=== PATIENT | male | born 1960 | race Two or more races ===

== ENCOUNTER 2019-10-24 19:25 | Inpatient (IN) | payer OTHER ==
[2019-10-24] MEDS ORDERED: SODIUM CHLORIDE 0.9% 1,000 ML IV STA ×2 (19:51)
[2019-10-24] MEDS ORDERED: PANTOPRAZOLE 40 MG/10 ML VIAL IVP STA (19:51)
--- NOTE | 2019-10-24 20:07 | ED ---
General Adult HPI - General Source: patient, RN notes reviewed, old records reviewed Mode of arrival: ambulatory Limitations: no limitations <Gale Wilder - Last Filed: 10/24/19 22:48> <Ronen Chan - Last Filed: 11/08/19 07:27> - General Chief complaint: Recheck/Abnormal Lab/Rx Stated complaint: liver issues Time Seen by Provider: 10/24/19 19:35 - History of Present Illness Initial comments: Patient's a 59-year-old male who presents emergency department today for evaluation for jaundice. Patient has been a daily drinker and states that he drinks approximately 10 mixed drinks daily for the past 2 years. Patient reports he quit drinking one week ago. He denies any abdominal pain at this time. He reports that he's noticed progressive jaundice and yellowing of his skin for the past few weeks. His encouraged him come to the emergency department today. (Gale Wilder) - Related Data Allergies Allergy/AdvReac Type Severity Reaction Status Date / Time No Known Allergies Allergy Verified 10/24/19 23:04 Review of Systems ROS Other: All systems not noted in ROS Statement are negative. <TinaGale - Last Filed: 10/24/19 22:48> ROS Other: All systems not noted in ROS Statement are negative. <Ronen Chan - Last Filed: 11/08/19 07:27> ROS Statement: Those systems with pertinent positive or pertinent negative responses have been documented in the HPI. Past Medical History Past Medical History: No Reported History History of Any Multi-Drug Resistant Organisms: None Reported Past Surgical History: No Surgical Hx Reported Past Psychological History: No Psychological Hx Reported Smoking Status: Never smoker Past Alcohol Use History: Abuse, Daily Past Drug Use History: None Reported <TinaGale - Last Filed: 10/24/19 22:48> General Exam Limitations: no limitations General appearance: alert, in no apparent distress, other Head exam: Present: atraumatic, normocephalic, normal inspection Eye exam: Present: normal appearance, PERRL, EOMI, scleral icterus. Absent: conjunctival injection, periorbital swelling ENT exam: Present: normal exam, mucous membranes moist Neck exam: Present: normal inspection. Absent: tenderness, meningismus, lymphadenopathy Respiratory exam: Present: normal lung sounds bilaterally. Absent: respiratory distress, wheezes, rales, rhonchi, stridor Cardiovascular Exam: Present: regular rate, normal rhythm, normal heart sounds. Absent: systolic murmur, diastolic murmur, rubs, gallop, clicks GI/Abdominal exam: Present: soft, normal bowel sounds. Absent: distended, tenderness, guarding, rebound, rigid Extremities exam: Present: normal inspection, full ROM, normal capillary refill. Absent: tenderness, pedal edema, joint swelling, calf tenderness Back exam: Present: normal inspection Neurological exam: Present: alert, oriented X3, CN II-XII intact Psychiatric exam: Present: normal affect, normal mood Skin exam: Present: warm, dry, intact, normal color. Absent: rash <Gale Wilder - Last Filed: 10/24/19 22:48> - General Exam Comments Initial Comments: 59-year-old male. Alert and oriented. Clearly jaundice. (Gale Wilder) Course Vital Signs 10/24/19 10/24/19 10/24/19 19:28 20:10 22:20 Temperature 99 F Pulse Rate 90 87 85 Respiratory 18 18 16 Rate Blood Pressure 151/73 151/73 146/85 O2 Sat by Pulse 100 100 98 Oximetry 10/25/19 05:00 Temperature 99.2 F Pulse Rate 80 Respiratory 18 Rate Blood Pressure 139/68 O2 Sat by Pulse 99 Oximetry Medical Decision Making - Lab Data Result diagrams: 10/24/19 20:12 10/24/19 20:12 - Radiology Data Radiology results: report reviewed <Gale Wilder - Last Filed: 10/24/19 22:48> - Lab Data Result diagrams: 10/27/19 10:54 10/29/19 07:15 <Ronen Chan - Last Filed: 11/08/19 07:27> - Medical Decision Making 59-year-old male presents emergency department today for worsening jaundice. History of heavy alcohol abuse 10 drinks a day. He stopped drinking this past week. Patient is clinically jaundiced. Elevated bilirubin of 21. Patient does have a low potassium of 3.0. Was given oral supplementation. Patient was started on IV banana bag as well. Discussed the case with Dr. Chan and will be admitted with GI consult. (Gale Wilder) I saw this patient in conjunction with the physician assistant manager trainee. I performed independent history and physical exam. Agree with case management. (Ronen Chan) - Lab Data Lab Results 10/24/19 10/24/19 10/24/19 Range/Units 20:12 20:12 20:12 WBC 12.0 H (3.8-10.6) k/uL RBC 3.16 L (4.30-5.90) m/uL Hgb 11.7 L (13.0-17.5) gm/dL Hct 34.8 L (39.0-53.0) % MCV 109.9 H (80.0-100.0) fL MCH 36.8 H (25.0-35.0) pg MCHC 33.5 (31.0-37.0) g/dL RDW 14.9 (11.5-15.5) % Plt Count 334 (150-450) k/uL Neutrophils % 78 % Lymphocytes % 11 % Monocytes % 6 % Eosinophils % 3 % Basophils % 1 % Neutrophils # 9.3 H (1.3-7.7) k/uL Lymphocytes # 1.3 (1.0-4.8) k/uL Monocytes # 0.7 (0-1.0) k/uL Eosinophils # 0.4 (0-0.7) k/uL Basophils # 0.1 (0-0.2) k/uL Manual Slide Review Performed Poikilocytosis (manual Present Macrocytosis Marked A PT 17.0 H (9.0-12.0) sec INR 1.7 H (<1.2) APTT 27.1 (22.0-30.0) sec Sodium 129 L (137-145) mmol/L Potassium 3.0 L (3.5-5.1) mmol/L Chloride 95 L (98-107) mmol/L Carbon Dioxide 21 L (22-30) mmol/L Anion Gap 13 mmol/L BUN 18 (9-20) mg/dL Creatinine 0.93 (0.66-1.25) mg/dL Est GFR (CKD-EPI)AfAm >90 (>60 ml/min/1.73 sqM) Est GFR (CKD-EPI)NonAf 89 (>60 ml/min/1.73 sqM) Glucose 118 H (74-99) mg/dL Calcium 8.1 L (8.4-10.2) mg/dL Total Bilirubin 21.1 H* (0.2-1.3) mg/dL AST 218 H (17-59) U/L ALT 65 H (4-49) U/L Alkaline Phosphatase 315 H (38-126) U/L Total Protein 8.3 H (6.3-8.2) g/dL Albumin 3.1 L (3.5-5.0) g/dL Amylase 61 (30-110) U/L Lipase 341 H (23-300) U/L Urine Color Urine Appearance (Clear) Urine pH (5.0-8.0) Ur Specific [place] (1.001-1.035) Urine Protein (Negative) Urine Glucose (UA) (Negative) Urine Ketones (Negative) Urine Blood (Negative) Urine Nitrite (Negative) Urine Bilirubin (Negative) Urine Urobilinogen (<2.0) mg/dL Ur Leukocyte Esterase (Negative) Urine RBC (0-5) /hpf Urine WBC (0-5) /hpf Ur Squamous Epith Cells (0-4) /hpf Amorphous Sediment (None) /hpf Urine Bacteria (None) /hpf Hyaline Casts (0-2) /lpf Granular Casts (0) /lpf Urine Mucus (None) /hpf Serum Alcohol <10 mg/dL Hepatitis A IgM Ab (Non-Reactive) Hep Bs Antigen (Non-Reactive) Hep B Core IgM Ab (Non-Reactive) Hep C IgG Ab (Non-Reactive) 10/24/19 10/24/19 Range/Units 20:12 21:45 WBC (3.8-10.6) k/uL RBC (4.30-5.90) m/uL Hgb (13.0-17.5) gm/dL Hct (39.0-53.0) % MCV (80.0-100.0) fL MCH (25.0-35.0) pg MCHC (31.0-37.0) g/dL RDW (11.5-15.5) % Plt Count (150-450) k/uL Neutrophils % % Lymphocytes % % Monocytes % % Eosinophils % % Basophils % % Neutrophils # (1.3-7.7) k/uL Lymphocytes # (1.0-4.8) k/uL Monocytes # (0-1.0) k/uL Eosinophils # (0-0.7) k/uL Basophils # (0-0.2) k/uL Manual Slide Review Poikilocytosis (manual Macrocytosis PT (9.0-12.0) sec INR (<1.2) APTT (22.0-30.0) sec Sodium (137-145) mmol/L Potassium (3.5-5.1) mmol/L Chloride (98-107) mmol/L Carbon Dioxide (22-30) mmol/L Anion Gap mmol/L BUN (9-20) mg/dL Creatinine (0.66-1.25) mg/dL Est GFR (CKD-EPI)AfAm (>60 ml/min/1.73 sqM) Est GFR (CKD-EPI)NonAf (>60 ml/min/1.73 sqM) Glucose (74-99) mg/dL Calcium (8.4-10.2) mg/dL Total Bilirubin (0.2-1.3) mg/dL AST (17-59) U/L ALT (4-49) U/L Alkaline Phosphatase (38-126) U/L Total Protein (6.3-8.2) g/dL Albumin (3.5-5.0) g/dL Amylase (30-110) U/L Lipase (23-300) U/L Urine Color Dark Brown Urine Appearance Cloudy (Clear) Urine pH 6.0 (5.0-8.0) Ur Specific [place] 1.017 (1.001-1.035) Urine Protein Trace H (Negative) Urine Glucose (UA) Negative (Negative) Urine Ketones Negative (Negative) Urine Blood Negative (Negative) Urine Nitrite Negative (Negative) Urine Bilirubin 4+ H (Negative) Urine Urobilinogen 4.0 (<2.0) mg/dL Ur Leukocyte Esterase Trace H (Negative) Urine RBC <1 (0-5) /hpf Urine WBC 2 (0-5) /hpf Ur Squamous Epith Cells <1 (0-4) /hpf Amorphous Sediment Rare H (None) /hpf Urine Bacteria Occasional H (None) /hpf Hyaline Casts 8 H (0-2) /lpf Granular Casts 4 (0) /lpf Urine Mucus Few H (None) /hpf Serum Alcohol mg/dL Hepatitis A IgM Ab Non-Reactive (Non-Reactive) Hep Bs Antigen Non-Reactive (Non-Reactive) Hep B Core IgM Ab Non-Reactive (Non-Reactive) Hep C IgG Ab Non-Reactive (Non-Reactive) 10/24/19 22:48 EKG performed at 2017 shows normal sinus rhythm anterior septal infarct age undetermined. Prolonged QT. Ventricular rate of 86 bpm. [place] interval is 186 ms. QRS duration is 84 ms. QT QTc is 424/507 ms. (Gale Wilder) - Radiology Data Nose suspicious acute infiltrate. Overall nonspecific but favor nonobstructive bowel gas pattern. Ultrasound shows cirrhosis with small amount of perihepatic ascites. (Gale Wilder) Disposition Is patient prescribed a controlled substance at d/c from ED?: No Time of Disposition: 22:52 <Gale Wilder - Last Filed: 10/24/19 22:48> <Ronen Chan - Last Filed: 11/08/19 07:27> Clinical Impression: Jaundice, ETOH abuse Disposition: ADMITTED IP TO THIS HOSP Condition: Stable
[2019-10-24 20:50] LABS: Basophils # (A) 0.1 k/uL (0-0.2); Basophils % (A) 1 %; Eosinophils # (A) 0.4 k/uL (0-0.7); Eosinophils % (A) 3 %; HCT 34.8 % (39.0-53.0); HGB 11.7 gm/dL (13.0-17.5); Lymphocytes # (A) 1.3 k/uL (1.0-4.8); Lymphocytes % (A) 11 %; MCH 36.8 pg (25.0-35.0); MCHC 33.5 g/dL (31.0-37.0); MCV 109.9 fL (80.0-100.0); Macrocytosis Marked; Mean Platelet Volume 8.3; Monocytes # (A) 0.7 k/uL (0-1.0); Monocytes % (A) 6 %; Neutrophils # (A) 9.3 k/uL (1.3-7.7); Neutrophils % (A) 78 %; Platelet Count 334 k/uL (150-450); RBC 3.16 m/uL (4.30-5.90); RDW 14.9 % (11.5-15.5)
--- NOTE | 2019-10-24 20:53 | XR ---
EXAMINATION TYPE: XR chest 2V DATE OF EXAM: 10/24/2019 COMPARISON: NONE HISTORY: Cough and jaundice. TECHNIQUE: Frontal and lateral views of the chest are obtained. FINDINGS: There is suspected some chronic reticulonodular changes bilaterally without concerning foc al air space opacity, pleural effusion, or pneumothorax seen. Somewhat low lung volumes are present. The cardiac silhouette size is within normal limits. The osseous structures are intact. IMPRESSION: No suspicious acute infiltrate.
--- NOTE | 2019-10-24 20:54 | XR ---
EXAMINATION TYPE: XR KUB DATE OF EXAM: 10/24/2019 8:26 PM CLINICAL HISTORY: History of alcoholism with jaundice and pain. TECHNIQUE: Two Upright KUB images of the abdomen are obtained. COMPARISON: None. FINDINGS: Scattered gas is seen in non-distended stomach and visualized small bowel loops. Some pauci ty of small bowel gas noted. Gas and fecal material is seen in non-distended colon. Right-sided pelvi c phleboliths. No pneumoperitoneum. Visualized osseous structures are intact. IMPRESSION: Overall nonspecific but favored nonobstructive bowel gas pattern.
[2019-10-24 20:57] LABS: ALT 65 U/L (4-49); AST 218 U/L (17-59); African American GFR (CKD) >90 (>60 ml/min/1.73 sqM); Albumin 3.1 g/dL (3.5-5.0); Alcohol <10 mg/dL; Alkaline Phosphatase 315 U/L (38-126); Amylase 61 U/L (30-110); Anion Gap 13 mmol/L; Blood Urea Nitrogen 18 mg/dL (9-20); Calcium 8.1 mg/dL (8.4-10.2); Carbon Dioxide 21 mmol/L (22-30); Chloride 95 mmol/L (98-107); Glucose 118 mg/dL (74-99); Non-African American GFR(CKD) 89 (>60 ml/min/1.73 sqM); Sodium 129 mmol/L (137-145); Total Protein 8.3 g/dL (6.3-8.2)
[2019-10-24 21:01] LABS: INR 1.7 (<1.2); Partial Thromboplastin Time 27.1 sec (22.0-30.0)
[2019-10-24 21:15] LABS: Total Bilirubin 21.1 mg/dL (0.2-1.3)
[2019-10-24 21:25] LABS: Poikilocytosis (M) Present
--- NOTE | 2019-10-24 21:37 | US ---
EXAMINATION TYPE: US gallbladder DATE OF EXAM: 10/24/2019 COMPARISON: NONE CLINICAL HISTORY: cough, jaundice. Cough, Jaundice. EXAM MEASUREMENTS: Liver Length: 20.6 cm Gallbladder Wall: 0.41 cm CBD: Not visualized Right Kidney: 12.0 x 4.8 x 4.9 cm Pancreas: Limited. Liver: Appears enlarged. Appears coarse/heterogeneous and has an increased echogenicity. Gallbladder: Appears partially contracted. There appears to be echogenic material within the gallbla dder measurin.1 x 0.8 x 0.5 cm. Wall appears thickened. Evidence for sonographic Perea's sign: No Right Kidney: Measures upper limits of normal. Visualized pancreas is heterogeneous, significant portions not well seen on images saved secondary to patient's body habitus. Visualized liver is heterogeneously hyperechoic with lobulated peripheral ma rgin and adjacent ascites. Finding presumed product of underlying cirrhosis. No intrahepatic ductal d ilatation. Evaluation for focal masses suboptimal due to the heterogeneity. Gallbladder contracted wi thout shadowing mobile gallstones. Mild abnormal gallbladder wall thickening likely product of underl gorge liver disease. Limited images right kidney show no gross hydronephrosis. IMPRESSION: Cirrhosis with small amount of perihepatic ascites.
[2019-10-24 22:23] LABS: Amorphous Sediment,Urine Rare /hpf; Appearance,Urine Cloudy (Clear); Bacteria,Urine Occasional /hpf; Bilirubin,Urine 4+ (Negative); Blood,Urine Negative (Negative); Color,Urine Dark Brown; Glucose,Urine (UA) Negative (Negative); Granular Casts,Urine 4 /lpf (0); Hyaline Casts,Urine 8 /lpf (0-2); Ketones,Urine Negative (Negative); Leukocyte Esterase,Urine Trace (Negative); Mucus,Urine Few /hpf; Nitrite,Urine Negative (Negative); Protein,Urine Trace (Negative); RBC,Urine <1 /hpf (0-5); Specific Gravity,Urine 1.017 (1.001-1.035); Squamous Epithelial Cell,Urine <1 /hpf (0-4); WBC,Urine 2 /hpf (0-5)
[2019-10-24] MEDS: 0.9% NACL WITH KCL 20 MEQ/L 1,000 ML with MVI, ADULT NO.4 WITH VIT K 10 ML, THIAMINE 10... IV SCH ×4 (22:30)
[2019-10-24] MEDS ORDERED: POTASSIUM CHLORIDE ER 20 MEQ TAB.ER PO STA (22:40)
[2019-10-24] MEDS ORDERED: NALOXONE 0.4 MG/ML 1 ML VIAL IV PRN (22:52)
[2019-10-24] MEDS ORDERED: IBUPROFEN 400 MG TAB PO PRN (22:52)
[2019-10-24] MEDS ORDERED: KETOROLAC 30 MG/ML 1 ML VIAL IVP PRN (22:52)
[2019-10-24] MEDS ORDERED: MORPHINE SULFATE 4 MG/ML SYRINGE IV PRN (22:52)
[2019-10-24] MEDS: SODIUM CHLORIDE 0.9% 1,000 ML IV SCH (23:16)
[2019-10-25] MEDS ORDERED: PANTOPRAZOLE 40 MG/10 ML VIAL IV SCH (09:00)
[2019-10-25] MEDS: SODIUM CHLORIDE 0.9% 1,000 ML IV SCH ×2 (09:50→22:03)
[2019-10-25] MEDS: LACTULOSE 20 GM/30 ML CUP PO SCH ×3 (10:41→22:12)
--- NOTE | 2019-10-25 13:09 | P.HPIM ---
History of Present Illness This is a pleasant 59 years old male with no significant past medical history. Presents because of jaundice for 2 weeks, however patient denies abdominal pain or nausea vomiting or change in bowel habits. No fever. Patient is drinking alcohol about 10 drinks per day millivolts, patient claims that last drink was about one week ago, he denies smoking or illicit drugs Vitals stable, WBC 12 K, hemoglobin 11.7, platelets 334, INR 1.7, sodium 129, creatinine 0.9. Bilirubin is 21, AST 218, ALT 65. Lipase mildly elevated at 341. UA is suspicious of infection, alcohol level less than 10.. EKG showed normal sinus rhythm at [address]-T changes, chest x-ray: No acute processes per radiologist. Gallbladder ultrasound: Cirrhosis with minimal perihepatic ascites and emergency room patient was started on normal saline at 100 mL per hour, lactulose 30 g 3 times a day, tramadol and ibuprofen and Protonix. GI team was consulted from emergency room Review of Systems CONSTITUTIONAL: No fever, no malaise, no fatigue. HEENT: No recent visual problems or hearing problems. Denied any sore throat. CARDIOVASCULAR: No orthopnea, PND, no palpitations, no syncope. PULMONARY: No shortness of breath, no cough, no hemoptysis. GASTROINTESTINAL: No diarrhea, no nausea, no vomiting, no abdominal pain. Normoactive bowel sounds. NEUROLOGICAL: No headaches, no weakness, no numbness. HEMATOLOGICAL: Denies any bleeding or petechiae. GENITOURINARY: Denies any burning micturition, frequency, or urgency. MUSCULOSKELETAL/RHEUMATOLOGICAL: Denies any joint pain, swelling, or any muscle pain. ENDOCRINE: Denies any polyuria or polydipsia. Past Medical History Past Medical History: No Reported History History of Any Multi-Drug Resistant Organisms: None Reported Past Surgical History: No Surgical Hx Reported Additional Past Anesthesia/Blood Transfusion Reaction / Comment(s): no previous Past Psychological History: No Psychological Hx Reported Smoking Status: Never smoker Past Alcohol Use History: Abuse, Daily Additional Past Alcohol Use History / Comment(s): patients last drink was a week ago. vodka 10 drinks a day Past Drug Use History: None Reported - Past Family History Mother Family Medical History: No Reported History Father Family Medical History: No Reported History Medications and Allergies Home Medications Medication Instructions Recorded Confirmed Type No Known Home Medications 10/24/19 10/24/19 History Allergies Allergy/AdvReac Type Severity Reaction Status Date / Time No Known Allergies Allergy Verified 10/24/19 23:04 Physical Exam Vitals: Vital Signs Temp Pulse Pulse Resp BP BP Pulse Ox 10/25/19 07:38 97.5 F L 78 18 124/67 100 10/25/19 05:00 99.2 F 80 18 139/68 99 10/24/19 22:20 85 16 146/85 98 10/24/19 20:10 87 18 151/73 100 10/24/19 19:28 99 F 90 18 151/73 100 Intake and Output 10/24/19 10/25/19 10/25/19 22:59 06:59 14:59 Other: Weight 90.718 kg 90.718 kg GENERAL: The patient is alert and oriented x3, not in any acute distress. Well developed, well nourished. HEENT: Pupils are round and equally reacting to light. EOMI. No scleral icterus. No conjunctival pallor. Normocephalic, atraumatic. No pharyngeal erythema. No thyromegaly. CARDIOVASCULAR: S1 and S2 present. No murmurs, rubs, or gallops. PULMONARY: Chest is clear to auscultation, no wheezing or crackles. ABDOMEN: Soft, nontender, nondistended, normoactive bowel sounds. No palpable organomegaly. MUSCULOSKELETAL: No joint swelling or deformity. EXTREMITIES: No cyanosis, clubbing, or pedal edema. NEUROLOGICAL: Gross neurological examination did not reveal any focal deficits. SKIN: No rashes. No petechiae Results CBC & Chem 7: 10/24/19 20:12 10/24/19 20:12 Labs: Abnormal Lab Results - Last 24 Hours (Table) 10/24/19 10/24/19 10/24/19 Range/Units 20:12 20:12 20:12 WBC 12.0 H (3.8-10.6) k/uL RBC 3.16 L (4.30-5.90) m/uL Hgb 11.7 L (13.0-17.5) gm/dL Hct 34.8 L (39.0-53.0) % MCV 109.9 H (80.0-100.0) fL MCH 36.8 H (25.0-35.0) pg Neutrophils # 9.3 H (1.3-7.7) k/uL Macrocytosis Marked A PT 17.0 H (9.0-12.0) sec INR 1.7 H (<1.2) Sodium 129 L (137-145) mmol/L Potassium 3.0 L (3.5-5.1) mmol/L Chloride 95 L (98-107) mmol/L Carbon Dioxide 21 L (22-30) mmol/L Glucose 118 H (74-99) mg/dL Calcium 8.1 L (8.4-10.2) mg/dL Total Bilirubin 21.1 H* (0.2-1.3) mg/dL AST 218 H (17-59) U/L ALT 65 H (4-49) U/L Alkaline Phosphatase 315 H (38-126) U/L Ammonia (<30) umol/L Total Protein 8.3 H (6.3-8.2) g/dL Albumin 3.1 L (3.5-5.0) g/dL Lipase 341 H (23-300) U/L Urine Protein (Negative) Urine Bilirubin (Negative) Ur Leukocyte Esterase (Negative) Amorphous Sediment (None) /hpf Urine Bacteria (None) /hpf Hyaline Casts (0-2) /lpf Urine Mucus (None) /hpf 10/24/19 10/25/19 Range/Units 21:45 09:01 WBC (3.8-10.6) k/uL RBC (4.30-5.90) m/uL Hgb (13.0-17.5) gm/dL Hct (39.0-53.0) % MCV (80.0-100.0) fL MCH (25.0-35.0) pg Neutrophils # (1.3-7.7) k/uL Macrocytosis PT (9.0-12.0) sec INR (<1.2) Sodium (137-145) mmol/L Potassium (3.5-5.1) mmol/L Chloride (98-107) mmol/L Carbon Dioxide (22-30) mmol/L Glucose (74-99) mg/dL Calcium (8.4-10.2) mg/dL Total Bilirubin (0.2-1.3) mg/dL AST (17-59) U/L ALT (4-49) U/L Alkaline Phosphatase (38-126) U/L Ammonia 85 H (<30) umol/L Total Protein (6.3-8.2) g/dL Albumin (3.5-5.0) g/dL Lipase (23-300) U/L Urine Protein Trace H (Negative) Urine Bilirubin 4+ H (Negative) Ur Leukocyte Esterase Trace H (Negative) Amorphous Sediment Rare H (None) /hpf Urine Bacteria Occasional H (None) /hpf Hyaline Casts 8 H (0-2) /lpf Urine Mucus Few H (None) /hpf Thrombosis Risk Factor Assmnt - Choose All That Apply Any of the Below Risk Factors Present?: No Other Risk Factors: Yes Each Risk Factor Represents 2 Points: Age 61-74 years Other congenital or acquired thrombophilia - If yes, enter type in comment: No Thrombosis Risk Factor Assessment Total Risk Factor Score: 2 Thrombosis Risk Factor Assessment Level: Low Risk Assessment and Plan Assessment: Significantly elevated bilirubin with jaundice Alcohol abuse Leukocytosis, mild. Mostly reactive to light Mild tricuspid he with INR 1.7, mostly related to his liver disease. Elevated ammonia level of 85 Plan: This is a pleasant 59 years old male who presents with significant jaundice, alcohol abuse. Continue with IV fluid with gentle hydration, follow-up recommendation by wardrobe specialist continue with CIWA protocol and thiamine ( patient is on banana bag ) Labs and medication were reviewed.. Continue same treatment. Continue with symptomatic treatment. Resume home medication. Monitor lytes and vitals. DVT and GI prophylaxis. Further recommendations of the clinical course of the patient DVT prophylaxis: Subcutaneous heparin GI Prophylaxis: Pepcid PT/OT: Pending Prognosis is guarded
[2019-10-25] MEDS: 0.9% NACL WITH KCL 20 MEQ/L 1,000 ML with MVI, ADULT NO.4 WITH VIT K 10 ML, THIAMINE 10... IV SCH ×4 (15:54)
[2019-10-25 16:32] LABS: Alpha Fetoprotein, Tumor Mkr 2.8 ng/mL (0.0-7.9)
[2019-10-25 18:23] LABS: Ferritin 1286.6 ng/mL (22.0-322.0)
[2019-10-25 18:24] LABS: % Iron Saturation 51.95 (15.00-50.00)
[2019-10-25 18:34] LABS: Hepatitis A Antibody IgM Non-Reactive (Non-Reactive); Hepatitis B Core IgM Non-Reactive (Non-Reactive); Hepatitis B Surface Antigen Non-Reactive (Non-Reactive); Hepatitis C IgG Antibody Non-Reactive (Non-Reactive)
[2019-10-25] MEDS ORDERED: FAMOTIDINE 20 MG/2 ML VIAL IV SCH (21:00)
[2019-10-25] MEDS ORDERED: Magnesium Replacement Protocol 1 EACH MISC MISCELLANE PRN (21:58)
[2019-10-25] MEDS ORDERED: Potassium Replacement Protocol 1 EACH MISC MISCELLANE PRN (21:58)
[2019-10-25] MEDS: FAMOTIDINE 20 MG TAB PO SCH (22:08)
[2019-10-25] MEDS: HEPARIN SODIUM,PORCINE 5,000 UNIT/ML 1 ML VIAL SQ SCH (22:09)
--- NOTE | 2019-10-25 23:58 | CONS ---
CONSULTATION DATE OF SERVICE: 10/25/2019 REQUESTING PHYSICIAN: Dr. Razo REASON FOR CONSULTATION: Elevated LFTs and jaundice. HISTORY OF PRESENT ILLNESS: The patient is a 59-year-old pleasant male with heavy alcohol abuse, admitted to the hospital because of jaundice for the last 2 weeks duration. He denies any abdominal pain. Reports no nausea, vomiting. Reports no significant change in bowel habits. He apparently drinks heavy. He has been drinking heavily and drinks about 10 drinks a day for the last 30 years. He quit drinking about a week ago and came in the emergency room, was noted to have a bilirubin of 21 with AST of 218 and ALT of 65. The patient is somewhat lethargic at the present time. His is at the bedside who provided most of the history. The patient denies any history of chronic liver disease in the past. PAST MEDICAL HISTORY: Past medical history is significant for heavy alcohol abuse. MEDICATIONS: At home none. ALLERGIES: No known drug allergies. SOCIAL HISTORY: Heavy alcohol use as mentioned above. No smoking. FAMILY HISTORY: Unremarkable. REVIEW OF SYSTEMS: Cardiopulmonary no chest pain, shortness of breath. Genitourinary: No dysuria or hematuria. MUSCULOSKELETAL unremarkable. SKIN unremarkable. ENDOCRINE unremarkable. PSYCHIATRIC unremarkable. NEUROLOGY unremarkable. ENT/vision unremarkable. CONSTITUTIONAL: No recent weight loss. No fever, chills or night sweats. PHYSICAL EXAMINATION: Blood pressure 130/66, pulse rate 75, temperature 97.3. HEENT examination unremarkable. Conjunctivae pink. Sclerae deeply icteric. Oral cavity no lesions. NECK: No JVD or lymph node enlargement. CHEST: Clear to auscultation. HEART: Regular rate and rhythm. ABDOMEN: Soft, slightly distended, but there was no organomegaly. No free fluid noted. EXTREMITIES: No pedal edema. SKIN no rashes. NEUROLOGIC: Alert and oriented x3. No focal deficits. LABS: WBC 12, hemoglobin 11.7, platelets normal, MCV 109. INR is 1.7, T-bilirubin is 21, AST 218, ALT 65, alkaline phosphatase 318. Ammonia level is 85. AFP is 2.8. Serum alcohol less than 10. IMPRESSION: 1. This is a patient with heavy alcohol abuse, admitted to the hospital with painless jaundice for the last 2 weeks duration and liver enzymes consistent which showed elevated AST more than ALT and bilirubin up to 21, all consistent with acute alcoholic hepatitis/chronic liver disease superimposed on liver cirrhosis. 2. Coagulopathy secondary to underlying liver disease. 3. Hyponatremia. 4. Microcytic anemia. RECOMMENDATIONS: 1. Ultrasound results showed cirrhosis and a small amount of ascites and contracted gallbladder. 2. I had a discussion with the patient as well as his who is at the bedside regarding acute alcoholic hepatitis natural progression and about the guarded prognosis. 3. Abstinence from alcohol. 4. Obtain hepatitis viral serologies for A, B and C. 5. Start him on lactulose for hepatic encephalopathy. 6. Repeat labs in the morning and we will follow with you closely. Thank you for this consultation. MMODL / IJN: [id number] /
[2019-10-26] MEDS: LACTULOSE 20 GM/30 ML CUP PO SCH ×4 (08:19→22:21)
[2019-10-26] MEDS: HEPARIN SODIUM,PORCINE 5,000 UNIT/ML 1 ML VIAL SQ SCH ×2 (08:19→22:23)
[2019-10-26] MEDS: FAMOTIDINE 20 MG TAB PO SCH ×2 (08:19→22:23)
[2019-10-26 10:00] LABS: Basophils # (A) 0.1 k/uL (0-0.2); Basophils % (A) 1 %; Eosinophils # (A) 0.3 k/uL (0-0.7); Eosinophils % (A) 3 %; HCT 36.7 % (39.0-53.0); Lymphocytes # (A) 1.4 k/uL (1.0-4.8); Lymphocytes % (A) 14 %; MCH 37.1 pg (25.0-35.0); MCHC 32.7 g/dL (31.0-37.0); MCV 113.5 fL (80.0-100.0); Macrocytosis Marked; Mean Platelet Volume 8.4; Monocytes # (A) 0.5 k/uL (0-1.0); Monocytes % (A) 4 %; Neutrophils # (A) 7.8 k/uL (1.3-7.7); Neutrophils % (A) 76 %; Platelet Count 344 k/uL (150-450); RBC 3.23 m/uL (4.30-5.90); RDW 14.8 % (11.5-15.5); WBC 10.3 k/uL (3.8-10.6)
--- NOTE | 2019-10-26 10:07 | P.PN ---
Subjective This is a pleasant 59 years old male with no significant past medical history. Presents because of jaundice for 2 weeks, however patient denies abdominal pain or nausea vomiting or change in bowel habits. No fever. Patient is drinking alcohol about 10 drinks per day millivolts, patient claims that last drink was about one week ago, he denies smoking or illicit drugs Vitals stable, WBC 12 K, hemoglobin 11.7, platelets 334, INR 1.7, sodium 129, creatinine 0.9. Bilirubin is 21, AST 218, ALT 65. Lipase mildly elevated at 341. UA is suspicious of infection, alcohol level less than 10.. EKG showed normal sinus rhythm at [address]-T changes, chest x-ray: No acute processes per radiologist. Gallbladder ultrasound: Cirrhosis with minimal perihepatic ascites and emergency room patient was started on normal saline at 100 mL per hour, lactulose 30 g 3 times a day, tramadol and ibuprofen and Protonix. GI team was consulted from emergency room 10/26/2019 Patient is awake and alert, no dyspnea or chest pain, no abdominal pain, no vomiting, tolerating that well, no dysuria, no issues with his bowel as per patient. No dizziness or weakness. No blurred vision or other complaint. Patient is afebrile and vitals are stable. No signs of alcohol withdrawal Labs from today are still pending GI team been consulted and workup has been requested including serology test, please see orders So far patient has negative hepatitis panel, alpha-fetoprotein within reference range Review of systems CONSTITUTIONAL: No fever, no malaise, no fatigue. HEENT: No recent visual problems or hearing problems. Denied any sore throat. CARDIOVASCULAR: No orthopnea, PND, no palpitations, no syncope. PULMONARY: No shortness of breath, no cough, no hemoptysis. GASTROINTESTINAL: No diarrhea, no nausea, no vomiting, no abdominal pain. Normoactive bowel sounds. NEUROLOGICAL: No headaches, no weakness, no numbness. HEMATOLOGICAL: Denies any bleeding or petechiae. GENITOURINARY: Denies any burning micturition, frequency, or urgency. MUSCULOSKELETAL/RHEUMATOLOGICAL: Denies any joint pain, swelling, or any muscle pain. ENDOCRINE: Denies any polyuria or polydipsia. Active Medications Generic Name Dose Route Start Last Admin Trade Name Freq PRN Reason Stop Dose Admin Famotidine 20 mg 10/25/19 21:00 10/26/19 08:19 Pepcid PO 20 mg Q12HR [place] Administration Heparin Sodium (Porcine) 5,000 unit 10/25/19 21:00 10/26/19 08:19 Heparin SQ 5,000 unit Q12HR [place] Administration Sodium Chloride 1,000 mls @ 50 mls/hr 10/24/19 23:00 10/25/19 22:03 Saline 0.9% IV 50 mls/hr .Q20H [place] Administration Ibuprofen 400 mg 10/24/19 22:52 Motrin PO Q6HR PRN Mild Pain or Fever > 100.5 Ketorolac Tromethamine 30 mg 10/24/19 22:52 Toradol IVP 10/29/19 22:53 Q6HR PRN Moderate Pain Lactulose 30 gm 10/25/19 09:45 10/26/19 08:21 Cephulac PO 20 gm TID [place] Administration Miscellaneous Information 1 each 10/25/19 21:58 Potassium Per Protocol MISCELLANE DAILY PRN Per Protocol Protocol Miscellaneous Information 1 each 10/25/19 21:58 Magnesium Per Protocol MISCELLANE DAILY PRN Per Protocol Protocol Morphine Sulfate 4 mg 10/24/19 22:52 Morphine Sulfate (Inj) IV Q4HR PRN Severe Pain Naloxone HCl 0.2 mg 10/24/19 22:52 Narcan IV Q2M PRN Opioid Reversal Objective - Vital Signs Vital signs: Vital Signs Temp 97.8 F 10/26/19 05:00 Pulse 79 10/26/19 05:00 Resp 18 10/26/19 08:00 BP 143/73 10/26/19 05:00 Pulse Ox 100 10/26/19 05:00 Intake & Output 10/25/19 10/26/19 10/26/19 18:59 06:59 18:59 Intake Total 500 850 Balance 500 850 Intake: Intake, IV Titration 500 Amount Sodium Chloride 0.9% 1, 500 000 ml @ 50 mls/hr IV . Q20H [place] Rx#:[id number] Oral 850 Other: Voiding Method Toilet # Voids 1 2 # Bowel Movements 0 - Exam GENERAL: The patient is alert and oriented x3, not in any acute distress. Well developed, well nourished. HEENT: Pupils are round and equally reacting to light. EOMI. No scleral icterus. No conjunctival pallor. Normocephalic, atraumatic. No pharyngeal erythema. No thyromegaly. CARDIOVASCULAR: S1 and S2 present. No murmurs, rubs, or gallops. PULMONARY: Chest is clear to auscultation, no wheezing or crackles. ABDOMEN: Soft, nontender, nondistended, normoactive bowel sounds. No palpable organomegaly. MUSCULOSKELETAL: No joint swelling or deformity. EXTREMITIES: No cyanosis, clubbing, or pedal edema. NEUROLOGICAL: Gross neurological examination did not reveal any focal deficits. SKIN: No rashes. No petechiae - Labs CBC & Chem 7: 10/24/19 20:12 10/24/19 20:12 Labs: Abnormal Lab Results - Last 24 Hours (Table) 10/25/19 Range/Units 09:01 TIBC 154 L (228-460) ug/dL % Saturation 51.95 H (15.00-50.00) Ferritin 1286.6 H (22.0-322.0) ng/mL Assessment and Plan Assessment: Significantly elevated bilirubin with jaundice Alcohol abuse Leukocytosis, mild. Mostly reactive Mild coagulopathy with INR 1.7, mostly related to his liver disease. Elevated ammonia level of 85 Plan: This is a pleasant 59 years old male who presents with significant jaundice, alcohol abuse. Continue with IV fluid with gentle hydration, follow-up recommendation by lab director continue with CIWA protocol and thiamine ( patient is on banana bag ) Labs and medication were reviewed.. Continue same treatment. Continue with symptomatic treatment. Resume home medication. Monitor lytes and vitals. DVT and GI prophylaxis. Further recommendations of the clinical course of the patient DVT prophylaxis: Subcutaneous heparin GI Prophylaxis: Pepcid PT/OT: Pending Prognosis is guarded
[2019-10-26 10:52] LABS: ALT 62 U/L (4-49); AST 240 U/L (17-59); African American GFR (CKD) >90 (>60 ml/min/1.73 sqM); Albumin 2.9 g/dL (3.5-5.0); Alkaline Phosphatase 305 U/L (38-126); Anion Gap 13 mmol/L; Blood Urea Nitrogen 14 mg/dL (9-20); Calcium 8.2 mg/dL (8.4-10.2); Carbon Dioxide 18 mmol/L (22-30); Chloride 105 mmol/L (98-107); Glucose 149 mg/dL (74-99); Magnesium 2.1 mg/dL (1.6-2.3); Non-African American GFR(CKD) >90 (>60 ml/min/1.73 sqM); Sodium 136 mmol/L (137-145); Total Protein 7.8 g/dL (6.3-8.2)
[2019-10-26 11:10] LABS: Total Bilirubin 20.4 mg/dL (0.2-1.3)
[2019-10-26] MEDS ORDERED: Potassium Replacement Protocol 1 EACH MISC MISCELLANE PRN (11:57)
[2019-10-26 12:11] LABS: Ceruloplasmin 20.8 mg/dL (20.0-60.0)
[2019-10-26] MEDS: POTASSIUM CHLORIDE ER 20 MEQ TAB.ER PO SCH ×3 (12:14→22:23)
[2019-10-26 12:15] LABS: Target Cells Present
[2019-10-26 12:50] LABS: Liver/Kidney Microsome Antibod 1.1 UNITS (<=20)
[2019-10-26] MEDS: FUROSEMIDE 20 MG TAB PO SCH (16:29)
[2019-10-26] MEDS: SODIUM CHLORIDE 0.9% 1,000 ML IV SCH (16:30)
--- NOTE | 2019-10-26 22:06 | PN ---
PROGRESS NOTE DATE OF SERVICE: 10/26/2019 The patient is a 59-year-old pleasant white male admitted to the hospital with acute alcoholic hepatitis/alcoholic cirrhosis of the liver. He was also noted to have mild hepatic encephalopathy, was started on lactulose yesterday and is feeling much better today. He is much more alert and oriented today. He denies any symptoms. PHYSICAL EXAMINATION: Appears comfortable, no apparent distress. Vital signs stable. Blood pressure is 158/77, pulse rate 92, temperature 97.7. HEENT: Examination unremarkable, conjunctivae are pink, sclerae icteric. Oral cavity no lesions. NECK: No JVD or lymph node enlargement. CHEST: Clear to auscultation. HEART: Regular rate and rhythm. ABDOMEN is slightly distended, but was nontender. EXTREMITIES: No pedal edema. Skin no rashes. NEUROLOGICAL: Alert and oriented x3. No focal deficits. LABS: WBC 10.3, hemoglobin 12, platelets normal, MCV 113, T-bilirubin is down to 20.4, AST 240, ALT 62, alkaline phosphatase 208. Ammonia level improved 246. Hepatitis serologies for A, B and C are negative. IMPRESSION: 1. Alcoholic hepatitis with alcoholic cirrhosis of the liver. 2. Decompensated liver disease. 3. Coagulopathy secondary to advanced liver disease. 4. Mild ascites. 5. Hepatic encephalopathy, improving. 6. History of heavy alcohol abuse which he quit drinking a month ago. RECOMMENDATIONS: 1. Continue with current medications. 2. Abstinence from alcohol. 3. Repeat labs in the morning. 4. Advance diet as tolerated. 5. We will follow with you closely. Thank you for this consultation. MMODL / IJN: [id number] /
[2019-10-27] MEDS: POTASSIUM CHLORIDE ER 20 MEQ TAB.ER PO SCH ×2 (08:37→21:02)
[2019-10-27] MEDS: HEPARIN SODIUM,PORCINE 5,000 UNIT/ML 1 ML VIAL SQ SCH (08:37)
[2019-10-27] MEDS: LACTULOSE 20 GM/30 ML CUP PO SCH ×3 (08:37→21:02)
[2019-10-27] MEDS: FUROSEMIDE 20 MG TAB PO SCH ×2 (08:37→15:27)
[2019-10-27] MEDS: FAMOTIDINE 20 MG TAB PO SCH ×2 (08:37→21:02)
[2019-10-27 11:11] LABS: Basophils # (A) 0.1 k/uL (0-0.2); Basophils % (A) 1 %; Eosinophils # (A) 0.3 k/uL (0-0.7); Eosinophils % (A) 3 %; HCT 36.6 % (39.0-53.0); HGB 11.9 gm/dL (13.0-17.5); Lymphocytes # (A) 1.4 k/uL (1.0-4.8); Lymphocytes % (A) 12 %; MCH 36.9 pg (25.0-35.0); MCHC 32.6 g/dL (31.0-37.0); MCV 113.3 fL (80.0-100.0); Macrocytosis Marked; Mean Platelet Volume 8.3; Monocytes # (A) 0.5 k/uL (0-1.0); Monocytes % (A) 4 %; Neutrophils # (A) 8.8 k/uL (1.3-7.7); Neutrophils % (A) 77 %; Platelet Count 382 k/uL (150-450); RBC 3.23 m/uL (4.30-5.90); RDW 14.6 % (11.5-15.5); WBC 11.3 k/uL (3.8-10.6)
[2019-10-27 11:25] LABS: INR 1.6 (<1.2); Prothrombin Time 16.1 sec (9.0-12.0)
[2019-10-27 11:43] LABS: ALT 68 U/L (4-49); AST 263 U/L (17-59); African American GFR (CKD) >90 (>60 ml/min/1.73 sqM); Albumin 2.9 g/dL (3.5-5.0); Alkaline Phosphatase 279 U/L (38-126); Anion Gap 13 mmol/L; Blood Urea Nitrogen 15 mg/dL (9-20); Calcium 8.3 mg/dL (8.4-10.2); Carbon Dioxide 18 mmol/L (22-30); Chloride 105 mmol/L (98-107); Glucose 137 mg/dL (74-99); Non-African American GFR(CKD) >90 (>60 ml/min/1.73 sqM); Potassium 3.1 mmol/L (3.5-5.1); Sodium 136 mmol/L (137-145); Total Protein 8.1 g/dL (6.3-8.2)
[2019-10-27 11:50] LABS: Poikilocytosis (M) Present; Rouleaux Present; Target Cells Present; Toxic Granulation Present
[2019-10-27 11:57] LABS: Total Bilirubin 21.5 mg/dL (0.2-1.3)
[2019-10-27] MEDS: SODIUM CHLORIDE 0.9% 1,000 ML IV SCH (13:50)
--- NOTE | 2019-10-27 17:21 | P.PN ---
Subjective 59 years old male with no significant past medical history. Presents because of jaundice for 2 weeks, however patient denies abdominal pain or nausea vomiting or change in bowel habits. No fever. Patient is drinking alcohol about 10 drinks per day millivolts, patient claims that last drink was about one week ago, he denies smoking or illicit drugs Vitals stable, WBC 12 K, hemoglobin 11.7, platelets 334, INR 1.7, sodium 129, creatinine 0.9. Bilirubin is 21, AST 218, ALT 65. Lipase mildly elevated at 341. UA is suspicious of infection, alcohol level less than 10.. EKG showed normal sinus rhythm at [address]-T changes, chest x-ray: No acute processes per radiologist. Gallbladder ultrasound: Cirrhosis with minimal perihepatic ascites and emergency room patient was started on normal saline at 100 mL per hour, lactulose 30 g 3 times a day, tramadol and ibuprofen and Protonix. GI team was consulted from emergency room 10/26/2019 Patient is awake and alert, no dyspnea or chest pain, no abdominal pain, no vomiting, tolerating that well, no dysuria, no issues with his bowel as per patient. No dizziness or weakness. No blurred vision or other complaint. Patient is afebrile and vitals are stable. No signs of alcohol withdrawal Labs from today are still pending GI team been consulted and workup has been requested including serology test, please see orders So far patient has negative hepatitis panel, alpha-fetoprotein within reference range 10/27/2019 Patient does have cirrhosis does have significant ascites clinically IV fluids will be discussed and patient will be switched IV Lasix as well as all Aldactone repeat ammonia level along with basic metabolic profile tomorrow patient has obstructive jaundice secondary to cirrhosis as well as a acute alcoholic hepatitis patient last drink was more than a week ago. Constitutional: Denied any fatigue denied any fever. Cardio vascular: denied any chest pain, palpitations Gastrointestinal denied any nausea vomiting Pulmonary: Denied any shortness of breath cough Neurologic denied any new focal deficits All inpatient medications were reviewed and appropriate changes in these medications as dictated in the interval history and assessment and plan. Objective - Vital Signs Vital signs: Vital Signs Temp 98.6 F 10/27/19 14:42 Pulse 83 10/27/19 14:42 Resp 17 10/27/19 15:21 BP 161/78 10/27/19 14:42 Pulse Ox 100 10/27/19 14:42 Intake & Output 10/26/19 10/27/19 10/27/19 18:59 06:59 18:59 Intake Total 540 540 Balance 540 540 Intake: Oral 540 540 Other: Voiding Method Toilet Toilet Toilet # Voids 1 3 # Bowel Movements 2 2 - Exam PHYSICAL EXAMINATION: GENERAL: The patient is alert and oriented x3, not in any acute distress. Well developed, well nourished. Patient has jaundice diffuse HEENT: Pupils are round and equally reacting to light. EOMI. does have significant scleral icterus. No conjunctival pallor. Normocephalic, atraumatic. No pharyngeal erythema. No thyromegaly. CARDIOVASCULAR: S1 and S2 present. No murmurs, rubs, or gallops. PULMONARY: Chest is clear to auscultation, no wheezing or crackles. ABDOMEN: Distended with fluid, clinically appears to have significant ascites and possible splenomegaly normoactive bowel sounds. No palpable organomegaly. MUSCULOSKELETAL: No joint swelling or deformity. EXTREMITIES: No cyanosis, clubbing, mild bilateral pedal edema NEUROLOGICAL: Gross neurological examination did not reveal any focal deficits. SKIN: No rashes. - Labs CBC & Chem 7: 10/27/19 10:54 10/27/19 10:54 Labs: Abnormal Lab Results - Last 24 Hours (Table) 10/27/19 10/27/19 10/27/19 Range/Units 10:54 10:54 10:54 WBC 11.3 H (3.8-10.6) k/uL RBC 3.23 L (4.30-5.90) m/uL Hgb 11.9 L (13.0-17.5) gm/dL Hct 36.6 L (39.0-53.0) % MCV 113.3 H (80.0-100.0) fL MCH 36.9 H (25.0-35.0) pg Neutrophils # 8.8 H (1.3-7.7) k/uL Macrocytosis Marked A PT 16.1 H (9.0-12.0) sec INR 1.6 H (<1.2) Sodium 136 L (137-145) mmol/L Potassium 3.1 L (3.5-5.1) mmol/L Carbon Dioxide 18 L (22-30) mmol/L Glucose 137 H (74-99) mg/dL Calcium 8.3 L (8.4-10.2) mg/dL Total Bilirubin 21.5 H* (0.2-1.3) mg/dL AST 263 H (17-59) U/L ALT 68 H (4-49) U/L Alkaline Phosphatase 279 H (38-126) U/L Albumin 2.9 L (3.5-5.0) g/dL Assessment and Plan Plan: -Hepatic encephalopathy improving at this time continue with the lactulose -Alcoholic cirrhosis with acute alcoholic hepatitis competent bilirubin remains the same patient does have significant obstructive jaundice. Patient will be started on IV Lasix along with Aldactone IV fluids will be discontinued -Hypervolemic hyponatremia, continue with IV Lasix IV fluids will be di scontinued -Coagulopathy secondary to liver disease -All call abuse history: Counseling was provided -GI prophylaxis. We'll continue with Pepcid patient will not require any DVT prophylaxis as patient's INR is 1.6
[2019-10-27] MEDS: SPIRONOLACTONE 25 MG TAB PO SCH (17:44)
[2019-10-27] MEDS: FUROSEMIDE 10 MG/ML 2 ML VIAL IV SCH (21:02)
--- NOTE | 2019-10-28 00:02 | PN ---
PROGRESS NOTE DATE OF SERVICE: 10/27/2019 Patient is a 59-year-old male admitted to hospital with acute alcoholic hepatitis superimposed on alcohol cirrhosis of the liver and hepatic encephalopathy. He is gradually improving. He denies any symptoms today. He reports no abdominal pain. No nausea, vomiting. He is more awake and alert on lactulose. The ammonia has improved. Quit drinking about 2 weeks ago. PHYSICAL EXAMINATION: Appears comfortable in no apparent distress. Vital signs stable. Blood pressure is 161/78, pulse rate is 83, temperature 98.6. HEENT: Conjunctivae pink. Sclerae deeply icteric. Oral cavity no lesions. NECK: No JVD or lymph node enlargement. CHEST: Clear to auscultation. ABDOMEN: Soft, slightly distended. Bowel sounds are positive. No organomegaly. EXTREMITIES: No pedal edema. SKIN no rashes. NEUROLOGIC: Alert and oriented times three. No focal deficits. LABS: WBC 11.3, hemoglobin 11.9, platelets normal. Bilirubin is 21.6, AST 263, ALT 68, alk phos 273. Hepatitis serology for A, B and C negative. Alpha-fetoprotein is 2.8. IMPRESSION: 1. Acute alcoholic hepatitis superimposed on alcoholic cirrhosis of the liver with decompensated liver disease. 2. Hepatic encephalopathy, improved. 3. Heavy alcohol abuse, quit drinking a week ago. 4. Coagulopathy secondary to advanced liver disease. RECOMMENDATIONS: 1. Continue with symptomatic and supportive care. 2. Continue lactulose. 3. Monitor labs on a p.r.n. basis. 4. Abstinence from alcohol. 5. We will follow the patient closely with you. MMODL / IJN: [id number] /
[2019-10-28] MEDS: FAMOTIDINE 20 MG TAB PO SCH ×2 (09:42→22:37)
[2019-10-28] MEDS: POTASSIUM CHLORIDE ER 20 MEQ TAB.ER PO SCH ×2 (09:42→22:37)
[2019-10-28] MEDS: SPIRONOLACTONE 25 MG TAB PO SCH (09:42)
[2019-10-28] MEDS: SODIUM CHLORIDE 0.9% 1,000 ML IV SCH (09:42)
[2019-10-28] MEDS: LACTULOSE 20 GM/30 ML CUP PO SCH ×3 (09:42→22:38)
[2019-10-28] MEDS: FUROSEMIDE 10 MG/ML 2 ML VIAL IV SCH ×2 (09:42→22:37)
[2019-10-28 10:50] LABS: ALT 66 U/L (4-49); AST 244 U/L (17-59); African American GFR (CKD) >90 (>60 ml/min/1.73 sqM); Albumin 2.5 g/dL (3.5-5.0); Alkaline Phosphatase 241 U/L (38-126); Anion Gap 11 mmol/L; Blood Urea Nitrogen 14 mg/dL (9-20); Calcium 8.2 mg/dL (8.4-10.2); Carbon Dioxide 17 mmol/L (22-30); Chloride 107 mmol/L (98-107); Glucose 103 mg/dL (74-99); Non-African American GFR(CKD) >90 (>60 ml/min/1.73 sqM); Potassium 3.1 mmol/L (3.5-5.1); Sodium 135 mmol/L (137-145); Total Protein 7.2 g/dL (6.3-8.2)
[2019-10-28 10:58] LABS: Total Bilirubin 19.1 mg/dL (0.2-1.3)
--- NOTE | 2019-10-28 11:45 | US ---
EXAMINATION TYPE: US abdomen limited DATE OF EXAM: 10/28/2019 COMPARISON: US 10/24/19 CLINICAL HISTORY: evaulate for ascites for paracentesis. TECHNIQUE/FINDINGS: Targeted ultrasound was performed for evaluation of ascites only. Grayscale imagi ng was performed of the abdomen. Moderate amount of ascites seen. Largest pocket RUQ IMPRESSION: Moderate amount of abdominal ascites seen at the largest pocket in the right upper quadra nt.
--- NOTE | 2019-10-28 14:11 | US ---
Ultrasound-guided paracentesis. DATE OF EXAM: 10/28/2019 CLINICAL HISTORY: Ascites The procedure was discussed with the patient. The risks, complications, benefits, and alternatives we re discussed and any questions were answered. Informed consent was obtained. The patient was placed s upine on the ultrasound table and prepped and draped in the usual sterile fashion. All elements of maximal barrier technique were utilized. Under ultrasound guidance, access into the right lower quadrant was obtained, via the paracentesis catheter system and direct ultrasound guidanc e. Approximately 3.4 liters of straw-colored fluid was removed. Sample sent to pathology for analysis. T he patient was stable throughout the procedure and remained stable upon discharge from Department of Radiology. IMPRESSION: Successful paracentesis under ultrasound guidance.
--- NOTE | 2019-10-28 16:07 | P.PN ---
Subjective Progress Note Date: 10/28/19 Principal diagnosis: 59 years old male with no significant past medical history. Presents because of jaundice for 2 weeks, however patient denies abdominal pain or nausea vomiting or change in bowel habits. No fever. Patient is drinking alcohol about 10 drinks per day millivolts, patient claims that last drink was about one week ago, he denies smoking or illicit drugs Vitals stable, WBC 12 K, hemoglobin 11.7, platelets 334, INR 1.7, sodium 129, creatinine 0.9. Bilirubin is 21, AST 218, ALT 65. Lipase mildly elevated at 341. UA is suspicious of infection, alcohol level less than 10.. EKG showed normal sinus rhythm at [address]-T changes, chest x-ray: No acute processes per radiologist. Gallbladder ultrasound: Cirrhosis with minimal perihepatic ascites and emergency room patient was started on normal saline at 100 mL per hour, lactulose 30 g 3 times a day, tramadol and ibuprofen and Protonix. GI team was consulted from emergency room 10/26/2019 Patient is awake and alert, no dyspnea or chest pain, no abdominal pain, no vomiting, tolerating that well, no dysuria, no issues with his bowel as per patient. No dizziness or weakness. No blurred vision or other complaint. Patient is afebrile and vitals are stable. No signs of alcohol withdrawal Labs from today are still pending GI team been consulted and workup has been requested including serology test, please see orders So far patient has negative hepatitis panel, alpha-fetoprotein within reference range 10/27/2019 Patient does have cirrhosis does have significant ascites clinically IV fluids will be discussed and patient will be switched IV Lasix as well as all Aldactone repeat ammonia level along with basic metabolic profile tomorrow patient has obstructive jaundice secondary to cirrhosis as well as a acute alcoholic hepatitis patient last drink was more than a week ago. Constitutional: Denied any fatigue denied any fever. Cardio vascular: denied any chest pain, palpitations Gastrointestinal denied any nausea vomiting Pulmonary: Denied any shortness of breath cough Neurologic denied any new focal deficits 10/28/2019 Patient underwent abdominal ultrasound and awaiting paracentesis. Patient underwent paracentesis with removal of approximately 3.4 L of fluid removed. GI is following. Bilirubin remains elevated although is slightly improved at 19.1 today. Ammonia has increased and is 73 today. Potassium continues to be low today at 3.1 and will be replaced. Will repeat a.m. labs. Objective - Vital Signs Vital signs: Vital Signs Temp 98.6 F 10/28/19 15:13 Pulse 87 10/28/19 15:13 Resp 16 10/28/19 15:13 BP 150/73 10/28/19 15:13 Pulse Ox 100 10/28/19 15:13 Intake & Output 10/27/19 10/28/19 10/28/19 18:59 06:59 18:59 Intake Total 1080 300 Balance 1080 300 Intake: Oral 1080 300 Other: Voiding Method Toilet Toilet # Voids 2 1 2 # Bowel Movements 2 - Exam GENERAL: The patient is alert and oriented x3, not in any acute distress. Well developed, well nourished. Patient has jaundice diffuse HEENT: Pupils are round and equally reacting to light. EOMI. does have significant scleral icterus. No conjunctival pallor. Normocephalic, atraumatic. No pharyngeal erythema. No thyromegaly. CARDIOVASCULAR: S1 and S2 present. No murmurs, rubs, or gallops. PULMONARY: Chest is clear to auscultation, no wheezing or crackles. ABDOMEN: Distended with fluid, clinically appears to have significant ascites and possible splenomegaly normoactive bowel sounds. No palpable organomegaly. MUSCULOSKELETAL: No joint swelling or deformity. EXTREMITIES: No cyanosis, clubbing, mild bilateral pedal edema NEUROLOGICAL: Gross neurological examination did not reveal any focal deficits. SKIN: No rashes. - Labs CBC & Chem 7: 10/27/19 10:54 10/28/19 10:09 Labs: Abnormal Lab Results - Last 24 Hours (Table) 10/28/19 10/28/19 Range/Units 10:09 10:09 Sodium 135 L (137-145) mmol/L Potassium 3.1 L (3.5-5.1) mmol/L Carbon Dioxide 17 L (22-30) mmol/L Glucose 103 H (74-99) mg/dL Calcium 8.2 L (8.4-10.2) mg/dL Total Bilirubin 19.1 H* (0.2-1.3) mg/dL AST 244 H (17-59) U/L ALT 66 H (4-49) U/L Alkaline Phosphatase 241 H (38-126) U/L Ammonia 73 H (<30) umol/L Albumin 2.5 L (3.5-5.0) g/dL Assessment and Plan Assessment: -Hepatic encephalopathy improving at this time continue with the lactulose -Alcoholic cirrhosis with acute alcoholic hepatitis competent bilirubin remains the same patient does have significant obstructive jaundice. Patient will be started on IV Lasix along with Aldactone. Patient underwent paracentesis today with approximately 3.4 L removed -Hypervolemic hyponatremia, continue with IV Lasix -Coagulopathy secondary to liver disease -Alcohol abuse history: Counseling was provided -GI prophylaxis. We'll continue with Pepcid patient will not require any DVT prophylaxis as patient's INR is 1.6
--- NOTE | 2019-10-28 16:26 | P.DS ---
Providers Date of admission: 10/24/19 23:09 Expected date of discharge: 10/28/19 Attending physician: Kanika Razo Consults: 10/24/19 22:52 Consult Physician Stat Consulting Provider: Tammi Dasilva Consult Reason/Comments: jaundice, etoh abuse Do you want consulting provider notified?: Yes Primary care physician: Stated None Hospital Course: Final diagnosis -Hepatic encephalopathy -Alcoholic cirrhosis with acute alcoholic hepatitis -Status post paracentesis with 3.4 L removed -Hypervolemic hyponatremia -Coagulopathy secondary to liver disease -Alcohol abuse history: Counseling was provided -GI prophylaxis. Discharge disposition Patient is being discharged in a stable condition with guarded prognosis to home and will follow-up with primary care provider upon discharge as well as GI Dr. Dasilva in the outpatient setting. Patient will continue with Lasix and Aldactone. Total time taken is 35 minutes. History of present illness 59 years old male with no significant past medical history. Presents because of jaundice for 2 weeks, however patient denies abdominal pain or nausea vomiting or change in bowel habits. No fever. Patient is drinking alcohol about 10 drinks per day millivolts, patient claims that last drink was about one week ago, he denies smoking or illicit drugs Vitals stable, WBC 12 K, hemoglobin 11.7, platelets 334, INR 1.7, sodium 129, creatinine 0.9. Bilirubin is 21, AST 218, ALT 65. Lipase mildly elevated at 341. UA is suspicious of infection, alcohol level less than 10.. EKG showed normal sinus rhythm at [address]-T changes, chest x-ray: No acute processes per radiologist. Gallbladder ultrasound: Cirrhosis with minimal perihepatic ascites and emergency room patient was started on normal saline at 100 mL per hour, lactulose 30 g 3 times a day, tramadol and ibuprofen and Protonix. GI team was consulted from emergency room 10/28/2019 Patient underwent abdominal ultrasound and awaiting paracentesis. Patient underwent paracentesis with removal of approximately 3.4 L of fluid removed. GI is following. Bilirubin remains elevated although is slightly improved at 19.1 today. Ammonia has increased and is 73 today. Potassium continues to be low today at 3.1 and will be replaced. Patient will be following up with GI in the outpatient setting in 1-2 weeks. Patient will continue on Lasix as well as Ald actone and lactulose. Prescriptions have been sent to the pharmacy. Patient is to refrain from any alcohol intake and discussed this with the patient at length. On exam vital signs are stable. Temp is 98.6F, pulse is 87, respirations are 16, blood pressure is 150/73, oxygen saturation is 100% on room air. Cardio S1, S2 are present. Respiratory system shows diminished breath sounds with no w heezing or rhonchi noted. Abdomen mildly distended status post paracentesis but soft and nontender. Nervous system shows no focal deficits. Please refer to medication reconciliation sheet for a list of medications. Patient Condition at Discharge: Stable Plan - Discharge Summary Discharge Rx Participant: No New Discharge Prescriptions: New Spironolactone [Aldactone] 50 mg PO DAILY 30 Days #30 tab Lactulose [Cephulac] 30 gm PO TID #240 ml Potassium Chloride ER [K-Dur 20] 20 meq PO BID 30 Days #60 tab.er.prt Furosemide [Lasix] 40 mg PO BID 30 Days #60 tablet Discharge Medication List Furosemide [Lasix] 40 mg PO BID 30 Days #60 tablet 10/28/19 [Rx] Lactulose [Cephulac] 30 gm PO TID #240 ml 10/28/19 [Rx] Potassium Chloride ER [K-Dur 20] 20 meq PO BID 30 Days #60 tab.er.prt 10/28/19 [Rx] Spironolactone [Aldactone] 50 mg PO DAILY 30 Days #30 tab 10/28/19 [Rx] Follow up Appointment(s)/Referral(s): Tammi Dasilva MD [STAFF PHYSICIAN] - 2 Weeks None,Stated [Primary Care Provider] - 1-2 days Activity/Diet/Wound Care/Special Instructions: Activity Limited until follow-up Follow-up with primary care provider upon discharge Follow-up with GI in 1-2 weeks Continue current diet Discharge Disposition: HOME SELF-CARE
[2019-10-28 17:54] LABS: Appearance,BF Clear; Color,BF Yellow; Nucleated Cells, Body Fluid 50 /uL; RBC, Body Fluid 20 /uL
--- NOTE | 2019-10-28 18:45 | PN ---
PROGRESS NOTE DATE OF DICTATION: 10/28/2019 Patient is a 59-year-old white male with a history of acute alcoholic hepatitis superimposed on alcoholic cirrhosis of the liver, admitted to the hospital with jaundice of 2 weeks' duration. He underwent large-volume paracentesis today; 3 liters of fluid was removed. He denies any complaints. Overall he is feeling better. No abdominal pain, no nausea or vomiting. PHYSICAL EXAMINATION: VITAL SIGNS: Blood pressure is 150/73, pulse rate 87, temperature 98.6. HEENT: Examination unremarkable. Conjunctivae pink. Sclerae anicteric. Oral cavity no lesions. NECK: No JVD or lymph node enlargement. CHEST: Clear to auscultation. HEART: Regular rate and rhythm. ABDOMEN: Soft. Bowel sounds are positive. No organomegaly. EXTREMITIES: No pedal edema. SKIN: No rashes. NEUROLOGIC: He is alert and oriented times three. No focal deficits. LABS: Labs from today show T-bilirubin is 19.1, AST 244, ALT 66, alkaline phosphatase 241. Albumin 2.5. BUN 14, creatinine 0.71. INR is 1.6. WBC 11.3, hemoglobin 11.9, platelets normal. IMPRESSION: 1. Acute alcoholic hepatitis superimposed on alcoholic cirrhosis of the liver, gradually improving. 2. Mild coagulopathy secondary to advanced liver disease. 3. Ascites, status post large-volume paracentesis; 3 liters of fluid was removed today. RECOMMENDATIONS: 1. Continue with Lasix 40 mg daily and aldactone 50 mg daily. 2. Low-salt diet. 3. He can be discharged home with close outpatient followup to monitor his LFTs closely. 4. The family was advised to bring the patient back to the hospital if he has any significant change in his mental status or overall condition. Thank you for this consultation. MMODL / IJN: [id number] /
[2019-10-28 20:07] LABS: Mononuclear WBC,Body Fluid 91 %; Polynuclear WBC,Body Fluid 9 %
[2019-10-28 20:41] LABS: Albumin, Fluid Source Peritoneal Fluid; Glucose, BF Source Peritoneal Fluid; Glucose, Body Fluid 148 mg/dL; LDH, Body Fluid Source Peritoneal Fluid; Total Protein, Body Fluid 731 mg/dL
[2019-10-29 05:32] VITALS: BP 143/72; PULSE 79; RESP 18; TEMP 98
[2019-10-29 07:44] LABS: ALT 65 U/L (4-49); AST 244 U/L (17-59); African American GFR (CKD) >90 (>60 ml/min/1.73 sqM); Albumin 2.4 g/dL (3.5-5.0); Alkaline Phosphatase 234 U/L (38-126); Anion Gap 8 mmol/L; Blood Urea Nitrogen 14 mg/dL (9-20); Calcium 8.1 mg/dL (8.4-10.2); Carbon Dioxide 18 mmol/L (22-30); Chloride 108 mmol/L (98-107); Glucose 99 mg/dL (74-99); Non-African American GFR(CKD) >90 (>60 ml/min/1.73 sqM); Potassium 3.6 mmol/L (3.5-5.1); Sodium 134 mmol/L (137-145); Total Protein 6.9 g/dL (6.3-8.2)
[2019-10-29 07:52] LABS: Total Bilirubin 18.3 mg/dL (0.2-1.3)
[2019-10-29] MEDS: LACTULOSE 20 GM/30 ML CUP PO SCH (08:39)
[2019-10-29] MEDS: SPIRONOLACTONE 25 MG TAB PO SCH (08:39)
[2019-10-29] MEDS: SODIUM CHLORIDE 0.9% 1,000 ML IV SCH (08:39)
[2019-10-29] MEDS: FUROSEMIDE 10 MG/ML 2 ML VIAL IV SCH (08:39)
[2019-10-29] MEDS: FAMOTIDINE 20 MG TAB PO SCH (08:39)
[2019-10-29] MEDS: POTASSIUM CHLORIDE ER 20 MEQ TAB.ER PO SCH (08:39)
--- NOTE | 2019-10-29 11:15 | PN ---
PROGRESS NOTE DATE OF DICTATION: 10/29/2019 Patient is a 59-year-old white male with history of alcoholic hepatitis superimposed on alcoholic cirrhosis of the liver with gradual decompensation and ascites, admitted to the hospital with jaundice. He is getting better. He had large-volume paracentesis done 2 days ago; 3.1 L of fluid was removed. He is presently on Aldactone 50 mg daily and Lasix 20 mg daily, doing better. No new complaints. PHYSICAL EXAMINATION: Blood pressure is 143/72, pulse rate 79, temperature 98. HEENT examination unremarkable. Conjunctivae pink. Sclerae deeply icteric. Oral cavity no lesions. NECK: No JVD or lymph node enlargement. CHEST: Clear to auscultation. HEART: Regular rate and rhythm. ABDOMEN: Soft. Bowel sounds are positive. EXTREMITIES: No pedal edema. SKIN: No rashes. NEUROLOGIC: Alert and oriented x3. No focal deficits. LABS: Labs from today show bilirubin is down to 18.3, AST and ALT are 244 and 65, respectively, alkaline phosphatase 234. Sodium, potassium, chloride and CO2 are normal. Peritoneal fluid analysis showed an albumin less than 1, protein 731 mg/dL, and WBCs 9. IMPRESSION: 1. Alcoholic cirrhosis with acute alcoholic hepatitis, gradually improving. 2. Heavy alcohol abuse; quit 2 weeks ago. 3. Ascites, status post large-volume paracentesis, and fluid analysis consistent with portal hypertension. 4. Macrocytic anemia. RECOMMENDATIONS: The patient can be discharged home today. He was encouraged to continue with a balanced diet and remain abstinent from alcohol. He was advised to follow up in the office in a week to follow the labs. He will remain on lactulose to titrate to have 3- 4 soft bowel movements daily. Continue on Lasix and Aldactone at 20 mg and 25 mg, respectively. Thank you for this consultation. MMODL / IJN: [id number] /
--- NOTE | 2019-10-29 16:12 | P.DS ---
Providers Date of admission: 10/24/19 23:09 Attending physician: Kanika Razo Consults: 10/24/19 22:52 Consult Physician Stat Consulting Provider: Tammi Dasilva Consult Reason/Comments: jaundice, etoh abuse Do you want consulting provider notified?: Yes Primary care physician: Stated None Hospital Course: patient did stay in the hospital because of which is signed examined the patient. PHYSICAL EXAMINATION: GENERAL: The patient is alert and oriented x3, not in any acute distress. Well developed, well nourished. Patient has jaundice diffuse HEENT: Pupils are round and equally reacting to light. EOMI. does have significant scleral icterus. No conjunctival pallor. Normocephalic, atraumatic. No pharyngeal erythema. No thyromegaly. CARDIOVASCULAR: S1 and S2 present. No murmurs, rubs, or gallops. PULMONARY: Chest is clear to auscultation, no wheezing or crackles. ABDOMEN: Distended with fluid, clinically appears to have significant ascites and possible splenomegaly normoactive bowel sounds. No palpable organomegaly. MUSCULOSKELETAL: No joint swelling or deformity. EXTREMITIES: No cyanosis, clubbing, mild bilateral pedal edema NEUROLOGICAL: Gross neurological examination did not reveal any focal deficits. SKIN: No rashes please refer to the dictation of discharge summary from yesterday for further details Patient Condition at Discharge: Stable Plan - Discharge Summary Discharge Rx Participant: No New Discharge Prescriptions: New Spironolactone [Aldactone] 50 mg PO DAILY 30 Days #30 tab Lactulose [Cephulac] 30 gm PO TID #240 ml Potassium Chloride ER [K-Dur 20] 20 meq PO BID 30 Days #60 tab.er.prt Furosemide [Lasix] 40 mg PO BID 30 Days #60 tablet Discharge Medication List Furosemide [Lasix] 40 mg PO BID 30 Days #60 tablet 10/28/19 [Rx] Lactulose [Cephulac] 30 gm PO TID #240 ml 10/28/19 [Rx] Potassium Chloride ER [K-Dur 20] 20 meq PO BID 30 Days #60 tab.er.prt 10/28/19 [Rx] Spironolactone [Aldactone] 50 mg PO DAILY 30 Days #30 tab 10/28/19 [Rx] Follow up Appointment(s)/Referral(s): Johan Cavanaugh MD [REFERRING] - 1 Week Tammi Dasilva MD [STAFF PHYSICIAN] - 2 Weeks Ambulatory/Diagnostic Orders: Comprehensive Metabolic Panel [LAB.AMB] Time Frame: 3 Days, Location: None Selected Activity/Diet/Wound Care/Special Instructions: Activity Limited until follow-up Follow-up with primary care provider upon discharge Follow-up with GI in 1-2 weeks Continue current diet Discharge Disposition: HOME SELF-CARE
--- NOTE | 2019-11-03 08:37 | CDI ---
Documentation Clarification Form Date: 11/03/2019 08:23:18 AM From: Kim Whiting Phone: If you have a question about this query, please contact Heidi Slater Boiler Fitter at [phone] between 8am and 5pm. Admit Date: 10/24/2019 11:09:00 PM Patient Name: Paige Frank Visit Number: [id number] Discharge Date: 10/29/2019 02:52:00 PM ATTENTION: The Clinical Documentation Specialists (CDI) and [facility] Coding Staff appreciate your assistance in clarifying documentation. Please respond to the clarification below the line at the bottom and electronically sign. The CDI & [facility] Coding staff will review the response and follow-up if needed. Please note: Queries are made part of the Legal Health Record. If you have any questions, please contact the author of this message via ITS. Dr. Kanika Razo Obstructive Jaundice is documented in 10/26 PN and Assessment. Obstructive jaundice codes to Bile duct obstruction. Please clarify if patient had a bile duct obstruction. History/Risk Factors: alcohol hepatitis, hepatic encephalopathy, cirrhosis of liver with ascites Clinical Indicators: Bilirubin 21.1 Radiology findings: ascites gallbladder echogenic material within gallbladder, mobile gallstones, thickened gallbladder wall. Vital Signs: 99F, 90 bpm, 18, 151/73, 100% RA Treatment: Paracentesis, fluids, lactulose, tramadol, ibruprofen, Protinix Consults: In your professional opinion, can you please clarify if patient had bile duct obstruction (obstructive jaundice)? bile duct obstruction Other, please specify Unable to determine bile duct obstruction MTDD
== END 2019-10-29 14:52 | disposition home or self-care (01) | DRG 432 ==
LOC: EC 19:25 → 6NMEDSUR 23:09
PROVIDERS: ADMIT Hospitalist; ATTEND Hospitalist
PROC: 0W9G3ZZ Drainage of Peritoneal Cavity, Percutaneous Approach (ICD-10-PCS; principal; 2019-10-28)
DX: K70.11 Alcoholic hepatitis with ascites (principal); K83.1 Obstruction of bile duct; E87.1 Hypo-osmolality and hyponatremia; K76.6 Portal hypertension; D68.4 Acquired coagulation factor deficiency; K70.31 Alcoholic cirrhosis of liver with ascites; K72.90 Hepatic failure, unspecified without coma; D50.9 Iron deficiency anemia, unspecified; D53.9 Nutritional anemia, unspecified; D72.829 Elevated white blood cell count, unspecified; Z79.899 Other long term (current) drug therapy; F10.10 Alcohol abuse, uncomplicated; I07.1 Rheumatic tricuspid insufficiency; Z71.41 Alcohol abuse counseling and surveillance of alcoholic
CPT/HCPCS: 36415; 49083; 71046; 74018; 76705; 80053; 80074; 80320; 81001; 82042; 82103; 82105; 82140; 82150; 82390; 82728; 82945; 83516; 83540; 83550; 83615; 83690; 83735; 84145; 84157; 85025; 85610; 85730; 86038; 86376; 87070; 87205; 88108; 88305; 89050; 93005; 96361; 96365; 96366; 96375; 99285

== ENCOUNTER 2019-11-11 02:44 | Inpatient (IN) | payer OTHER ==
[2019-11-11] MEDS ORDERED: PANTOPRAZOLE 40 MG/10 ML VIAL IVP STA (02:54)
[2019-11-11 03:31] LABS: MCH 37.4 pg (25.0-35.0); MCHC 33.6 g/dL (31.0-37.0); MCV 111.4 fL (80.0-100.0); Macrocytosis Marked; Mean Platelet Volume 9.7; Platelet Count 297 k/uL (150-450); RBC 1.71 m/uL (4.30-5.90); RDW 15.1 % (11.5-15.5); WBC 24.8 k/uL (3.8-10.6)
[2019-11-11 03:35] LABS: INR 1.7 (<1.2); Partial Thromboplastin Time 25.6 sec (22.0-30.0); Prothrombin Time 16.5 sec (9.0-12.0)
[2019-11-11 03:36] LABS: Albumin 2.2 g/dL (3.5-5.0); Calcium 7.8 mg/dL (8.4-10.2); Potassium 5.3 mmol/L (3.5-5.1); Total Bilirubin 10.4 mg/dL (0.2-1.3); Total Protein 6.1 g/dL (6.3-8.2)
--- NOTE | 2019-11-11 03:42 | XR ---
EXAMINATION TYPE: XR chest 1V portable DATE OF EXAM: 11/11/2019 COMPARISON: 10/24/2019 HISTORY: Chest pain TECHNIQUE: FINDINGS: Heart and mediastinum are normal. Lungs are clear. Diaphragm is normal. Bony thorax is inta ct. IMPRESSION: Normal chest. No change
[2019-11-11 04:15] LABS: Band Neutrophils % 2 %; Monocytes # (M) 1.24 k/uL (0-1.0); Neutrophils % (M) 91 %; Nucleated Red Blood Cells 0 /100 WBC (0-0); Polychromasia Present; Total Cells Counted 100
[2019-11-11] MEDS ORDERED: LORazepam 2 MG/ML INJ IV STA (06:24)
[2019-11-11] MEDS ORDERED: NALOXONE 0.4 MG/ML 1 ML VIAL IV PRN (06:31)
[2019-11-11] MEDS ORDERED: ACETAMINOPHEN TAB 325 MG TAB PO PRN (06:31)
[2019-11-11] MEDS ORDERED: MORPHINE SULFATE 2 MG/ML SYRINGE IV PRN (06:31)
--- NOTE | 2019-11-11 06:42 | ED ---
GI Bleed HPI - General Chief complaint: GI Bleed Stated complaint: SOB/Rectal Bleed Time Seen by Provider: 11/11/19 02:47 Source: patient, EMS Mode of arrival: EMS Limitations: no limitations - History of Present Illness Initial comments: This patient is a 59-year-old man with recent diagnosis of alcoholic hepatitis, cirrhosis, who presents with complaint that he has been passing dark blood per rectum. This is been going on he states intermittently up to a couple of weeks but became constant over the course of last evening. The patient then phoned EMS because he was feeling short of breath. The patient has not had any hematemesis, nausea or vomiting. Denying abdominal pain. MD complaint: melena -: days(s) Quality: painless Consistency: constant Improves with: none Worsens with: none Context: liver disease Associated Symptoms: shortness of breath Treatments Prior to Arrival: none - Related Data Previous Rx's Medication Instructions Recorded Furosemide [Lasix] 40 mg PO BID 30 Days #60 tablet 10/28/19 Potassium Chloride ER [K-Dur 20] 20 meq PO BID 30 Days #60 10/28/19 tab.er.prt Spironolactone [Aldactone] 50 mg PO DAILY 30 Days #30 tab 10/28/19 Allergies Allergy/AdvReac Type Severity Reaction Status Date / Time No Known Allergies Allergy Verified 11/11/19 08:49 Review of Systems ROS Statement: Those systems with pertinent positive or pertinent negative responses have been documented in the HPI. ROS Other: All systems not noted in ROS Statement are negative. Constitutional: Reports: weakness. Denies: fever, chills ENT: Denies: throat pain Respiratory: Reports: cough, dyspnea. Denies: wheezes, hemoptysis Cardiovascular: Reports: edema. Denies: chest pain, palpitations, orthopnea, syncope Gastrointestinal: Reports: diarrhea, melena. Denies: abdominal pain, nausea, vomiting, hematemesis, hematochezia Genitourinary: Denies: dysuria, hematuria Musculoskeletal: Denies: back pain Skin: Denies: rash Neurological: Denies: headache, weakness, numbness Past Medical History Past Medical History: No Reported History, Liver Disease Additional Past Medical History / Comment(s): Cirrhosis History of Any Multi-Drug Resistant Organisms: None Reported Past Surgical History: No Surgical Hx Reported Additional Past Anesthesia/Blood Transfusion Reaction / Comment(s): no previous Past Psychological History: No Psychological Hx Reported Smoking Status: Never smoker Past Alcohol Use History: Abuse, Daily Past Drug Use History: None Reported - Past Family History Mother Family Medical History: No Reported History Father Family Medical History: No Reported History General Exam Limitations: no limitations General appearance: alert Head exam: Present: atraumatic, normocephalic Eye exam: Present: normal appearance. Absent: scleral icterus, conjunctival injection ENT exam: Present: normal oropharynx Neck exam: Present: normal inspection, full ROM Respiratory exam: Present: normal lung sounds bilaterally. Absent: respiratory distress, wheezes, rales, rhonchi, stridor Cardiovascular Exam: Present: regular rate, normal rhythm, normal heart sounds. Absent: systolic murmur, diastolic murmur, rubs, gallop GI/Abdominal exam: Present: soft. Absent: distended, tenderness, guarding, rebound, rigid, mass, pulsatile mass Extremities exam: Present: normal inspection, normal capillary refill, pedal edema. Absent: calf tenderness Back exam: Present: normal inspection. Absent: CVA tenderness (R), CVA tenderness (L) Neurological exam: Present: alert Skin exam: Present: warm, dry, intact, other (Jaundice). Absent: rash Course Vital Signs 11/11/19 11/11/19 11/11/19 02:45 02:48 03:00 Temperature 97.7 F Pulse Rate 96 96 Respiratory 20 20 Rate Blood Pressure 139/66 139/66 O2 Sat by Pulse 100 100 100 Oximetry 11/11/19 11/11/19 11/11/19 03:30 04:00 04:30 Temperature Pulse Rate 97 Respiratory 21 Rate Blood Pressure 148/73 148/73 104/64 O2 Sat by Pulse 100 Oximetry 11/11/19 11/11/19 11/11/19 04:36 05:00 05:30 Temperature 97.5 F L Pulse Rate 96 95 97 Respiratory 20 19 18 Rate Blood Pressure 120/48 120/48 105/79 O2 Sat by Pulse 100 100 100 Oximetry 11/11/19 11/11/19 11/11/19 06:00 06:30 07:00 Temperature Pulse Rate 100 99 93 Respiratory 13 19 39 H Rate Blood Pressure 113/49 122/65 116/49 O2 Sat by Pulse 100 100 Oximetry Medical Decision Making - Medical Decision Making Patient is 59-year-old man with alcoholic cirrhosis who presents with dyspnea following a night of passing dark bloody stools. The patient is found to be anemic with hemoglobin of 6.4 and transfusion is ordered. The patient does have antibodies and therefore there'll be some delay in starting transfusion. Case is discussed with Dr. Cardoza and his treatment recommendations are incorporated and patient will go to ICU pending the transfusion. Case also discussed with Dr. Dasilva and her treatment recommendations are incorporated. - Lab Data Result diagrams: 11/16/19 03:29 11/16/19 03:29 Lab Results 11/11/19 11/11/19 11/11/19 Range/Units 03:10 03:13 03:13 WBC 24.8 H (3.8-10.6) k/uL RBC 1.71 L (4.30-5.90) m/uL Hgb 6.4 L* D (13.0-17.5) gm/dL Hct 19.1 L* (39.0-53.0) % MCV 111.4 H (80.0-100.0) fL MCH 37.4 H (25.0-35.0) pg MCHC 33.6 (31.0-37.0) g/dL RDW 15.1 (11.5-15.5) % Plt Count 297 (150-450) k/uL Neutrophils % Not Reportable Neutrophils % (Manual) 91 % Band Neutrophils % 2 % Lymphocytes % Not Reportable Lymphocytes % (Manual) 2 % Monocytes % Not Reportable Monocytes % (Manual) 5 % Eosinophils % Not Reportable Basophils % Not Reportable Neutrophils # Not Reportable Neutrophils # (Manual) 23.00 H (1.3-7.7) k/uL Lymphocytes # Not Reportable Lymphocytes # (Manual) 0.50 L (1.0-4.8) k/uL Monocytes # Not Reportable Monocytes # (Manual) 1.24 H (0-1.0) k/uL Eosinophils # Not Reportable Basophils # Not Reportable Nucleated RBCs 0 (0-0) /100 WBC Manual Slide Review Performed Polychromasia Present Macrocytosis Marked A PT 16.5 H (9.0-12.0) sec INR 1.7 H (<1.2) APTT 25.6 (22.0-30.0) sec Sodium (137-145) mmol/L Potassium (3.5-5.1) mmol/L Chloride (98-107) mmol/L Carbon Dioxide (22-30) mmol/L Anion Gap mmol/L BUN (9-20) mg/dL Creatinine (0.66-1.25) mg/dL Est GFR (CKD-EPI)AfAm (>60 ml/min/1.73 sqM) Est GFR (CKD-EPI)NonAf (>60 ml/min/1.73 sqM) Glucose (74-99) mg/dL Lactic Ac Sepsis Rflx Plasma Lactic Acid Cristian (0.7-2.0) mmol/L Calcium (8.4-10.2) mg/dL Total Bilirubin (0.2-1.3) mg/dL AST (17-59) U/L ALT (4-49) U/L Alkaline Phosphatase (38-126) U/L Ammonia (<30) umol/L Troponin I (0.000-0.034) ng/mL Total Protein (6.3-8.2) g/dL Albumin (3.5-5.0) g/dL Stool Occult Blood (Negative) Serum Alcohol mg/dL Blood Type Blood Type Confirm B Positive Blood Type Recheck Bld Type Recheck Status Antibody Screen Antibody Identification Direct Antiglob Test Crossmatch Blood Bank Comment Reference Lab Result Spec Expiration Date 11/11/19 11/11/19 11/11/19 Range/Units 03:13 03:13 03:13 WBC (3.8-10.6) k/uL RBC (4.30-5.90) m/uL Hgb (13.0-17.5) gm/dL Hct (39.0-53.0) % MCV (80.0-100.0) fL MCH (25.0-35.0) pg MCHC (31.0-37.0) g/dL RDW (11.5-15.5) % Plt Count (150-450) k/uL Neutrophils % Neutrophils % (Manual) % Band Neutrophils % % Lymphocytes % Lymphocytes % (Manual) % Monocytes % Monocytes % (Manual) % Eosinophils % Basophils % Neutrophils # Neutrophils # (Manual) (1.3-7.7) k/uL Lymphocytes # Lymphocytes # (Manual) (1.0-4.8) k/uL Monocytes # Monocytes # (Manual) (0-1.0) k/uL Eosinophils # Basophils # Nucleated RBCs (0-0) /100 WBC Manual Slide Review Polychromasia Macrocytosis PT (9.0-12.0) sec INR (<1.2) APTT (22.0-30.0) sec Sodium 129 L (137-145) mmol/L Potassium 5.3 H (3.5-5.1) mmol/L Chloride 103 (98-107) mmol/L Carbon Dioxide 13 L (22-30) mmol/L Anion Gap 13 mmol/L BUN 50 H (9-20) mg/dL Creatinine 1.74 H (0.66-1.25) mg/dL Est GFR (CKD-EPI)AfAm 48 (>60 ml/min/1.73 sqM) Est GFR (CKD-EPI)NonAf 41 (>60 ml/min/1.73 sqM) Glucose 147 H (74-99) mg/dL Lactic Ac Sepsis Rflx Plasma Lactic Acid Cristian 6.0 H* (0.7-2.0) mmol/L Calcium 7.8 L (8.4-10.2) mg/dL Total Bilirubin 10.4 H (0.2-1.3) mg/dL AST 174 H (17-59) U/L ALT 85 H (4-49) U/L Alkaline Phosphatase 218 H (38-126) U/L Ammonia 51 H (<30) umol/L Troponin I 0.020 (0.000-0.034) ng/mL Total Protein 6.1 L (6.3-8.2) g/dL Albumin 2.2 L (3.5-5.0) g/dL Stool Occult Blood (Negative) Serum Alcohol mg/dL Blood Type Blood Type Confirm Blood Type Recheck Bld Type Recheck Status Antibody Screen Antibody Identification Direct Antiglob Test Crossmatch Blood Bank Comment Reference Lab Result Spec Expiration Date 11/11/19 11/11/19 11/11/19 Range/Units 03:13 03:45 03:46 WBC (3.8-10.6) k/uL RBC (4.30-5.90) m/uL Hgb (13.0-17.5) gm/dL Hct (39.0-53.0) % MCV (80.0-100.0) fL MCH (25.0-35.0) pg MCHC (31.0-37.0) g/dL RDW (11.5-15.5) % Plt Count (150-450) k/uL Neutrophils % Neutrophils % (Manual) % Band Neutrophils % % Lymphocytes % Lymphocytes % (Manual) % Monocytes % Monocytes % (Manual) % Eosinophils % Basophils % Neutrophils # Neutrophils # (Manual) (1.3-7.7) k/uL Lymphocytes # Lymphocytes # (Manual) (1.0-4.8) k/uL Monocytes # Monocytes # (Manual) (0-1.0) k/uL Eosinophils # Basophils # Nucleated RBCs (0-0) /100 WBC Manual Slide Review Polychromasia Macrocytosis PT (9.0-12.0) sec INR (<1.2) APTT (22.0-30.0) sec Sodium (137-145) mmol/L Potassium (3.5-5.1) mmol/L Chloride (98-107) mmol/L Carbon Dioxide (22-30) mmol/L Anion Gap mmol/L BUN (9-20) mg/dL Creatinine (0.66-1.25) mg/dL Est GFR (CKD-EPI)AfAm (>60 ml/min/1.73 sqM) Est GFR (CKD-EPI)NonAf (>60 ml/min/1.73 sqM) Glucose (74-99) mg/dL Lactic Ac Sepsis Rflx Y Plasma Lactic Acid Cristian (0.7-2.0) mmol/L Calcium (8.4-10.2) mg/dL Total Bilirubin (0.2-1.3) mg/dL AST (17-59) U/L ALT (4-49) U/L Alkaline Phosphatase (38-126) U/L Ammonia (<30) umol/L Troponin I (0.000-0.034) ng/mL Total Protein (6.3-8.2) g/dL Albumin (3.5-5.0) g/dL Stool Occult Blood Positive (Negative) Serum Alcohol mg/dL Blood Type B Positive Blood Type Confirm Blood Type Recheck No Previous Record Bld Type Recheck Status CABO Indicated Antibody Screen POSITIVE Antibody Identification Not Reportable Direct Antiglob Test Not Reportable Crossmatch See Detail Blood Bank Comment Reference Lab Result Spec Expiration Date 11/11/19 11/11/19 11/11/19 Range/Units 04:58 06:10 WBC (3.8-10.6) k/uL RBC (4.30-5.90) m/uL Hgb (13.0-17.5) gm/dL Hct (39.0-53.0) % MCV (80.0-100.0) fL MCH (25.0-35.0) pg MCHC (31.0-37.0) g/dL RDW (11.5-15.5) % Plt Count (150-450) k/uL Neutrophils % Neutrophils % (Manual) % Band Neutrophils % % Lymphocytes % Lymphocytes % (Manual) % Monocytes % Monocytes % (Manual) % Eosinophils % Basophils % Neutrophils # Neutrophils # (Manual) (1.3-7.7) k/uL Lymphocytes # Lymphocytes # (Manual) (1.0-4.8) k/uL Monocytes # Monocytes # (Manual) (0-1.0) k/uL Eosinophils # Basophils # Nucleated RBCs (0-0) /100 WBC Manual Slide Review Polychromasia Macrocytosis PT (9.0-12.0) sec INR (<1.2) APTT (22.0-30.0) sec Sodium (137-145) mmol/L Potassium (3.5-5.1) mmol/L Chloride (98-107) mmol/L Carbon Dioxide (22-30) mmol/L Anion Gap mmol/L BUN (9-20) mg/dL Creatinine (0.66-1.25) mg/dL Est GFR (CKD-EPI)AfAm (>60 ml/min/1.73 sqM) Est GFR (CKD-EPI)NonAf (>60 ml/min/1.73 sqM) Glucose (74-99) mg/dL Lactic Ac Sepsis Rflx Plasma Lactic Acid Cristian (0.7-2.0) mmol/L Calcium (8.4-10.2) mg/dL Total Bilirubin (0.2-1.3) mg/dL AST (17-59) U/L ALT (4-49) U/L Alkaline Phosphatase (38-126) U/L Ammonia (<30) umol/L Troponin I (0.000-0.034) ng/mL Total Protein (6.3-8.2) g/dL Albumin (3.5-5.0) g/dL Stool Occult Blood (Negative) Serum Alcohol <10 mg/dL Blood Type B Positive Blood Type Confirm Blood Type Recheck B Pos Bld Type Recheck Status No Antibody Screen POSITIVE Antibody Identification Clin Significant ABs Ruled Out Direct Antiglob Test Positive Crossmatch See Detail Blood Bank Comment Not Reportable Reference Lab Result Not Reportable Spec Expiration Date 11/14/20192309 - EKG Data -: EKG Interpreted by Me EKG shows normal: sinus rhythm, axis (Normal), intervals (Normal), QRS complexes (Possible old septal infarct), ST-T waves (Normal) Rate: normal (Rate 96 bpm) Critical Care Time Critical Care Time: Yes (30 minutes) Disposition Clinical Impression: Jaundice, Melena, Anemia, Lactic acidosis Disposition: ADMITTED IP TO THIS [facility] Condition: Serious Is patient prescribed a controlled substance at d/c from ED?: No
[2019-11-11] MEDS ORDERED: SODIUM CHLORIDE 0.9% 1,000 ML IV SCH (06:45)
[2019-11-11] MEDS: OCTREOTIDE 500 MCG in SODIUM CHLORIDE 0.9% 250 ML IV SCH (07:01)
[2019-11-11 07:20] LABS: Glucose,Whole Blood 156 mg/dL (75-99)
[2019-11-11 07:20] LABS: HCT 19.1 % (39.0-53.0); HGB 6.4 gm/dL (13.0-17.5)
[2019-11-11] MEDS: LACTULOSE 20 GM/30 ML CUP PO SCH ×3 (08:27→22:23)
[2019-11-11] MEDS: PANTOPRAZOLE 40 MG/10 ML VIAL IV SCH ×2 (08:27→22:23)
[2019-11-11] MEDS ORDERED: POTASSIUM CHLORIDE ER 20 MEQ TAB.ER PO SCH (09:00)
[2019-11-11] MEDS ORDERED: PANTOPRAZOLE 40 MG/10 ML VIAL IV SCH (09:00)
[2019-11-11] MEDS ORDERED: PHYTONADIONE ORAL 5 MG/5 ML ORAL.SYRG PO STA (10:06)
[2019-11-11] MEDS ORDERED: PHYTONADIONE 10 MG in SODIUM CHLORIDE 0.9% 50 ML IVPB STA (10:38)
--- NOTE | 2019-11-11 10:48 | P.HPIM ---
History of Present Illness This is a pleasant 59-year-old male with known history of a colic hepatitis cirrhosis was recently discharged from the hospital came back again with the bright red blood per rectum patient's abdomen is found to be 6.4 patient was hav ing these bleeding for last 4 days unsure how many episodes patient is unable to provide any history to me as patient is severely insula patent because of hyperammonemia and hepatic encephalopathy. Patient was apparently feeling short of breath. Patient is receiving IV fluids at this time Lasix is on have a cold patient has minimal ascites at this time patient denied any abdominal pain. There is no evidence of upper GI bleed ovale cerebral bleed patient probably will not require IV antibiotics patient was started onto tried. Patient's INR is 1.7 because of cirrhosis. Patient does have lactic acidosis is mostly because of hepatic dysfunction. Patient will be continued on IV fluids and 100 mL per hour need to monitor for worsening ascites and fluid overload. Yesterday reveal a valid the patient and patient will be given IV vitamin K. Patient will be can you done rifaximin and lactulose for hepatic encephalopathy Review of Systems Patient can barely provide any history to me because of encephalopathy Past Medical History Past Medical History: Liver Disease Additional Past Medical History / Comment(s): Cirrhosis History of Any Multi-Drug Resistant Organisms: None Reported Past Surgical History: No Surgical Hx Reported Additional Past Anesthesia/Blood Transfusion Reaction / Comment(s): no previous Past Psychological History: No Psychological Hx Reported Smoking Status: Never smoker Past Alcohol Use History: Abuse, Daily Additional Past Alcohol Use History / Comment(s): patients last drink was a week ago. vodka 10 drinks a day Past Drug Use History: None Reported - Past Family History Mother Family Medical History: No Reported History Father Family Medical History: No Reported History Medications and Allergies Home Medications Medication Instructions Recorded Confirmed Type Furosemide [Lasix] 40 mg PO BID 30 Days #60 tablet 10/28/19 11/11/19 Rx Potassium Chloride ER [K-Dur 20] 20 meq PO BID 30 Days #60 10/28/19 11/11/19 Rx tab.er.prt Spironolactone [Aldactone] 50 mg PO DAILY 30 Days #30 tab 10/28/19 11/11/19 Rx Allergies Allergy/AdvReac Type Severity Reaction Status Date / Time No Known Allergies Allergy Verified 11/11/19 08:49 Physical Exam Vitals: Vital Signs Temp Pulse Resp BP Pulse Ox 11/11/19 07:00 93 39 H 116/49 100 11/11/19 06:30 99 19 122/65 100 11/11/19 06:00 100 13 113/49 11/11/19 05:30 97 18 105/79 100 11/11/19 05:00 95 19 120/48 100 11/11/19 04:36 97.5 F L 96 20 120/48 100 11/11/19 04:30 104/64 11/11/19 04:00 97 21 148/73 100 11/11/19 03:30 148/73 11/11/19 03:00 96 20 139/66 100 11/11/19 02:48 100 11/11/19 02:45 97.7 F 96 20 139/66 100 Intake and Output 11/10/19 11/11/19 11/11/19 22:59 06:59 14:59 Other: Weight 86.183 kg PHYSICAL EXAMINATION: GENERAL: The patient is alert and able to assess orientation patient appears like able to understand but doesn't answer any questions, not in any acute distress. Well developed, well nourished. HEENT: Pupils are round and equally reacting to light. EOMI. does have scleral icterus and conjunctival pallor. Normocephalic, atraumatic. No pharyngeal erythema. No thyromegaly. CARDIOVASCULAR: S1 and S2 present. No murmurs, rubs, or gallops. PULMONARY: Chest is clear to auscultation, no wheezing or crackles. ABDOMEN: Mildly distended with mild shifting dullness normoactive bowel sounds. No palpable organomegaly. Patient does have tremor and asterixis MUSCULOSKELETAL: No joint swelling or deformity. EXTREMITIES: No cyanosis, clubbing, or pedal edema. NEUROLOGICAL: Gross neurological examination did not reveal any focal deficits. SKIN: No rashes. Results CBC & Chem 7: 11/11/19 03:13 11/11/19 03:13 Labs: Abnormal Lab Results - Last 24 Hours (Table) 11/11/19 11/11/19 11/11/19 Range/Units 03:13 03:13 03:13 WBC 24.8 H (3.8-10.6) k/uL RBC 1.71 L (4.30-5.90) m/uL Hgb 6.4 L* D (13.0-17.5) gm/dL Hct 19.1 L* (39.0-53.0) % MCV 111.4 H (80.0-100.0) fL MCH 37.4 H (25.0-35.0) pg Neutrophils # (Manual) 23.00 H (1.3-7.7) k/uL Lymphocytes # (Manual) 0.50 L (1.0-4.8) k/uL Monocytes # (Manual) 1.24 H (0-1.0) k/uL Macrocytosis Marked A PT 16.5 H (9.0-12.0) sec INR 1.7 H (<1.2) Sodium 129 L (137-145) mmol/L Potassium 5.3 H (3.5-5.1) mmol/L Carbon Dioxide 13 L (22-30) mmol/L BUN 50 H (9-20) mg/dL Creatinine 1.74 H (0.66-1.25) mg/dL Glucose 147 H (74-99) mg/dL POC Glucose (mg/dL) (75-99) mg/dL Plasma Lactic Acid Cristian (0.7-2.0) mmol/L Calcium 7.8 L (8.4-10.2) mg/dL Total Bilirubin 10.4 H (0.2-1.3) mg/dL AST 174 H (17-59) U/L ALT 85 H (4-49) U/L Alkaline Phosphatase 218 H (38-126) U/L Ammonia (<30) umol/L Total Protein 6.1 L (6.3-8.2) g/dL Albumin 2.2 L (3.5-5.0) g/dL Crossmatch 11/11/19 11/11/19 11/11/19 Range/Units 03:13 03:13 06:10 WBC (3.8-10.6) k/uL RBC (4.30-5.90) m/uL Hgb (13.0-17.5) gm/dL Hct (39.0-53.0) % MCV (80.0-100.0) fL MCH (25.0-35.0) pg Neutrophils # (Manual) (1.3-7.7) k/uL Lymphocytes # (Manual) (1.0-4.8) k/uL Monocytes # (Manual) (0-1.0) k/uL Macrocytosis PT (9.0-12.0) sec INR (<1.2) Sodium (137-145) mmol/L Potassium (3.5-5.1) mmol/L Carbon Dioxide (22-30) mmol/L BUN (9-20) mg/dL Creatinine (0.66-1.25) mg/dL Glucose (74-99) mg/dL POC Glucose (mg/dL) (75-99) mg/dL Plasma Lactic Acid Cristian 6.0 H* (0.7-2.0) mmol/L Calcium (8.4-10.2) mg/dL Total Bilirubin (0.2-1.3) mg/dL AST (17-59) U/L ALT (4-49) U/L Alkaline Phosphatase (38-126) U/L Ammonia 51 H (<30) umol/L Total Protein (6.3-8.2) g/dL Albumin (3.5-5.0) g/dL Crossmatch See Detail See Detail 11/11/19 11/11/19 Range/Units 07:19 07:33 WBC (3.8-10.6) k/uL RBC (4.30-5.90) m/uL Hgb (13.0-17.5) gm/dL Hct (39.0-53.0) % MCV (80.0-100.0) fL MCH (25.0-35.0) pg Neutrophils # (Manual) (1.3-7.7) k/uL Lymphocytes # (Manual) (1.0-4.8) k/uL Monocytes # (Manual) (0-1.0) k/uL Macrocytosis PT (9.0-12.0) sec INR (<1.2) Sodium (137-145) mmol/L Potassium (3.5-5.1) mmol/L Carbon Dioxide (22-30) mmol/L BUN (9-20) mg/dL Creatinine (0.66-1.25) mg/dL Glucose (74-99) mg/dL POC Glucose (mg/dL) 156 H (75-99) mg/dL Plasma Lactic Acid Cristian 5.6 H* (0.7-2.0) mmol/L Calcium (8.4-10.2) mg/dL Total Bilirubin (0.2-1.3) mg/dL AST (17-59) U/L ALT (4-49) U/L Alkaline Phosphatase (38-126) U/L Ammonia (<30) umol/L Total Protein (6.3-8.2) g/dL Albumin (3.5-5.0) g/dL Crossmatch Thrombosis Risk Factor Assmnt - Choose All That Apply Each Factor Represents 1 point: Medical pt on bed rest, Obesity (BMI >25) Each Risk Factor Represents 2 Points: Age 61-74 years Other congenital or acquired thrombophilia - If yes, enter type in comment: No Thrombosis Risk Factor Assessment Total Risk Factor Score: 4 Thrombosis Risk Factor Assessment Level: Moderate Risk Assessment and Plan Plan: -Acute lower GI bleed probably bridle bleed from portal hypertension patient is on octreotide which will be continued as this is not a variceal bleed will not require antibiotics but will get the opinion of gastroenterology. Patient will be given IV vitamin K. Patient does have antibodies in the blood evaluating blood from the blood bank will the do 2 units of PRBC transfusion -Coagulopathy with elevated INR secondary to hepatic dysfunction -Hepatic encephalopathy: Continue with rifaximin and lactulose monitor ammonia level. -Cirrhosis alcohol ache along with acute alcoholic hepatitis patient stop drinking alcohol -Hyponatremia probably hypovolemic hyponatremia from excessive diuretics these will be held -Hyperkalemia secondary to Aldactone which will be held as well -Lactic acidosis and anion gap metabolic acidosis is secondary to hepatic dysfunction continue with IV fluids for now but his lactic acid is expected to come down pretty slow because of cirrhosis. Chronic anemia from cirrhosis which is macrocytic anemia
[2019-11-11 10:49] LABS: MCV 112.4 fL (80.0-100.0); Macrocytosis Marked; Platelet Count 270 k/uL (150-450); RBC 1.59 m/uL (4.30-5.90); RDW 15.2 % (11.5-15.5); WBC 25.7 k/uL (3.8-10.6)
[2019-11-11 10:58] LABS: HCT 17.9 % (39.0-53.0); HGB 5.7 gm/dL (13.0-17.5)
[2019-11-11] MEDS: RIFAXIMIN 550 MG TABLET PO SCH ×2 (11:25→22:23)
--- NOTE | 2019-11-11 12:13 | CONS ---
CONSULTATION PULMONARY/CRITICAL CARE CONSULTATION: DATE OF CONSULTATION: November 11, 2019 This is a 59-year-old male who was admitted through the emergency room with gastrointestinal bleed. I spoke to Dr. Chan in the emergency room about this patient. He is a 59-year-old male who apparently has a recent diagnosis of alcoholic hepatitis and alcoholic cirrhosis, who apparently has been passing dark blood per rectum over the last couple of days. Apparently, it has been constant over the last couple of days or so and maybe even longer. Not a particularly good historian. The patient is jaundiced. His ammonia level is elevated. He has a bit of a coagulopathy. The patient had stable vital signs in the emergency department. He did have an elevated PT/INR. His platelet count was normal. His hemoglobin was only 6.4. His lactic acid was 6. His ammonia level was 51. For all these reasons, we thought he was a high risk for rebleed, and the patient was admitted to the ICU for further observation. Currently, the patient is resting comfortably. He is on O2 at 2 L by nasal cannula. Somewhat lethargic but does arouse. He is getting octreotide or Sandostatin at 25 mcg/hour. He is getting saline at 125 mL an hour. CURRENT MEDICATIONS: His current medications are reviewed. He is apparently only on lactulose, Lasix, potassium and Aldactone. ALLERGIES: Allergies are denied. MEDICAL HISTORY: His medical history is apparently only positive for alcoholic liver disease and alcoholic cirrhosis. There is no apparent noted surgical history. SOCIAL HISTORY: Negative for tobacco use. He apparently drinks daily. No illicit drug use. Again the history is difficult to obtain from this patient. FAMILY HISTORY: Positive for mother and father without any significant medical problems. REVIEW OF SYSTEMS: CONSTITUTIONAL: Weakness. NEUROLOGIC: Negative. HEENT: Negative. CARDIOVASCULAR: Negative. PULMONARY: Negative. GI: GI bleed. : Negative. RHEUMATOLOGIC: Negative. IMMUNOLOGIC: Negative. ENDOCRINOLOGIC: Negative. DERMATOLOGIC: Negative. PHYSICAL EXAMINATION: VITAL SIGNS: Current vital signs are reviewed. Temperature 97.5, heart rate 93, respiratory rate 19, blood pressure 116/49, mean 71 and saturations are 100% on 2 L. GENERAL: Appears in no acute distress. He is somewhat sleepy and lethargic but he does arouse. HEENT: Examination is grossly unremarkable. He does have scleral icterus. Nasal O2 in place. NECK: Supple. Full range of motion. No adenopathy. Neck veins are flat. CARDIOVASCULAR: Examination reveals regular rhythm and rate. Heart rate in the high 80s, low 90s. S1, S2 normal. LUNGS: Reveal mostly clear breath sounds. No wheezes or rhonchi. ABDOMEN: Soft. Bowel sounds are noted. No tenderness. EXTREMITIES: Are intact. No edema. SKIN: Reveals evidence of jaundice. NEUROLOGIC: Examination reveals lethargy and somnolence. The patient does arouse. He does move all 4 extremities. There is evidence of asterixis on testing. LABS: Labs are reviewed. White count 25.7, hemoglobin 5.7, hematocrit 17.9, platelet count is 270,000. PT 16.5, INR 1.7, PTT is 25.6. Sodium 129, potassium 5.3, chloride 103, CO2 is 13. Anion gap is 13. BUN and creatinine were 50 and 1.74. Lactic acid 5.6. Calcium 7.8. AST 174, ALT 85, alk phosphatase 218. Ammonia level was 51. Albumin 2.2. Stools were positive for occult blood. Alcohol level less than 10. A chest x-ray was read as being normal. MEDICATIONS: Medications are reviewed. Currently, we have him on Tylenol which will be discontinued, that is a bad choice for him. He is also on Rocephin, lactulose, morphine, Narcan, octreotide, Protonix and Rifaximin. ASSESSMENT: 1. Alcoholic liver disease with alcoholic cirrhosis and active gastrointestinal bleeding with anemia. 2. Mild coagulopathy secondary to alcoholic liver disease. 3. Daily alcohol abuse. 4. Hyperbilirubinemia. 5. Rule out alcoholic hepatitis. 6. Hyponatremia. 7. Mild hyperkalemia. 8. Rule out acute kidney injury and hepatorenal syndrome. 9. Profound hypoalbuminemia. PLAN: Rocephin was added. Will discontinue the Tylenol. Overall prognosis remains guarded. The patient should have a consultation by GI. Prognosis is poor. We will continue to follow. MMODL / IJN: [id number] /
[2019-11-11 13:13] LABS: Glucose,Whole Blood 165 mg/dL (75-99)
[2019-11-11] MEDS ORDERED: FUROSEMIDE 10 MG/ML 2 ML VIAL IV ONE (14:07)
[2019-11-11] MEDS: FUROSEMIDE 40 MG TAB PO SCH (14:48)
[2019-11-11] MEDS: SODIUM CHLORIDE 0.9% 1,000 ML IV SCH ×2 (14:52→22:23)
--- NOTE | 2019-11-11 14:56 | CONS ---
CONSULTATION DATE OF SERVICE: 11/11/2019 REQUESTING PHYSICIAN: Dr. Razo. REASON FOR CONSULTATION: Acute GI bleed. HISTORY OF PRESENT ILLNESS: The patient is a 59-year-old pleasant white male with history of alcoholic cirrhosis of the liver with portal hypertension, acute alcoholic hepatitis, who was just discharged from the hospital about a week ago. He presents to the hospital because of maroon- colored stools that started yesterday. He had about 3 or 4 maroon-colored stools. No associated abdominal pain, nausea, vomiting, came to the emergency room and was noted to have a hemoglobin of 6.4 g/dL. At discharge from the hospital a week ago, hemoglobin was 11.9 g/dL. The patient also is somewhat confused, noted to have elevated ammonia consistent with hepatic encephalopathy. Apparently at home, he was becoming short of breath and was having some abdominal distention. During his past hospitalization, he did have large volume paracentesis and approximately 3 L of fluid was aspirated and he was discharged home on diuretics with Lasix and Aldactone foot. Since being in the hospital he did not have any further episodes of bleeding,. awaiting blood transfusion at this time. He remains very confused. PAST MEDICAL HISTORY: Heavy alcohol abuse; quit a month ago, alcoholic cirrhosis of the liver with portal hypertension and ascites and history of acute alcoholic hepatitis. PAST SURGICAL HISTORY: None. MEDICATIONS: At home include Lasix 40 mg twice daily, spironolactone 50 mg daily, potassium chloride 20 mg daily. ALLERGIES: None. SOCIAL HISTORY: Heavy alcohol abuse. REVIEW OF SYSTEMS: Review of systems could not be obtained, as patient is very confused. PHYSICAL EXAMINATION: He appears comfortable, in no apparent distress. VITAL SIGNS: Stable. Blood pressure is 119/62, pulse rate 99, temperature 97.2. HEENT: Examination unremarkable, conjunctivae are pink, sclerae icteric. Oral cavity no lesions. NECK: No JVD or lymph node enlargement. CHEST: Clear until auscultation. HEART: Regular rate and rhythm. ABDOMEN: Soft. Bowel sounds are positive. There was very mild distention noted. No free fluid noted. EXTREMITIES: No pedal edema. SKIN: No rashes. NEUROLOGIC: Alert and oriented. Neuro are awake, but not oriented to name or place, very confused. LABS: WBC 25.7, hemoglobin was 6.4, it dropped to 5.7, platelets 297, Lactic acid is 6, T bilirubin 10.4, AST 174, ALT 85, alkaline phosphatase 218. Stool occult blood was positive. BUN is 50, creatinine 1.74. Serum alcohol level less than 10. IMPRESSION: 1. Acute gastrointestinal bleed. Patient presents to the hospital with multiple episodes of maroon-colored stools for the last 1 day duration, recent hospitalization a week ago with acute alcoholic hepatitis and hemoglobin was 11.9 g/dL a week ago. Most likely dealing with an esophageal variceal bleeding, but other etiologies, especially lower colonic source of bleeding cannot be excluded. 2. Cirrhosis of the liver with acute alcoholic hepatitis. 3. Elevated BUN and creatinine, probably related to acute kidney injury from prerenal azotemia. 4. Severe lactic acidosis from hypokalemia. 5. History of heavy alcohol abuse. Quit drinking a month ago. 6. Leukocytosis, rule out spontaneous bacterial peritonitis. 7. Hyperammonemia secondary to hepatic encephalopathy. RECOMMENDATIONS: 1. 2 units of PRBC transfusion. 2. 2 units of fresh frozen plasma. 3. Continue with IV Protonix and IV Sandostatin drip. 4. Start him on oral lactulose as well as Xifaxan for hepatic encephalopathy. 5. Empiric antibiotics with IV Rocephin for leukocytosis/possible SBP. 6. CBC every 6 hours as needed. 7. Will proceed with an upper endoscopy today once he receives blood products. The plan was discussed. Will continue to follow him closely. Thank you for this consultation. MMODL / IJN: [id number] /
[2019-11-11] MEDS ORDERED: PROPOFOL 10 MG/ML 20 ML VIAL IV ONE (15:24)
[2019-11-11] MEDS ORDERED: LIDOCAINE 1% INJ 10MG/ML (20 ML MDV) ONE (15:24)
[2019-11-11] MEDS ORDERED: IV FLUID CONTINUATION 1,000 ML IV ONE (15:38)
[2019-11-11] MEDS ORDERED: LACTATED RINGERS 1,000 ML IV ONE (15:45)
--- NOTE | 2019-11-11 15:53 | P.PCN ---
Date of Procedure: 11/11/19 Procedure(s) Performed: BRIEF HISTORY: Patient is a 49-year-old, pleasant,, admitted hospital with acute GI bleed. He had multiple episodes of maroon-colored stool and noted to have a hemoglobin of 5.7.. He has history of alcoholic cirrhosis of the liver/alcoholic hepatitis. He was noted to have an INR of 1.7. He received 2 units of blood transfusion and 2 units of FFP. He is on protonix and IV sandostatin drip. He scheduled for an upper endoscopy to evaluate further source of GI bleed. PROCEDURE PERFORMED: Esophagogastroduodenoscopy with biopsy. PREOPERATIVE DIAGNOSIS: Acute GI bleed. IV sedation per anesthesia. PROCEDURE: After informed consent was obtained, the patient was brought into the endoscopy unit. IV sedation was administered by Anesthesia under continuous monitoring. Initially the Olympus GIF-140 video endoscope was inserted into the mouth. Esophagus intubated without any difficulty. It was gradually advanced into the stomach and duodenum and carefully examined. There was a superficial circumferential duodenal bulbar ulcer with no active bleeding. There were noted . l. The scope at this time was withdrawn to the stomach, adequately insufflated with air, and upon careful examination, mucosa of the antrum, had mild gastritis and biopsies were done from this area. The body, cardia and the fundus appeared normal. No gastric varices seen. The scope was then withdrawn into the esophagus. The GE junction was located at 39 cm from the incisors. There were small distal esophageal varices seen with no stigmata of bleeding. The rest of the esophagus appeared normal. There were no erosions or ulcerations seen and the patient tolerated the procedure well. IMPRESSION: 1. Large circumferential superficial duodenal bulbar ulcer with no active bleeding. 2. Small esophageal varices with no stigmata of recent bleed. RECOMMENDATIONS: The findings of this examination were discussed with the patient. We'll continue Protonix 40 mg twice daily. Stop IV Sandostatin drip. Monitor CBC every 6 hours and transfuse as needed. Liquid diet as tolerated
[2019-11-11 17:07] LABS: Glucose,Whole Blood 126 mg/dL (75-99)
[2019-11-11 17:57] LABS: Anisocytosis Slight; Basophils # (A) 0.1 k/uL (0-0.2); Basophils % (A) 0 %; Eosinophils # (A) 0.2 k/uL (0-0.7); Eosinophils % (A) 1 %; HCT 26.3 % (39.0-53.0); Hypochromasia Slight; Lymphocytes # (A) 2.2 k/uL (1.0-4.8); Lymphocytes % (A) 9 %; MCH 33.8 pg (25.0-35.0); MCHC 31.7 g/dL (31.0-37.0); Macrocytosis Marked; Mean Platelet Volume 9.6; Monocytes # (A) 1.4 k/uL (0-1.0); Monocytes % (A) 5 %; Neutrophils % (A) 83 %; Platelet Count 232 k/uL (150-450); RBC 2.47 m/uL (4.30-5.90); RDW 19.4 % (11.5-15.5); WBC 25.3 k/uL (3.8-10.6)
[2019-11-11 17:59] LABS: HGB 8.3 gm/dL (13.0-17.5); MCV 106.5 fL (80.0-100.0)
[2019-11-11 18:16] LABS: Poikilocytosis (M) Present; Polychromasia Present
[2019-11-11 23:16] LABS: Anisocytosis Slight; HCT 23.5 % (39.0-53.0); HGB 7.6 gm/dL (13.0-17.5); MCHC 32.5 g/dL (31.0-37.0); MCV 104.8 fL (80.0-100.0); Mean Platelet Volume 9.8; Platelet Count 180 k/uL (150-450); RBC 2.24 m/uL (4.30-5.90); RDW 19.8 % (11.5-15.5); WBC 21.2 k/uL (3.8-10.6)
[2019-11-11 23:19] LABS: Macrocytosis Marked
[2019-11-12] MEDS: OCTREOTIDE 500 MCG in SODIUM CHLORIDE 0.9% 250 ML IV SCH ×2 (04:05→22:42)
[2019-11-12 05:04] LABS: Anisocytosis Moderate; Basophils % (A) 0 %; Eosinophils # (A) 0.2 k/uL (0-0.7); Eosinophils % (A) 1 %; HCT 24.2 % (39.0-53.0); Lymphocytes # (A) 1.8 k/uL (1.0-4.8); Lymphocytes % (A) 9 %; MCH 33.7 pg (25.0-35.0); MCHC 33.1 g/dL (31.0-37.0); MCV 101.8 fL (80.0-100.0); Macrocytosis Moderate; Mean Platelet Volume 9.4; Monocytes # (A) 1.1 k/uL (0-1.0); Monocytes % (A) 5 %; Neutrophils # (A) 16.6 k/uL (1.3-7.7); Neutrophils % (A) 83 %; Platelet Count 213 k/uL (150-450); RBC 2.38 m/uL (4.30-5.90); RDW 20.5 % (11.5-15.5); WBC 20.1 k/uL (3.8-10.6)
[2019-11-12 05:14] LABS: INR 1.4 (<1.2); Prothrombin Time 14.3 sec (9.0-12.0)
[2019-11-12 05:19] LABS: Albumin 2.3 g/dL (3.5-5.0); Calcium 7.8 mg/dL (8.4-10.2); Potassium 4.6 mmol/L (3.5-5.1); Total Bilirubin 10.5 mg/dL (0.2-1.3); Total Protein 6.3 g/dL (6.3-8.2)
[2019-11-12 06:10] LABS: Glucose,Whole Blood 103 mg/dL (75-99)
[2019-11-12] MEDS ORDERED: SPIRONOLACTONE 25 MG TAB PO SCH (09:00)
[2019-11-12] MEDS: SODIUM CHLORIDE 0.9% 1,000 ML IV SCH ×3 (09:02→23:39)
[2019-11-12] MEDS: PANTOPRAZOLE 40 MG/10 ML VIAL IV SCH ×2 (09:14→20:40)
[2019-11-12] MEDS: FUROSEMIDE 40 MG TAB PO SCH (09:20)
[2019-11-12] MEDS: LACTULOSE 20 GM/30 ML CUP PO SCH ×3 (09:22→20:39)
[2019-11-12] MEDS: RIFAXIMIN 550 MG TABLET PO SCH ×2 (09:29→20:41)
--- NOTE | 2019-11-12 10:19 | PN ---
PROGRESS NOTE DATE OF SERVICE: 11/12/2019 Patient is a 59-year-old white male admitted to the hospital with acute GI bleed. Had multiple episodes of maroon-colored stools. Has history of alcoholic cirrhosis of the liver with portal hypertension and alcoholic hepatitis for which he was hospitalized about 2 weeks ago. At the time of admission to the hospital, hemoglobin was 5.7. He received 2 units of blood transfusion, last hemoglobin is 8 g/dL. He underwent an upper endoscopy done by me yesterday that showed very small esophageal varices with no active bleeding, but there was a large superficial duodenal bulbar ulcer with no active bleeding. Patient presently remains in the intensive care unit on Protonix 40 mg twice daily. He remains very confused. PHYSICAL EXAMINATION: Appears comfortable, in no apparent distress. Blood pressure 117/60, pulse rate 86, temperature 97.9. HEENT: Examination unremarkable. Conjunctivae are pink. Sclerae nonicteric. Oral cavity no lesions. NECK: No JVD or lymph node enlargement. CHEST: Clear to auscultation. HEART: Regular rate and rhythm. ABDOMEN: Soft, nontender, nondistended. Bowel sounds are positive. No organomegaly. EXTREMITIES: No pedal edema. SKIN: No rashes. NEURO: Very confused. LABS: WBC 20.1, hemoglobin 8, platelets 213. INR is 1.4. AST and ALT of 54 and 1.67 respectively. T-bilirubin is 10.5, AST 240, ALT 15, alkaline phosphatase 192. Ammonia level is down to 42. IMPRESSION: 1. Acute upper gastrointestinal bleed, status post upper endoscopy yesterday revealed a superficial large circumferential duodenal bulbar ulcer with no active bleeding and small esophageal varices. Hemoglobin still at 8.3 g/dL, status post 2 units of PRBC transfusion so far. 2. Mild coagulopathy secondary to underlying liver disease, status post 2 units of FFP transfusion yesterday, coagulopathy has improved. 3. Acute alcoholic hepatitis superimposed on alcoholic cirrhosis of the liver with elevated bilirubin and serum LFTs. 4. Hepatic encephalopathy. Remains on lactulose and Xifaxan. Ammonia level is gradually improving but patient still remains very confused. 5. Leukocytosis, rule out SBP on ceftriaxone. RECOMMENDATION: 1. Continue with broad-spectrum antibiotics. 2. Continue with Protonix 40 mg q.12 hours. 3. Continue with clear liquid diet. 4. Increase lactulose orally but if he is not able to tolerate, to proceed with an NG tube placement and , so he has 3-4 bowel movements daily. 5. Continue with Xifaxan 550 mg twice daily. 6. CBC every 6 hours. 7. Follow labs in the morning. Thank you for this consultation. MMODL / IJN: [id number] /
[2019-11-12 12:14] LABS: Anisocytosis Moderate; HCT 24.3 % (39.0-53.0); HGB 8.1 gm/dL (13.0-17.5); MCH 34.2 pg (25.0-35.0); MCHC 33.3 g/dL (31.0-37.0); MCV 102.7 fL (80.0-100.0); Macrocytosis Moderate; Mean Platelet Volume 9.4; Platelet Count 221 k/uL (150-450); RBC 2.36 m/uL (4.30-5.90); RDW 20.4 % (11.5-15.5); WBC 21.3 k/uL (3.8-10.6)
--- NOTE | 2019-11-12 13:17 | P.PN ---
Subjective 59-year-old male with known history of a colic hepatitis cirrhosis was recently discharged from the hospital came back again with the bright red blood per rectum patient's abdomen is found to be 6.4 patient was having these bleeding for last 4 days unsure how many episodes patient is unable to provide any history to me as patient is severely insula patent because of hyperammonemia and hepatic encephalopathy. Patient was apparently feeling short of breath. Patient is receiving IV fluids at this time Lasix is on have a cold patient has minimal ascites at this time patient denied any abdominal pain. There is no evidence of upper GI bleed ovale cerebral bleed patient probably will not require IV antibiotics patient was started onto tried. Patient's INR is 1.7 because of cirrhosis. Patient does have lactic acidosis is mostly because of hepatic dysfunction. Patient will be continued on IV fluids and 100 mL per hour need to monitor for worsening ascites and fluid overload. Yesterday reveal a valid the patient and patient will be given IV vitamin K. Patient will be can you done rifaximin and lactulose for hepatic encephalopathy. 11/12/2019 Patient cannot provide any history patient is completely confused as today was told patient has a right blood per rectum rectum but it appears like patient had.stools which is consistent with upper GI bleed because of which will continue the antibiotics for possible variceal bleed upper GI endoscopy did show peptic ulcer disease and also varices but dresses doesn't appear to be source of bleed. Patient clinically doesn't appear to have spontaneous bacterial peritonitis anyways patient is on antibiotics. Patient was started back on diuretics by gastroenterology because of worsening renal function and no significant ascites and discontinuing these diuretics for now. Nephrology will be consulted as well. Patient's lactic acid has come down Review of systems: Unable to obtain All inpatient medications were reviewed and appropriate changes in these medications as dictated in the interval history and assessment and plan. Objective - Vital Signs Vital signs: Vital Signs Temp 97.9 F 11/12/19 08:00 Pulse 95 11/12/19 10:00 Resp 21 11/12/19 10:00 BP 145/61 11/12/19 10:00 Pulse Ox 97 11/12/19 10:00 Intake & Output 11/11/19 11/12/19 11/12/19 18:59 06:59 18:59 Intake Total 2222.5 2010.5 450 Output Total 275 865 250 Balance 1947.5 1145.5 200 Weight 86.9 kg 86.9 kg Intake: IV 1912.5 1412.5 450 Octreotide 500 mcg In 137.5 87.5 Sodium Chloride 0.9% 250 ml @ 25 MCG/HR 12.5 mls/ hr IV .Q20H [facility] Rx#: [id number] Phytonadione 10 mg In 50 Sodium Chloride 0.9% 50 ml @ 100 mls/hr IVPB [facility] Rx#:[id number] Sodium Chloride 0.9% 1, 200 400 000 ml @ 100 mls/hr IV . Q10H [facility] Rx#:[id number] Sodium Chloride 0.9% 1, 1475 1125 000 ml @ 125 mls/hr IV . Q8H [facility] Rx#:[id number] cefTRIAXone 1 gm In 50 50 Sodium Chloride 0.9% 50 ml @ 100 mls/hr IVPB Q24HR [facility] Rx#:[id number] Blood Product 310 598 Ffp 24 Cpd Unit 314 [id number] Ffp 24 Cpd Unit 0 284 [id number] Rc As-1 Unit 0 [id number] Rc As-1 Unit 310 [id number] Output: Urine 275 865 250 Other: Voiding Method Indwelling Catheter Indwelling Catheter Indwelling Catheter # Voids 1 - Exam PHYSICAL EXAMINATION: GENERAL: Patient is completely confused patient appears like able to understand but doesn't answer any questions, not in any acute distress. Well developed, well nourished. HEENT: Pupils are round and equally reacting to light. EOMI. does have scleral icterus and conjunctival pallor. Normocephalic, atraumatic. No pharyngeal erythema. No thyromegaly. CARDIOVASCULAR: S1 and S2 present. No murmurs, rubs, or gallops. PULMONARY: Chest is clear to auscultation, no wheezing or crackles. ABDOMEN: Mildly distended with mild shifting dullness normoactive bowel sounds. No palpable organomegaly. Patient does have tremor and asterixis MUSCULOSKELETAL: No joint swelling or deformity. EXTREMITIES: No cyanosis, clubbing, or pedal edema. NEUROLOGICAL: Unable to assess SKIN: No rashes. - Labs CBC & Chem 7: 11/12/19 12:01 11/12/19 04:13 Labs: Abnormal Lab Results - Last 24 Hours (Table) 11/11/19 11/11/19 11/11/19 Range/Units 06:10 13:12 17:06 WBC (3.8-10.6) k/uL RBC (4.30-5.90) m/uL Hgb (13.0-17.5) gm/dL Hct (39.0-53.0) % MCV (80.0-100.0) fL RDW (11.5-15.5) % Neutrophils # (1.3-7.7) k/uL Monocytes # (0-1.0) k/uL Macrocytosis PT (9.0-12.0) sec INR (<1.2) Sodium (137-145) mmol/L Chloride (98-107) mmol/L Carbon Dioxide (22-30) mmol/L BUN (9-20) mg/dL Creatinine (0.66-1.25) mg/dL Glucose (74-99) mg/dL POC Glucose (mg/dL) 165 H 126 H (75-99) mg/dL Plasma Lactic Acid Cristian (0.7-2.0) mmol/L Calcium (8.4-10.2) mg/dL Total Bilirubin (0.2-1.3) mg/dL AST (17-59) U/L ALT (4-49) U/L Alkaline Phosphatase (38-126) U/L Ammonia (<30) umol/L Albumin (3.5-5.0) g/dL Crossmatch See Detail 11/11/19 11/11/19 11/11/19 Range/Units 17:24 17:24 22:46 WBC 25.3 H 21.2 H (3.8-10.6) k/uL RBC 2.47 L 2.24 L (4.30-5.90) m/uL Hgb 8.3 L D 7.6 L (13.0-17.5) gm/dL Hct 26.3 L 23.5 L (39.0-53.0) % MCV 106.5 H D 104.8 H (80.0-100.0) fL RDW 19.4 H 19.8 H (11.5-15.5) % Neutrophils # 21.0 H (1.3-7.7) k/uL Monocytes # 1.4 H (0-1.0) k/uL Macrocytosis Marked A Marked A PT (9.0-12.0) sec INR (<1.2) Sodium (137-145) mmol/L Chloride (98-107) mmol/L Carbon Dioxide (22-30) mmol/L BUN (9-20) mg/dL Creatinine (0.66-1.25) mg/dL Glucose (74-99) mg/dL POC Glucose (mg/dL) (75-99) mg/dL Plasma Lactic Acid Cristian 2.9 H* (0.7-2.0) mmol/L Calcium (8.4-10.2) mg/dL Total Bilirubin (0.2-1.3) mg/dL AST (17-59) U/L ALT (4-49) U/L Alkaline Phosphatase (38-126) U/L Ammonia (<30) umol/L Albumin (3.5-5.0) g/dL Crossmatch 11/12/19 11/12/19 11/12/19 Range/Units 04:13 04:13 04:13 WBC 20.1 H (3.8-10.6) k/uL RBC 2.38 L (4.30-5.90) m/uL Hgb 8.0 L (13.0-17.5) gm/dL Hct 24.2 L (39.0-53.0) % MCV 101.8 H (80.0-100.0) fL RDW 20.5 H (11.5-15.5) % Neutrophils # 16.6 H (1.3-7.7) k/uL Monocytes # 1.1 H (0-1.0) k/uL Macrocytosis PT 14.3 H (9.0-12.0) sec INR 1.4 H (<1.2) Sodium 134 L (137-145) mmol/L Chloride 109 H (98-107) mmol/L Carbon Dioxide 15 L (22-30) mmol/L BUN 54 H (9-20) mg/dL Creatinine 1.67 H (0.66-1.25) mg/dL Glucose 104 H (74-99) mg/dL POC Glucose (mg/dL) (75-99) mg/dL Plasma Lactic Acid Cristian (0.7-2.0) mmol/L Calcium 7.8 L (8.4-10.2) mg/dL Total Bilirubin 10.5 H (0.2-1.3) mg/dL AST 240 H (17-59) U/L ALT 105 H (4-49) U/L Alkaline Phosphatase 193 H (38-126) U/L Ammonia (<30) umol/L Albumin 2.3 L (3.5-5.0) g/dL Crossmatch 11/12/19 11/12/19 11/12/19 Range/Units 04:13 06:09 12:01 WBC 21.3 H (3.8-10.6) k/uL RBC 2.36 L (4.30-5.90) m/uL Hgb 8.1 L (13.0-17.5) gm/dL Hct 24.3 L (39.0-53.0) % MCV 102.7 H (80.0-100.0) fL RDW 20.4 H (11.5-15.5) % Neutrophils # (1.3-7.7) k/uL Monocytes # (0-1.0) k/uL Macrocytosis PT (9.0-12.0) sec INR (<1.2) Sodium (137-145) mmol/L Chloride (98-107) mmol/L Carbon Dioxide (22-30) mmol/L BUN (9-20) mg/dL Creatinine (0.66-1.25) mg/dL Glucose (74-99) mg/dL POC Glucose (mg/dL) 103 H (75-99) mg/dL Plasma Lactic Acid Cristian (0.7-2.0) mmol/L Calcium (8.4-10.2) mg/dL Total Bilirubin (0.2-1.3) mg/dL AST (17-59) U/L ALT (4-49) U/L Alkaline Phosphatase (38-126) U/L Ammonia 42 H (<30) umol/L Albumin (3.5-5.0) g/dL Crossmatch Assessment and Plan Plan: -Acute upper GI bleed peptic ulcer disease and low possibility possibility of variceal bleed from portal hypertension patient is on octreotide which will be continued as this is not a variceal bleed will not require antibiotics but will get the opinion of gastroenterology. Patient was given IV vitamin K with some improvement in INR patient still had dark stools today which is mostly burgundy rather than the black stools patient received 2 units of PRBC may require more. Patient had an upper GI endoscopy which showed a DR Umair bulb ulcer without any acute bleeding and small esophageal varices antibiotics will be continued -Coagulopathy with elevated INR secondary to hepatic dysfunction -Hepatic encephalopathy: Continue with rifaximin and lactulose monitor ammonia level. Patient is quite a bit confused although his ammonia completely doesn't explain all of his confusion. -Cirrhosis alcohol ache along with acute alcoholic hepatitis patient stop drinking alcohol -Hyponatremia probably hypovolemic hyponatremia from excessive diuretics these will be held -Hyperkalemia secondary to Aldactone which will be held as well -Lactic acidosis and anion gap metabolic acidosis is secondary to hepatic dysfunction continue with IV fluids for now but his lactic acid is expected to come down pretty slow because of cirrhosis. Chronic anemia from cirrhosis which is macrocytic anemia
--- NOTE | 2019-11-12 13:54 | PN ---
PROGRESS NOTE PULMONARY/CRITICAL CARE PROGRESS NOTE: DATE OF SERVICE: 11/12/2019 This is a 59-year-old male who I saw yesterday in consultation. He was admitted to the emergency room for gastrointestinal bleed. I did speak to the ER doctor, Dr. James. The patient has a recent diagnosis of alcoholic hepatitis and alcoholic liver disease with cirrhosis. He apparently had been passing dark blood per rectum over the last couple of days. Since he has been here, he has received 2 units of PRBCs. He has pretty severe chronic liver disease and it is mentally not quite with it and likely suffers from hepatic encephalopathy. His ammonia level was elevated, it went from 61 to 42 with lactulose. He has a bit of a coagulopathy as well. Currently, he is on room air. His saline IV is running at 100 mL an hour. He is doing better today than he did yesterday. He does have a chronic cough. Current vital signs are reviewed, temperature 97.9, heart rate 89, respiratory rate 17, blood pressure 124/72 mean 89 and room air saturation 98%. Appears in no acute distress. Still in no respiratory distress. HEENT: Examination is grossly unremarkable. Mucous membranes are dry. No supplemental oxygen. NECK: Supple, full range of motion. No adenopathy. Neck veins are flat. CARDIOVASCULAR: Examination reveals a regular rhythm and rate. Heart rate is 89 beats per minute. S1, S2 normal. Heart sounds are regular. No murmur. LUNGS: Reveal mostly clear breath sounds. No wheezes or rhonchi. No crackles. He does not really take deep breaths. ABDOMEN: Soft. I do not feel a fluid wave. I do not think he has significant ascites. EXTREMITIES: Reveal no evidence of cyanosis, clubbing, or edema. SKIN: Reveals jaundice. He has also got scleral icterus. NEUROLOGIC: Examination is difficult to assess. He is somewhat lethargic. He does move all 4 extremities. Microbiologic studies are negative. LABS: Reviewed. White count 21.3, hemoglobin 8.1, hematocrit 24.3, platelet count 228,000. PT, INR were 14.3 and 144. Sodium 134, potassium 4.6, chloride 109, CO2 is 15, anion gap is 10, BUN and creatinine were 54 and 1.67. His calcium 7.8, total bilirubin is 10.5, AST 240, ALT 105, alkaline phosphatase is elevated at 193. Ammonia level has come down from 51 to 42, albumin is 2.3. Again, microbiology is negative. No new x-rays to report. MEDICATIONS: Reviewed. He is currently on ceftriaxone, lactulose, morphine, Narcan, Protonix, Rifaximin, and a saline IV. ASSESSMENT: 1. Alcoholic liver disease with alcoholic cirrhosis and active GI bleeding with anemia. The patient has received 2 units of PRBCs while here. 2. Mild coagulopathy secondary to alcoholic liver disease. 3. Daily alcohol abuse. 4. Hyperbilirubinemia. 5. Rule out alcoholic hepatitis. 6. Hypernatremia. 7. Mild hyperkalemia. 8. Rule out acute kidney injury and hepatorenal syndrome. 9. Profound hypoalbuminemia. PLAN: The patient seems to be doing better today. The patient's ammonia level has come down from 61 to 42. Will continue with the lactulose. His mental status is only minimally improved. His respiratory status is stable. Hemodynamically, he has been stable. His overall prognosis remains poor. No additional bleeding. The patient's hemoglobin is stable. He has received 2 units of PRBCs since coming to the unit. MMODL / IJN: [id number] /
--- NOTE | 2019-11-12 14:40 | P.NPCON ---
History of Present Illness - Reason for Consult acute renal failure - Chief Complaint Acute kidney injury and hepatic encephalopathy - History of Present Illness Mrs. 59-year-old male seen in consultation because of acute kidney injury. His creatinine is 1.74 yesterday and slightly better at 1.67 yesterday. Baseline creatinine is 0.74 as of 10/29/2019 two weeks ago. He was admitted because of hepatic encephalopathy, or colic cirrhosis, and I'll colic hepatitis. He was recently admitted and discharged and supposedly went back to drinking. He is currently unable to give any history as he is confused. He has had an EGD performed and a lumbar succumbs for and showed superficial due to ulcer with no active bleeding and a small is a fragile dialysis with no stigmata of recent bleed was found dated 11/11/2019 yesterday. His last paracentesis was on 10/28/2019 with 3.4 L Past Medical History Past Medical History: Liver Disease Additional Past Medical History / Comment(s): Cirrhosis History of Any Multi-Drug Resistant Organisms: None Reported Past Surgical History: No Surgical Hx Reported Additional Past Anesthesia/Blood Transfusion Reaction / Comment(s): no previous Past Psychological History: No Psychological Hx Reported Smoking Status: Never smoker Past Alcohol Use History: Abuse, Daily Additional Past Alcohol Use History / Comment(s): patients last drink was a week ago. vodka 10 drinks a day Past Drug Use History: None Reported - Past Family History Mother Family Medical History: No Reported History Father Family Medical History: No Reported History Medications and Allergies Home Medications Medication Instructions Recorded Confirmed Type Furosemide [Lasix] 40 mg PO BID 30 Days #60 tablet 10/28/19 11/11/19 Rx Potassium Chloride ER [K-Dur 20] 20 meq PO BID 30 Days #60 10/28/19 11/11/19 Rx tab.er.prt Spironolactone [Aldactone] 50 mg PO DAILY 30 Days #30 tab 10/28/19 11/11/19 Rx Allergies Allergy/AdvReac Type Severity Reaction Status Date / Time No Known Allergies Allergy Verified 11/11/19 08:49 Physical Exam Vitals: Vital Signs Temp Pulse Resp BP Pulse Ox 11/12/19 13:00 96 21 136/74 97 11/12/19 12:00 97.1 F L 94 26 H 122/69 98 11/12/19 11:00 95 21 129/60 97 11/12/19 10:00 95 21 145/61 97 11/12/19 09:00 89 17 97 11/12/19 08:00 97.9 F 92 19 124/72 98 11/12/19 07:00 86 15 117/60 97 11/12/19 06:00 93 23 134/66 98 11/12/19 05:00 90 19 117/65 99 11/12/19 04:00 97.9 F 91 22 126/60 98 11/12/19 03:00 90 21 144/66 98 11/12/19 02:00 92 21 140/78 99 11/12/19 01:00 90 20 152/68 99 11/12/19 00:00 98.1 F 25 H 143/67 98 11/11/19 23:14 93 22 143/67 99 11/11/19 23:00 92 20 154/74 99 11/11/19 22:10 98.1 F 97 17 142/70 99 11/11/19 22:00 98 32 H 157/66 98 11/11/19 21:00 94 28 H 139/65 100 11/11/19 20:37 97.7 F 97 14 135/69 99 11/11/19 20:17 97.8 F 97 12 132/68 99 11/11/19 20:07 97.7 F 99 14 139/65 99 11/11/19 20:04 97.7 F 96 14 142/72 99 11/11/19 20:00 97.7 F 96 23 146/78 98 11/11/19 19:00 94 24 133/72 98 11/11/19 18:00 96 16 160/71 98 11/11/19 17:00 94 16 159/69 99 11/11/19 15:00 98 17 106/89 98 Intake and Output 11/11/19 11/12/19 11/12/19 22:59 06:59 14:59 Intake Total 1773.0 1000.0 600 Output Total 345 670 350 Balance 1428.0 330.0 250 Intake: IV 1175.0 1000.0 600 Octreotide 500 mcg In 100.0 50.0 Sodium Chloride 0.9% 250 ml @ 25 MCG/HR 12.5 mls/ hr IV .Q20H [facility] Rx#: [id number] Sodium Chloride 0.9% 1, 875 750 000 ml @ 125 mls/hr IV . Q8H [facility] Rx#:[id number] Sodium Chloride 0.9% 1, 200 550 000 ml @ 50 mls/hr IV . Q20H [facility] Rx#:[id number] cefTRIAXone 1 gm In 50 Sodium Chloride 0.9% 50 ml @ 100 mls/hr IVPB Q24HR [facility] Rx#:[id number] Blood Product 598 Ffp 24 Cpd Unit 314 [id number] Ffp 24 Cpd Unit 284 [id number] Output: Urine 345 670 350 Other: Voiding Method Indwelling Catheter Indwelling Catheter Indwelling Catheter Weight 86.9 kg 86.9 kg On exam he is awake alert but does not understand any commands. He makes eye contact. HEENT exam no JVP neck is supple no facial asymmetry He is deeply jaundiced Unable to see if he have any asterixis as he could not follow commands Lungs are clear to auscultation fair air entry Heart sounds are unremarkable no murmur rub gallop Abdomen has moderate ascites nontender Extremity exam was trace to no edema Neurologically awake alert but disoriented 3. Results - Lab Results Most recent lab results Calcium 7.8 mg/dL (8.4-10.2) L 11/12/19 04:13 11/12/19 12:01 11/12/19 04:13 Assessment and Plan Assessment: Impression 1. Acute kidney injury likely from significant bleeding and hypotension. Creatinine is stable or slightly lower and urine output is fair therefore unlikely hepatorenal syndrome but cannot be ruled out 2. Significant non-gap metabolic acidosis with a bicarb of 15 and a gap of 10 secondary to acute kidney injury. This is also associated with significant lactic acidosis with a peak lactic acid of 6 which is improved. This is usually not seen with acute kidney injury to this level. It might have been a consequence of low blood pressure which is not documented, as it has improved significantly back to normal level 3. Alcoholic hepatitis, alcohol excess cirrhosis. Hepatic encephalopathy. 3. Status post EGD 11/11/2019 yesterday and a duodenal ulcer and a esophageal varices without any stigmata of recent bleed. 4. Status post transfusion. 5. High white count rule out infection white count is 21,300. Recommendation 1. IV normal saline at 100 and hour. 2. Check urine sodium urine osmolality and urine creatinine 3. Prognosis is rather poor given his ongoing drinking
[2019-11-12 19:13] LABS: Creatinine,Urine Random 39.9 mg/dL
[2019-11-13 04:37] LABS: INR 1.4 (<1.2); Prothrombin Time 14.2 sec (9.0-12.0)
[2019-11-13 04:38] LABS: Albumin 2.1 g/dL (3.5-5.0); Anisocytosis Moderate; Basophils % (A) 0 %; Calcium 7.3 mg/dL (8.4-10.2); Eosinophils # (A) 0.4 k/uL (0-0.7); Eosinophils % (A) 3 %; HCT 21.9 % (39.0-53.0); HGB 7.2 gm/dL (13.0-17.5); Lymphocytes # (A) 1.4 k/uL (1.0-4.8); Lymphocytes % (A) 9 %; MCH 33.9 pg (25.0-35.0); MCHC 32.7 g/dL (31.0-37.0); MCV 103.6 fL (80.0-100.0); Macrocytosis Marked; Mean Platelet Volume 8.5; Monocytes # (A) 0.8 k/uL (0-1.0); Monocytes % (A) 5 %; Neutrophils # (A) 12.4 k/uL (1.3-7.7); Neutrophils % (A) 80 %; Platelet Count 221 k/uL (150-450); RBC 2.11 m/uL (4.30-5.90); RDW 20.7 % (11.5-15.5); Total Bilirubin 9.9 mg/dL (0.2-1.3); Total Protein 5.9 g/dL (6.3-8.2); WBC 15.5 k/uL (3.8-10.6)
[2019-11-13] MEDS: RIFAXIMIN 550 MG TABLET PO SCH ×2 (10:03→20:09)
[2019-11-13] MEDS: PANTOPRAZOLE 40 MG/10 ML VIAL IV SCH ×2 (10:03→20:09)
[2019-11-13] MEDS: LACTULOSE 20 GM/30 ML CUP PO SCH ×2 (10:03→16:51)
--- NOTE | 2019-11-13 11:49 | P.PN ---
Subjective Progress Note Date: 11/13/19 Principal diagnosis: He says 59-year-old male seen in consultation because of acute kidney injury with known alcoholic cirrhosis and hepatic encephalopathy and alcoholic hepatitis. He was started on IV fluids. His workup has shown urine sodium 84 and is in creatinine is 39. Osmolality is 377. Because of Lasix being given and spironolactone therefore it would be hard to read these results. Currently his vital signs are stable blood pressure in the 120 and 140 range. Urine output is recorded at 800 mL an 106 0 mL for the last 12 hour shifts Objective - Vital Signs Vital signs: Vital Signs Temp 98 F 11/13/19 08:00 Pulse 80 11/13/19 11:00 Resp 13 11/13/19 11:00 BP 141/71 11/13/19 11:00 Pulse Ox 99 11/13/19 11:00 Intake & Output 11/12/19 11/13/19 11/13/19 18:59 06:59 18:59 Intake Total 1200 1600 400 Output Total 800 1060 310 Balance 400 540 90 Weight 86.9 kg 86.5 kg Intake: IV 1200 1200 400 Sodium Chloride 0.9% 1, 1150 1200 400 000 ml @ 100 mls/hr IV . Q10H [facility] Rx#:[id number] cefTRIAXone 1 gm In 50 Sodium Chloride 0.9% 50 ml @ 100 mls/hr IVPB Q24HR [facility] Rx#:[id number] Intake, IV Titration 400 Amount Octreotide 500 mcg In 400 Sodium Chloride 0.9% 250 ml @ 25 MCG/HR 12.5 mls/ hr IV .Q20H [facility] Rx#: [id number] Output: Urine 800 1060 310 Other: Voiding Method Indwelling Catheter Indwelling Catheter Indwelling Catheter # Bowel Movements 3 On examination he remains awake and alert but does not follow any commands. He makes eye contact No JVP noted. Heart sounds unremarkable Lungs clear Abdomen is slightly distended with ascites Extremity exam was no edema Logically obtunded to awake state - Labs CBC & Chem 7: 11/13/19 04:14 11/13/19 04:14 Labs: Abnormal Lab Results - Last 24 Hours (Table) 11/12/19 11/13/19 11/13/19 Range/Units 12:01 04:14 04:14 WBC 21.3 H 15.5 H (3.8-10.6) k/uL RBC 2.36 L 2.11 L (4.30-5.90) m/uL Hgb 8.1 L 7.2 L (13.0-17.5) gm/dL Hct 24.3 L 21.9 L (39.0-53.0) % MCV 102.7 H 103.6 H (80.0-100.0) fL RDW 20.4 H 20.7 H (11.5-15.5) % Neutrophils # 12.4 H (1.3-7.7) k/uL Macrocytosis Marked A PT 14.2 H (9.0-12.0) sec INR 1.4 H (<1.2) Sodium (137-145) mmol/L Chloride (98-107) mmol/L Carbon Dioxide (22-30) mmol/L BUN (9-20) mg/dL Creatinine (0.66-1.25) mg/dL Glucose (74-99) mg/dL Calcium (8.4-10.2) mg/dL Total Bilirubin (0.2-1.3) mg/dL AST (17-59) U/L ALT (4-49) U/L Alkaline Phosphatase (38-126) U/L Total Protein (6.3-8.2) g/dL Albumin (3.5-5.0) g/dL 11/13/19 Range/Units 04:14 WBC (3.8-10.6) k/uL RBC (4.30-5.90) m/uL Hgb (13.0-17.5) gm/dL Hct (39.0-53.0) % MCV (80.0-100.0) fL RDW (11.5-15.5) % Neutrophils # (1.3-7.7) k/uL Macrocytosis PT (9.0-12.0) sec INR (<1.2) Sodium 134 L (137-145) mmol/L Chloride 112 H (98-107) mmol/L Carbon Dioxide 14 L (22-30) mmol/L BUN 47 H (9-20) mg/dL Creatinine 1.62 H (0.66-1.25) mg/dL Glucose 105 H (74-99) mg/dL Calcium 7.3 L (8.4-10.2) mg/dL Total Bilirubin 9.9 H (0.2-1.3) mg/dL AST 220 H (17-59) U/L ALT 95 H (4-49) U/L Alkaline Phosphatase 177 H (38-126) U/L Total Protein 5.9 L (6.3-8.2) g/dL Albumin 2.1 L (3.5-5.0) g/dL Microbiology - Last 24 Hours (Table) 11/12/19 18:00 Gram Stain - Preliminary Tissue - Other Wound Culture - Preliminary 11/12/19 18:00 Anaerobic Culture - Preliminary Scrotum Assessment and Plan Assessment: Impression 1. Acute kidney injury likely from significant bleeding and hypotension. Additionally there might have been a scrotal abscess that has drained as per the nursing staff as there was some drainage coming out as of yesterday. Creatinine is stable or slightly lower and urine output is fair therefore unlikely hepatorenal syndrome but cannot be ruled out and it is urinary sodium is high but he will was on Lasix and Aldactone. 7 discontinue 2. Significant non-gap metabolic acidosis with a bicarb of 15 and a gap of 10 secondary to acute kidney injury. This is also associated with significant lactic acidosis with a peak lactic acid of 6 which is improved. This is usually not seen with acute kidney injury to this level. It might have been a consequence of low blood pressure which is not documented, as it has improved significantly back to normal level 3. Alcoholic hepatitis, alcohol excess cirrhosis. Hepatic encephalopathy. Bilirubin is stable at 9.9 was 10.4 3. Status post EGD 11/11/2019 yesterday and a duodenal ulcer and a esophageal varices without any stigmata of recent bleed. Hemoglobin is stable was 7.6, 8.1 and 7.2 4. Status post transfusion. 5. High white count rule out infection white count is 21,300.. His white count improved to 15,500 6. Nurses report there is pus coming out of his scrotal and there is no surrounding cellulitis Recommendation 1. Continue IV normal saline at 100 and hour. 2. We will continue to watch his labs and urine output and vital signs
--- NOTE | 2019-11-13 12:12 | P.PN ---
Subjective 59-year-old male with known history of a colic hepatitis cirrhosis was recently discharged from the hospital came back again with the bright red blood per rectum patient's abdomen is found to be 6.4 patient was having these bleeding for last 4 days unsure how many episodes patient is unable to provide any history to me as patient is severely insula patent because of hyperammonemia and hepatic encephalopathy. Patient was apparently feeling short of breath. Patient is receiving IV fluids at this time Lasix is on have a cold patient has minimal ascites at this time patient denied any abdominal pain. There is no evidence of upper GI bleed ovale cerebral bleed patient probably will not require IV antibiotics patient was started onto tried. Patient's INR is 1.7 because of cirrhosis. Patient does have lactic acidosis is mostly because of hepatic dysfunction. Patient will be continued on IV fluids and 100 mL per hour need to monitor for worsening ascites and fluid overload. Yesterday reveal a valid the patient and patient will be given IV vitamin K. Patient will be can you done rifaximin and lactulose for hepatic encephalopathy. 11/12/2019 Patient cannot provide any history patient is completely confused as today was told patient has a right blood per rectum rectum but it appears like patient had.stools which is consistent with upper GI bleed because of which will continue the antibiotics for possible variceal bleed upper GI endoscopy did show peptic ulcer disease and also varices but dresses doesn't appear to be source of bleed. Patient clinically doesn't appear to have spontaneous bacterial peritonitis anyways patient is on antibiotics. Patient was started back on diuretics by gastroenterology because of worsening renal function and no significant ascites and discontinuing these diuretics for now. Nephrology will be consulted as well. Patient's lactic acid has come down. 11/13/2019 Patient's overall mental status improved serum creatinine remains stable patient does have urine output be and has gone down. Patient's IV fluids were increased by nephrology. Bicarbonate is an not a good idea in his situation in spite of hyperchloremia because of, shouldn't lactic acid in the his liver cannot handle any lactic acid. Patient's leukocytosis improved overall there is improvement but patient is still the drowsy and sleepy. Serum ammonia level is 28 still having darker stools but hemoglobin remained stable this is probably because of his retained blood in the bowels Review of systems: Unable to obtain All inpatient medications were reviewed and appropriate changes in these medications as dictated in the interval history and assessment and plan. Objective - Vital Signs Vital signs: Vital Signs Temp 98 F 11/13/19 08:00 Pulse 80 11/13/19 11:00 Resp 13 11/13/19 11:00 BP 141/71 11/13/19 11:00 Pulse Ox 99 11/13/19 11:00 Intake & Output 11/12/19 11/13/19 11/13/19 18:59 06:59 18:59 Intake Total 1200 1600 400 Output Total 800 1060 310 Balance 400 540 90 Weight 86.9 kg 86.5 kg Intake: IV 1200 1200 400 Sodium Chloride 0.9% 1, 1150 1200 400 000 ml @ 100 mls/hr IV . Q10H [facility] Rx#:[id number] cefTRIAXone 1 gm In 50 Sodium Chloride 0.9% 50 ml @ 100 mls/hr IVPB Q24HR [facility] Rx#:[id number] Intake, IV Titration 400 Amount Octreotide 500 mcg In 400 Sodium Chloride 0.9% 250 ml @ 25 MCG/HR 12.5 mls/ hr IV .Q20H [facility] Rx#: [id number] Output: Urine 800 1060 310 Other: Voiding Method Indwelling Catheter Indwelling Catheter Indwelling Catheter # Bowel Movements 3 - Exam PHYSICAL EXAMINATION: GENERAL: Drowsy less confused. Well developed, well nourished. HEENT: Pupils are round and equally reacting to light. EOMI. does have scleral icterus and conjunctival pallor. Normocephalic, atraumatic. No pharyngeal erythema. No thyromegaly. CARDIOVASCULAR: S1 and S2 present. No murmurs, rubs, or gallops. PULMONARY: Chest is clear to auscultation, no wheezing or crackles. ABDOMEN: Mildly distended with mild shifting dullness normoactive bowel sounds. No palpable organomegaly. Patient does have tremor and asterixis MUSCULOSKELETAL: No joint swelling or deformity. EXTREMITIES: No cyanosis, clubbing, or pedal edema. NEUROLOGICAL: No focal deficits were appreciated SKIN: No rashes. - Labs CBC & Chem 7: 11/13/19 04:14 11/13/19 04:14 Labs: Abnormal Lab Results - Last 24 Hours (Table) 11/12/19 11/13/19 11/13/19 Range/Units 12:01 04:14 04:14 WBC 21.3 H 15.5 H (3.8-10.6) k/uL RBC 2.36 L 2.11 L (4.30-5.90) m/uL Hgb 8.1 L 7.2 L (13.0-17.5) gm/dL Hct 24.3 L 21.9 L (39.0-53.0) % MCV 102.7 H 103.6 H (80.0-100.0) fL RDW 20.4 H 20.7 H (11.5-15.5) % Neutrophils # 12.4 H (1.3-7.7) k/uL Macrocytosis Marked A PT 14.2 H (9.0-12.0) sec INR 1.4 H (<1.2) Sodium (137-145) mmol/L Chloride (98-107) mmol/L Carbon Dioxide (22-30) mmol/L BUN (9-20) mg/dL Creatinine (0.66-1.25) mg/dL Glucose (74-99) mg/dL Calcium (8.4-10.2) mg/dL Total Bilirubin (0.2-1.3) mg/dL AST (17-59) U/L ALT (4-49) U/L Alkaline Phosphatase (38-126) U/L Total Protein (6.3-8.2) g/dL Albumin (3.5-5.0) g/dL 11/13/19 Range/Units 04:14 WBC (3.8-10.6) k/uL RBC (4.30-5.90) m/uL Hgb (13.0-17.5) gm/dL Hct (39.0-53.0) % MCV (80.0-100.0) fL RDW (11.5-15.5) % Neutrophils # (1.3-7.7) k/uL Macrocytosis PT (9.0-12.0) sec INR (<1.2) Sodium 134 L (137-145) mmol/L Chloride 112 H (98-107) mmol/L Carbon Dioxide 14 L (22-30) mmol/L BUN 47 H (9-20) mg/dL Creatinine 1.62 H (0.66-1.25) mg/dL Glucose 105 H (74-99) mg/dL Calcium 7.3 L (8.4-10.2) mg/dL Total Bilirubin 9.9 H (0.2-1.3) mg/dL AST 220 H (17-59) U/L ALT 95 H (4-49) U/L Alkaline Phosphatase 177 H (38-126) U/L Total Protein 5.9 L (6.3-8.2) g/dL Albumin 2.1 L (3.5-5.0) g/dL Microbiology - Last 24 Hours (Table) 11/12/19 18:00 Gram Stain - Preliminary Tissue - Other Wound Culture - Preliminary 11/12/19 18:00 Anaerobic Culture - Preliminary Scrotum Assessment and Plan Plan: -Acute upper GI bleed peptic ulcer disease and low possibility possibility of variceal bleed from portal hypertension patient is on octreotide which will be continued as this is not a variceal bleed will not require antibiotics but will get the opinion of gastroenterology. Patient was given IV vitamin K with some improvement in INR patient still had dark stools today which is mostly burgundy rather than the black stools patient received 2 units of PRBC may require more. Patient had an upper GI endoscopy which showed a duodenal bulb ulcer without any acute bleeding and small esophageal varices antibiotics will be continued -Acute renal failure prerenal azotemia from cirrhosis patient on IV fluids low possibility of hepatorenal syndrome -Coagulopathy with elevated INR secondary to hepatic dysfunction -Hepatic encephalopathy: Continue with rifaximin and lactulose monitor ammonia level. Patient is quite a bit confused although his ammonia completely doesn't explain all of his confusion. -Cirrhosis alcoholic along with acute alcoholic hepatitis patient stop drinking alcohol -Hyponatremia probably hypovolemic hyponatremia from excessive diuretics these will be held -Hyperkalemia secondary to Aldactone which will be held as well -Lactic acidosis and anion gap metabolic acidosis is secondary to hepatic dysfunction continue with IV fluids for now but his lactic acid is expected to come down pretty slow because of cirrhosis. Chronic anemia from cirrhosis which is macrocytic anemia
--- NOTE | 2019-11-13 15:52 | P.PN ---
Subjective Progress Note Date: 11/13/19 Principal diagnosis: Acute upper GI bleed secondary to suspected peptic ulcer disease The patient is seen today 11/13/2019 in follow-up in the intensive care unit. He was admitted for an acute gastrointestinal bleeding. He also had acute renal failure, coagulopathy, hepatic encephalopathy with acute alcoholic hepatitis and cirrhosis. Today he is a bit more arousable. Still minimal conversation. His ammonia levels have decreased from 51 down to 20. His current hemoglobin is 7.2. He is status post 2 unit packed red blood cells this admission. Status post 2 units of fresh frozen plasma. EGD was performed on November 10 that revealed a nonbleeding duodenal ulcer. He remains on 0.9 normal saline at 100 ML's per hour. Scrotum wound culture is pending. White count 15.5. Hemoglobin 7.2. MCV 103.6. Platelets 221. INR 1.4. Sodium 134. Potassium 4.0. Chloride 112. Bicarb 14. Creatinine 1.62. AST 220, ALT 95, alk phos 117. Albumin 2.1. Currently off octreotide. He is currently receiving lactulose. Antibiotics in the form of ceftriaxone. IV Protonix 40 mg twice a day, rifaximin. Objective - Vital Signs Vital signs: Vital Signs Temp 98.2 F 11/13/19 12:00 Pulse 86 11/13/19 15:00 Resp 13 11/13/19 15:00 BP 124/65 11/13/19 15:00 Pulse Ox 100 11/13/19 15:00 Intake & Output 11/12/19 11/13/19 11/13/19 18:59 06:59 18:59 Intake Total 1200 1600 600 Output Total 800 1060 470 Balance 400 540 130 Weight 86.9 kg 86.5 kg Intake: IV 1200 1200 600 Sodium Chloride 0.9% 1, 1150 1200 600 000 ml @ 100 mls/hr IV . Q10H [facility] Rx#:[id number] cefTRIAXone 1 gm In 50 Sodium Chloride 0.9% 50 ml @ 100 mls/hr IVPB Q24HR [facility] Rx#:[id number] Intake, IV Titration 400 Amount Octreotide 500 mcg In 400 Sodium Chloride 0.9% 250 ml @ 25 MCG/HR 12.5 mls/ hr IV .Q20H [facility] Rx#: [id number] Output: Urine 800 1060 470 Other: Voiding Method Indwelling Catheter Indwelling Catheter Indwelling Catheter # Bowel Movements 3 - Exam GENERAL EXAM: Alert, arousable, 59-year-old gentleman, cachectic, comfortable in no apparent distress. HEAD: Normocephalic. EYES: Normal reaction of pupils, equal size. NOSE: Clear with pink turbinates. THROAT: No erythema or exudates. NECK: No masses, no JVD. CHEST: No chest wall deformity. LUNGS: Equal air entry with no crackles, wheeze, rhonchi or dullness. CVS: S1 and S2 normal with no audible murmur, regular rhythm. ABDOMEN: No hepatosplenomegaly, normal bowel sounds, no guarding or rigidity. SPINE: No scoliosis or deformity SKIN: No rashes CENTRAL NERVOUS SYSTEM: No focal deficits, tone is normal in all 4 extremities. EXTREMITIES: There is no peripheral edema. No clubbing, no cyanosis. Peripheral pulses are intact. - Labs CBC & Chem 7: 11/13/19 04:14 11/13/19 04:14 Labs: Abnormal Lab Results - Last 24 Hours (Table) 11/13/19 11/13/19 11/13/19 Range/Units 04:14 04:14 04:14 WBC 15.5 H (3.8-10.6) k/uL RBC 2.11 L (4.30-5.90) m/uL Hgb 7.2 L (13.0-17.5) gm/dL Hct 21.9 L (39.0-53.0) % MCV 103.6 H (80.0-100.0) fL RDW 20.7 H (11.5-15.5) % Neutrophils # 12.4 H (1.3-7.7) k/uL Macrocytosis Marked A PT 14.2 H (9.0-12.0) sec INR 1.4 H (<1.2) Sodium 134 L (137-145) mmol/L Chloride 112 H (98-107) mmol/L Carbon Dioxide 14 L (22-30) mmol/L BUN 47 H (9-20) mg/dL Creatinine 1.62 H (0.66-1.25) mg/dL Glucose 105 H (74-99) mg/dL Calcium 7.3 L (8.4-10.2) mg/dL Total Bilirubin 9.9 H (0.2-1.3) mg/dL AST 220 H (17-59) U/L ALT 95 H (4-49) U/L Alkaline Phosphatase 177 H (38-126) U/L Total Protein 5.9 L (6.3-8.2) g/dL Albumin 2.1 L (3.5-5.0) g/dL Microbiology - Last 24 Hours (Table) 11/12/19 18:00 Gram Stain - Preliminary Tissue - Other Wound Culture - Preliminary 11/12/19 18:00 Anaerobic Culture - Preliminary Scrotum Assessment and Plan Assessment: 1 Acute gastrointestinal bleeding. EGD on 11/11/2019 revealed nonbleeding duodenal ulcer. Status post 2 units of packed red blood cells and 2 units of fresh frozen plasma. Current hemoglobin 7.2. 2 Acute hepatic encephalopathy, ammonia levels down from 51 to 20 3 Alcoholic liver disease with alcoholic cirrhosis For Mild coagulopathy secondary to above 5 Daily alcohol use. 6 Hyperbilirubinemia 7 Rule out alcoholic hepatitis 8 Hypoalbuminemia Plan: The patient was seen and evaluated by Dr. Cardoza Continue to monitor hemoglobin Continue fluid resuscitation Continue lactulose, Protonix, rifaximin Continue to monitor him closely here in the intensive care unit We'll continue to follow I, the cosigning physician, performed a history & physical examination of the patient. Lungs sounds are clear. Maintaining good O2 saturations in the 90s on room air. I discussed the assessment and plan of care with my nurse practitioner, Charleen Roberto. I attest to the above note as dictated by her.
--- NOTE | 2019-11-13 16:15 | PN ---
PROGRESS NOTE DATE OF DICTATION: November 13, 2019 Patient is a 59-year-old white male admitted to hospital with history of alcoholic cirrhosis and acute alcoholic hepatitis. Admitted to hospital with acute GI bleed. He underwent an upper endoscopy done 2 days ago that showed large superficial duodenal ulcer and small esophageal varices. The patient presently on Protonix 40 mg q.12 hours and doing well. He also developed hepatic encephalopathy while in the hospital. Presently on Xifaxan and lactulose. He is doing much better today. He is more awake, but not quite alert yet. He reports no symptoms. As per the nursing staff, on lactulose, he had 2 soft stools yesterday. No fever, chills, night sweats. PHYSICAL EXAMINATION: He appears comfortable. No apparent distress. VITAL SIGNS: Stable. Blood pressure is 141/71, pulse is 80, temperature 98. HEENT examination unremarkable. Conjunctivae pink. Sclerae icteric. Oral cavity no lesions. NECK: No JVD or lymph node enlargement. CHEST: Clear to auscultation. HEART: Regular rate and rhythm. ABDOMEN: Soft. Bowel sounds are positive. No organomegaly. EXTREMITIES: No pedal edema. NEURO: Alert, awake, not oriented to name or place. LABS: From today WBC 15.5, hemoglobin 7.2, platelets normal. Bilirubin is 9.9, AST 220, ALT 95, alkaline phosphatase 177. IMPRESSION: 1. Acute gastrointestinal bleed secondary to duodenal ulcer status post EGD three days ago. Hemoglobin stable at 7.2 g/dL status post 2 units of PRBC transfusion. 2. Acute alcoholic hepatitis superimposed with alcoholic cirrhosis of the liver with gradual decompensation. 3. Hepatic encephalopathy, gradually improving. Ammonia is down to 20. Presently on Xifaxan as well as oral lactulose. 4. Coagulopathy secondary to underlying liver disease. 5. Elevated BUN and creatinine secondary to acute kidney injury. RECOMMENDATIONS: 1. Encouraged oral intake. 2. Continue lactulose and titrate the dose so that he has three to four soft bowel movements daily. 3. Continue with Xifaxan 550 mg twice daily. 4. Protonix 40 mg q.12 hours. 5. Advance diet as tolerated. 6. Repeat labs in the morning and we will follow with you closely. Thank you for this consultation. MMODL / IJN: [id number] /
[2019-11-13] MEDS: SODIUM CHLORIDE 0.9% 1,000 ML IV SCH (16:53)
[2019-11-13] MEDS: OCTREOTIDE 500 MCG in SODIUM CHLORIDE 0.9% 250 ML IV SCH (19:21)
[2019-11-14] MEDS: LACTULOSE 20 GM/30 ML CUP PO SCH ×4 (03:04→20:22)
[2019-11-14] MEDS: SODIUM CHLORIDE 0.9% 1,000 ML IV SCH ×2 (03:07→08:35)
[2019-11-14] MEDS: RIFAXIMIN 550 MG TABLET PO SCH ×2 (08:23→23:38)
[2019-11-14] MEDS: PANTOPRAZOLE 40 MG/10 ML VIAL IV SCH ×2 (08:35→20:24)
--- NOTE | 2019-11-14 09:48 | P.PN ---
Subjective Patient is seen in follow-up for acute kidney injury. Renal function is stable. Patient resting in bed. Nonoliguric. Hemoglobin 7.2 today. Vital signs are stable. General: The patient appeared well nourished and normally developed. HEENT: Head exam is unremarkable. Neck is without jugular venous distension. LUNGS: Lungs are clear to auscultation and percussion. Breath sounds decreased. HEART: Rate and Rhythm are regular. First and second heart sounds normal. No murmurs, rubs or gallops. ABDOMEN: Soft. Nontender. EXTREMITITES: Trace edema. Objective - Vital Signs Vital signs: Vital Signs Temp 97.8 F 11/14/19 00:00 Pulse 78 11/14/19 07:00 Resp 13 11/14/19 07:00 BP 120/62 11/14/19 07:00 Pulse Ox 99 11/14/19 07:00 Intake & Output 11/13/19 11/14/19 11/14/19 18:59 06:59 18:59 Intake Total 1200 2140 Output Total 670 965 Balance 530 1175 Weight 89.5 kg Intake: IV 1200 1300 Sodium Chloride 0.9% 1, 1200 1300 000 ml @ 100 mls/hr IV . Q10H [facility] Rx#:[id number] Oral 840 Output: Urine 670 965 Other: Voiding Method Indwelling Catheter Indwelling Catheter - Labs CBC & Chem 7: 11/13/19 04:14 11/13/19 04:14 Labs: Microbiology - Last 24 Hours (Table) 11/12/19 18:00 Gram Stain - Preliminary Tissue - Other Wound Culture - Preliminary Strep agalactiae - (group b) Gram Neg Bacilli Assessment and Plan Plan: Assessment: 1. Acute kidney injury secondary to ATN secondary to acute blood loss anemia and hypotension. Renal function stable. 2. Metabolic acidosis secondary to acute kidney injury and lactic acidosis. 3. Alcohol-induced liver cirrhosis. GI following. 4. Acute GI bleed status post EGD on November 10 which revealed one at ulcer and esophageal varices. No active bleeding was noted. Plan: Discontinue normal saline and start bicarb drip for 24 hours. Continue to monitor renal function and urine output. Repeat electrolytes in the morning.
[2019-11-14] MEDS: DEXTROSE 5% IN WATER 1,000 ML with SODIUM BICARB (1 MEQ/ML) 150 ML IV SCH (10:38)
--- NOTE | 2019-11-14 12:30 | P.PN ---
Subjective 59-year-old male with known history of a colic hepatitis cirrhosis was recently discharged from the hospital came back again with the bright red blood per rectum patient's abdomen is found to be 6.4 patient was having these bleeding for last 4 days unsure how many episodes patient is unable to provide any history to me as patient is severely insula patent because of hyperammonemia and hepatic encephalopathy. Patient was apparently feeling short of breath. Patient is receiving IV fluids at this time Lasix is on have a cold patient has minimal ascites at this time patient denied any abdominal pain. There is no evidence of upper GI bleed ovale cerebral bleed patient probably will not require IV antibiotics patient was started onto tried. Patient's INR is 1.7 because of cirrhosis. Patient does have lactic acidosis is mostly because of hepatic dysfunction. Patient will be continued on IV fluids and 100 mL per hour need to monitor for worsening ascites and fluid overload. Yesterday reveal a valid the patient and patient will be given IV vitamin K. Patient will be can you done rifaximin and lactulose for hepatic encephalopathy. 11/12/2019 Patient cannot provide any history patient is completely confused as today was told patient has a right blood per rectum rectum but it appears like patient had.stools which is consistent with upper GI bleed because of which will continue the antibiotics for possible variceal bleed upper GI endoscopy did show peptic ulcer disease and also varices but dresses doesn't appear to be source of bleed. Patient clinically doesn't appear to have spontaneous bacterial peritonitis anyways patient is on antibiotics. Patient was started back on diuretics by gastroenterology because of worsening renal function and no significant ascites and discontinuing these diuretics for now. Nephrology will be consulted as well. Patient's lactic acid has come down. 11/13/2019 Patient's overall mental status improved serum creatinine remains stable patient does have urine output be and has gone down. Patient's IV fluids were increased by nephrology. Bicarbonate is an not a good idea in his situation in spite of hyperchloremia because of, shouldn't lactic acid in the his liver cannot handle any lactic acid. Patient's leukocytosis improved overall there is improvement but patient is still the drowsy and sleepy. Serum ammonia level is 28 still having darker stools but hemoglobin remained stable this is probably because of his retained blood in the bowels 11/14/2019 Patient is a severe still lethargic but oriented 3 able to answer questions today mental status improved significantly Constitutional: Denied any fatigue denied any fever. Cardio vascular: denied any chest pain, palpitations Gastrointestinal denied any nausea vomiting Pulmonary: Denied any shortness of breath cough Neurologic denied any new focal deficits All inpatient medications were reviewed and appropriate changes in these medications as dictated in the interval history and assessment and plan. Objective - Vital Signs Vital signs: Vital Signs Temp 97.8 F 11/14/19 00:00 Pulse 78 11/14/19 07:00 Resp 13 11/14/19 07:00 BP 120/62 11/14/19 07:00 Pulse Ox 99 11/14/19 07:00 Intake & Output 11/13/19 11/14/19 11/14/19 18:59 06:59 18:59 Intake Total 1200 2140 Output Total 670 965 Balance 530 1175 Weight 89.5 kg Intake: IV 1200 1300 Sodium Chloride 0.9% 1, 1200 1300 000 ml @ 100 mls/hr IV . Q10H [facility] Rx#:[id number] Oral 840 Output: Urine 670 965 Other: Voiding Method Indwelling Catheter Indwelling Catheter - Exam PHYSICAL EXAMINATION: GENERAL: Lethargic bit drowsy but not confused oriented times close to 3 HEENT: Pupils are round and equally reacting to light. EOMI. does have scleral icterus and conjunctival pallor. Normocephalic, atraumatic. No pharyngeal erythema. No thyromegaly. CARDIOVASCULAR: S1 and S2 present. No murmurs, rubs, or gallops. PULMONARY: Chest is clear to auscultation, no wheezing or crackles. ABDOMEN: Mildly distended with mild shifting dullness normoactive bowel sounds. No palpable organomegaly. Patient does have tremor and asterixis MUSCULOSKELETAL: No joint swelling or deformity. EXTREMITIES: No cyanosis, clubbing, or pedal edema. NEUROLOGICAL: No focal deficits were appreciated SKIN: No rashes. - Labs CBC & Chem 7: 11/13/19 04:14 11/13/19 04:14 Labs: Microbiology - Last 24 Hours (Table) 11/12/19 18:00 Gram Stain - Preliminary Tissue - Other Wound Culture - Preliminary Strep agalactiae - (group b) Gram Neg Bacilli Assessment and Plan Plan: -Acute upper GI bleed peptic ulcer disease and low possibility possibility of variceal bleed from portal hypertension patient was on octreotide which was subsequently discontinued hemoglobin remained stable. Patient is on Rocephin for possible variceal bleed and the possibly spontaneous pectoral peritonitis bacteria peritonitis, possibility of SBP is low -Acute renal failure prerenal azotemia from cirrhosis patient on IV fluids low possibility of hepatorenal syndrome, patient creatinine remains stable patient is hyper Marsha make because of which the patient is acidotic patient was started on IV bicarbonate drip -Non-anion gap metabolic acidosis secondary to hyperchloremia, nephrology is following the patient and patient was started on bicarbonate drip -Coagulopathy with elevated INR secondary to hepatic dysfunction -Hepatic encephalopathy: Continue with rifaximin and lactulose monitor ammonia level. Patient is quite a bit confused although his ammonia completely doesn't explain all of his confusion. -Cirrhosis alcoholic along with acute alcoholic hepatitis patient stop drinking alcohol -Hyponatremia probably hypovolemic hyponatremia from excessive diuretics these will be held -Hyperkalemia secondary to Aldactone which will be held as well -Lactic acidosis and anion gap metabolic acidosis is secondary to hepatic dysfunction continue with IV fluids for now but his lactic acid is expected to come down pretty slow because of cirrhosis. Chronic anemia from cirrhosis which is macrocytic anemia
--- NOTE | 2019-11-14 13:12 | P.PN ---
Subjective Progress Note Date: 11/14/19 Principal diagnosis: Acute upper GI bleed secondary to suspected peptic ulcer disease. Patient was seen today at his bedside in the intensive care unit. He was admitted on 11/11/2019 for an acute GI bleed. His past medical history significant for acute renal failure, coagulopathy, hepatic encephalopathy with acute alcoholic hepatitis and cirrhosis. Each day he becomes a bit more arousable, today is opening up his eyes and following some verbal commands and responding appropriately to questions. No new laboratory results today although his ammonia level was 20 yesterday down from 42. He remains receiving Octretide, Protonix 40 mg IV twice a day, Xifaxam, lactulose and his IV fluids will remain at 0.9% normal saline 100 mL per hour. He remains hemodynamically stable and is currently on no inotropic or pressor support. Room air oxygen saturation is 99% and he has been afebrile the last 24 hours. Objective - Vital Signs Vital signs: Vital Signs Temp 97.8 F 11/14/19 00:00 Pulse 78 11/14/19 07:00 Resp 13 11/14/19 07:00 BP 120/62 11/14/19 07:00 Pulse Ox 99 11/14/19 07:00 Intake & Output 11/13/19 11/14/19 11/14/19 18:59 06:59 18:59 Intake Total 1200 2140 Output Total 670 965 Balance 530 1175 Weight 89.5 kg Intake: IV 1200 1300 Sodium Chloride 0.9% 1, 1200 1300 000 ml @ 100 mls/hr IV . Q10H [facility] Rx#:[id number] Oral 840 Output: Urine 670 965 Other: Voiding Method Indwelling Catheter Indwelling Catheter - Exam GENERAL EXAM: Alert, arousable, 59-year-old gentleman, cachectic, comfortable in no apparent distress. HEAD: Normocephalic. EYES: Normal reaction of pupils, equal size. NOSE: Clear with pink turbinates. THROAT: No erythema or exudates. NECK: No masses, no JVD. CHEST: No chest wall deformity. LUNGS: Equal air entry with no crackles, wheeze, rhonchi or dullness. CVS: S1 and S2 normal with no audible murmur, regular rhythm. ABDOMEN: No hepatosplenomegaly, normal bowel sounds, no guarding or rigidity. SPINE: No scoliosis or deformity SKIN: No rashes CENTRAL NERVOUS SYSTEM: No focal deficits, tone is normal in all 4 extremities. EXTREMITIES: There is no peripheral edema. No clubbing, no cyanosis. Peripheral pulses are intact. - Labs CBC & Chem 7: 11/13/19 04:14 11/13/19 04:14 Labs: Microbiology - Last 24 Hours (Table) 11/12/19 18:00 Gram Stain - Preliminary Tissue - Other Wound Culture - Preliminary Strep agalactiae - (group b) Gram Neg Bacilli Assessment and Plan Assessment: 1 Acute gastrointestinal bleeding. EGD on 11/11/2019 revealed nonbleeding duodenal ulcer. Status post 2 units of packed red blood cells and 2 units of fresh frozen plasma. Current hemoglobin 7.2. 2 Acute hepatic encephalopathy, ammonia levels down from 51 to 20 3 Alcoholic liver disease with alcoholic cirrhosis For Mild coagulopathy secondary to above 5 Daily alcohol use. 6 Hyperbilirubinemia 7 Rule out alcoholic hepatitis 8 Hypoalbuminemia Plan: The patient was seen and evaluated by Dr. Keller Continue to monitor hemoglobin, reapeat CBC in am Continue lactulose, Protonix, rifaximin Discontinue Octretide. Transfer to the medical surgical floor. Will continue to follow. Time with Patient: Greater than 30
[2019-11-14 14:46] LABS: Anisocytosis Moderate; Basophils % (A) 0 %; Eosinophils # (A) 0.3 k/uL (0-0.7); Eosinophils % (A) 2 %; HGB 7.4 gm/dL (13.0-17.5); Hypochromasia Slight; Lymphocytes # (A) 0.9 k/uL (1.0-4.8); Lymphocytes % (A) 6 %; MCH 38.3 pg (25.0-35.0); MCHC 35.1 g/dL (31.0-37.0); Macrocytosis Marked; Mean Platelet Volume 8.8; Monocytes # (A) 0.7 k/uL (0-1.0); Monocytes % (A) 5 %; Neutrophils # (A) 12.1 k/uL (1.3-7.7); Neutrophils % (A) 85 %; Platelet Count 226 k/uL (150-450); RBC 1.92 m/uL (4.30-5.90); RDW 20.4 % (11.5-15.5); WBC 14.2 k/uL (3.8-10.6)
[2019-11-14 14:47] LABS: MCV 109.1 fL (80.0-100.0)
[2019-11-14 14:52] LABS: Albumin 2.2 g/dL (3.5-5.0); Calcium 7.5 mg/dL (8.4-10.2); Potassium 3.7 mmol/L (3.5-5.1); Total Bilirubin 11.2 mg/dL (0.2-1.3); Total Protein 6.2 g/dL (6.3-8.2)
--- NOTE | 2019-11-14 15:13 | PN ---
PROGRESS NOTE DATE OF SERVICE: 11/14/2019 Patient is a 59-year-old white male with history of alcoholic cirrhosis of the liver, admitted to the hospital with GI bleed, status post EGD 4 days that showed a large duodenal ulcer. Patient is doing well. He is still in the intensive care unit be to be transferred out to the floor. No further episodes of bleeding. He is on oral lactulose 30 mL 3 times daily and had 3 loose bowel movements yesterday. No nausea, vomiting. On a clear liquid diet tolerating well. He complains of a small area of swelling on the testicle, which has been cultured. PHYSICAL EXAMINATION: He appears comfortable, in no apparent distress. VITAL SIGNS: Stable, blood pressure is 106/79, pulse is 94, temperature 98.7, HEENT: Examination unremarkable. Conjunctivae are pink. Sclerae nonicteric. Oral cavity no lesions. NECK: No JVD or lymph node enlargement. CHEST: Clear to auscultation. HEART: Regular rate and rhythm. ABDOMEN: Soft. Bowel sounds are positive. EXTREMITIES: No pedal edema. SKIN: No rashes. NEURO: He is alert, oriented to name and place, not to time. LABS: WBC 14.2, hemoglobin 7.4, platelets are normal. Basic metabolic panel showed a bilirubin of 9.9, AST 220, ALT 95, alkaline phosphatase 177. BUN is 47, creatinine 1.52. IMPRESSION: 1. Acute alcoholic hepatitis with alcoholic cirrhosis of the liver. 2. Acute gastrointestinal bleed, status post EGD 4 days ago that showed a large superficial duodenal bulb or ulcer, presently on Protonix and no active bleeding. 3. Hepatic encephalopathy, resolved. 4. Acute kidney injury. Nephrology following the patient. RECOMMENDATIONS: 1. Advance diet as tolerated. 2. Continue Protonix 40 mg daily. 3. Low-salt diet. 4. Repeat CBC in the morning. 5. Continue broad-spectrum antibiotics. 6. Continue with Xifaxan and lactulose and will follow you closely. Thank you for this consultation. MMODL / IJN: [id number] /
[2019-11-15] MEDS: DEXTROSE 5% IN WATER 1,000 ML with SODIUM BICARB (1 MEQ/ML) 150 ML IV SCH (04:17)
[2019-11-15 07:25] LABS: Albumin 2.1 g/dL (3.5-5.0); Calcium 7.5 mg/dL (8.4-10.2); Potassium 4.2 mmol/L (3.5-5.1); Total Protein 6.1 g/dL (6.3-8.2)
[2019-11-15] MEDS: LACTULOSE 20 GM/30 ML CUP PO SCH ×3 (08:20→20:14)
[2019-11-15] MEDS: PANTOPRAZOLE 40 MG/10 ML VIAL IV SCH ×2 (08:24→20:12)
[2019-11-15] MEDS: RIFAXIMIN 550 MG TABLET PO SCH ×2 (08:25→20:13)
[2019-11-15 08:36] LABS: Anisocytosis Moderate; HCT 22.2 % (39.0-53.0); HGB 7.2 gm/dL (13.0-17.5); MCH 34.7 pg (25.0-35.0); MCHC 32.4 g/dL (31.0-37.0); MCV 107.3 fL (80.0-100.0); Macrocytosis Marked; Mean Platelet Volume 11.6; Platelet Count 140 k/uL (150-450); RBC 2.06 m/uL (4.30-5.90); RDW 20.4 % (11.5-15.5)
--- NOTE | 2019-11-15 08:49 | P.PN ---
Subjective Patient is seen in follow-up for acute kidney injury. Renal function is stable. Patient resting in bed. Nonoliguric. Hemoglobin stable at 7.2 today. Vital signs are stable. General: The patient appeared well nourished and normally developed. HEENT: Head exam is unremarkable. Neck is without jugular venous distension. LUNGS: Lungs are clear to auscultation and percussion. Breath sounds decreased. HEART: Rate and Rhythm are regular. First and second heart sounds normal. No murmurs, rubs or gallops. ABDOMEN: Soft. Nontender. EXTREMITITES: Trace edema. Objective - Vital Signs Vital signs: Vital Signs Temp 99.4 F 11/15/19 04:40 Pulse 82 11/15/19 04:40 Resp 20 11/15/19 04:40 BP 107/67 11/15/19 04:40 Pulse Ox 100 11/15/19 04:40 Intake & Output 11/14/19 11/15/19 11/15/19 18:59 06:59 18:59 Intake Total 100 400 Output Total 930 1500 Balance -830 -1100 Weight 93 kg Intake: IV 100 Sodium Chloride 0.9% 1, 100 000 ml @ 100 mls/hr IV . Q10H [facility] Rx#:[id number] Oral 400 Output: Urine 930 1500 Uretheral (Rosa) 500 Other: Voiding Method Indwelling Catheter Indwelling Catheter # Voids 0 # Bowel Movements 2 2 - Labs CBC & Chem 7: 11/15/19 06:17 11/15/19 06:17 Labs: Abnormal Lab Results - Last 24 Hours (Table) 11/11/19 11/14/19 11/14/19 Range/Units 06:10 14:08 14:08 WBC 14.2 H (3.8-10.6) k/uL RBC 1.92 L (4.30-5.90) m/uL Hgb 7.4 L (13.0-17.5) gm/dL Hct 21.0 L (39.0-53.0) % MCV 109.1 H D (80.0-100.0) fL MCH 38.3 H (25.0-35.0) pg RDW 20.4 H (11.5-15.5) % Plt Count (150-450) k/uL Neutrophils # 12.1 H (1.3-7.7) k/uL Lymphocytes # 0.9 L (1.0-4.8) k/uL Macrocytosis Marked A Sodium 134 L (137-145) mmol/L Chloride 109 H (98-107) mmol/L Carbon Dioxide 13 L (22-30) mmol/L BUN 32 H (9-20) mg/dL Creatinine 1.29 H (0.66-1.25) mg/dL Glucose 134 H (74-99) mg/dL Calcium 7.5 L (8.4-10.2) mg/dL Total Bilirubin 11.2 H (0.2-1.3) mg/dL AST 157 H (17-59) U/L ALT 82 H (4-49) U/L Alkaline Phosphatase 170 H (38-126) U/L Total Protein 6.2 L (6.3-8.2) g/dL Albumin 2.2 L (3.5-5.0) g/dL Crossmatch See Detail 11/15/19 11/15/19 Range/Units 06:17 06:17 WBC 13.6 H (3.8-10.6) k/uL RBC 2.06 L (4.30-5.90) m/uL Hgb 7.2 L (13.0-17.5) gm/dL Hct 22.2 L (39.0-53.0) % MCV 107.3 H (80.0-100.0) fL MCH (25.0-35.0) pg RDW 20.4 H (11.5-15.5) % Plt Count 140 L (150-450) k/uL Neutrophils # (1.3-7.7) k/uL Lymphocytes # (1.0-4.8) k/uL Macrocytosis Marked A Sodium 135 L (137-145) mmol/L Chloride 110 H (98-107) mmol/L Carbon Dioxide 15 L (22-30) mmol/L BUN 29 H (9-20) mg/dL Creatinine (0.66-1.25) mg/dL Glucose 115 H (74-99) mg/dL Calcium 7.5 L (8.4-10.2) mg/dL Total Bilirubin 11.0 H (0.2-1.3) mg/dL AST 149 H (17-59) U/L ALT 70 H (4-49) U/L Alkaline Phosphatase 163 H (38-126) U/L Total Protein 6.1 L (6.3-8.2) g/dL Albumin 2.1 L (3.5-5.0) g/dL Crossmatch Microbiology - Last 24 Hours (Table) 11/12/19 18:00 Gram Stain - Preliminary Tissue - Other Wound Culture - Preliminary Strep agalactiae - (group b) Escherichia coli Yeast species Alpha Hemolytic Streptococcus Assessment and Plan Plan: Assessment: 1. Acute kidney injury secondary to ATN secondary to acute blood loss anemia and hypotension. Renal function stable. Creatinine 1.25 today. 2. Metabolic acidosis secondary to acute kidney injury and lactic acidosis. 3. Alcohol-induced liver cirrhosis. GI following. 4. Acute GI bleed status post EGD on November 10 which revealed one at ulcer and esophageal varices. No active bleeding was noted. Plan: Discontinue bicarbonate drip. Start normal saline at 50 mL an hour. Add oral sodium bicarbonate. Continue to monitor renal function and urine output. Repeat electrolytes in the morning.
[2019-11-15] MEDS: SODIUM CHLORIDE 0.9% 1,000 ML IV SCH ×2 (09:05→23:43)
[2019-11-15] MEDS: SODIUM BICARBONATE TAB 650 MG TAB PO SCH ×2 (09:11→20:13)
[2019-11-15 09:26] LABS: Eosinophils # (M) 0.41 k/uL (0-0.7); Monocytes # (M) 0.68 k/uL (0-1.0); Neutrophils % (M) 85 %; Nucleated Red Blood Cells 1 /100 WBC (0-0); Total Cells Counted 200
[2019-11-15 09:27] LABS: Lymphocytes # (M) 1.08 k/uL (1.0-4.8); Neutrophils # (M) 11.48 k/uL (1.3-7.7); WBC 13.5 k/uL (3.8-10.6)
[2019-11-15 09:32] LABS: Target Cells Present
[2019-11-15 10:30] VITALS: BMI 30.2
--- NOTE | 2019-11-15 10:50 | XR ---
EXAMINATION TYPE: XR chest 1V portable DATE OF EXAM: 11/15/2019 COMPARISON: 11/11/2019 INDICATION: Cough, short of breath TECHNIQUE: Single frontal view of the chest is obtained. FINDINGS: The heart size is normal. The pulmonary vasculature is normal. The lungs are clear. There is some limitation on the inspiration. IMPRESSION: 1. No acute pulmonary process.
[2019-11-15 11:29] LABS: INR 1.5 (<1.2); Prothrombin Time 14.7 sec (9.0-12.0)
--- NOTE | 2019-11-15 11:36 | P.PN ---
Subjective 59-year-old male with known history of a colic hepatitis cirrhosis was recently discharged from the hospital came back again with the bright red blood per rectum patient's abdomen is found to be 6.4 patient was having these bleeding for last 4 days unsure how many episodes patient is unable to provide any history to me as patient is severely insula patent because of hyperammonemia and hepatic encephalopathy. Patient was apparently feeling short of breath. Patient is receiving IV fluids at this time Lasix is on have a cold patient has minimal ascites at this time patient denied any abdominal pain. There is no evidence of upper GI bleed ovale cerebral bleed patient probably will not require IV antibiotics patient was started onto tried. Patient's INR is 1.7 because of cirrhosis. Patient does have lactic acidosis is mostly because of hepatic dysfunction. Patient will be continued on IV fluids and 100 mL per hour need to monitor for worsening ascites and fluid overload. Yesterday reveal a valid the patient and patient will be given IV vitamin K. Patient will be can you done rifaximin and lactulose for hepatic encephalopathy. 11/12/2019 Patient cannot provide any history patient is completely confused as today was told patient has a right blood per rectum rectum but it appears like patient had.stools which is consistent with upper GI bleed because of which will continue the antibiotics for possible variceal bleed upper GI endoscopy did show peptic ulcer disease and also varices but dresses doesn't appear to be source of bleed. Patient clinically doesn't appear to have spontaneous bacterial peritonitis anyways patient is on antibiotics. Patient was started back on diuretics by gastroenterology because of worsening renal function and no significant ascites and discontinuing these diuretics for now. Nephrology will be consulted as well. Patient's lactic acid has come down. 11/13/2019 Patient's overall mental status improved serum creatinine remains stable patient does have urine output be and has gone down. Patient's IV fluids were increased by nephrology. Bicarbonate is an not a good idea in his situation in spite of hyperchloremia because of, shouldn't lactic acid in the his liver cannot handle any lactic acid. Patient's leukocytosis improved overall there is improvement but patient is still the drowsy and sleepy. Serum ammonia level is 28 still having darker stools but hemoglobin remained stable this is probably because of his retained blood in the bowels 11/14/2019 Patient is a severe still lethargic but oriented 3 able to answer questions today mental status improved significantly 11/15/2019 Patient is a bit tachypneic today second to lactic acidosis will continue with IV fluids his chest x-ray did not show any significant abnormality patient the ascites has worsened will order paracentesis today. Kidney function is improving patient overall looks much better today except for some tachypnea Constitutional: Denied any fatigue denied any fever. Cardio vascular: denied any chest pain, palpitations Gastrointestinal denied any nausea vomiting Pulmonary: Denied any shortness of breath cough Neurologic denied any new focal deficits All inpatient medications were reviewed and appropriate changes in these medications as dictated in the interval history and assessment and plan. Objective - Vital Signs Vital signs: Vital Signs Temp 99.4 F 11/15/19 04:40 Pulse 82 11/15/19 04:40 Resp 20 11/15/19 04:40 BP 107/67 11/15/19 04:40 Pulse Ox 100 11/15/19 04:40 Intake & Output 11/14/19 11/15/19 11/15/19 18:59 06:59 18:59 Intake Total 100 400 240 Output Total 930 1500 Balance -830 -1100 240 Weight 93 kg 93 kg Intake: IV 100 Sodium Chloride 0.9% 1, 100 000 ml @ 100 mls/hr IV . Q10H [facility] Rx#:[id number] Oral 400 240 Output: Urine 930 1500 Uretheral (Rosa) 500 Other: Voiding Method Indwelling Catheter Indwelling Catheter Indwelling Catheter # Voids 0 # Bowel Movements 2 2 - Exam PHYSICAL EXAMINATION: GENERAL: Lethargic bit drowsy but not confused orientedX3 HEENT: Pupils are round and equally reacting to light. EOMI. does have scleral icterus and conjunctival pallor. Normocephalic, atraumatic. No pharyngeal erythema. No thyromegaly. CARDIOVASCULAR: S1 and S2 present. No murmurs, rubs, or gallops. PULMONARY: Chest is clear to auscultation, no wheezing or crackles. ABDOMEN: Mildly distended with mild shifting dullness normoactive bowel sounds. No palpable organomegaly. Patient does have tremor and asterixis MUSCULOSKELETAL: No joint swelling or deformity. EXTREMITIES: No cyanosis, clubbing, or pedal edema. NEUROLOGICAL: No focal deficits were appreciated SKIN: No rashes. - Labs CBC & Chem 7: 11/15/19 06:17 11/15/19 06:17 Labs: Abnormal Lab Results - Last 24 Hours (Table) 11/11/19 11/14/19 11/14/19 Range/Units 06:10 14:08 14:08 WBC 14.2 H (3.8-10.6) k/uL RBC 1.92 L (4.30-5.90) m/uL Hgb 7.4 L (13.0-17.5) gm/dL Hct 21.0 L (39.0-53.0) % MCV 109.1 H D (80.0-100.0) fL MCH 38.3 H (25.0-35.0) pg RDW 20.4 H (11.5-15.5) % Plt Count (150-450) k/uL Neutrophils # 12.1 H (1.3-7.7) k/uL Neutrophils # (Manual) (1.3-7.7) k/uL Lymphocytes # 0.9 L (1.0-4.8) k/uL Nucleated RBCs (0-0) /100 WBC Macrocytosis Marked A PT (9.0-12.0) sec INR (<1.2) Sodium 134 L (137-145) mmol/L Chloride 109 H (98-107) mmol/L Carbon Dioxide 13 L (22-30) mmol/L BUN 32 H (9-20) mg/dL Creatinine 1.29 H (0.66-1.25) mg/dL Glucose 134 H (74-99) mg/dL Plasma Lactic Acid Cristian (0.7-2.0) mmol/L Calcium 7.5 L (8.4-10.2) mg/dL Total Bilirubin 11.2 H (0.2-1.3) mg/dL AST 157 H (17-59) U/L ALT 82 H (4-49) U/L Alkaline Phosphatase 170 H (38-126) U/L Total Protein 6.2 L (6.3-8.2) g/dL Albumin 2.2 L (3.5-5.0) g/dL Crossmatch See Detail 11/15/19 11/15/19 11/15/19 Range/Units 06:17 06:17 10:44 WBC 13.5 H (3.8-10.6) k/uL RBC 2.06 L (4.30-5.90) m/uL Hgb 7.2 L (13.0-17.5) gm/dL Hct 22.2 L (39.0-53.0) % MCV 107.3 H (80.0-100.0) fL MCH (25.0-35.0) pg RDW 20.4 H (11.5-15.5) % Plt Count 140 L (150-450) k/uL Neutrophils # (1.3-7.7) k/uL Neutrophils # (Manual) 11.48 H (1.3-7.7) k/uL Lymphocytes # (1.0-4.8) k/uL Nucleated RBCs 1 H (0-0) /100 WBC Macrocytosis Marked A PT 14.7 H (9.0-12.0) sec INR 1.5 H (<1.2) Sodium 135 L (137-145) mmol/L Chloride 110 H (98-107) mmol/L Carbon Dioxide 15 L (22-30) mmol/L BUN 29 H (9-20) mg/dL Creatinine (0.66-1.25) mg/dL Glucose 115 H (74-99) mg/dL Plasma Lactic Acid Cristian (0.7-2.0) mmol/L Calcium 7.5 L (8.4-10.2) mg/dL Total Bilirubin 11.0 H (0.2-1.3) mg/dL AST 149 H (17-59) U/L ALT 70 H (4-49) U/L Alkaline Phosphatase 163 H (38-126) U/L Total Protein 6.1 L (6.3-8.2) g/dL Albumin 2.1 L (3.5-5.0) g/dL Crossmatch 11/15/19 Range/Units 10:44 WBC (3.8-10.6) k/uL RBC (4.30-5.90) m/uL Hgb (13.0-17.5) gm/dL Hct (39.0-53.0) % MCV (80.0-100.0) fL MCH (25.0-35.0) pg RDW (11.5-15.5) % Plt Count (150-450) k/uL Neutrophils # (1.3-7.7) k/uL Neutrophils # (Manual) (1.3-7.7) k/uL Lymphocytes # (1.0-4.8) k/uL Nucleated RBCs (0-0) /100 WBC Macrocytosis PT (9.0-12.0) sec INR (<1.2) Sodium (137-145) mmol/L Chloride (98-107) mmol/L Carbon Dioxide (22-30) mmol/L BUN (9-20) mg/dL Creatinine (0.66-1.25) mg/dL Glucose (74-99) mg/dL Plasma Lactic Acid Cristian 3.3 H* (0.7-2.0) mmol/L Calcium (8.4-10.2) mg/dL Total Bilirubin (0.2-1.3) mg/dL AST (17-59) U/L ALT (4-49) U/L Alkaline Phosphatase (38-126) U/L Total Protein (6.3-8.2) g/dL Albumin (3.5-5.0) g/dL Crossmatch Microbiology - Last 24 Hours (Table) 11/12/19 18:00 Gram Stain - Preliminary Tissue - Other Wound Culture - Preliminary Strep agalactiae - (group b) Escherichia coli Yeast species Alpha Hemolytic Streptococcus Assessment and Plan Plan: -Acute upper GI bleed peptic ulcer disease and low possibility possibility of variceal bleed from portal hypertension patient was on octreotide which was subsequently discontinued hemoglobin remained stable. Patient is on Rocephin for possible variceal bleed and the possibly spontaneous pectoral peritonitis bacteria peritonitis, possibility of SBP is low. Patient has ascites will u ndergo paracentesis today -Acute renal failure prerenal azotemia from cirrhosis patient on IV fluids low possibility of hepatorenal syndrome, patient creatinine remains stable patient is hyper Marsha make because of which the patient is acidotic patient was started on IV bicarbonate drip -Non-anion gap metabolic acidosis secondary to hyperchloremia, nephrology is following the patient and patient was started on bicarbonate drip -Coagulopathy with elevated INR secondary to hepatic dysfunction -Hepatic encephalopathy: Continue with rifaximin and lactulose monitor ammonia level. Patient is quite a bit confused although his ammonia completely doesn't explain all of his confusion. -Cirrhosis alcoholic along with acute alcoholic hepatitis patient stop drinking alcohol -Hyponatremia probably hypovolemic hyponatremia from excessive diuretics these will be held -Hyperkalemia secondary to Aldactone which will be held as well -Lactic acidosis and anion gap metabolic acidosis is secondary to hepatic dysfunction continue with IV fluids for now but his lactic acid is expected to come down pretty slow because of cirrhosis. Chronic anemia from cirrhosis which is macrocytic anemia
--- NOTE | 2019-11-15 12:36 | P.PN ---
Subjective Progress Note Date: 11/15/19 Principal diagnosis: Acute upper GI bleed secondary to suspected peptic ulcer disease. Patient was seen today at his bedside in the intensive care unit. He was admitted on 11/11/2019 for an acute GI bleed. His past medical history significant for acute renal failure, coagulopathy, hepatic encephalopathy with acute alcoholic hepatitis and cirrhosis. Each day he becomes a bit more arousable, today is opening up his eyes and following some verbal commands and responding appropriately to questions. No new laboratory results today although his ammonia level was 20 yesterday down from 42. He remains receiving Octretide, Protonix 40 mg IV twice a day, Xifaxam, lactulose and his IV fluids will remain at 0.9% normal saline 100 mL per hour. He remains hemodynamically stable and is currently on no inotropic or pressor support. Room air oxygen saturation is 99% and he has been afebrile the last 24 hours. The patient was seen in his bedside on the sixth floor medical surgical unit 11/15/2019. He is much more awake today and is responding more appropriately to verbal stimuli today. His abdomen remains distended although he denies any complaints of tenderness. His T-max temperature in the last 24 hours has been 99.4F. He remains on room air with oxygen saturations 99-100%. IV fluids are infusing at 75 mL per hour of normal saline. Lab results today show a WBCs 13.5, hemoglobin 7.2, platelets 140, PT 14.7, INR 1.5, BUN 29, creatinine 1.25, AST 149, ALT 70 and a lactic acid of 3.3. He remains on Rocephin 1 g IV piggyback every 24 hours for antibiotics and he is also continues to receive Octretide, Protonix 40 mg IV twice a day, Xifaxam, lactulose. A chest x-ray was completed this morning which demonstrates no acute pulmonary process. Objective - Vital Signs Vital signs: Vital Signs Temp 99.4 F 11/15/19 04:40 Pulse 82 11/15/19 04:40 Resp 20 11/15/19 04:40 BP 107/67 11/15/19 04:40 Pulse Ox 100 11/15/19 04:40 Intake & Output 11/14/19 11/15/19 11/15/19 18:59 06:59 18:59 Intake Total 100 400 240 Output Total 930 1500 Balance -830 -1100 240 Weight 93 kg 93 kg Intake: IV 100 Sodium Chloride 0.9% 1, 100 000 ml @ 100 mls/hr IV . Q10H [facility] Rx#:[id number] Oral 400 240 Output: Urine 930 1500 Uretheral (Rosa) 500 Other: Voiding Method Indwelling Catheter Indwelling Catheter Indwelling Catheter # Voids 0 # Bowel Movements 2 2 - Constitutional General appearance: Present: cooperative, no acute distress, obese - EENT Eyes: Present: PERRLA, scleral icterus - Respiratory Details: Lung sounds with few scattered expiratory wheezes, diminished to his bilateral bases. Respirations are symmetrical and nonlabored. - Cardiovascular Details: Regular rhythm with tachycardic rate. S1 and S2 present, negative for S3, gallop or murmur. - Gastrointestinal Gastrointestinal Comment(s): Abdomen is soft, nontender and distended. Active bowel sounds present in all 4 abdominal quadrants. No guarding or rigidity. No organomegaly. - Integumentary Integumentary Comment(s): Skin is warm and dry. No clubbing or cyanosis is present. Integumentary: Present: jaundiced - Neurologic Neurologic: Present: CNII-XII intact - Musculoskeletal Musculoskeletal: Present: generalized weakness, strength equal bilaterally - Psychiatric Psychiatric Comment(s): Flat affect Psychiatric: Present: A&O x's 3, intact judgment & insight - Allied health notes Allied health notes reviewed: nursing - Labs CBC & Chem 7: 11/15/19 06:17 11/15/19 06:17 Labs: Abnormal Lab Results - Last 24 Hours (Table) 11/11/19 11/14/19 11/14/19 Range/Units 06:10 14:08 14:08 WBC 14.2 H (3.8-10.6) k/uL RBC 1.92 L (4.30-5.90) m/uL Hgb 7.4 L (13.0-17.5) gm/dL Hct 21.0 L (39.0-53.0) % MCV 109.1 H D (80.0-100.0) fL MCH 38.3 H (25.0-35.0) pg RDW 20.4 H (11.5-15.5) % Plt Count (150-450) k/uL Neutrophils # 12.1 H (1.3-7.7) k/uL Neutrophils # (Manual) (1.3-7.7) k/uL Lymphocytes # 0.9 L (1.0-4.8) k/uL Nucleated RBCs (0-0) /100 WBC Macrocytosis Marked A PT (9.0-12.0) sec INR (<1.2) Sodium 134 L (137-145) mmol/L Chloride 109 H (98-107) mmol/L Carbon Dioxide 13 L (22-30) mmol/L BUN 32 H (9-20) mg/dL Creatinine 1.29 H (0.66-1.25) mg/dL Glucose 134 H (74-99) mg/dL Plasma Lactic Acid Cristian (0.7-2.0) mmol/L Calcium 7.5 L (8.4-10.2) mg/dL Total Bilirubin 11.2 H (0.2-1.3) mg/dL AST 157 H (17-59) U/L ALT 82 H (4-49) U/L Alkaline Phosphatase 170 H (38-126) U/L Total Protein 6.2 L (6.3-8.2) g/dL Albumin 2.2 L (3.5-5.0) g/dL Crossmatch See Detail 11/15/19 11/15/19 11/15/19 Range/Units 06:17 06:17 10:44 WBC 13.5 H (3.8-10.6) k/uL RBC 2.06 L (4.30-5.90) m/uL Hgb 7.2 L (13.0-17.5) gm/dL Hct 22.2 L (39.0-53.0) % MCV 107.3 H (80.0-100.0) fL MCH (25.0-35.0) pg RDW 20.4 H (11.5-15.5) % Plt Count 140 L (150-450) k/uL Neutrophils # (1.3-7.7) k/uL Neutrophils # (Manual) 11.48 H (1.3-7.7) k/uL Lymphocytes # (1.0-4.8) k/uL Nucleated RBCs 1 H (0-0) /100 WBC Macrocytosis Marked A PT 14.7 H (9.0-12.0) sec INR 1.5 H (<1.2) Sodium 135 L (137-145) mmol/L Chloride 110 H (98-107) mmol/L Carbon Dioxide 15 L (22-30) mmol/L BUN 29 H (9-20) mg/dL Creatinine (0.66-1.25) mg/dL Glucose 115 H (74-99) mg/dL Plasma Lactic Acid Cristian (0.7-2.0) mmol/L Calcium 7.5 L (8.4-10.2) mg/dL Total Bilirubin 11.0 H (0.2-1.3) mg/dL AST 149 H (17-59) U/L ALT 70 H (4-49) U/L Alkaline Phosphatase 163 H (38-126) U/L Total Protein 6.1 L (6.3-8.2) g/dL Albumin 2.1 L (3.5-5.0) g/dL Crossmatch 11/15/19 Range/Units 10:44 WBC (3.8-10.6) k/uL RBC (4.30-5.90) m/uL Hgb (13.0-17.5) gm/dL Hct (39.0-53.0) % MCV (80.0-100.0) fL MCH (25.0-35.0) pg RDW (11.5-15.5) % Plt Count (150-450) k/uL Neutrophils # (1.3-7.7) k/uL Neutrophils # (Manual) (1.3-7.7) k/uL Lymphocytes # (1.0-4.8) k/uL Nucleated RBCs (0-0) /100 WBC Macrocytosis PT (9.0-12.0) sec INR (<1.2) Sodium (137-145) mmol/L Chloride (98-107) mmol/L Carbon Dioxide (22-30) mmol/L BUN (9-20) mg/dL Creatinine (0.66-1.25) mg/dL Glucose (74-99) mg/dL Plasma Lactic Acid Cristian 3.3 H* (0.7-2.0) mmol/L Calcium (8.4-10.2) mg/dL Total Bilirubin (0.2-1.3) mg/dL AST (17-59) U/L ALT (4-49) U/L Alkaline Phosphatase (38-126) U/L Total Protein (6.3-8.2) g/dL Albumin (3.5-5.0) g/dL Crossmatch Microbiology - Last 24 Hours (Table) 11/12/19 18:00 Gram Stain - Preliminary Tissue - Other Wound Culture - Preliminary Strep agalactiae - (group b) Escherichia coli Yeast species Alpha Hemolytic Streptococcus - Imaging and Cardiology Chest x-ray: report reviewed, image reviewed Assessment and Plan Assessment: 1 Acute gastrointestinal bleeding. EGD on 11/11/2019 revealed nonbleeding duodenal ulcer. Status post 2 units of packed red blood cells and 2 units of fresh frozen plasma. Current hemoglobin 7.2. 2 Acute hepatic encephalopathy, ammonia levels down from 51 to 20 3 Alcoholic liver disease with alcoholic cirrhosis For Mild coagulopathy secondary to above 5 Daily alcohol use. 6 Hyperbilirubinemia 7 Rule out alcoholic hepatitis 8 Hypoalbuminemia 9. Lactic acidosis secondary to hepatic dysfunction Plan: The patient was seen and evaluated by Dr. Keller Continue to monitor hemoglobin, reapeat CBC, CMP in am Continue lactulose, Protonix, rifaximin Continue Rocephin. We'll continue to follow the patient on an as-needed basis. This was a joint evaluation done between the nurse practitioner and Dr. Tana Keller. Time with Patient: Less than 30
--- NOTE | 2019-11-15 15:43 | PN ---
PROGRESS NOTE DATE OF DICTATION: 11/15/2019 Patient is a 59-year-old white male, doing much better. He denies any complaints. He is quite sleepy today, but he states that he had a good breakfast this morning. No new complaints today. No fever, chills, or night sweats. He still has some chronic persistent cough. PHYSICAL EXAMINATION: Temperature 98.6, blood pressure 125/73, pulse is 77. HEENT: Examination unremarkable, conjunctivae are pink, sclerae icteric. Oral cavity no lesions. NECK: No JVD or lymph node enlargement. CHEST: Clear to auscultation. HEART: Regular rate and rhythm. ABDOMEN: Soft, it was slightly distended. It was nontender. EXTREMITIES: No pedal edema. SKIN: No rashes. NEURO: He is alert and oriented x3. No focal deficits. LABS: From today, CBC was not done, but INR was 1.5. Lactic acid was 2.5. Yesterday, bilirubin was 11. IMPRESSION: 1. Acute alcoholic hepatitis with gradual decompensation. 2. History of alcoholic cirrhosis of the liver. 3. Hepatic encephalopathy on Xifaxan and lactulose. 4. Coagulopathy secondary to underlying liver disease. 5. Ascites, scheduled for large-volume paracentesis today. 6. Questionable as to be on broad-spectrum antibiotics. RECOMMENDATIONS: 1. Continue with antibiotics. 2. Continue with Xifaxan and lactulose. 3. Agree with large volume paracentesis for diagnostic and therapeutic purposes. 4. CBC on a daily basis. 5. Continue Protonix 40 mg daily and we will follow with you. Thank you for this consultation. MMODL / IJN: [id number] /
[2019-11-15] MEDS: PIPERACILLIN-TAZOBACTAM 3.375 GM in SODIUM CHLORIDE 0.9% 100 ML IVPB SCH ×2 (23:40→23:41)
[2019-11-16 03:58] LABS: Anisocytosis Slight; HCT 21.3 % (39.0-53.0); Hypochromasia Slight; MCH 35.7 pg (25.0-35.0); MCHC 32.7 g/dL (31.0-37.0); MCV 109.1 fL (80.0-100.0); Mean Platelet Volume 8.7; Platelet Count 241 k/uL (150-450); RBC 1.95 m/uL (4.30-5.90); RDW 19.8 % (11.5-15.5); WBC 17.9 k/uL (3.8-10.6)
[2019-11-16 04:03] LABS: Macrocytosis Marked
[2019-11-16 04:06] LABS: Calcium 7.2 mg/dL (8.4-10.2); Magnesium 2.2 mg/dL (1.6-2.3); Potassium 3.3 mmol/L (3.5-5.1); Total Bilirubin 11.3 mg/dL (0.2-1.3)
[2019-11-16 04:09] LABS: INR 1.6 (<1.2); Prothrombin Time 15.6 sec (9.0-12.0)
[2019-11-16] MEDS: LACTULOSE 20 GM/30 ML CUP PO SCH ×3 (08:11→20:15)
[2019-11-16] MEDS: RIFAXIMIN 550 MG TABLET PO SCH ×2 (08:12→20:53)
[2019-11-16] MEDS: SODIUM BICARBONATE TAB 650 MG TAB PO SCH ×3 (08:12→20:14)
[2019-11-16] MEDS: PANTOPRAZOLE 40 MG/10 ML VIAL IV SCH ×2 (08:12→20:14)
[2019-11-16] MEDS ORDERED: POTASSIUM CHLORIDE ER 20 MEQ TAB.ER PO STA (08:38)
--- NOTE | 2019-11-16 08:44 | P.PN ---
Subjective Patient is seen in follow-up for acute kidney injury. Renal function is stable. Patient resting in bed. Currently having breakfast. Nonoliguric. Hemoglobin 7.0 today. He did have a bloody bowel movement yesterday evening. Vital signs are stable. General: The patient appeared well nourished and normally developed. HEENT: Head exam is unremarkable. Neck is without jugular venous distension. LUNGS: Lungs are clear to auscultation and percussion. Breath sounds decreased. HEART: Rate and Rhythm are regular. ABDOMEN: Soft. Nontender. EXTREMITITES: Trace edema. Objective - Vital Signs Vital signs: Vital Signs Temp 99.4 F 11/16/19 04:52 Pulse 92 11/16/19 04:52 Resp 20 11/16/19 04:52 BP 114/57 11/16/19 04:52 Pulse Ox 100 11/16/19 04:52 Intake & Output 11/15/19 11/16/19 11/16/19 18:59 06:59 18:59 Intake Total 480 Output Total 400 450 Balance 80 -450 Weight 93 kg Intake: Oral 480 Output: Urine 400 450 Other: Voiding Method Indwelling Catheter Indwelling Catheter # Bowel Movements 1 0 - Labs CBC & Chem 7: 11/16/19 03:29 11/16/19 03:29 Labs: Abnormal Lab Results - Last 24 Hours (Table) 11/15/19 11/15/19 11/15/19 Range/Units 06:17 10:44 10:44 WBC 13.5 H (3.8-10.6) k/uL RBC 2.06 L (4.30-5.90) m/uL Hgb 7.2 L (13.0-17.5) gm/dL Hct 22.2 L (39.0-53.0) % MCV 107.3 H (80.0-100.0) fL MCH (25.0-35.0) pg RDW 20.4 H (11.5-15.5) % Plt Count 140 L (150-450) k/uL Neutrophils # (Manual) 11.48 H (1.3-7.7) k/uL Nucleated RBCs 1 H (0-0) /100 WBC Macrocytosis Marked A PT 14.7 H (9.0-12.0) sec INR 1.5 H (<1.2) Sodium (137-145) mmol/L Potassium (3.5-5.1) mmol/L Carbon Dioxide (22-30) mmol/L BUN (9-20) mg/dL Glucose (74-99) mg/dL Plasma Lactic Acid Cristain 3.3 H* (0.7-2.0) mmol/L Calcium (8.4-10.2) mg/dL Total Bilirubin (0.2-1.3) mg/dL AST (17-59) U/L ALT (4-49) U/L Alkaline Phosphatase (38-126) U/L Total Protein (6.3-8.2) g/dL Albumin (3.5-5.0) g/dL 11/15/19 11/15/19 11/15/19 Range/Units 14:24 18:51 22:47 WBC (3.8-10.6) k/uL RBC (4.30-5.90) m/uL Hgb (13.0-17.5) gm/dL Hct (39.0-53.0) % MCV (80.0-100.0) fL MCH (25.0-35.0) pg RDW (11.5-15.5) % Plt Count (150-450) k/uL Neutrophils # (Manual) (1.3-7.7) k/uL Nucleated RBCs (0-0) /100 WBC Macrocytosis PT (9.0-12.0) sec INR (<1.2) Sodium (137-145) mmol/L Potassium (3.5-5.1) mmol/L Carbon Dioxide (22-30) mmol/L BUN (9-20) mg/dL Glucose (74-99) mg/dL Plasma Lactic Acid Cristian 2.5 H* 3.0 H* 2.7 H* (0.7-2.0) mmol/L Calcium (8.4-10.2) mg/dL Total Bilirubin (0.2-1.3) mg/dL AST (17-59) U/L ALT (4-49) U/L Alkaline Phosphatase (38-126) U/L Total Protein (6.3-8.2) g/dL Albumin (3.5-5.0) g/dL 11/16/19 11/16/19 11/16/19 Range/Units 03:29 03:29 03:29 WBC 17.9 H (3.8-10.6) k/uL RBC 1.95 L (4.30-5.90) m/uL Hgb 7.0 L (13.0-17.5) gm/dL Hct 21.3 L (39.0-53.0) % MCV 109.1 H (80.0-100.0) fL MCH 35.7 H (25.0-35.0) pg RDW 19.8 H (11.5-15.5) % Plt Count (150-450) k/uL Neutrophils # (Manual) (1.3-7.7) k/uL Nucleated RBCs (0-0) /100 WBC Macrocytosis Marked A PT 15.6 H (9.0-12.0) sec INR 1.6 H (<1.2) Sodium 130 L (137-145) mmol/L Potassium 3.3 L (3.5-5.1) mmol/L Carbon Dioxide 16 L (22-30) mmol/L BUN 24 H (9-20) mg/dL Glucose 126 H (74-99) mg/dL Plasma Lactic Acid Cirstian (0.7-2.0) mmol/L Calcium 7.2 L (8.4-10.2) mg/dL Total Bilirubin 11.3 H (0.2-1.3) mg/dL AST 118 H (17-59) U/L ALT 71 H (4-49) U/L Alkaline Phosphatase 208 H (38-126) U/L Total Protein 6.0 L (6.3-8.2) g/dL Albumin 2.0 L (3.5-5.0) g/dL Microbiology - Last 24 Hours (Table) 11/12/19 18:00 Gram Stain - Final Tissue - Other Wound Culture - Final Strep agalactiae - (group b) Escherichia coli Angela albicans Alpha Hemolytic Streptococcus 11/12/19 18:00 Anaerobic Culture - Final Scrotum Anaerobic Gm Negative Bacilli Anaerobic Gm Negative Bacilli#2 Anaerobic Gm Negative Bacilli#3 Assessment and Plan Plan: Assessment: 1. Acute kidney injury secondary to ATN secondary to acute blood loss anemia and hypotension. Renal function stable. Creatinine 1.17 today. 2. Metabolic acidosis secondary to acute kidney injury and lactic acidosis. 3. Alcohol-induced liver cirrhosis. GI following. 4. Acute GI bleed status post EGD on November 10 which revealed one at ulcer and esophageal varices. No active bleeding was noted. 5. Hypokalemia from poor oral intake. 6. Ascites. Scheduled for paracentesis today. Plan: Decrease normal saline to 50 mL an hour. Increase oral sodium bicarbonate. Encourage oral intake. Replace potassium. 40 mEq today. Will give IV Lasix if receives blood transfusion. Continue to monitor renal function and urine output. Repeat electrolytes in the morning. 25 g of albumin before and after paracentesis. An additional 25 g of more than 8 L removed.
[2019-11-16] MEDS ORDERED: SPIRONOLACTONE 25 MG TAB PO SCH (09:00)
[2019-11-16] MEDS ORDERED: FUROSEMIDE 10 MG/ML 2 ML VIAL IV ONE (09:38)
[2019-11-16] MEDS ORDERED: ALBUMIN HUMAN 25% 50 ML in EMPTY BAG 1 BAG IVPB SCH ×2 (10:00→12:00)
--- NOTE | 2019-11-16 11:02 | P.GSCN ---
History of Present Illness Consult date: 11/16/19 History of present illness: This is a 59-year-old gentleman, alcoholic in the hospital with a GI bleed. He has significant alcoholic hepatic cirrhosis. He is lethargic. He was in the ICU and is now on 6 north. I've been asked to see the patient for scrotal swelling and scrotal drainage. He can give no history whatsoever. He has an indwelling catheter that was just recently placed. I can see no obvious examination of the scrotum on the previous notes to clarify the status of his situation. He had a urinalysis and his most recent admission in early October [place] t was unremarkable. He has an elevated white count at this point in time at 17,000. There is no urinalysis from this admission. He is on Zosyn. Review of Systems ROS unobtainable: due to mental status Past Medical History Past Medical History: No Reported History, Liver Disease Additional Past Medical History / Comment(s): Cirrhosis History of Any Multi-Drug Resistant Organisms: None Reported Past Surgical History: No Surgical Hx Reported Additional Past Anesthesia/Blood Transfusion Reaction / Comm: no previous Past Psychological History: No Psychological Hx Reported Smoking Status: Never smoker Past Alcohol Use History: Abuse, Daily Past Drug Use History: None Reported - Past Family History Mother Family Medical History: No Reported History Father Family Medical History: No Reported History Medications and Allergies Home Medications Medication Instructions Recorded Confirmed Type Furosemide [Lasix] 40 mg PO BID 30 Days #60 tablet 10/28/19 11/11/19 Rx Potassium Chloride ER [K-Dur 20] 20 meq PO BID 30 Days #60 10/28/19 11/11/19 Rx tab.er.prt Spironolactone [Aldactone] 50 mg PO DAILY 30 Days #30 tab 10/28/19 11/11/19 Rx Allergies Allergy/AdvReac Type Severity Reaction Status Date / Time No Known Allergies Allergy Verified 11/11/19 08:49 Surgical - Exam Vital Signs Temp Pulse Resp BP Pulse Ox 97.7 F 96 20 139/66 100 11/11/19 02:45 11/11/19 02:45 11/11/19 02:45 11/11/19 02:45 11/11/19 02:45 - General chronically ill - Eyes icteric - Neck trachea midline - Respiratory normal expansion, normal respiratory effort - Cardiovascular Rhythm: regular - Abdomen Abdomen: soft, distended - Genitourinary There is an indwelling catheter. He is circumcised. The scrotum is not swollen. In the midline at the base of the phallus is an open lesion draining purulence. Lesion is probably 5-6 mm in diameter. Induration in the midline of the scrotum. The testicles both appeared to be normal. Both epididymis appear to be normal. There is induration in the midline approaching the penile implant distal bulbar urethra. - Neurologic confused - Musculoskeletal normal posture Results - Labs 11/16/19 03:29 11/16/19 03:29 Abnormal Lab Results - Last 24 Hours (Table) 11/15/19 11/15/19 11/15/19 Range/Units 10:44 10:44 14:24 WBC (3.8-10.6) k/uL RBC (4.30-5.90) m/uL Hgb (13.0-17.5) gm/dL Hct (39.0-53.0) % MCV (80.0-100.0) fL MCH (25.0-35.0) pg RDW (11.5-15.5) % Macrocytosis PT 14.7 H (9.0-12.0) sec INR 1.5 H (<1.2) Sodium (137-145) mmol/L Potassium (3.5-5.1) mmol/L Carbon Dioxide (22-30) mmol/L BUN (9-20) mg/dL Glucose (74-99) mg/dL Plasma Lactic Acid Cristian 3.3 H* 2.5 H* (0.7-2.0) mmol/L Calcium (8.4-10.2) mg/dL Total Bilirubin (0.2-1.3) mg/dL AST (17-59) U/L ALT (4-49) U/L Alkaline Phosphatase (38-126) U/L Total Protein (6.3-8.2) g/dL Albumin (3.5-5.0) g/dL 11/15/19 11/15/19 11/16/19 Range/Units 18:51 22:47 03:29 WBC (3.8-10.6) k/uL RBC (4.30-5.90) m/uL Hgb (13.0-17.5) gm/dL Hct (39.0-53.0) % MCV (80.0-100.0) fL MCH (25.0-35.0) pg RDW (11.5-15.5) % Macrocytosis PT (9.0-12.0) sec INR (<1.2) Sodium 130 L (137-145) mmol/L Potassium 3.3 L (3.5-5.1) mmol/L Carbon Dioxide 16 L (22-30) mmol/L BUN 24 H (9-20) mg/dL Glucose 126 H (74-99) mg/dL Plasma Lactic Acid Cristian 3.0 H* 2.7 H* (0.7-2.0) mmol/L Calcium 7.2 L (8.4-10.2) mg/dL Total Bilirubin 11.3 H (0.2-1.3) mg/dL AST 118 H (17-59) U/L ALT 71 H (4-49) U/L Alkaline Phosphatase 208 H (38-126) U/L Total Protein 6.0 L (6.3-8.2) g/dL Albumin 2.0 L (3.5-5.0) g/dL 11/16/19 11/16/19 Range/Units 03:29 03:29 WBC 17.9 H (3.8-10.6) k/uL RBC 1.95 L (4.30-5.90) m/uL Hgb 7.0 L (13.0-17.5) gm/dL Hct 21.3 L (39.0-53.0) % MCV 109.1 H (80.0-100.0) fL MCH 35.7 H (25.0-35.0) pg RDW 19.8 H (11.5-15.5) % Macrocytosis Marked A PT 15.6 H (9.0-12.0) sec INR 1.6 H (<1.2) Sodium (137-145) mmol/L Potassium (3.5-5.1) mmol/L Carbon Dioxide (22-30) mmol/L BUN (9-20) mg/dL Glucose (74-99) mg/dL Plasma Lactic Acid Cristian (0.7-2.0) mmol/L Calcium (8.4-10.2) mg/dL Total Bilirubin (0.2-1.3) mg/dL AST (17-59) U/L ALT (4-49) U/L Alkaline Phosphatase (38-126) U/L Total Protein (6.3-8.2) g/dL Albumin (3.5-5.0) g/dL Microbiology - Last 24 Hours (Table) 11/12/19 18:00 Gram Stain - Final Tissue - Other Wound Culture - Final Strep agalactiae - (group b) Escherichia coli Angela albicans Alpha Hemolytic Streptococcus 11/12/19 18:00 Anaerobic Culture - Final Scrotum Anaerobic Gm Negative Bacilli Anaerobic Gm Negative Bacilli#2 Anaerobic Gm Negative Bacilli#3 Diabetes panel 11/16/19 Range/Units 03:29 Sodium 130 L (137-145) mmol/L Potassium 3.3 L (3.5-5.1) mmol/L Chloride 104 (98-107) mmol/L Carbon Dioxide 16 L (22-30) mmol/L BUN 24 H (9-20) mg/dL Creatinine 1.17 (0.66-1.25) mg/dL Glucose 126 H (74-99) mg/dL Calcium 7.2 L (8.4-10.2) mg/dL AST 118 H (17-59) U/L ALT 71 H (4-49) U/L Alkaline Phosphatase 208 H (38-126) U/L Total Protein 6.0 L (6.3-8.2) g/dL Albumin 2.0 L (3.5-5.0) g/dL Calcium panel 11/16/19 Range/Units 03:29 Calcium 7.2 L (8.4-10.2) mg/dL Albumin 2.0 L (3.5-5.0) g/dL Pituitary panel 11/16/19 Range/Units 03:29 Sodium 130 L (137-145) mmol/L Potassium 3.3 L (3.5-5.1) mmol/L Chloride 104 (98-107) mmol/L Carbon Dioxide 16 L (22-30) mmol/L BUN 24 H (9-20) mg/dL Creatinine 1.17 (0.66-1.25) mg/dL Glucose 126 H (74-99) mg/dL Calcium 7.2 L (8.4-10.2) mg/dL Adrenal panel 11/16/19 Range/Units 03:29 Sodium 130 L (137-145) mmol/L Potassium 3.3 L (3.5-5.1) mmol/L Chloride 104 (98-107) mmol/L Carbon Dioxide 16 L (22-30) mmol/L BUN 24 H (9-20) mg/dL Creatinine 1.17 (0.66-1.25) mg/dL Glucose 126 H (74-99) mg/dL Calcium 7.2 L (8.4-10.2) mg/dL Total Bilirubin 11.3 H (0.2-1.3) mg/dL AST 118 H (17-59) U/L ALT 71 H (4-49) U/L Alkaline Phosphatase 208 H (38-126) U/L Total Protein 6.0 L (6.3-8.2) g/dL Albumin 2.0 L (3.5-5.0) g/dL Assessment and Plan Assessment: Impression: This patient appears to had a scrotal abscess. The question is whether he has a periurethral abscess with fistula. Recommendations: Cultures have been obtained. He is on antibiotics, broad- spectrum, Zosyn. I will discuss with radiology and still the best evaluation see the origin of this fistula, abscess.
--- NOTE | 2019-11-16 14:55 | P.PN ---
Subjective 59-year-old male with known history of a colic hepatitis cirrhosis was recently discharged from the hospital came back again with the bright red blood per rectum patient's abdomen is found to be 6.4 patient was having these bleeding for last 4 days unsure how many episodes patient is unable to provide any history to me as patient is severely insula patent because of hyperammonemia and hepatic encephalopathy. Patient was apparently feeling short of breath. Patient is receiving IV fluids at this time Lasix is on have a cold patient has minimal ascites at this time patient denied any abdominal pain. There is no evidence of upper GI bleed ovale cerebral bleed patient probably will not require IV antibiotics patient was started onto tried. Patient's INR is 1.7 because of cirrhosis. Patient does have lactic acidosis is mostly because of hepatic dysfunction. Patient will be continued on IV fluids and 100 mL per hour need to monitor for worsening ascites and fluid overload. Yesterday reveal a valid the patient and patient will be given IV vitamin K. Patient will be can you done rifaximin and lactulose for hepatic encephalopathy. 11/12/2019 Patient cannot provide any history patient is completely confused as today was told patient has a right blood per rectum rectum but it appears like patient had.stools which is consistent with upper GI bleed because of which will continue the antibiotics for possible variceal bleed upper GI endoscopy did show peptic ulcer disease and also varices but dresses doesn't appear to be source of bleed. Patient clinically doesn't appear to have spontaneous bacterial peritonitis anyways patient is on antibiotics. Patient was started back on diuretics by gastroenterology because of worsening renal function and no significant ascites and discontinuing these diuretics for now. Nephrology will be consulted as well. Patient's lactic acid has come down. 11/13/2019 Patient's overall mental status improved serum creatinine remains stable patient does have urine output be and has gone down. Patient's IV fluids were increased by nephrology. Bicarbonate is an not a good idea in his situation in spite of hyperchloremia because of, shouldn't lactic acid in the his liver cannot handle any lactic acid. Patient's leukocytosis improved overall there is improvement but patient is still the drowsy and sleepy. Serum ammonia level is 28 still having darker stools but hemoglobin remained stable this is probably because of his retained blood in the bowels 11/14/2019 Patient is a severe still lethargic but oriented 3 able to answer questions today mental status improved significantly 11/15/2019 Patient is a bit tachypneic today second to lactic acidosis will continue with IV fluids his chest x-ray did not show any significant abnormality patient the ascites has worsened will order paracentesis today. Kidney function is improving patient overall looks much better today except for some tachypnea 11/16/2019 He is to have scrotal swelling infection of the scrotum along with perirectal abscess urology was consulted infectious disease was consulted patient was started on Zosyn we'll obtain cultures from that urethral area. Tachypnea resolved today patient lactic acidosis improved patient has significant swelling and Constitutional: Denied any fatigue denied any fever. Cardio vascular: denied any chest pain, palpitations Gastrointestinal denied any nausea vomiting Pulmonary: Denied any shortness of breath cough Neurologic denied any new focal deficits All inpatient medications were reviewed and appropriate changes in these medications as dictated in the interval history and assessment and plan. Objective - Vital Signs Vital signs: Vital Signs Temp 97.2 F L 11/16/19 14:40 Pulse 89 11/16/19 14:40 Resp 22 11/16/19 14:40 BP 116/63 11/16/19 14:40 Pulse Ox 100 11/16/19 14:40 Intake & Output 11/15/19 11/16/19 11/16/19 18:59 06:59 18:59 Intake Total 480 460 Output Total 400 450 Balance 80 -450 460 Weight 93 kg Intake: Oral 480 460 Blood Product 0 Rc As-1 Unit 0 [id number] Output: Urine 400 450 Other: Voiding Method Indwelling Catheter Indwelling Catheter Indwelling Catheter # Bowel Movements 1 0 - Exam PHYSICAL EXAMINATION: GENERAL: Lethargic bit drowsy but not confused orientedX3 HEENT: Pupils are round and equally reacting to light. EOMI. does have scleral icterus and conjunctival pallor. Normocephalic, atraumatic. No pharyngeal erythema. No thyromegaly. CARDIOVASCULAR: S1 and S2 present. No murmurs, rubs, or gallops. PULMONARY: Chest is clear to auscultation, no wheezing or crackles. ABDOMEN: Mildly distended with mild shifting dullness normoactive bowel sounds. No palpable organomegaly. patient has a scrotal swelling urethral fistula MUSCULOSKELETAL: No joint swelling or deformity. EXTREMITIES: No cyanosis, clubbing, or pedal edema. NEUROLOGICAL: No focal deficits were appreciated SKIN: No rashes. - Labs CBC & Chem 7: 11/16/19 03:29 11/16/19 03:29 Labs: Abnormal Lab Results - Last 24 Hours (Table) 11/15/19 11/15/19 11/16/19 Range/Units 18:51 22:47 03:29 WBC (3.8-10.6) k/uL RBC (4.30-5.90) m/uL Hgb (13.0-17.5) gm/dL Hct (39.0-53.0) % MCV (80.0-100.0) fL MCH (25.0-35.0) pg RDW (11.5-15.5) % Macrocytosis PT (9.0-12.0) sec INR (<1.2) Sodium 130 L (137-145) mmol/L Potassium 3.3 L (3.5-5.1) mmol/L Carbon Dioxide 16 L (22-30) mmol/L BUN 24 H (9-20) mg/dL Glucose 126 H (74-99) mg/dL Plasma Lactic Acid Cristian 3.0 H* 2.7 H* (0.7-2.0) mmol/L Calcium 7.2 L (8.4-10.2) mg/dL Total Bilirubin 11.3 H (0.2-1.3) mg/dL AST 118 H (17-59) U/L ALT 71 H (4-49) U/L Alkaline Phosphatase 208 H (38-126) U/L Ammonia (<30) umol/L Total Protein 6.0 L (6.3-8.2) g/dL Albumin 2.0 L (3.5-5.0) g/dL Crossmatch 11/16/19 11/16/19 11/16/19 Range/Units 03:29 03:29 10:41 WBC 17.9 H (3.8-10.6) k/uL RBC 1.95 L (4.30-5.90) m/uL Hgb 7.0 L (13.0-17.5) gm/dL Hct 21.3 L (39.0-53.0) % MCV 109.1 H (80.0-100.0) fL MCH 35.7 H (25.0-35.0) pg RDW 19.8 H (11.5-15.5) % Macrocytosis Marked A PT 15.6 H (9.0-12.0) sec INR 1.6 H (<1.2) Sodium (137-145) mmol/L Potassium (3.5-5.1) mmol/L Carbon Dioxide (22-30) mmol/L BUN (9-20) mg/dL Glucose (74-99) mg/dL Plasma Lactic Acid Cristian (0.7-2.0) mmol/L Calcium (8.4-10.2) mg/dL Total Bilirubin (0.2-1.3) mg/dL AST (17-59) U/L ALT (4-49) U/L Alkaline Phosphatase (38-126) U/L Ammonia (<30) umol/L Total Protein (6.3-8.2) g/dL Albumin (3.5-5.0) g/dL Crossmatch See Detail 11/16/19 Range/Units 10:41 WBC (3.8-10.6) k/uL RBC (4.30-5.90) m/uL Hgb (13.0-17.5) gm/dL Hct (39.0-53.0) % MCV (80.0-100.0) fL MCH (25.0-35.0) pg RDW (11.5-15.5) % Macrocytosis PT (9.0-12.0) sec INR (<1.2) Sodium (137-145) mmol/L Potassium (3.5-5.1) mmol/L Carbon Dioxide (22-30) mmol/L BUN (9-20) mg/dL Glucose (74-99) mg/dL Plasma Lactic Acid Cristian (0.7-2.0) mmol/L Calcium (8.4-10.2) mg/dL Total Bilirubin (0.2-1.3) mg/dL AST (17-59) U/L ALT (4-49) U/L Alkaline Phosphatase (38-126) U/L Ammonia 68 H (<30) umol/L Total Protein (6.3-8.2) g/dL Albumin (3.5-5.0) g/dL Crossmatch Microbiology - Last 24 Hours (Table) 11/12/19 18:00 Gram Stain - Final Tissue - Other Wound Culture - Final Strep agalactiae - (group b) Escherichia coli Angela albicans Alpha Hemolytic Streptococcus 11/12/19 18:00 Anaerobic Culture - Final Scrotum Anaerobic Gm Negative Bacilli Anaerobic Gm Negative Bacilli#2 Anaerobic Gm Negative Bacilli#3 Assessment and Plan Plan: -Acute upper GI bleed peptic ulcer disease and low possibility possibility of variceal bleed from portal hypertension patient was on octreotide which was subsequently discontinued hemoglobin remained stable. Patient is on Rocephin for possible variceal bleed and the possibly spontaneous pectoral peritonitis bacteria peritonitis, possibility of SBP is low. Patient has ascites will undergo paracentesis today -patient has scrotal cellulitis and periurethral fistula for which neurology evaluated the patient patient will undergo fistulogram -Acute renal failure prerenal azotemia from cirrhosis patient on IV fluids low possibility of hepatorenal syndrome, patient creatinine remains stable patient is hyper Marsha make because of which the patient is acidotic patient was started on IV bicarbonate drip -Non-anion gap metabolic acidosis secondary to hyperchloremia, nephrology is following the patient and patient was started on bicarbonate drip -Coagulopathy with elevated INR secondary to hepatic dysfunction -Hepatic encephalopathy: Continue with rifaximin and lactulose monitor ammonia level. Patient is quite a bit confused although his ammonia completely doesn't explain all of his confusion. -Cirrhosis alcoholic along with acute alcoholic hepatitis patient stop drinking alcohol -Hyponatremia probably hypovolemic hyponatremia from excessive diuretics these will be held -Hyperkalemia secondary to Aldactone which will be held as well -Lactic acidosis and anion gap metabolic acidosis is secondary to hepatic dysfunction continue with IV fluids for now but his lactic acid is expected to come down pretty slow because of cirrhosis. Chronic anemia from cirrhosis which is macrocytic anemia
--- NOTE | 2019-11-16 15:19 | PN ---
PROGRESS NOTE DATE OF DICTATION: 11/16/2019 The patient is a 59-year-old male with history of alcoholic hepatitis with alcoholic cirrhosis of the liver and portal hypertension/hepatic encephalopathy admitted to the hospital with GI bleed. He underwent an upper endoscopy at the time of admission to the hospital that showed a large superficial duodenal bulbar ulcer, which was thought to be the source of bleeding. Since then he was doing well. He is maintained on lactulose as well as Xifaxan for hepatic encephalopathy and ammonia has normalized. However, since yesterday he is becoming more lethargic and somewhat confused. Repeat labs today showed an ammonia level that went up to 64. Also he has more leukocytosis with a WBC count of 17.9. The patient has a scrotal abscess, for which Urology has been consulted. He remains on broad-spectrum antibiotics with Zosyn. PHYSICAL EXAMINATION: He is arousable but he is very lethargic. Vital signs are stable. Blood pressure is 114/57, pulse rate 92, temperature 99.4. HEENT: Examination unremarkable. Conjunctivae pink. Sclerae deeply icteric. Oral cavity, no lesions. NECK: No JVD or lymph node enlargement. CHEST: Clear to auscultation. HEART: Regular rate and rhythm. ABDOMEN: Soft. It was nontender, slightly distended. EXTREMITIES: No pedal edema. SKIN: No rashes. NEUROLOGIC: He is arousable but not very alert. LABS: WBC 17.9, hemoglobin 7, platelets 249. Basic metabolic panel showed BUN of 24, creatinine 1.17. INR 1.6. Plasma lactic acid 1.6. T-bili is 11.3, AST and ALT are 118 and 71 respectively, alkaline phosphatase 282. IMPRESSION: 1. Acute alcoholic hepatitis with alcoholic cirrhosis of the liver with gradual decompensation. 2. Mild coagulopathy secondary to underlying liver disease. 3. Hepatic encephalopathy with worsening ammonia, probably aggravated with scrotal abscess. 4. Upper gastrointestinal bleed secondary to duodenal ulcer with slight drop in hemoglobin to 7 g/dL. 5. Scrotal abscess, for which Urology has been consulted. 6. Ascites. He is currently on no diuretics. RECOMMENDATIONS: 1. Continue broad-spectrum antibiotics. 2. Continue Xifaxan 550 mg twice daily and increase the dose of lactulose so that he has three bowel movements daily. 3. Large-volume paracentesis for diagnostic and therapeutic purposes today. 4. Low salt diet. 5. Continue Protonix 40 mg q.12 hours. 6. Repeat labs in the morning and we will follow with you closely. Thank you for this consultation. MMROSANGELAL / IJN: [id number] /
--- NOTE | 2019-11-16 15:30 | US ---
EXAMINATION TYPE: US abdomen limited DATE OF EXAM: 11/16/2019 COMPARISON: NONE CLINICAL HISTORY: ascites. ascites TECHNIQUE/FINDINGS: Targeted grayscale ultrasound was performed of the abdomen all 4 quadrants to kim luate for ascites only. Mild degree ascites noted overall with only small amount of fluid seen in the right upper quadrant and no fluid in the left upper quadrant. Fluid is seen in the right lower and l eft lower quadrants. The greatest pocket is within the right lower quadrant. IMPRESSION: Mild ascites within the lower quadrants.
[2019-11-16] MEDS: PIPERACILLIN-TAZOBACTAM 3.375 GM in SODIUM CHLORIDE 0.9% 100 ML IVPB SCH (16:25)
--- NOTE | 2019-11-16 18:18 | CT ---
EXAMINATION TYPE: CT pelvis wo/w con DATE OF EXAM: 11/16/2019 COMPARISON: None HISTORY: Patient poor historian. Assessed pelvis for rectourethral fistula or urethro CT DLP: 1859.7 mGycm Automated exposure control for dose reduction was used. CONTRAST: Performed with IV Contrast, patient injected with 100 mL of Isovue 300. FINDINGS: Images were obtained from above the iliac crest to below symphysis pubis. Liver and spleen within the [id number] appear normal. The pancreas is slightly atrophic. Ascites i s present greater adjacent to the liver. Pericolic fluid is present on the right. Ascitic fluid is in the pelvis. CT PELVIS: Urinary bladder is decompressed with a Rosa catheter. Just anterior and superior to the u rinary bladder is a slightly increased density which may be the urinary bladder wall. A small amount of air is within this region. Air could be related to the catheterization. This is difficult to separ ate from the urinary bladder suggesting abscess to be less likely. This does not appear to involve a loop of bowel. Prostate may be small. At the base of the penis along the left aspect of the shaft inferior to the left pubic ramus there is a low-density collection just left lateral of the catheter course and separate from the catheter cou rse. This contains some air. Abscess formation at this level should be considered. There is no other changes to suggest this could be related to a penile prosthesis. Correlation with patient's surgical history is recommended. Series 6 image 37. No contrast in any loops of bowel are evident to suggest direct colovesical fistula. No direct commun ication is identified between the urethra and the rectum. A few diverticuli are present without evide nce of acute diverticulitis. IMPRESSION: 1. SUSPECTED ABSCESS FORMATION JUST LEFT OF THE URETHRA BELOW THE PUBIC SYMPHYSIS WITHIN THE BASE OF THE PENIS MEASURING 1.4 CRANIOCAUDAL BY 1.4 CENTIMETERS TRANSVERSE BY 5.8 CM AP. 2. NO COMMUNICATION BETWEEN THE ABSCESS AND URETHRA IS DOCUMENTED BASED ON THESE IMAGES. 3. NO COLOVESICLE FISTULA DOCUMENTED. 4. ASCITES 5. MILD DIVERTICULOSIS WITHOUT ACUTE DIVERTICULITIS.
--- NOTE | 2019-11-16 21:05 | P.PN ---
Progress Note - Text Progress Note Date: 11/16/[address] scan of the pelvis shows air periurethrally as well as air in the bladder There doesn not appear to be a rectourethral fistula. The air could be from the abscess and the ponce catheter The patient will have a retrograde urethrogram tomorrow to see if there is a urethrocutaneous fistula
--- NOTE | 2019-11-16 23:59 | P.CONS ---
History of Present Illness - Reason for Consult Consult date: 11/16/19 scrotal abscess ?fistula Requesting physician: Bessy Peters - Chief Complaint abdominal distension and bleeding per rectum x days - History of Present Illness Patient is a 59-year-old male with a past medical history pertinent for alcoholism alcoholic hepatitis and cirrhosis in this patient who has presented to the hospital on November 11, 2019 and has been admitted and treated for GI bleed patient was noticed to yesterday to have some purulent drainage which looked like a stool from the middle of his scrotal area by the RN however at the same time she mentioned the patient was having diarrhea to so she was not sure if was area was getting contaminated with a stool or he did have a fistula , the patient also have a culture in the micro section that has been done on the which is tissue culture which is currently growing multiple pathogen including streptococci collected E. coli canal because anaerobic gram-negative bacilli however the patient was not on any antibiotic until this morning with the patient started on Zosyn infectious disease has been consulted for further recommendation of antibiotic therapy patient has been afebrile throughout her hospital stay but he did have elevated white on admission of 20.1 which it came down to 13.5 yesterday however presently 0.9 today he did have elevated liver enzymes no imaging studies has been done during this admission except for chest x-ray which was negative most information has been obtained from review the chart.nursing staff as the patient still was unable to provide any history Review of Systems Positive point has been mentioned in HPI complete review could not be obtained because of underlying mental status Past Medical History Past Medical History: No Reported History, Liver Disease Additional Past Medical History / Comment(s): Cirrhosis History of Any Multi-Drug Resistant Organisms: None Reported Past Surgical History: No Surgical Hx Reported Additional Past Anesthesia/Blood Transfusion Reaction / Comm: no previous Past Psychological History: No Psychological Hx Reported Smoking Status: Never smoker Past Alcohol Use History: Abuse, Daily Past Drug Use History: None Reported - Past Family History Mother Family Medical History: No Reported History Father Family Medical History: No Reported History Medications and Allergies Home Medications Medication Instructions Recorded Confirmed Type Furosemide [Lasix] 40 mg PO BID 30 Days #60 tablet 10/28/19 11/11/19 Rx Potassium Chloride ER [K-Dur 20] 20 meq PO BID 30 Days #60 10/28/19 11/11/19 Rx tab.er.prt Spironolactone [Aldactone] 50 mg PO DAILY 30 Days #30 tab 10/28/19 11/11/19 Rx Allergies Allergy/AdvReac Type Severity Reaction Status Date / Time No Known Allergies Allergy Verified 11/11/19 08:49 Physical Exam Vitals: Vital Signs Temp Pulse Pulse Resp BP BP Pulse Ox 11/16/19 15:20 98.1 F 87 20 114/59 100 11/16/19 14:50 97 F L 88 22 106/57 100 11/16/19 14:40 97.2 F L 89 22 116/63 100 11/16/19 12:30 98.6 F 89 17 115/62 11/16/19 04:52 99.4 F 92 20 114/57 100 11/15/19 20:27 98.6 F 97 20 132/66 100 11/15/19 17:33 92 22 143/76 Intake and Output 11/16/19 11/16/19 11/16/19 06:59 14:59 22:59 Intake Total 460 Output Total 450 400 Balance -450 60 Intake: Oral 460 Blood Product 0 Rc As-1 Unit 0 [id number] Output: Urine 450 400 Other: Voiding Method Indwelling Catheter # Bowel Movements 2 GENERAL DESCRIPTION: Middle-aged male lying in bed, no distress. No tachypnea or accessory muscle of respiration use. HEENT: Shows scleral icterus. Oral mucous membrane is dry. NECK: Trachea central, no thyromegaly. LUNGS: Unlabored breathing. Decreased breath sound at the base. No wheeze or crackle. HEART: S1, S2, regular rate and rhythm. ABDOMEN: Soft, distended however no significant tenderness , guarding or rigidity : Scrotum in the middle did have a wound with some drainage but no fluctuation or induration was noticed no scrotal swelling EXTREMITIES: edema of feet. SKIN: No rash, no masses palpable. NEUROLOGICAL: The patient is awake, alert, oriented x3, mood and affect normal. Results CBC & Chem 7: 11/16/19 03:29 11/16/19 03:29 Labs: Abnormal Lab Results - Last 24 Hours (Table) 11/15/19 11/15/19 11/16/19 Range/Units 18:51 22:47 03:29 WBC (3.8-10.6) k/uL RBC (4.30-5.90) m/uL Hgb (13.0-17.5) gm/dL Hct (39.0-53.0) % MCV (80.0-100.0) fL MCH (25.0-35.0) pg RDW (11.5-15.5) % Macrocytosis PT (9.0-12.0) sec INR (<1.2) Sodium 130 L (137-145) mmol/L Potassium 3.3 L (3.5-5.1) mmol/L Carbon Dioxide 16 L (22-30) mmol/L BUN 24 H (9-20) mg/dL Glucose 126 H (74-99) mg/dL Plasma Lactic Acid Cristian 3.0 H* 2.7 H* (0.7-2.0) mmol/L Calcium 7.2 L (8.4-10.2) mg/dL Total Bilirubin 11.3 H (0.2-1.3) mg/dL AST 118 H (17-59) U/L ALT 71 H (4-49) U/L Alkaline Phosphatase 208 H (38-126) U/L Ammonia (<30) umol/L Total Protein 6.0 L (6.3-8.2) g/dL Albumin 2.0 L (3.5-5.0) g/dL Crossmatch 11/16/19 11/16/19 11/16/19 Range/Units 03:29 03:29 10:41 WBC 17.9 H (3.8-10.6) k/uL RBC 1.95 L (4.30-5.90) m/uL Hgb 7.0 L (13.0-17.5) gm/dL Hct 21.3 L (39.0-53.0) % MCV 109.1 H (80.0-100.0) fL MCH 35.7 H (25.0-35.0) pg RDW 19.8 H (11.5-15.5) % Macrocytosis Marked A PT 15.6 H (9.0-12.0) sec INR 1.6 H (<1.2) Sodium (137-145) mmol/L Potassium (3.5-5.1) mmol/L Carbon Dioxide (22-30) mmol/L BUN (9-20) mg/dL Glucose (74-99) mg/dL Plasma Lactic Acid Cristian (0.7-2.0) mmol/L Calcium (8.4-10.2) mg/dL Total Bilirubin (0.2-1.3) mg/dL AST (17-59) U/L ALT (4-49) U/L Alkaline Phosphatase (38-126) U/L Ammonia (<30) umol/L Total Protein (6.3-8.2) g/dL Albumin (3.5-5.0) g/dL Crossmatch See Detail 11/16/19 Range/Units 10:41 WBC (3.8-10.6) k/uL RBC (4.30-5.90) m/uL Hgb (13.0-17.5) gm/dL Hct (39.0-53.0) % MCV (80.0-100.0) fL MCH (25.0-35.0) pg RDW (11.5-15.5) % Macrocytosis PT (9.0-12.0) sec INR (<1.2) Sodium (137-145) mmol/L Potassium (3.5-5.1) mmol/L Carbon Dioxide (22-30) mmol/L BUN (9-20) mg/dL Glucose (74-99) mg/dL Plasma Lactic Acid Cristian (0.7-2.0) mmol/L Calcium (8.4-10.2) mg/dL Total Bilirubin (0.2-1.3) mg/dL AST (17-59) U/L ALT (4-49) U/L Alkaline Phosphatase (38-126) U/L Ammonia 68 H (<30) umol/L Total Protein (6.3-8.2) g/dL Albumin (3.5-5.0) g/dL Crossmatch Microbiology - Last 24 Hours (Table) 11/12/19 18:00 Gram Stain - Final Tissue - Other Wound Culture - Final Strep agalactiae - (group b) Escherichia coli Angela albicans Alpha Hemolytic Streptococcus 11/12/19 18:00 Anaerobic Culture - Final Scrotum Anaerobic Gm Negative Bacilli Anaerobic Gm Negative Bacilli#2 Anaerobic Gm Negative Bacilli#3 Assessment and Plan Assessment: patient with a scrotal wound and apparently culture done on admission did grow multiple pathogen now with concern for possible fistula anatomically having a rectal cutaneous fistula at this location will be very unlikely scrotum not significantly swollen or red to suggest underlying abscess but not entirely excluded (1) Scrotal abscess Current Visit: Yes Status: Acute Code(s): N49.2 - INFLAMMATORY DISORDERS OF SCROTUM SNOMED Code(s): 56983086 Plan: 1-await CT of the pelvis that has been ordered by urology 2-on the basis of culture obtained on 328 antibiotic will be switched over to Unasyn 3 g every 6 hours We will follow on clinical condition and cultures to further adjust medication if needed Thank you for this consultation we will follow the patient along with you Time with Patient: Greater than 30
[2019-11-17] MEDS: AMPICILLIN-SULBACTAM 3 GM in SODIUM CHLORIDE 0.9% 100 ML IVPB SCH ×5 (00:40→23:38)
[2019-11-17] MEDS: SODIUM CHLORIDE 0.9% 1,000 ML IV SCH (00:42)
[2019-11-17 07:54] LABS: Calcium 7.3 mg/dL (8.4-10.2); Magnesium 2.3 mg/dL (1.6-2.3); Potassium 3.4 mmol/L (3.5-5.1)
[2019-11-17] MEDS ORDERED: FUROSEMIDE 10 MG/ML 4 ML VIAL IV STA (08:42)
[2019-11-17] MEDS ORDERED: POTASSIUM CHLORIDE ER 20 MEQ TAB.ER PO STA (08:43)
--- NOTE | 2019-11-17 08:43 | P.PN ---
Subjective Patient is seen in follow-up for acute kidney injury. Renal function is stable. Patient resting in bed. Nonoliguric. Hemoglobin 7.0 yesterday and he received a unit of blood. Scheduled for paracentesis today. Vital signs are stable. General: The patient appeared well nourished and normally developed. HEENT: Head exam is unremarkable. Neck is without jugular venous distension. LUNGS: Lungs are clear to auscultation and percussion. Breath sounds decreased. HEART: Rate and Rhythm are regular. ABDOMEN: Soft. Nontender. EXTREMITITES: 1+ edema. Objective - Vital Signs Vital signs: Vital Signs Temp 98.1 F 11/17/19 05:22 Pulse 73 11/17/19 05:22 Resp 20 11/17/19 05:22 BP 102/59 11/17/19 05:22 Pulse Ox 100 11/17/19 05:22 Intake & Output 11/16/19 11/17/19 11/17/19 18:59 06:59 18:59 Intake Total 990 Output Total 400 1051 Balance 590 -1051 Intake: Oral 680 Blood Product 310 Rc As-1 Unit 310 [id number] Output: Urine 400 1050 Stool 1 Other: Voiding Method Indwelling Catheter Indwelling Catheter # Voids 1 # Bowel Movements 2 1 - Labs CBC & Chem 7: 11/16/19 03:29 11/17/19 07:03 Labs: Abnormal Lab Results - Last 24 Hours (Table) 11/16/19 11/16/19 11/17/19 Range/Units 10:41 10:41 07:03 Sodium 132 L (137-145) mmol/L Potassium 3.4 L (3.5-5.1) mmol/L Carbon Dioxide 18 L (22-30) mmol/L BUN 22 H (9-20) mg/dL Glucose 115 H (74-99) mg/dL Calcium 7.3 L (8.4-10.2) mg/dL Ammonia 68 H (<30) umol/L Crossmatch See Detail Assessment and Plan Plan: Assessment: 1. Acute kidney injury secondary to ATN secondary to acute blood loss anemia and hypotension. Renal function stable. Creatinine 1.04today. 2. Metabolic acidosis secondary to acute kidney injury and lactic acidosis. Partially also compensatory for chronic respiratory alkalosis due to liver cirrhosis. Better. Maintained on oral sodium bicarbonate. 3. Alcohol-induced liver cirrhosis. GI following. 4. Acute GI bleed status post EGD on November 10 which revealed one at ulcer and esophageal varices. No active bleeding was noted. 5. Hypokalemia from poor oral intake. 6. Ascites. Scheduled for paracentesis today. Plan: Hep-Lock IV fluids. Lasix 40 mg IV once today. Encourage oral intake. Replace potassium. 40 mEq today. Continue to monitor renal function and urine output. Repeat electrolytes in the morning. 25 g of albumin before and after paracentesis. An additional 25 g if more than 8 L removed.
[2019-11-17] MEDS: SODIUM BICARBONATE TAB 650 MG TAB PO SCH ×3 (08:58→21:37)
[2019-11-17] MEDS: PANTOPRAZOLE 40 MG/10 ML VIAL IV SCH (08:58)
[2019-11-17] MEDS: LACTULOSE 20 GM/30 ML CUP PO SCH ×3 (08:59→21:37)
[2019-11-17] MEDS: RIFAXIMIN 550 MG TABLET PO SCH ×2 (08:59→21:37)
[2019-11-17 10:18] LABS: Anisocytosis Moderate; Basophils % (A) 0 %; Eosinophils # (A) 0.5 k/uL (0-0.7); Eosinophils % (A) 3 %; HCT 26.5 % (39.0-53.0); Hypochromasia Slight; Lymphocytes # (A) 0.9 k/uL (1.0-4.8); Lymphocytes % (A) 6 %; MCH 34.9 pg (25.0-35.0); MCHC 32.4 g/dL (31.0-37.0); MCV 107.9 fL (80.0-100.0); Macrocytosis Marked; Mean Platelet Volume 9.2; Monocytes # (A) 0.8 k/uL (0-1.0); Monocytes % (A) 5 %; Neutrophils % (A) 84 %; Platelet Count 205 k/uL (150-450); RBC 2.45 m/uL (4.30-5.90); RDW 20.5 % (11.5-15.5); WBC 16.6 k/uL (3.8-10.6)
[2019-11-17 10:21] LABS: HGB 8.6 gm/dL (13.0-17.5)
--- NOTE | 2019-11-17 10:33 | PN ---
PROGRESS NOTE DATE OF DICTATION: 11/17/2019 Patient is a 59-year-old pleasant white male admitted to hospital with acute alcoholic hepatitis, upper GI bleed, hepatic encephalopathy, and scrotal abscess. He is doing better today. He is more alert and awake, having his breakfast this morning. He is going for a fistulogram for the scrotal abscess and also therapeutic paracentesis. As per the nursing staff, no events noted overnight. No bleeding. PHYSICAL EXAMINATION: On physical examination, blood pressure is 102/59, pulse rate is 73, temperature 98.1. HEENT EXAMINATION: Unremarkable. Conjunctivae pink. Sclerae anicteric. Oral cavity, no lesions. NECK: No JVD or lymph node enlargement. CHEST: Clear to auscultation. ABDOMEN: Soft, slightly distended. Bowel sounds are positive. EXTREMITIES: No pedal edema. NEURO: He is awake, but slow. No focal deficits. LABS: Labs from today: CBC was not done. BUN 22, creatinine 1.04. Basic metabolic panel appears normal. Ammonia level yesterday was 68. Today it is still pending. IMPRESSION: 1. Acute upper gastrointestinal bleed, status post EGD a week ago that showed duodenal ulcer. Presently on Protonix 40 mg twice daily. 2. Hepatic encephalopathy, receiving lactulose and Xifaxan. 3. Leukocytosis. Presently on broad-spectrum antibiotics for scrotal abscess. 4. Acute alcoholic hepatitis with alcoholic cirrhosis of the liver. 5. Mild ascites. RECOMMENDATION: 1. Continue with present medications. 2. Continue with antibiotics. 3. Large volume paracentesis and will send ascitic fluid for Gram stain and cell count. 4. Continue Xifaxan and lactulose. 5. Obtain labs today including an ammonia level as well as CBC. 6. We will follow with you closely. Thank you for this consultation. MMODL / IJN: [id number] /
--- NOTE | 2019-11-17 10:45 | P.PN ---
Subjective 59-year-old male with known history of a colic hepatitis cirrhosis was recently discharged from the hospital came back again with the bright red blood per rectum patient's abdomen is found to be 6.4 patient was having these bleeding for last 4 days unsure how many episodes patient is unable to provide any history to me as patient is severely insula patent because of hyperammonemia and hepatic encephalopathy. Patient was apparently feeling short of breath. Patient is receiving IV fluids at this time Lasix is on have a cold patient has minimal ascites at this time patient denied any abdominal pain. There is no evidence of upper GI bleed ovale cerebral bleed patient probably will not require IV antibiotics patient was started onto tried. Patient's INR is 1.7 because of cirrhosis. Patient does have lactic acidosis is mostly because of hepatic dysfunction. Patient will be continued on IV fluids and 100 mL per hour need to monitor for worsening ascites and fluid overload. Yesterday reveal a valid the patient and patient will be given IV vitamin K. Patient will be can you done rifaximin and lactulose for hepatic encephalopathy. 11/12/2019 Patient cannot provide any history patient is completely confused as today was told patient has a right blood per rectum rectum but it appears like patient had.stools which is consistent with upper GI bleed because of which will continue the antibiotics for possible variceal bleed upper GI endoscopy did show peptic ulcer disease and also varices but dresses doesn't appear to be source of bleed. Patient clinically doesn't appear to have spontaneous bacterial peritonitis anyways patient is on antibiotics. Patient was started back on diuretics by gastroenterology because of worsening renal function and no significant ascites and discontinuing these diuretics for now. Nephrology will be consulted as well. Patient's lactic acid has come down. 11/13/2019 Patient's overall mental status improved serum creatinine remains stable patient does have urine output be and has gone down. Patient's IV fluids were increased by nephrology. Bicarbonate is an not a good idea in his situation in spite of hyperchloremia because of, shouldn't lactic acid in the his liver cannot handle any lactic acid. Patient's leukocytosis improved overall there is improvement but patient is still the drowsy and sleepy. Serum ammonia level is 28 still having darker stools but hemoglobin remained stable this is probably because of his retained blood in the bowels 11/14/2019 Patient is a severe still lethargic but oriented 3 able to answer questions today mental status improved significantly 11/15/2019 Patient is a bit tachypneic today second to lactic acidosis will continue with IV fluids his chest x-ray did not show any significant abnormality patient the ascites has worsened will order paracentesis today. Kidney function is improving patient overall looks much better today except for some tachypnea 11/16/2019 He is to have scrotal swelling infection of the scrotum along with perirectal abscess urology was consulted infectious disease was consulted patient was started on Zosyn we'll obtain cultures from that urethral area. Tachypnea resolved today patient lactic acidosis improved patient has significant swelling. 11/17/2019 Patient will undergo retrograde urethrogram and also paracentesis today. Overall no significant change in his clinical condition patient received Lasix today Constitutional: Denied any fatigue denied any fever. Cardio vascular: denied any chest pain, palpitations Gastrointestinal denied any nausea vomiting Pulmonary: Denied any shortness of breath cough Neurologic denied any new focal deficits All inpatient medications were reviewed and appropriate changes in these medications as dictated in the interval history and assessment and plan. Objective - Vital Signs Vital signs: Vital Signs Temp 98.1 F 11/17/19 10:08 Pulse 73 11/17/19 10:08 Resp 20 11/17/19 10:08 BP 102/59 11/17/19 10:08 Pulse Ox 100 11/17/19 10:08 Intake & Output 11/16/19 11/17/19 11/17/19 18:59 06:59 18:59 Intake Total 990 Output Total 400 1051 Balance 590 -1051 Intake: Oral 680 Blood Product 310 Rc As-1 Unit 310 [id number] Output: Urine 400 1050 Stool 1 Other: Voiding Method Indwelling Catheter Indwelling Catheter # Voids 1 # Bowel Movements 2 1 - Exam PHYSICAL EXAMINATION: GENERAL: Lethargic bit drowsy but not confused orientedX3 HEENT: Pupils are round and equally reacting to light. EOMI. does have scleral icterus and conjunctival pallor. Normocephalic, atraumatic. No pharyngeal erythema. No thyromegaly. CARDIOVASCULAR: S1 and S2 present. No murmurs, rubs, or gallops. PULMONARY: Chest is clear to auscultation, no wheezing or crackles. ABDOMEN: Mildly distended with mild shifting dullness normoactive bowel sounds. No palpable organomegaly. patient has a scrotal swelling urethral fistula MUSCULOSKELETAL: No joint swelling or deformity. EXTREMITIES: No cyanosis, clubbing, or pedal edema. NEUROLOGICAL: No focal deficits were appreciated SKIN: No rashes. - Labs CBC & Chem 7: 11/17/19 07:03 11/17/19 07:03 Labs: Abnormal Lab Results - Last 24 Hours (Table) 11/16/19 11/16/19 11/17/19 Range/Units 10:41 10:41 07:03 WBC (3.8-10.6) k/uL RBC (4.30-5.90) m/uL Hgb (13.0-17.5) gm/dL Hct (39.0-53.0) % MCV (80.0-100.0) fL RDW (11.5-15.5) % Macrocytosis Sodium 132 L (137-145) mmol/L Potassium 3.4 L (3.5-5.1) mmol/L Carbon Dioxide 18 L (22-30) mmol/L BUN 22 H (9-20) mg/dL Glucose 115 H (74-99) mg/dL Calcium 7.3 L (8.4-10.2) mg/dL Ammonia 68 H (<30) umol/L Crossmatch See Detail 11/17/19 Range/Units 07:03 WBC 16.6 H (3.8-10.6) k/uL RBC 2.45 L (4.30-5.90) m/uL Hgb 8.6 L D (13.0-17.5) gm/dL Hct 26.5 L (39.0-53.0) % MCV 107.9 H (80.0-100.0) fL RDW 20.5 H (11.5-15.5) % Macrocytosis Marked A Sodium (137-145) mmol/L Potassium (3.5-5.1) mmol/L Carbon Dioxide (22-30) mmol/L BUN (9-20) mg/dL Glucose (74-99) mg/dL Calcium (8.4-10.2) mg/dL Ammonia (<30) umol/L Crossmatch Assessment and Plan Plan: -Acute upper GI bleed peptic ulcer disease and low possibility possibility of variceal bleed from portal hypertension patient was on octreotide which was subsequently discontinued hemoglobin remained stable. Patient is on Rocephin for possible variceal bleed and the possibly spontaneous pectoral peritonitis bacteria peritonitis, possibility of SBP is low. Patient has ascites will undergo paracentesis today -patient has scrotal cellulitis and periurethral fistula patient will undergo urethrogram today. -Acute renal failure prerenal azotemia from cirrhosis patient on IV fluids low possibility of hepatorenal syndrome, patient creatinine remains stable patient is hyper Marsha make because of which the patient is acidotic patient was started on IV bicarbonate drip -Non-anion gap metabolic acidosis secondary to hyperchloremia, nephrology is following the patient and patient was started on bicarbonate drip -Coagulopathy with elevated INR secondary to hepatic dysfunction -Hepatic encephalopathy: Continue with rifaximin and lactulose monitor ammonia level. Patient is quite a bit confused although his ammonia completely doesn't explain all of his confusion. -Cirrhosis alcoholic along with acute alcoholic hepatitis patient stop drinking alcohol -Hyponatremia probably hypovolemic hyponatremia from excessive diuretics these will be held -Hyperkalemia secondary to Aldactone which will be held as well -Lactic acidosis and anion gap metabolic acidosis is secondary to hepatic dysfunction continue with IV fluids for now but his lactic acid is expected to come down pretty slow because of cirrhosis. Chronic anemia from cirrhosis which is macrocytic anemia
[2019-11-17] MEDS: ALBUMIN HUMAN 25% 50 ML in EMPTY BAG 1 BAG IVPB SCH ×5 (11:29→16:14)
--- NOTE | 2019-11-17 15:52 | CT ---
EXAMINATION TYPE: CT pelvis wo con DATE OF EXAM: 11/17/2019 COMPARISON: Fluoroscopy 11/17/2019, CT pelvis 11/16/2019 HISTORY: Post Retro Cystogram. CT DLP: 466.8 mGycm Automated exposure control for dose reduction was used. CONTRAST: Retrograde filling of the urinary bladder through a Rosa catheter is been performed prior to this examination. There is some beam hardening artifact present due to the concentration of the co ntrast. FINDINGS: Small amount of air is present within the inferior left lateral aspect of the base of the penis adjac ent to the expected region of the urethra. Previous abscess formation from the prior day is not clear ly evident. The areas in the location of the previous abscess and appears diminished over the interva l. No sizable fluid collection is evident. Additionally, no contrast is evident within this structure to suggest active fistula retaining contrast on the post void images. No contrast is noted in the re ctum. There is fecal debris within the rectum. No extravasation of contrast within the pelvis is evident. There is free fluid within the lower pelvi s. Note is made of air within the urinary bladder. Previous small air collection anterior to the urin leana bladder which was felt to be related to the urinary bladder is not evident currently IMPRESSION: PREVIOUS SUSPECTED LEFT LATERAL BASE OF THE PENIS ABSCESS FROM YESTERDAY CURRENTLY CONTAINS SMALL HUMBERTO UNT OF DIMINISHED AIR WITHOUT FLUID COLLECTION. NO CONTRAST INTO THIS AREA IS EVIDENT AT THIS TIME. N O EXTRAVASATION OF CONTRAST INTO THE PELVIS IS EVIDENT.
[2019-11-17 17:56] LABS: Color,BF Yellow
[2019-11-17 17:57] LABS: Appearance,BF Clear; Nucleated Cells, Body Fluid 110 /uL; RBC, Body Fluid 11 /uL
[2019-11-17 18:05] LABS: Mononuclear WBC,Body Fluid 34 %; Polynuclear WBC,Body Fluid 66 %; Total Cells Counted,Body Fluid 100
--- NOTE | 2019-11-17 19:22 | P.PN ---
Subjective Progress Note Date: 11/17/19 The patient had a retrograde urethrogram, cystogram and post test computed tomography scan looking for a leak from the urinary system. None was identified. There does not appear to be any obvious rectal urethral fistula. I suspect the patient has an abscess that originated in the scrotum. The patient is more alert tonight and states that he has seen Dr. Eden of infectious disease for well over a year for recurring infection in the scrotum. How reliable this history is indeterminate. 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 On evaluation tonight there is no crepitus. There is no obvious abscess in the penis or scrotum. Nothing surgically needs to be done acutely. I will allow him to recuperate more from his GI disease and then we'll reassess the scrotum at a later date to decide what surgical procedure needs to be done. I will discuss this also with Dr. Eden. Objective - Vital Signs Vital signs: Vital Signs Temp 98.7 F 11/17/19 14:42 Pulse 92 11/17/19 15:30 Resp 18 11/17/19 14:42 BP 132/64 11/17/19 15:30 Pulse Ox 100 11/17/19 14:42 Intake & Output 11/17/19 11/17/19 11/18/19 06:59 18:59 06:59 Intake Total 540 Output Total 1051 800 Balance -1051 -260 Intake: Oral 540 Output: Urine 1050 800 Stool 1 Other: Voiding Method Indwelling Catheter Indwelling Catheter # Voids 1 # Bowel Movements 1 - Labs CBC & Chem 7: 11/17/19 07:03 11/17/19 07:03 Labs: Abnormal Lab Results - Last 24 Hours (Table) 11/17/19 11/17/19 11/17/19 Range/Units 07:03 07:03 14:52 WBC 16.6 H (3.8-10.6) k/uL RBC 2.45 L (4.30-5.90) m/uL Hgb 8.6 L D (13.0-17.5) gm/dL Hct 26.5 L (39.0-53.0) % MCV 107.9 H (80.0-100.0) fL RDW 20.5 H (11.5-15.5) % Neutrophils # 14.0 H (1.3-7.7) k/uL Lymphocytes # 0.9 L (1.0-4.8) k/uL Macrocytosis Marked A Sodium 132 L (137-145) mmol/L Potassium 3.4 L (3.5-5.1) mmol/L Carbon Dioxide 18 L (22-30) mmol/L BUN 22 H (9-20) mg/dL Glucose 115 H (74-99) mg/dL Calcium 7.3 L (8.4-10.2) mg/dL Ammonia 41 H (<30) umol/L
[2019-11-17] MEDS: PANTOPRAZOLE 40 MG TABLET PO SCH (21:37)
[2019-11-18 00:53] LABS: Albumin, Fluid Source Paracentesis Fluid; Glucose, BF Source Paracentesis Fluid; Glucose, Body Fluid 143 mg/dL; LDH, Body Fluid Source Paracentesis Fluid
--- NOTE | 2019-11-18 04:50 | PN ---
PROGRESS NOTE DATE OF SERVICE: 11/17/2019 REASON FOR FOLLOWUP: Possible scrotal abscess. INTERVAL HISTORY: The patient is currently afebrile. He is breathing comfortably. Denies having any chest pain. No cough. No pain to the scrotal area. Still has some drainage. PHYSICAL EXAMINATION: Blood pressure is 118/53 with a pulse of 91, temperature 98.9. He is 100% on room air. General description is a middle-aged male lying in bed in no distress. RESPIRATORY SYSTEM: Unlabored breathing, clear to auscultation anteriorly. HEART: S1, S2. Regular rate and rhythm. ABDOMEN: Soft, nondistended. Scrotal area did have minimal drainage. LABS: Hemoglobin 8.6, white count 16.6, BUN of 22, creatinine 1.04. DIAGNOSTIC IMPRESSION AND PLAN: Patient with scrotal area drainage with concern for possible abscess or fistula. The patient at this time to continue with Unasyn and will monitor his clinical course closely. MMODL / IJN: [id number] /
[2019-11-18] MEDS: AMPICILLIN-SULBACTAM 3 GM in SODIUM CHLORIDE 0.9% 100 ML IVPB SCH ×3 (05:47→18:11)
[2019-11-18 07:00] LABS: ALT 49 U/L (4-49); AST 79 U/L (17-59); African American GFR (CKD) >90 (>60 ml/min/1.73 sqM); Albumin 2.3 g/dL (3.5-5.0); Alkaline Phosphatase 305 U/L (38-126); Anion Gap 9 mmol/L; Blood Urea Nitrogen 21 mg/dL (9-20); Calcium 7.6 mg/dL (8.4-10.2); Carbon Dioxide 19 mmol/L (22-30); Chloride 105 mmol/L (98-107); Glucose 109 mg/dL (74-99); Magnesium 2.3 mg/dL (1.6-2.3); Non-African American GFR(CKD) >90 (>60 ml/min/1.73 sqM); Potassium 3.8 mmol/L (3.5-5.1); Sodium 133 mmol/L (137-145); Total Bilirubin 10.4 mg/dL (0.2-1.3); Total Protein 6.3 g/dL (6.3-8.2)
--- NOTE | 2019-11-18 08:18 | P.PN ---
Subjective Patient is seen in follow-up for acute kidney injury. Renal function is improved. Patient resting in bed. Nonoliguric. Underwent paracentesis on November 16 with 4 L removed. Nonoliguric. Vital signs are stable. General: The patient appeared well nourished and normally developed. HEENT: Head exam is unremarkable. Neck is without jugular venous distension. LUNGS: Lungs are clear to auscultation and percussion. Breath sounds decreased. HEART: Rate and Rhythm are regular. ABDOMEN: Soft. Nontender. EXTREMITITES: 1+ edema. Objective - Vital Signs Vital signs: Vital Signs Temp 98.2 F 11/18/19 05:08 Pulse 89 11/18/19 05:08 Resp 16 11/18/19 05:08 BP 118/62 11/18/19 05:08 Pulse Ox 100 11/18/19 05:08 Intake & Output 11/17/19 11/18/19 11/18/19 18:59 06:59 18:59 Intake Total 540 Output Total 800 1200 Balance -260 -1200 Intake: Oral 540 Output: Urine 800 1200 Uretheral (Rosa) 600 Other: Voiding Method Indwelling Catheter Indwelling Catheter # Bowel Movements 2 - Labs CBC & Chem 7: 11/17/19 07:03 11/18/19 06:25 Labs: Abnormal Lab Results - Last 24 Hours (Table) 11/17/19 11/17/19 11/18/19 Range/Units 07:03 14:52 06:25 WBC 16.6 H (3.8-10.6) k/uL RBC 2.45 L (4.30-5.90) m/uL Hgb 8.6 L D (13.0-17.5) gm/dL Hct 26.5 L (39.0-53.0) % MCV 107.9 H (80.0-100.0) fL RDW 20.5 H (11.5-15.5) % Neutrophils # 14.0 H (1.3-7.7) k/uL Lymphocytes # 0.9 L (1.0-4.8) k/uL Macrocytosis Marked A Sodium 133 L (137-145) mmol/L Carbon Dioxide 19 L (22-30) mmol/L BUN 21 H (9-20) mg/dL Glucose 109 H (74-99) mg/dL Calcium 7.6 L (8.4-10.2) mg/dL Total Bilirubin 10.4 H (0.2-1.3) mg/dL AST 79 H (17-59) U/L Alkaline Phosphatase 305 H (38-126) U/L Ammonia 41 H (<30) umol/L Albumin 2.3 L (3.5-5.0) g/dL 11/18/19 Range/Units 06:25 WBC (3.8-10.6) k/uL RBC (4.30-5.90) m/uL Hgb (13.0-17.5) gm/dL Hct (39.0-53.0) % MCV (80.0-100.0) fL RDW (11.5-15.5) % Neutrophils # (1.3-7.7) k/uL Lymphocytes # (1.0-4.8) k/uL Macrocytosis Sodium (137-145) mmol/L Carbon Dioxide (22-30) mmol/L BUN (9-20) mg/dL Glucose (74-99) mg/dL Calcium (8.4-10.2) mg/dL Total Bilirubin (0.2-1.3) mg/dL AST (17-59) U/L Alkaline Phosphatase (38-126) U/L Ammonia 58 H (<30) umol/L Albumin (3.5-5.0) g/dL Microbiology - Last 24 Hours (Table) 11/17/19 13:30 Gram Stain - Preliminary Pleural Fluid Body Fluid Culture - Preliminary 11/17/19 13:30 Anaerobic Culture - Preliminary Pleural Fluid Assessment and Plan Plan: Assessment: 1. Acute kidney injury secondary to ATN secondary to acute blood loss anemia and hypotension. Renal function improved. Creatinine 0.85 today. 2. Metabolic acidosis secondary to acute kidney injury and lactic acidosis. Partially also compensatory for chronic respiratory alkalosis due to liver cirrhosis. Better. Maintained on oral sodium bicarbonate. 3. Alcohol-induced liver cirrhosis. GI following. 4. Acute GI bleed status post EGD on November 10 which revealed one at ulcer and esophageal varices. No active bleeding was noted. Status post blood transfusions. 5. Hypokalemia from poor oral intake. Better. 6. Ascites status post paracentesis on November 16 with 4 L drained. 7. Volume overload. Plan: Start Aldactone 25 mg twice daily. Start Lasix 40 mg once daily. Repeat electrolytes in the morning.
[2019-11-18] MEDS: SODIUM BICARBONATE TAB 650 MG TAB PO SCH ×3 (08:23→22:00)
[2019-11-18] MEDS: PANTOPRAZOLE 40 MG TABLET PO SCH ×2 (08:23→22:00)
[2019-11-18] MEDS: LACTULOSE 20 GM/30 ML CUP PO SCH ×3 (08:23→21:59)
[2019-11-18] MEDS: RIFAXIMIN 550 MG TABLET PO SCH (08:25)
[2019-11-18] MEDS: FUROSEMIDE 40 MG TAB PO SCH (08:31)
[2019-11-18] MEDS: SPIRONOLACTONE 25 MG TAB PO SCH ×2 (08:31→22:00)
--- NOTE | 2019-11-18 08:38 | FL ---
EXAMINATION TYPE: FL urography retrograde DATE OF EXAM: 11/17/2019 COMPARISON: CT scan 11/16/2019 HISTORY: Possible urethral fistula TECHNIQUE: Fluoroscopy. FINDINGS: Fluoroscopic guidance was provided of 2.3 minutes. 17 images submitted. The bladder fills normally. The urethra fills normally with no evidence of stricture, filling defect or extravasation. There is no contrast seen within the rectum or anus. No diagnostic evidence of fist david. IMPRESSION: 1. No diagnostic evidence of fistula.
--- NOTE | 2019-11-18 08:41 | US ---
Ultrasound-guided paracentesis. DATE OF EXAM: 11/17/2019 CLINICAL HISTORY: Ascites The procedure was discussed with the patient. The risks, complications, benefits, and alternatives we re discussed and any questions were answered. Informed consent was obtained. The patient was placed s upine on the ultrasound table and prepped and draped in the usual sterile fashion. All elements of maximal barrier technique were utilized. Under ultrasound guidance, access into the right lower quadrant was obtained, via the paracentesis catheter system and direct ultrasound guidanc e. Approximately 4.0 liters of straw-colored fluid was removed. The patient was stable throughout the pr ocedure and remained stable upon discharge from Department of Radiology. IMPRESSION: Successful paracentesis under ultrasound guidance.
--- NOTE | 2019-11-18 11:19 | PN ---
PROGRESS NOTE DATE OF SERVICE: 11/18/2019 Patient is a 59-year-old pleasant male admitted to the hospital with acute alcoholic hepatitis with alcoholic cirrhosis of the liver and GI bleed, needing an upper endoscopy, was noted to have a duodenal ulcer. While in the hospital, developed a scrotal abscess. He underwent fistulogram yesterday which did not show any evidence of fistula. Presently on antibiotics for the scrotal abscess and he is gradually improving. He also had large volume paracentesis and 4 L of fluid was removed yesterday. Fluid analysis showed decreased protein and albumin consistent with portal hypertension and also there was no indication of spontaneous bacterial peritonitis. Overall, he is feeling better today. He has more awake, had 4 loose bowel movements yesterday. PHYSICAL EXAMINATION: Appears comfortable, responding to questions appropriately. VITAL SIGNS: Blood pressure 180/62, pulse rate 89, temperature 98.2. HEENT: Examination unremarkable. Conjunctivae are pink. Sclerae nonicteric. Oral cavity no lesions. NECK: No JVD or lymph node enlargement. CHEST: Clear to auscultation. ABDOMEN: Soft. Bowel sounds are positive. No organomegaly. EXTREMITIES: No pedal edema. NEURO: He is awake, oriented to name and place but not to time. LABS: From today, BUN is 21, creatinine 0.85. AST and ALT are 79 and 49, respectively. T- bilirubin is 10.4. IMPRESSION: 1. Alcoholic cirrhosis of the liver with acute alcoholic hepatitis with stable bilirubin. 2. Ascites secondary to portal hypertension from decompensated liver disease, status post large-volume paracentesis yesterday, 4 L removed. No evidence of spontaneous bacterial peritonitis. Presently on Lasix 40 mg daily and Aldactone 50 mg daily. 3. Hepatic encephalopathy, improving. Ammonia still at 48 on Xifaxan and oral lactulose. 4. Scrotal abscess, on Unasyn. 5. History of heavy alcohol abuse. RECOMMENDATIONS: 1. Continue with antibiotics. 2. Continue with diuretics. 3. Monitor LFTs on a daily basis. 4. Continue with lactulose for hepatic encephalopathy. Repeat ammonia level in the morning. Will follow with you closely. Thank you for this consultation. MMODL / IJN: [id number] /
--- NOTE | 2019-11-18 13:09 | P.PN ---
Subjective Progress Note Date: 11/18/19 Principal diagnosis: Acute hepatic encephalopathy and upper GI bleeding Patient was seen today at his bedside in the intensive care unit. He was admitted on 11/11/2019 for an acute GI bleed. His past medical history significant for acute renal failure, coagulopathy, hepatic encephalopathy with acute alcoholic hepatitis and cirrhosis. Each day he becomes a bit more arousable, today is opening up his eyes and following some verbal commands and responding appropriately to questions. No new laboratory results today although his ammonia level was 20 yesterday down from 42. He remains receiving Octretide, Protonix 40 mg IV twice a day, Xifaxam, lactulose and his IV fluids will remain at 0.9% normal saline 100 mL per hour. He remains hemodynamically stable and is currently on no inotropic or pressor support. Room air oxygen saturation is 99% and he has been afebrile the last 24 hours. The patient was seen in his bedside on the sixth floor medical surgical unit . He is much more awake today and is responding more appropriately to verbal stimuli today. His abdomen remains distended although he denies any complaints of tenderness. His T-max temperature in the last 24 hours has been 99.4F. He remains on room air with oxygen saturations 99-100%. IV fluids are infusing at 75 mL per hour of normal saline. Lab results today show a WBCs 13.5, hemoglobin 7.2, platelets 140, PT 14.7, INR 1.5, BUN 29, creatinine 1.25, AST 149, ALT 70 and a lactic acid of 3.3. He remains on Rocephin 1 g IV piggyback every 24 hours for antibiotics and he is also continues to receive Octretide, Protonix 40 mg IV twice a day, Xifaxam, lactulose. A chest x-ray was completed this morning which demonstrates no acute pulmonary process. Reevaluated today on 11/18/19, patient is resting comfortably. Denies any specific complaints. His mentation seems to be slow, however he is alert and oriented 3. Patient underwent paracentesis today, and he had 4 L of fluid re moved from his abdominal cavity. Patient was initially admitted with acute alcoholic hepatitis and alcoholic cirrhosis of the liver he was found to have a nonbleeding duodenal ulcer. He is also on antibiotics for scrotal abscess which seems to be gradually improving. Overall the patient is about the same, being followed by many consultants including gastroenterology for his abdominal ascites, and for his portal hypertension. Today the patient denies any abdominal pain, no nausea, no vomiting, no melena, and no hematemesis. Labs were reviewed, he had basically relatively normal basic metabolic profile. Ammonia level is up to 58. His liver enzymes are borderline elevated. Mostly his alkaline phosphatase is 305. WBC count is 16.6 hemoglobin is 8.6. Preliminary report on his ascitic fluid was noted. Albumin is rather low at 1.0. LDH is low 44. And WBC is 66. Objective - Vital Signs Vital signs: Vital Signs Temp 97.3 F L 11/18/19 12:35 Pulse 93 11/18/19 12:35 Resp 21 11/18/19 12:35 BP 126/57 11/18/19 12:35 Pulse Ox 100 11/18/19 12:35 Intake & Output 11/17/19 11/18/19 11/18/19 18:59 06:59 18:59 Intake Total 540 408 Output Total 800 1200 250 Balance -260 -1200 158 Weight 93 kg Intake: Oral 540 408 Output: Urine 800 1200 250 Uretheral (Rosa) 600 Other: Voiding Method Indwelling Catheter Indwelling Catheter Indwelling Catheter # Bowel Movements 2 2 - Exam - Constitutional General appearance: Present: cooperative, no acute distress - EENT Eyes: Present: PERRLA, scleral icterus - Respiratory Details: Lung sounds with few scattered expiratory wheezes, diminished to his bilateral bases. Respirations are symmetrical and nonlabored. - Cardiovascular Details: Regular rhythm with tachycardic rate. S1 and S2 present, negative for S3, gallop or murmur. - Gastrointestinal Gastrointestinal Comment(s): Abdomen is soft, nontender and distended. Active bowel sounds present in all 4 abdominal quadrants. No guarding or rigidity. No organomegaly. - Integumentary Integumentary Comment(s): Skin is warm and dry. No clubbing or cyanosis is present. Integumentary: Present: jaundiced - Neurologic Neurologic: Present: CNII-XII intact - Musculoskeletal Musculoskeletal: Present: generalized weakness, strength equal bilaterally - Psychiatric Psychiatric Comment(s): Flat affect Psychiatric: Present: A&O x's 3, intact judgment & insight - Labs CBC & Chem 7: 11/17/19 07:03 11/18/19 06:25 Labs: Abnormal Lab Results - Last 24 Hours (Table) 11/17/19 11/18/19 11/18/19 Range/Units 14:52 06:25 06:25 Sodium 133 L (137-145) mmol/L Carbon Dioxide 19 L (22-30) mmol/L BUN 21 H (9-20) mg/dL Glucose 109 H (74-99) mg/dL Calcium 7.6 L (8.4-10.2) mg/dL Total Bilirubin 10.4 H (0.2-1.3) mg/dL AST 79 H (17-59) U/L Alkaline Phosphatase 305 H (38-126) U/L Ammonia 41 H 58 H (<30) umol/L Albumin 2.3 L (3.5-5.0) g/dL Microbiology - Last 24 Hours (Table) 11/17/19 13:30 Gram Stain - Preliminary Pleural Fluid Body Fluid Culture - Preliminary 11/17/19 13:30 Anaerobic Culture - Preliminary Pleural Fluid Assessment and Plan Assessment: Impression: Acute upper GI bleeding most likely secondary to large duodenal bulbar ulcer but no evidence of active bleeding during EGD. Small esophageal varices with no stigmata of recent bleed. Scrotal cellulitis/abscess, remains on antibiotics as per ID on the case. Acute hepatic encephalopathy Abdominal ascites secondary to portal hypertension and alcoholic liver disease. Hypovolemic hyponatremia Acute anion gap metabolic acidosis secondary to hepatic dysfunction. Chronic anemia/macrocytic anemia secondary to alcoholic liver disease. Status post large volume paracentesis today. Recommendation: Continue present treatment plan. Continue Protonix. Lactulose. And rifaximin. Continue diuretics./Aldactone. And Lasix. Continue to monitor for alcoholic withdrawal. Patient will definitely need placement in the near future. Prognosis is extremely poor and guarded. Continue sodium bicarb. Continue the Unasyn as per ID on the case. Will follow-up the Time with Patient: Less than 30
[2019-11-19] MEDS: AMPICILLIN-SULBACTAM 3 GM in SODIUM CHLORIDE 0.9% 100 ML IVPB SCH ×5 (00:40→23:33)
--- NOTE | 2019-11-19 08:04 | P.PN ---
Subjective Patient is seen in follow-up for acute kidney injury. Renal function has improved. Patient resting in bed. Nonoliguric. Underwent paracentesis on November 16 with 4 L removed. Nonoliguric. Vital signs are stable. General: The patient appeared well nourished and normally developed. HEENT: Head exam is unremarkable. Neck is without jugular venous distension. LUNGS: Lungs are clear to auscultation and percussion. Breath sounds decreased. HEART: Rate and Rhythm are regular. ABDOMEN: Soft. Nontender. EXTREMITITES: 1+ edema. Objective - Vital Signs Vital signs: Vital Signs Temp 99.0 F 11/19/19 05:37 Pulse 98 11/19/19 05:37 Resp 16 11/19/19 05:37 BP 117/65 11/19/19 05:37 Pulse Ox 99 11/19/19 05:37 Intake & Output 11/18/19 11/19/19 11/19/19 18:59 06:59 18:59 Intake Total 998 Output Total 250 552 Balance 748 -552 Weight 93 kg Intake: Oral 998 Output: Urine 250 550 Stool 2 Other: Voiding Method Indwelling Catheter Indwelling Catheter # Voids 0 # Bowel Movements 3 1 - Labs CBC & Chem 7: 11/17/19 07:03 11/18/19 06:25 Labs: Microbiology - Last 24 Hours (Table) 11/17/19 13:30 Gram Stain - Preliminary Pleural Fluid Body Fluid Culture - Preliminary Assessment and Plan Plan: Assessment: 1. Acute kidney injury secondary to ATN secondary to acute blood loss anemia and hypotension. Renal function improved. Creatinine 0.85 as of yesterday. 2. Metabolic acidosis secondary to acute kidney injury and lactic acidosis. Partially also compensatory for chronic respiratory alkalosis due to liver cirrhosis. Better. Maintained on oral sodium bicarbonate. 3. Alcohol-induced liver cirrhosis. GI following. 4. Acute GI bleed status post EGD on November 10 which revealed one at ulcer and esophageal varices. No active bleeding was noted. Status post blood transfusions. 5. Hypokalemia from poor oral intake. Better. 6. Ascites status post paracentesis on November 16 with 4 L drained. 7. Volume overload. Plan: Maintain Aldactone 25 mg twice daily. Maintain Lasix 40 mg once daily. Low-salt diet and 1500 mL fluid resection. Repeat electrolytes in the morning.
[2019-11-19 08:43] LABS: ALT 45 U/L (4-49); AST 83 U/L (17-59); African American GFR (CKD) >90 (>60 ml/min/1.73 sqM); Albumin 2.2 g/dL (3.5-5.0); Alkaline Phosphatase 311 U/L (38-126); Anion Gap 8 mmol/L; Blood Urea Nitrogen 23 mg/dL (9-20); Calcium 7.4 mg/dL (8.4-10.2); Carbon Dioxide 22 mmol/L (22-30); Chloride 102 mmol/L (98-107); Glucose 100 mg/dL (74-99); Non-African American GFR(CKD) 89 (>60 ml/min/1.73 sqM); Potassium 4.1 mmol/L (3.5-5.1); Sodium 132 mmol/L (137-145); Total Bilirubin 9.9 mg/dL (0.2-1.3); Total Protein 6.1 g/dL (6.3-8.2)
[2019-11-19] MEDS: LACTULOSE 20 GM/30 ML CUP PO SCH ×3 (08:45→22:14)
[2019-11-19] MEDS: PANTOPRAZOLE 40 MG TABLET PO SCH ×2 (08:46→22:15)
[2019-11-19] MEDS: SPIRONOLACTONE 25 MG TAB PO SCH ×2 (08:46→22:15)
[2019-11-19] MEDS: SODIUM BICARBONATE TAB 650 MG TAB PO SCH ×3 (08:46→22:15)
[2019-11-19] MEDS: FUROSEMIDE 40 MG TAB PO SCH (08:46)
--- NOTE | 2019-11-19 10:03 | P.PN ---
Subjective Progress Note Date: 11/19/19 The patient was seen both yesterday and today. He has a spontaneous scrotal abscess. It spontaneously drained. The swelling is minimal at this point in time. He is on culture specific antibiotics. At some point in time he'll need a wide excision of the chronically infected area in the scrotum. Given his other severe medical problems and his liver failure I will wait to see how he responds to further treatment with that. Unless the scrotum started swelling again or his white count rises dramatically I do not see a need to do this immediately. Objective - Vital Signs Vital signs: Vital Signs Temp 99.0 F 11/19/19 05:37 Pulse 98 11/19/19 05:37 Resp 16 11/19/19 05:37 BP 117/65 11/19/19 05:37 Pulse Ox 99 11/19/19 05:37 Intake & Output 11/18/19 11/19/19 11/19/19 18:59 06:59 18:59 Intake Total 998 Output Total 250 552 Balance 748 -552 Weight 93 kg Intake: Oral 998 Output: Urine 250 550 Stool 2 Other: Voiding Method Indwelling Catheter Indwelling Catheter # Voids 0 # Bowel Movements 3 1 - Labs CBC & Chem 7: 11/17/19 07:03 11/19/19 07:56 Labs: Abnormal Lab Results - Last 24 Hours (Table) 11/19/19 11/19/19 Range/Units 07:56 07:56 Sodium 132 L (137-145) mmol/L BUN 23 H (9-20) mg/dL Glucose 100 H (74-99) mg/dL Calcium 7.4 L (8.4-10.2) mg/dL Total Bilirubin 9.9 H (0.2-1.3) mg/dL AST 83 H (17-59) U/L Alkaline Phosphatase 311 H (38-126) U/L Ammonia 35 H (<30) umol/L Total Protein 6.1 L (6.3-8.2) g/dL Albumin 2.2 L (3.5-5.0) g/dL Microbiology - Last 24 Hours (Table) 11/17/19 13:30 Gram Stain - Preliminary Pleural Fluid Body Fluid Culture - Preliminary
--- NOTE | 2019-11-19 13:41 | PN ---
PROGRESS NOTE DATE OF DICTATION: 11/19/2019 This patient is a 59-year-old pleasant white male admitted to the hospital with acute GI bleed, history of alcoholic hepatitis, alcoholic cirrhosis of the liver and scrotal abscess, presently on broad-spectrum antibiotics. He remains the same. No significant change in his symptoms. Complains of coughing and shortness of breath. Reports no fever, chills, night sweats. PHYSICAL EXAMINATION: He appears somewhat lethargic. VITAL SIGNS: Stable. Blood pressure is 132/89. Pulse rate 98, temperature 98.6. HEENT examination unremarkable. Conjunctivae pink. Sclerae anicteric. Oral cavity no lesions. NECK: No JVD or lymph node enlargement. CHEST: Clear to auscultation. HEART: Regular rate and rhythm. ABDOMEN: Slightly distended. Bowel sounds are positive. EXTREMITIES: One plus pedal edema. LABS: Labs from today: CBC not available. BUN is 23, creatinine 0.93. T-bilirubin is 9.9, AST 83, ALT 45, alkaline phosphatase 311. IMPRESSION: 1. Acute upper gastrointestinal bleed, status post EGD at the time of admission to the hospital that showed duodenal ulcer. Presently on Protonix 40 mg twice daily. Doing well. No further bleeding. 2. Acute alcoholic hepatitis with alcoholic cirrhosis of the liver. Bilirubin is 9.9. 3. Hepatic encephalopathy. He remains on oral lactulose 30 3 times daily. 4. Ascites, on low-dose Lasix and Aldactone that was started yesterday. 5. Scrotal abscess, on broad-spectrum antibiotics. RECOMMENDATIONS: 1. Continue with antibiotics. 2. Continue diuretics. 3. Continue lactulose and . 4. Will follow with you closely. Thank you for this consultation. MMODL / IJN: [id number] /
[2019-11-20] MEDS: AMPICILLIN-SULBACTAM 3 GM in SODIUM CHLORIDE 0.9% 100 ML IVPB SCH ×4 (06:02→23:07)
--- NOTE | 2019-11-20 08:20 | P.PN ---
Subjective Patient is seen in follow-up for acute kidney injury. Acute kidney injury has resolved. Remains edematous. Patient resting in bed. Nonoliguric. Underwent paracentesis on November 16 with 4 L removed. Vital signs are stable. General: The patient appeared well nourished and normally developed. HEENT: Head exam is unremarkable. Neck is without jugular venous distension. LUNGS: Lungs are clear to auscultation and percussion. Breath sounds decreased. HEART: Rate and Rhythm are regular. ABDOMEN: Soft. Nontender. EXTREMITITES: 1+ edema. Objective - Vital Signs Vital signs: Vital Signs Temp 98.2 F 11/20/19 06:41 Pulse 90 11/20/19 06:41 Resp 20 11/20/19 06:41 BP 121/65 11/20/19 06:41 Pulse Ox 99 11/20/19 06:41 Intake & Output 11/19/19 11/20/19 11/20/19 18:59 06:59 18:59 Intake Total 1920 Output Total 350 650 Balance 1570 -650 Intake: Oral 1920 Output: Urine 350 650 Stool 0 Other: Voiding Method Indwelling Catheter Indwelling Catheter # Voids 0 # Bowel Movements 3 2 - Labs CBC & Chem 7: 11/17/19 07:03 11/19/19 07:56 Labs: Abnormal Lab Results - Last 24 Hours (Table) 11/19/19 11/19/19 Range/Units 07:56 07:56 Sodium 132 L (137-145) mmol/L BUN 23 H (9-20) mg/dL Glucose 100 H (74-99) mg/dL Calcium 7.4 L (8.4-10.2) mg/dL Total Bilirubin 9.9 H (0.2-1.3) mg/dL AST 83 H (17-59) U/L Alkaline Phosphatase 311 H (38-126) U/L Ammonia 35 H (<30) umol/L Total Protein 6.1 L (6.3-8.2) g/dL Albumin 2.2 L (3.5-5.0) g/dL Microbiology - Last 24 Hours (Table) 11/17/19 13:30 Gram Stain - Preliminary Pleural Fluid Body Fluid Culture - Preliminary 11/17/19 13:30 Anaerobic Culture - Preliminary Pleural Fluid Assessment and Plan Plan: Assessment: 1. Acute kidney injury secondary to ATN secondary to acute blood loss anemia and hypotension. Renal function back to baseline. Creatinine near 1. 2. Metabolic acidosis secondary to acute kidney injury and lactic acidosis. Partially also compensatory for chronic respiratory alkalosis due to liver cirrhosis. Better. Maintained on oral sodium bicarbonate. 3. Alcohol-induced liver cirrhosis. GI following. 4. Acute GI bleed status post EGD on November 10 which revealed one at ulcer and esophageal varices. No active bleeding was noted. Status post blood transfusions. 5. Hypokalemia from poor oral intake. Better. 6. Ascites status post paracentesis on November 16 with 4 L drained. 7. Volume overload. Plan: Maintain Aldactone 25 mg twice daily. Maintain Lasix 40 mg orally once daily. I will give him an extra dose of Lasix 40 mg IV once today. Low-salt diet and 1500 mL fluid resection. Repeat electrolytes in the morning.
[2019-11-20 08:23] LABS: ALT 47 U/L (4-49); AST 102 U/L (17-59); African American GFR (CKD) >90 (>60 ml/min/1.73 sqM); Albumin 2.3 g/dL (3.5-5.0); Alkaline Phosphatase 306 U/L (38-126); Anion Gap 10 mmol/L; Blood Urea Nitrogen 25 mg/dL (9-20); Calcium 7.7 mg/dL (8.4-10.2); Carbon Dioxide 20 mmol/L (22-30); Chloride 103 mmol/L (98-107); Glucose 119 mg/dL (74-99); Magnesium 2.2 mg/dL (1.6-2.3); Non-African American GFR(CKD) >90 (>60 ml/min/1.73 sqM); Potassium 4.7 mmol/L (3.5-5.1); Sodium 133 mmol/L (137-145); Total Bilirubin 10.1 mg/dL (0.2-1.3); Total Protein 6.8 g/dL (6.3-8.2)
[2019-11-20] MEDS: LACTULOSE 20 GM/30 ML CUP PO SCH ×3 (08:34→21:41)
[2019-11-20] MEDS: PANTOPRAZOLE 40 MG TABLET PO SCH ×2 (08:34→21:40)
[2019-11-20] MEDS: FUROSEMIDE 40 MG TAB PO SCH (08:34)
[2019-11-20] MEDS: SPIRONOLACTONE 25 MG TAB PO SCH ×2 (08:34→21:41)
[2019-11-20] MEDS: SODIUM BICARBONATE TAB 650 MG TAB PO SCH ×3 (08:34→21:40)
--- NOTE | 2019-11-20 08:44 | PN ---
PROGRESS NOTE DATE OF SERVICE: 11/19/2019 REASON FOR FOLLOW UP: Scrotal abscess. INTERVAL HISTORY: The patient is currently afebrile. The patient is breathing comfortably. The patient denies having any chest pain or shortness of breath or cough. Denies any worsening abdominal pain and no diarrhea. PHYSICAL EXAMINATION: Blood pressure 137/77 with a pulse of 91, temperature 98.7. He is 100% on room air. General description: The patient is a middle-aged male lying in bed in no distress. Respiratory system: Unlabored breathing. Clear to auscultation anteriorly. Heart S1, S2. Regular rate and rhythm. Abdomen soft, no tenderness. LABS: Hemoglobin is 8.6, white count 16.6. Creatinine 0.93. Culture with Streptococcus agalactiae E coli, Angela albicans and anaerobes. DIAGNOSTIC IMPRESSION AND PLAN: Patient with scrotal abscess status post spontaneous drainage. Patient is covered with Unasyn, Diflucan will be added and we will monitor clinical course closely. MMODL / IJN: [id number] /
--- NOTE | 2019-11-20 10:11 | PN ---
PROGRESS NOTE DATE OF SERVICE: 11/20/2019 The patient is a 59-year-old pleasant male admitted to hospital with acute alcoholic hepatitis, alcoholic cirrhosis of the liver and GI bleed/hepatic encephalopathy. He continues to remain lethargic but able to answer questions appropriately. He reports no abdominal pain. He does complain of some coughing and shortness of breath. PHYSICAL EXAMINATION: VITAL SIGNS: Blood pressure is 121/65, pulse rate 90. Temperature 98.2. HEENT examination unremarkable. Conjunctivae pink. Sclerae icteric. Oral cavity no lesions. NECK: No JVD or lymph node enlargement. CHEST: Clear to auscultation. HEART is regular rate and rhythm. ABDOMEN is slightly distended. There was some free fluid noted in the abdomen. EXTREMITIES: No pedal edema. NEURO: He is awake, but very sluggish. LABS: From today: CBC was not done. Sodium 133, potassium 4.2, BUN 25, creatinine 0.8, T- bilirubin is 10.1, AST and ALT 102 and 47 respectively, alkaline phosphatase 306. IMPRESSION: 1. Acute upper gastrointestinal bleed, resolved. Patient on Protonix 40 mg daily, doing well. EGD done 4 days ago showed a duodenal ulcer. 2. Hepatic encephalopathy, improving. Remains on lactulose and Xifaxan. 3. Ascites, on Lasix and Aldactone at low-dose tolerating well. BUN and creatinine normal. 4. Scrotal abscess on IV Unasyn. 5. Acute alcoholic hepatitis/alcoholic cirrhosis of the liver with decompensation. RECOMMENDATIONS: 1. Continue with current symptomatic and supportive care. 2. Currently with current antibiotics. 3. Low-salt diet. 4. Continue lactulose and Xifaxan. 5. Repeat labs in the morning. 6. We will continue to follow him closely. Thank you for this consultation. MMODL / IJN: [id number] /
--- NOTE | 2019-11-20 11:10 | P.PN ---
Subjective Progress Note Date: 11/20/19 This patient is being followed for a chronic scrotal abscess. It has spontaneously drained. By history this has been recurrent. By examination he probably has a nidus of infection deep in the scrotum. He does not have any evidence of rectal urethral rectal cutaneous or urethrocutaneous fistulae. The patient has advanced alcoholic cirrhosis. He has progressive portal hypertension and ascites. The abdomen is again distended . Ideally I would like to excise and drain the scrotum however he keeps stooling on his scrotum. I'm concerned that he would have problems healing this area without a colostomy. Ideally probably will not get a colostomy. As long as the wound continues to drain nothing emergent surgical needs to be done. Unfortunately with progression of his ascites with secondary respiratory and fluid issues it makes a surgical approach difficult. His mentation is poor and he is not sensing any stooling on his scrotum. I will continue to follow with this patient. Objective - Vital Signs Vital signs: Vital Signs Temp 98.2 F 11/20/19 06:41 Pulse 90 11/20/19 06:41 Resp 20 11/20/19 06:41 BP 121/65 11/20/19 06:41 Pulse Ox 99 11/20/19 06:41 Intake & Output 11/19/19 11/20/19 11/20/19 18:59 06:59 18:59 Intake Total 1920 Output Total 350 650 Balance 1570 -650 Intake: Oral 1920 Output: Urine 350 650 Stool 0 Other: Voiding Method Indwelling Catheter Indwelling Catheter Indwelling Catheter # Voids 0 # Bowel Movements 3 2 - Labs CBC & Chem 7: 11/17/19 07:03 11/20/19 07:41 Labs: Abnormal Lab Results - Last 24 Hours (Table) 11/20/19 Range/Units 07:41 Sodium 133 L (137-145) mmol/L Carbon Dioxide 20 L (22-30) mmol/L BUN 25 H (9-20) mg/dL Glucose 119 H (74-99) mg/dL Calcium 7.7 L (8.4-10.2) mg/dL Total Bilirubin 10.1 H (0.2-1.3) mg/dL AST 102 H (17-59) U/L Alkaline Phosphatase 306 H (38-126) U/L Albumin 2.3 L (3.5-5.0) g/dL Microbiology - Last 24 Hours (Table) 11/17/19 13:30 Gram Stain - Preliminary Pleural Fluid Body Fluid Culture - Preliminary 11/17/19 13:30 Anaerobic Culture - Preliminary Pleural Fluid
--- NOTE | 2019-11-20 13:02 | P.PN ---
Subjective Progress Note Date: 11/19/19 Principal diagnosis: Acute GI bleed Alcoholic liver cirrhosis/alcoholic hepatitis/encephalopathy Scrotal abscess 59-year-old male patient with history of alcoholic liver cirrhosis admitted to the hospital with acute GI bleed and decompensated alcoholic hepatitis along with scrotal abscess; GI is following and patient is status post EGD; patient remains on broad-spectrum antibiotics versus scrotal abscess and urology is consulted 11/19/2019 Patient is seen and evaluated in room at bedside; remains somewhat lethargic; denies any specific complaints Vital signs are stable with a blood pressure 132/89; patient remains afebrile Patient is status post EGD for acute upper GI bleed which showed duodenal ulcer; GI is following and recommending to continue with Protonix 40 mg twice a day. Patient remains on lactulose 30 g by mouth 3 times a day along with Xifaxan for hepatic encephalopathy; continue with low-dose Lasix and Aldactone for ascites Urology is following and patient remains on broad-spectrum antibiotics; no drainable abscess anymore; patient will have outpatient follow-up Objective - Vital Signs Vital signs: Vital Signs Temp 99.0 F 11/19/19 05:37 Pulse 98 11/19/19 05:37 Resp 16 11/19/19 05:37 BP 117/65 11/19/19 05:37 Pulse Ox 99 11/19/19 05:37 Intake & Output 11/18/19 11/19/19 11/19/19 18:59 06:59 18:59 Intake Total 998 Output Total 250 552 Balance 748 -552 Weight 93 kg Intake: Oral 998 Output: Urine 250 550 Stool 2 Other: Voiding Method Indwelling Catheter Indwelling Catheter Indwelling Catheter # Voids 0 # Bowel Movements 3 1 - Exam GENERAL: Lethargic bit drowsy but not confused [id number] HEENT: Pupils are round and equally reacting to light. EOMI. does have scleral icterus and conjunctival pallor. Normocephalic, atraumatic. No pharyngeal erythema. No thyromegaly. CARDIOVASCULAR: S1 and S2 present. No murmurs, rubs, or gallops. PULMONARY: Chest is clear to auscultation, no wheezing or crackles. ABDOMEN: Mildly distended with mild shifting dullness normoactive bowel sounds. No palpable organomegaly. patient has a scrotal swelling urethral fistula MUSCULOSKELETAL: No joint swelling or deformity. EXTREMITIES: No cyanosis, clubbing, or pedal edema. NEUROLOGICAL: No focal deficits were appreciated SKIN: No rashes. - Labs CBC & Chem 7: 11/17/19 07:03 11/20/19 07:41 Labs: Abnormal Lab Results - Last 24 Hours (Table) 11/19/19 11/19/19 Range/Units 07:56 07:56 Sodium 132 L (137-145) mmol/L BUN 23 H (9-20) mg/dL Glucose 100 H (74-99) mg/dL Calcium 7.4 L (8.4-10.2) mg/dL Total Bilirubin 9.9 H (0.2-1.3) mg/dL AST 83 H (17-59) U/L Alkaline Phosphatase 311 H (38-126) U/L Ammonia 35 H (<30) umol/L Total Protein 6.1 L (6.3-8.2) g/dL Albumin 2.2 L (3.5-5.0) g/dL Microbiology - Last 24 Hours (Table) 11/17/19 13:30 Gram Stain - Preliminary Pleural Fluid Body Fluid Culture - Preliminary Assessment and Plan Assessment: -Acute upper GI bleed peptic ulcer disease and low possibility possibility of variceal bleed from portal hypertension patient was on octreotide which was subsequently discontinued hemoglobin remained stable. Patient is on Rocephin for possible variceal bleed and the possibly spontaneous pectoral peritonitis bacteria peritonitis, possibility of SBP is low. Patient has ascites will undergo paracentesis today -patient has scrotal cellulitis and periurethral fistula patient will undergo urethrogram today. -Acute renal failure prerenal azotemia from cirrhosis patient on IV fluids low possibility of hepatorenal syndrome, patient creatinine remains stable patient is hyper Marsha make because of which the patient is acidotic patient was started on IV bicarbonate drip -Non-anion gap metabolic acidosis secondary to hyperchloremia, nephrology is following the patient and patient was started on bicarbonate drip -Coagulopathy with elevated INR secondary to hepatic dysfunction -Hepatic encephalopathy: Continue with rifaximin and lactulose monitor ammonia level. Patient is quite a bit confused although his ammonia completely doesn't explain all of his confusion. -Cirrhosis alcoholic along with acute alcoholic hepatitis patient stop drinking alcohol -Hyponatremia probably hypovolemic hyponatremia from excessive diuretics these will be held -Hyperkalemia secondary to Aldactone which will be held as well -Lactic acidosis and anion gap metabolic acidosis is secondary to hepatic dysfunction continue with IV fluids for now but his lactic acid is expected to come down pretty slow because of cirrhosis. Chronic anemia from cirrhosis which is macrocytic anemia Time with Patient: Greater than 30
--- NOTE | 2019-11-20 14:46 | P.PN ---
Subjective Progress Note Date: 11/20/19 Principal diagnosis: Acute GI bleed Alcoholic liver cirrhosis/alcoholic hepatitis/encephalopathy Scrotal abscess 59-year-old male patient with history of alcoholic liver cirrhosis admitted to the hospital with acute GI bleed and decompensated alcoholic hepatitis along with scrotal abscess; GI is following and patient is status post EGD; patient remains on broad-spectrum antibiotics versus scrotal abscess and urology is consulted 11/19/2019 Patient is seen and evaluated in room at bedside; remains somewhat lethargic; denies any specific complaints Vital signs are stable with a blood pressure 132/89; patient remains afebrile Patient is status post EGD for acute upper GI bleed which showed duodenal ulcer; GI is following and recommending to continue with Protonix 40 mg twice a day. Patient remains on lactulose 30 g by mouth 3 times a day along with Xifaxan for hepatic encephalopathy; continue with low-dose Lasix and Aldactone for ascites Urology is following and patient remains on broad-spectrum antibiotics; no drainable abscess anymore; patient will have outpatient follow-up 11/20/2019 Patient is seen and evaluated in room at bedside; remains sleepy and lethargic but arousable Patient is being followed by urology for chronic scrotal abscess which drained spontaneously; patient does not have any evidence of any fistula formation; urology suspecting nidus of infection deep in scrotum and recommending excision and drainage as an outpatient once patient is stable; patient remains on IV Unasyn Nephrology is following for acute renal injury which has resolved; patient remains nonoliguric; underwent paracentesis on 11/16 with removal of 4 L of fluid; remains on Aldactone 25 mg twice a day along with Lasix 40 mg daily; nephrology recommending an extra dose of IV Lasix at 40 mg 1; patient will continue with low-salt and fluid restricted diet Patient remains on lactulose and Xifaxan for hepatic encephalopathy Continues to have poor prognosis Objective - Vital Signs Vital signs: Vital Signs Temp 97.7 F 11/20/19 12:47 Pulse 97 11/20/19 12:47 Resp 16 11/20/19 12:47 BP 119/72 11/20/19 12:47 Pulse Ox 99 11/20/19 12:47 Intake & Output 11/19/19 11/20/19 11/20/19 18:59 06:59 18:59 Intake Total 1920 Output Total 350 650 Balance 1570 -650 Intake: Oral 1920 Output: Urine 350 650 Stool 0 Other: Voiding Method Indwelling Catheter Indwelling Catheter Indwelling Catheter # Voids 0 # Bowel Movements 3 2 - Exam GENERAL: Lethargic bit drowsy but not confused orientedX3 HEENT: Pupils are round and equally reacting to light. EOMI. does have scleral icterus and conjunctival pallor. Normocephalic, atraumatic. No pharyngeal e rythema. No thyromegaly. CARDIOVASCULAR: S1 and S2 present. No murmurs, rubs, or gallops. PULMONARY: Chest is clear to auscultation, no wheezing or crackles. ABDOMEN: Mildly distended with mild shifting dullness normoactive bowel sounds. No palpable organomegaly. patient has a scrotal swelling urethral fistula MUSCULOSKELETAL: No joint swelling or deformity. EXTREMITIES: No cyanosis, clubbing, or pedal edema. NEUROLOGICAL: No focal deficits were appreciated SKIN: No rashes. - Labs CBC & Chem 7: 11/17/19 07:03 11/20/19 07:41 Labs: Abnormal Lab Results - Last 24 Hours (Table) 11/20/19 Range/Units 07:41 Sodium 133 L (137-145) mmol/L Carbon Dioxide 20 L (22-30) mmol/L BUN 25 H (9-20) mg/dL Glucose 119 H (74-99) mg/dL Calcium 7.7 L (8.4-10.2) mg/dL Total Bilirubin 10.1 H (0.2-1.3) mg/dL AST 102 H (17-59) U/L Alkaline Phosphatase 306 H (38-126) U/L Albumin 2.3 L (3.5-5.0) g/dL Microbiology - Last 24 Hours (Table) 11/17/19 13:30 Gram Stain - Preliminary Pleural Fluid Body Fluid Culture - Preliminary 11/17/19 13:30 Anaerobic Culture - Preliminary Pleural Fluid Assessment and Plan Assessment: -Acute upper GI bleed peptic ulcer disease and low possibility possibility of variceal bleed from portal hypertension patient was on octreotide which was subsequently discontinued hemoglobin remained stable. Patient is on Rocephin for possible variceal bleed and the possibly spontaneous pectoral peritonitis bacteria peritonitis, possibility of SBP is low. Patient has ascites will undergo paracentesis today -patient has scrotal cellulitis and periurethral fistula patient will undergo urethrogram today. -Acute renal failure prerenal azotemia from cirrhosis patient on IV fluids low possibility of hepatorenal syndrome, patient creatinine remains stable patient is hyper Marsha make because of which the patient is acidotic patient was started on IV bicarbonate drip -Non-anion gap metabolic acidosis secondary to hyperchloremia, nephrology is following the patient and patient was started on bicarbonate drip -Coagulopathy with elevated INR secondary to hepatic dysfunction -Hepatic encephalopathy: Continue with rifaximin and lactulose monitor ammonia level. Patient is quite a bit confused although his ammonia completely doesn't explain all of his confusion. -Cirrhosis alcoholic along with acute alcoholic hepatitis patient stop drinking alcohol -Hyponatremia probably hypovolemic hyponatremia from excessive diuretics these will be held -Hyperkalemia secondary to Aldactone which will be held as well -Lactic acidosis and anion gap metabolic acidosis is secondary to hepatic dysfunction continue with IV fluids for now but his lactic acid is expected to come down pretty slow because of cirrhosis. Chronic anemia from cirrhosis which is macrocytic anemia
[2019-11-20] MEDS ORDERED: FUROSEMIDE 10 MG/ML 4 ML VIAL IV ONE (17:00)
[2019-11-20] MEDS: RIFAXIMIN 550 MG TABLET PO SCH (21:41)
[2019-11-21] MEDS: AMPICILLIN-SULBACTAM 3 GM in SODIUM CHLORIDE 0.9% 100 ML IVPB SCH ×3 (05:01→17:30)
[2019-11-21 08:12] LABS: Calcium 7.7 mg/dL (8.4-10.2); Potassium 4.3 mmol/L (3.5-5.1)
--- NOTE | 2019-11-21 08:23 | PN ---
PROGRESS NOTE DATE OF SERVICE: 11/20/2019 REASON FOR FOLLOWUP: Scrotal abscess. INTERVAL HISTORY: The patient is currently afebrile, he is breathing comfortably. Known to be slightly lethargic and unable to provide any history. No vomiting or diarrhea has been reported by nursing staff. PHYSICAL EXAMINATION: Blood pressure is 141/70 with a pulse of 102, temperature 98.1 he is 99% on 2 L nasal cannula. General description is a middle-aged male, lying in bed in no distress. RESPIRATORY SYSTEM: Unlabored breathing, clear to auscultation anteriorly. HEART: S1, S2. Regular rate and rhythm. ABDOMEN: Soft, abdomen to be distended. LABS: BUN of 25, creatinine 0.88. DIAGNOSTIC IMPRESSION AND PLAN: Patient with scrotal abscess, spontaneous drainage, culture with Streptococcus agalactiae, E coli and Angela albicans in addition to anaerobes. The patient is currently on Unasyn and Diflucan. Continue to finish therapy with oral antibiotic on discharge. Continue supportive care. MMODL / IJN: [id number] /
[2019-11-21] MEDS: LACTULOSE 20 GM/30 ML CUP PO SCH ×3 (08:33→21:35)
[2019-11-21] MEDS: RIFAXIMIN 550 MG TABLET PO SCH ×2 (08:38→21:35)
[2019-11-21] MEDS: FLUCONAZOLE 100 MG TAB PO SCH (08:38)
[2019-11-21] MEDS: SPIRONOLACTONE 25 MG TAB PO SCH ×2 (08:38→21:34)
[2019-11-21] MEDS: SODIUM BICARBONATE TAB 650 MG TAB PO SCH ×3 (08:38→21:35)
[2019-11-21] MEDS: FUROSEMIDE 40 MG TAB PO SCH (08:38)
[2019-11-21] MEDS: PANTOPRAZOLE 40 MG TABLET PO SCH ×2 (08:38→21:35)
[2019-11-21 08:57] LABS: Albumin 2.3 g/dL (3.5-5.0); Bilirubin, Conjugated 2.7 mg/dL (0.0-0.3); Bilirubin, Delta 4.3 mg/dL (0.0-0.2); Bilirubin,Unconjugated 1.9 mg/dL (0.0-1.1); Total Bilirubin 8.9 mg/dL (0.2-1.3); Total Protein 6.5 g/dL (6.3-8.2)
--- NOTE | 2019-11-21 14:19 | PN ---
PROGRESS NOTE PULMONARY/CRITICAL CARE PROGRESS NOTE: HISTORY OF PRESENT ILLNESS: This is a 59-year-old male who was initially seen for upper GI bleed. He had a large duodenal ulcer. There was no active bleeding on EGD. He also had small esophageal varices with no stigmata of recent bleeding. He was admitted initially with a diagnosis of acute hepatic encephalopathy and alcoholic liver disease. In addition, he was found to have a scrotal abscess, hepatic encephalopathy, abdominal ascites, portal hypertension, hypovolemic hyponatremia, acute anion gap metabolic acidosis, and status post large volume paracentesis. The patient is doing about the same. A bit more awake and alert. Still not completely with it. I saw the patient initially when he was admitted to the ICU. PHYSICAL EXAMINATION: VITAL SIGNS: Current vital signs include a temperature 98.7, heart rate 100, respiratory rate 16, blood pressure 123/63, mean 83, saturations are 100%. GENERAL: He appears in no acute distress. HEENT: Examination is grossly unremarkable. NECK: Supple. Full range of motion. No adenopathy. Neck veins are flat. CARDIOVASCULAR: Examination reveals regular rhythm and rate. S1, S2 normal. LUNGS: Reveal mostly clear breath sounds. A few scattered rhonchi. ABDOMEN: Distended. Not tender on palpation. There is a fluid wave. EXTREMITIES: Intact. Slight edema. SKIN: Without rash. NEUROLOGIC: Examination reveals that he moves all four extremities. He is much more awake than when I saw him initially back in the ICU many days ago but still not completely oriented. ASSESSMENT: 1. Acute gastrointestinal bleed secondary to a duodenal bulb ulcer. 2. Small esophageal varices without stigmata of recent bleeding. 3. Scrotal cellulitis. 4. Acute hepatic encephalopathy. 5. Abdominal ascites with portal hypertension and alcoholic liver disease. 6. Hypovolemic hyponatremia. 7. Acute anion gap metabolic acidosis. 8. Chronic anemia. 9. Status post large volume paracentesis. PLAN: The patient seems to be doing reasonably well. We will continue to follow. Prognosis is guarded. Respiratory status is stable. No additional recommendations are made. Again, the mental status continues to improve. MMODL / IJN: [id number] /
--- NOTE | 2019-11-21 15:05 | PN ---
PROGRESS NOTE Patient is seen for followup for acute kidney injury. Renal function has been stable, creatinine at about 1.1 mg/dL. Patient has recurrent ascites and has had paracentesis. Blood pressure was 123/63, heart rate 104 per minute, he is afebrile. Examination of the heart S1, S2. Examination of the lungs, bilateral breath sounds are heard. Decreased breath sounds at bases. Abdomen is soft, nontender, distended with ascites. Examination of the lower extremities shows edema 1+ bilaterally. [employer] exam grossly intact. LABS: Show sodium of 133, potassium 4.3, BUN 31, creatinine 1.17. ASSESSMENT: 1. Acute kidney injury, ATN currently improved. 2. Metabolic acidosis associated with acute kidney injury and lactic acidosis, maintained on sodium bicarb. 3. ETOH related liver disease, chronic liver disease. 4. Recurrent ascites, portal hypertension. 5. Acute gastrointestinal bleed status post EGD on 11/10 which showed esophageal varices. 6. Volume overload. PLAN: Continue with the Lasix for now. I will likely discontinue the sodium bicarb tomorrow. MMODL / IJN: [id number] /
--- NOTE | 2019-11-21 15:15 | P.PN ---
Subjective Progress Note Date: 11/21/19 Principal diagnosis: Acute GI bleed Alcoholic liver cirrhosis/alcoholic hepatitis/encephalopathy Scrotal abscess 59-year-old male patient with history of alcoholic liver cirrhosis admitted to the hospital with acute GI bleed and decompensated alcoholic hepatitis along with scrotal abscess; GI is following and patient is status post EGD; patient remains on broad-spectrum antibiotics versus scrotal abscess and urology is consulted 11/19/2019 Patient is seen and evaluated in room at bedside; remains somewhat lethargic; denies any specific complaints Vital signs are stable with a blood pressure 132/89; patient remains afebrile Patient is status post EGD for acute upper GI bleed which showed duodenal ulcer; GI is following and recommending to continue with Protonix 40 mg twice a day. Patient remains on lactulose 30 g by mouth 3 times a day along with Xifaxan for hepatic encephalopathy; continue with low-dose Lasix and Aldactone for ascites Urology is following and patient remains on broad-spectrum antibiotics; no marlon inable abscess anymore; patient will have outpatient follow-up 11/20/2019 Patient is seen and evaluated in room at bedside; remains sleepy and lethargic but arousable Patient is being followed by urology for chronic scrotal abscess which drained spontaneously; patient does not have any evidence of any fistula formation; urology suspecting nidus of infection deep in scrotum and recommending excision and drainage as an outpatient once patient is stable; patient remains on IV Unasyn Nephrology is following for acute renal injury which has resolved; patient remains nonoliguric; underwent paracentesis on 11/16 with removal of 4 L of fluid; remains on Aldactone 25 mg twice a day along with Lasix 40 mg daily; nephrology recommending an extra dose of IV Lasix at 40 mg 1; patient will continue with low-salt and fluid restricted diet Patient remains on lactulose and Xifaxan for hepatic encephalopathy Continues to have poor prognosis 11/21/2019 Patient is seen and evaluated in follow-up today more alert. Patient continues to be lethargic but easily arousable. Multiple medical consultations following. Remains on IV antibiotics in the form of Unasyn and also remains on Diflucan as wound cultures are finalized showing group B strep agalactiae, ecoli, ryan albicans, and alphahemolytic Streptococcus. Ammonia level slightly improved today and is 25. Bilirubin slowly trending down and is 8.9. SOdium remains slightly low at 133. Will continue with fluid restrictions. Creatinine today is 1.17. Case management and social work following for possible ECF placement once stabilized and discharged. No reports of chest pain, shortness of breath, or palpitations. Patient is afebrile. No reports of nausea or vomiting and patient is tolerating diet. Objective - Vital Signs Vital signs: Vital Signs Temp 98.5 F 11/21/19 12:58 Pulse 84 11/21/19 12:58 Resp 19 11/21/19 12:58 BP 137/80 11/21/19 12:58 Pulse Ox 100 11/21/19 12:58 Intake & Output 11/20/19 11/21/19 11/21/19 18:59 06:59 18:59 Intake Total 1560 440 Output Total 300 650 175 Balance 1260 -210 -175 Intake: Oral 1560 440 Output: Urine 300 650 175 Other: Voiding Method Indwelling Catheter Indwelling Catheter Indwelling Catheter # Bowel Movements 6 2 2 - Exam GENERAL: Lethargic, but arousable alert and oriented X2-3 HEENT: Pupils are round and equally reacting to light. EOMI. does have scleral icterus and conjunctival pallor. Normocephalic, atraumatic. No pharyngeal erythema. No thyromegaly. CARDIOVASCULAR: S1 and S2 present. No murmurs, rubs, or gallops. PULMONARY: Chest is clear to auscultation, no wheezing or crackles. ABDOMEN: Mildly distended with mild shifting dullness normoactive bowel sounds. No palpable organomegaly. patient has a scrotal swelling urethral fistula MUSCULOSKELETAL: No joint swelling or deformity. EXTREMITIES: No cyanosis, clubbing, or pedal edema. NEUROLOGICAL: No focal deficits were appreciated SKIN: No rashes. - Labs CBC & Chem 7: 11/17/19 07:03 11/21/19 06:50 Labs: Abnormal Lab Results - Last 24 Hours (Table) 11/21/19 11/21/19 Range/Units 06:50 06:50 Sodium 133 L (137-145) mmol/L BUN 31 H (9-20) mg/dL Glucose 104 H (74-99) mg/dL Calcium 7.7 L (8.4-10.2) mg/dL Total Bilirubin 8.9 H (0.2-1.3) mg/dL Conjugated Bilirubin 2.7 H (0.0-0.3) mg/dL Unconjugated Bilirubin 1.9 H (0.0-1.1) mg/dL Delta Bilirubin 4.3 H (0.0-0.2) mg/dL AST 86 H (17-59) U/L Alkaline Phosphatase 333 H (38-126) U/L Albumin 2.3 L (3.5-5.0) g/dL Microbiology - Last 24 Hours (Table) 11/17/19 13:30 Gram Stain - Preliminary Pleural Fluid Body Fluid Culture - Preliminary Assessment and Plan Assessment: -Acute upper GI bleed peptic ulcer disease and low possibility of variceal bleed from portal hypertension. for possible variceal bleed and the possibly spontaneous pectoral peritonitis bacteria peritonitis -patient has scrotal cellulitis and periurethral fistula. Patient remains on Unasyn and Diflucan. Urology is following -Acute renal failure prerenal azotemia from cirrhosis patient on IV fluids low possibility of hepatorenal syndrome, patient creatinine remains stable current creatinine is 1.17 -Non-anion gap metabolic acidosis secondary to hyperchloremia, nephrology is following -Coagulopathy with elevated INR secondary to hepatic dysfunction -Hepatic encephalopathy: Continue with rifaximin and lactulose monitor ammonia level. Ammonia level has improved today and is 25 -Cirrhosis alcoholic along with acute alcoholic hepatitis -Hyponatremia probably hypovolemic hyponatremia from excessive diuretics -Hyperkalemia, improved. Current potassium is 4.3 -Lactic acidosis and anion gap metabolic acidosis is secondary to hepatic dysfunction -Chronic anemia from cirrhosis which is macrocytic anemia
--- NOTE | 2019-11-21 20:16 | P.PN ---
Subjective Progress Note Date: 11/21/19 Principal diagnosis: Acute GI bleed, duodenal ulcer, anemia acute blood loss, alcoholic hepatitis, alcoholic cirrhosis Patient seen lying in bed with no acute complaints reported. Objective - Vital Signs Vital signs: Vital Signs Temp 98.7 F 11/21/19 05:55 Pulse 104 H 11/21/19 05:55 Resp 16 11/21/19 05:55 BP 123/63 11/21/19 05:55 Pulse Ox 100 11/21/19 05:55 Intake & Output 11/20/19 11/21/19 11/21/19 18:59 06:59 18:59 Intake Total 1560 440 Output Total 300 650 Balance 1260 -210 Intake: Oral 1560 440 Output: Urine 300 650 Other: Voiding Method Indwelling Catheter Indwelling Catheter Indwelling Catheter # Bowel Movements 6 2 3 - Exam On physical examination, patient appears comfortable in no apparent distress. HEAD: Normocephalic, atraumatic. EYES: No scleral icterus. No conjunctival injection. MOUTH: No lesions, tongue midline. NECK: Trachea midline, no gross abnormalities. ABDOMEN: Soft, obese and mildly distended. Bowel sounds are positive. No organomegaly. No guarding or rigidity. EXTREMITIES: No pedal edema. SKIN: No rashes, no jaundice. NEUROLOGIC: Alert and oriented x3. No focal deficits. - Labs CBC & Chem 7: 11/17/19 07:03 11/21/19 06:50 Labs: Abnormal Lab Results - Last 24 Hours (Table) 11/21/19 11/21/19 Range/Units 06:50 06:50 Sodium 133 L (137-145) mmol/L BUN 31 H (9-20) mg/dL Glucose 104 H (74-99) mg/dL Calcium 7.7 L (8.4-10.2) mg/dL Total Bilirubin 8.9 H (0.2-1.3) mg/dL Conjugated Bilirubin 2.7 H (0.0-0.3) mg/dL Unconjugated Bilirubin 1.9 H (0.0-1.1) mg/dL Delta Bilirubin 4.3 H (0.0-0.2) mg/dL AST 86 H (17-59) U/L Alkaline Phosphatase 333 H (38-126) U/L Albumin 2.3 L (3.5-5.0) g/dL Microbiology - Last 24 Hours (Table) 11/17/19 13:30 Gram Stain - Preliminary Pleural Fluid Body Fluid Culture - Preliminary Assessment and Plan (1) Alcoholic hepatitis Current Visit: Yes Status: Acute Code(s): K70.10 - ALCOHOLIC HEPATITIS WITHOUT ASCITES SNOMED Code(s): 074411961 (2) Ascites Current Visit: Yes Status: Acute Code(s): R18.8 - OTHER ASCITES SNOMED Code(s): 990666998 (3) Hepatic encephalopathy Current Visit: Yes Status: Acute Code(s): K72.90 - HEPATIC FAILURE, UNSPECIFIED WITHOUT COMA SNOMED Code(s): 32917518 (4) Duodenal ulcer Current Visit: Yes Status: Acute Code(s): K26.9 - DUODENAL ULCER, UNSP ACUTE OR CHRONIC, W/O HEMOR OR PERF SNOMED Code(s): 01372624 Plan: Supportive care Continue Aldactone and Lasix per nephrology service Appreciate nephrology recommendations Fluid restriction per nephrology service Continue lactulose 3 times a day and rifaximin twice a day Alcohol abstinence Thank you for allowing us to participate in the care of the patient
[2019-11-22] MEDS: AMPICILLIN-SULBACTAM 3 GM in SODIUM CHLORIDE 0.9% 100 ML IVPB SCH ×4 (00:14→17:37)
--- NOTE | 2019-11-22 05:25 | PN ---
PROGRESS NOTE DATE OF SERVICE: 11/21/2019 REASON FOR FOLLOWUP: Scrotal abscess. INTERVAL HISTORY: The patient is currently afebrile, has been breathing comfortably. No chest pain or any cough. Abdominal pain is currently controlled. No vomiting or any diarrhea. PHYSICAL EXAMINATION: Blood pressure 114/66, pulse of 101 temperature 98.7. He is 100% on room air. General description is a middle-aged male lying in bed in no distress. RESPIRATORY SYSTEM: Unlabored breathing, clear to auscultation anteriorly. HEART: S1, S2. Regular rate and rhythm. ABDOMEN: Soft. Abdomen is distended. Scrotal area still have some purulent material. LABS: BUN of 31, creatinine is 1.17. DIAGNOSTIC IMPRESSION AND PLAN: Patient with scrotal abscess. Culture with multiple pathogens. The patient is covered with Unasyn and Diflucan. Still have purulent drainage. Monitor clinical course closely. Continue with supportive care. MMODL / IJN: [id number] /
[2019-11-22 08:24] LABS: INR 1.5 (<1.2); Prothrombin Time 14.9 sec (9.0-12.0)
[2019-11-22 08:25] LABS: Albumin 2.2 g/dL (3.5-5.0); Calcium 7.8 mg/dL (8.4-10.2); Potassium 4.2 mmol/L (3.5-5.1); Total Protein 6.5 g/dL (6.3-8.2)
[2019-11-22 08:44] LABS: Anisocytosis Slight; HCT 25.1 % (39.0-53.0); HGB 8.1 gm/dL (13.0-17.5); MCH 34.4 pg (25.0-35.0); MCHC 32.4 g/dL (31.0-37.0); MCV 106.4 fL (80.0-100.0); Macrocytosis Marked; Mean Platelet Volume 9.4; Platelet Count 260 k/uL (150-450); RBC 2.36 m/uL (4.30-5.90); RDW 18.7 % (11.5-15.5); WBC 16.5 k/uL (3.8-10.6)
[2019-11-22] MEDS: PANTOPRAZOLE 40 MG TABLET PO SCH ×2 (09:11→21:56)
[2019-11-22] MEDS: SODIUM BICARBONATE TAB 650 MG TAB PO SCH ×3 (09:11→21:56)
[2019-11-22] MEDS: FUROSEMIDE 40 MG TAB PO SCH (09:11)
[2019-11-22] MEDS: FLUCONAZOLE 100 MG TAB PO SCH (09:11)
[2019-11-22] MEDS: SPIRONOLACTONE 25 MG TAB PO SCH ×2 (09:11→21:56)
[2019-11-22] MEDS: LACTULOSE 20 GM/30 ML CUP PO SCH ×3 (09:12→21:56)
[2019-11-22] MEDS: RIFAXIMIN 550 MG TABLET PO SCH ×2 (09:12→21:56)
[2019-11-22 10:04] LABS: Lymphocytes # (M) 0.83 k/uL (1.0-4.8); Monocytes # (M) 0.99 k/uL (0-1.0); Myelocytes # (M) 0.17 k/uL (0); Myelocytes % 1 %; Neutrophils # (M) 14.69 k/uL (1.3-7.7); Neutrophils % (M) 89 %; Nucleated Red Blood Cells 0 /100 WBC (0-0); Total Cells Counted 200
[2019-11-22 10:05] LABS: Poikilocytosis (M) Present; Target Cells Present
--- NOTE | 2019-11-22 11:04 | XR ---
EXAMINATION TYPE: XR chest 1V DATE OF EXAM: 11/22/2019 COMPARISON: 11/15/2019 HISTORY: 59 year-old male shortness of breath TECHNIQUE: Single frontal view of the chest is obtained. FINDINGS: Low lung volumes with crowded vascular markings. Mild patchy density at the peripheral lef t base. Heart normal size. Mild interstitial prominence has a chronic appearance. No pleural effusion . IMPRESSION: Exam limitations due to hypoventilatory changes. There is subtle patchy left basilar density that cou ld represent atelectasis or an early infiltrate.
--- NOTE | 2019-11-22 14:39 | P.PN ---
Subjective Progress Note Date: 11/22/19 Principal diagnosis: Acute GI bleed Alcoholic liver cirrhosis/alcoholic hepatitis/encephalopathy Scrotal abscess 59-year-old male patient with history of alcoholic liver cirrhosis admitted to the hospital with acute GI bleed and decompensated alcoholic hepatitis along with scrotal abscess; GI is following and patient is status post EGD; patient remains on broad-spectrum antibiotics versus scrotal abscess and urology is consulted 11/19/2019 Patient is seen and evaluated in room at bedside; remains somewhat lethargic; denies any specific complaints Vital signs are stable with a blood pressure 132/89; patient remains afebrile Patient is status post EGD for acute upper GI bleed which showed duodenal ulcer; GI is following and recommending to continue with Protonix 40 mg twice a day. Patient remains on lactulose 30 g by mouth 3 times a day along with Xifaxan for hepatic encephalopathy; continue with low-dose Lasix and Aldactone for ascites Urology is following and patient remains on broad-spectrum antibiotics; no marlon inable abscess anymore; patient will have outpatient follow-up 11/20/2019 Patient is seen and evaluated in room at bedside; remains sleepy and lethargic but arousable Patient is being followed by urology for chronic scrotal abscess which drained spontaneously; patient does not have any evidence of any fistula formation; urology suspecting nidus of infection deep in scrotum and recommending excision and drainage as an outpatient once patient is stable; patient remains on IV Unasyn Nephrology is following for acute renal injury which has resolved; patient remains nonoliguric; underwent paracentesis on 11/16 with removal of 4 L of fluid; remains on Aldactone 25 mg twice a day along with Lasix 40 mg daily; nephrology recommending an extra dose of IV Lasix at 40 mg 1; patient will continue with low-salt and fluid restricted diet Patient remains on lactulose and Xifaxan for hepatic encephalopathy Continues to have poor prognosis 11/21/2019 Patient is seen and evaluated in follow-up today more alert. Patient continues to be lethargic but easily arousable. Multiple medical consultations following. Remains on IV antibiotics in the form of Unasyn and also remains on Diflucan as wound cultures are finalized showing group B strep agalactiae, ecoli, ryan albicans, and alphahemolytic Streptococcus. Ammonia level slightly improved today and is 25. Bilirubin slowly trending down and is 8.9. SOdium remains slightly low at 133. Will continue with fluid restrictions. Creatinine today is 1.17. Case management and social work following for possible ECF placement once stabilized and discharged. No reports of chest pain, shortness of breath, or palpitations. Patient is afebrile. No reports of nausea or vomiting and patient is tolerating diet. 11/22/2019 Patient is seen in follow-up today and is alert and oriented 3. Patient continues to be quite lethargic at times and week requiring 2 person assist with position changes. Multiple medical consultations following. Patient remains on IV antibiotics in the form of Unasyn along with Diflucan and will continue. Patient is to continue with fluids restrictions although continues to ask for fluid restrictions to be discontinued as he is always thirsty. Discussed with the patient at length about maintaining fluid restrictions at this time. Creatinine slightly worsened and is 1.40. Nephrology following. She continues on Lasix and Aldactone and will continue at this time. Patient scheduled to undergo paracentesis with interventional radiology tomorrow. Currently no reports of chest pain, worsening shortness of breath, or palpitations. Patient is afebrile. No reports of nausea or vomiting and patient is tolerating diet. Case management and social work following and working on placement at a rehab facility once stabilized and discharged. Objective - Vital Signs Vital signs: Vital Signs Temp 98.5 F 11/22/19 05:39 Pulse 97 11/22/19 05:39 Resp 16 11/22/19 05:39 BP 118/67 11/22/19 05:39 Pulse Ox 100 11/22/19 05:39 Intake & Output 11/21/19 11/22/19 11/22/19 18:59 06:59 18:59 Intake Total 310 Output Total 175 450 Balance -175 -140 Intake: Oral 310 Output: Urine 175 450 Other: Voiding Method Indwelling Catheter Indwelling Catheter Indwelling Catheter # Bowel Movements 3 2 - Exam GENERAL: Lethargic, but arousable alert and oriented X3 HEENT: Pupils are round and equally reacting to light. EOMI. does have scleral icterus and conjunctival pallor. Normocephalic, atraumatic. No pharyngeal erythema. No thyromegaly. CARDIOVASCULAR: S1 and S2 present. No murmurs, rubs, or gallops. PULMONARY: Chest is clear to auscultation, no wheezing or crackles. ABDOMEN: Taut, distended with mild shifting dullness normoactive bowel sounds. No palpable organomegaly. patient has a scrotal swelling urethral fistula MUSCULOSKELETAL: No joint swelling or deformity. EXTREMITIES: No cyanosis, clubbing, bilateral lower extremity edema 1+ noted NEUROLOGICAL: No focal deficits were appreciated; diffusely weak. SKIN: No rashes. - Labs CBC & Chem 7: 11/22/19 07:30 11/22/19 07:30 Labs: Abnormal Lab Results - Last 24 Hours (Table) 11/22/19 11/22/19 11/22/19 Range/Units 07:30 07:30 07:30 WBC 16.5 H (3.8-10.6) k/uL RBC 2.36 L (4.30-5.90) m/uL Hgb 8.1 L (13.0-17.5) gm/dL Hct 25.1 L (39.0-53.0) % MCV 106.4 H (80.0-100.0) fL RDW 18.7 H (11.5-15.5) % Neutrophils # (Manual) 14.69 H (1.3-7.7) k/uL Lymphocytes # (Manual) 0.83 L (1.0-4.8) k/uL Myelocytes # (Manual) 0.17 H (0) k/uL Macrocytosis Marked A PT 14.9 H (9.0-12.0) sec INR 1.5 H (<1.2) Sodium 134 L (137-145) mmol/L BUN 39 H (9-20) mg/dL Creatinine 1.40 H (0.66-1.25) mg/dL Glucose 117 H (74-99) mg/dL Calcium 7.8 L (8.4-10.2) mg/dL Total Bilirubin 8.0 H (0.2-1.3) mg/dL AST 79 H (17-59) U/L Alkaline Phosphatase 301 H (38-126) U/L Albumin 2.2 L (3.5-5.0) g/dL Microbiology - Last 24 Hours (Table) 11/17/19 13:30 Anaerobic Culture - Final Pleural Fluid 11/17/19 13:30 Gram Stain - Final Pleural Fluid Body Fluid Culture - Final Assessment and Plan Assessment: -Acute upper GI bleed peptic ulcer disease and low possibility of variceal bleed from portal hypertension. for possible variceal bleed and the possibly spontaneous pectoral peritonitis bacteria peritonitis -patient has scrotal cellulitis and periurethral fistula. Patient remains on Unasyn and Diflucan. Urology is following -Acute renal failure prerenal azotemia from cirrhosis patient on IV fluids low possibility of hepatorenal syndrome, current creatinine slightly elevated and is 1.40 -Non-anion gap metabolic acidosis secondary to hyperchloremia, nephrology is following -Coagulopathy with elevated INR secondary to hepatic dysfunction, improved -Hepatic encephalopathy: Continue with rifaximin and lactulose, improving -Cirrhosis alcoholic along with acute alcoholic hepatitis -Hyponatremia probably hypovolemic hyponatremia from excessive diuretics -Hyperkalemia, improved. Current potassium is 4.2 -Lactic acidosis and anion gap metabolic acidosis is secondary to hepatic dysfunction -Chronic anemia from cirrhosis which is macrocytic anemia Plan: Continue with IV antibiotics and diuretics at this time. Multiple medical consultations following. Patient to undergo paracentesis ultrasound-guided tomorrow. Will await report. Social work following and working on placement at ECF once stabilized and discharged. Further recommendations to follow.
--- NOTE | 2019-11-22 16:30 | PN ---
PROGRESS NOTE Patient is seen for followup for acute kidney injury and chronic lower extremity edema. His creatinine is up to 1.4. Patient continues to have fair urine output, 24-hour output was about 950 mL yesterday. He is resting comfortably. Denies any significant complaints. Patient is maintained on Lasix 40 p.o. daily. On examination, blood pressure was 118/67, heart rate 97 per minute, he is afebrile. EXAMINATION OF THE HEART: S1 and S2. EXAMINATION OF THE LUNGS: Bilateral breath sounds are heard. ABDOMEN: Soft, distended with ascites. Examination of the lower extremities shows edema 2+ bilaterally. [employer] EXAM: Grossly intact. LABS: Show sodium 134, potassium 4.2, chloride 100, BUN 39, creatinine 1.4. Hemoglobin 8.1. ASSESSMENT: 1. Acute kidney injury. Renal function had improved postadmission, however, serum creatinine is back up to 1.4. Urine output is adequate. No nephrotoxic medications on board at this time. Continue to diurese the patient gently. His edema is significant. As long as patient is not significantly hypotensive, we can increase the Lasix to 40 mg b.i.d. and repeat his renal profile in a.m. 2. Metabolic acidosis, maintained on oral sodium bicarbonate. Decrease dose to help decrease effect on volume overload. 3. Alcoholic liver disease with significant hyperbilirubinemia. 4. Anemia. No active bleeding noted currently. Stool for occult blood was positive previously. 5. Hyperkalemia, now resolved. PLAN: Decrease oral sodium bicarbonate. Repeat labs in a.m. Continue with p.o. Lasix. Avoid hypotension. Overall prognosis is guarded. MMODL / IJN: [id number] /
--- NOTE | 2019-11-22 19:41 | P.PN ---
Subjective Progress Note Date: 11/22/19 Principal diagnosis: Acute GI bleed, duodenal ulcer, anemia acute blood loss, alcoholic hepatitis, alcoholic cirrhosis Patient seen lying in bed with no acute complaints reported. Still reporting abdominal distention. Tolerating diet. Objective - Vital Signs Vital signs: Vital Signs Temp 98.5 F 11/22/19 05:39 Pulse 97 11/22/19 05:39 Resp 16 11/22/19 05:39 BP 118/67 11/22/19 05:39 Pulse Ox 100 11/22/19 05:39 Intake & Output 11/21/19 11/22/19 11/22/19 18:59 06:59 18:59 Intake Total 310 Output Total 175 450 Balance -175 -140 Intake: Oral 310 Output: Urine 175 450 Other: Voiding Method Indwelling Catheter Indwelling Catheter # Bowel Movements 3 2 - Exam On physical examination, patient appears comfortable in no apparent distress. HEAD: Normocephalic, atraumatic. EYES: No scleral icterus. No conjunctival injection. MOUTH: No lesions, tongue midline. NECK: Trachea midline, no gross abnormalities. ABDOMEN: Soft, obese and mildly distended. Bowel sounds are positive. No organomegaly. No guarding or rigidity. EXTREMITIES: No pedal edema. SKIN: No rashes, no jaundice. NEUROLOGIC: Alert and oriented x3. No focal deficits. - Labs CBC & Chem 7: 11/22/19 07:30 11/22/19 07:30 Labs: Abnormal Lab Results - Last 24 Hours (Table) 11/22/19 11/22/19 11/22/19 Range/Units 07:30 07:30 07:30 WBC 16.5 H (3.8-10.6) k/uL RBC 2.36 L (4.30-5.90) m/uL Hgb 8.1 L (13.0-17.5) gm/dL Hct 25.1 L (39.0-53.0) % MCV 106.4 H (80.0-100.0) fL RDW 18.7 H (11.5-15.5) % Macrocytosis Marked A PT 14.9 H (9.0-12.0) sec INR 1.5 H (<1.2) Sodium 134 L (137-145) mmol/L BUN 39 H (9-20) mg/dL Creatinine 1.40 H (0.66-1.25) mg/dL Glucose 117 H (74-99) mg/dL Calcium 7.8 L (8.4-10.2) mg/dL Total Bilirubin 8.0 H (0.2-1.3) mg/dL AST 79 H (17-59) U/L Alkaline Phosphatase 301 H (38-126) U/L Albumin 2.2 L (3.5-5.0) g/dL Microbiology - Last 24 Hours (Table) 11/17/19 13:30 Anaerobic Culture - Final Pleural Fluid 11/17/19 13:30 Gram Stain - Final Pleural Fluid Body Fluid Culture - Final Assessment and Plan (1) Alcoholic hepatitis Current Visit: Yes Status: Acute Code(s): K70.10 - ALCOHOLIC HEPATITIS WITHOUT ASCITES SNOMED Code(s): 584398619 (2) Ascites Current Visit: Yes Status: Acute Code(s): R18.8 - OTHER ASCITES SNOMED Code(s): 286127776 (3) Hepatic encephalopathy Current Visit: Yes Status: Acute Code(s): K72.90 - HEPATIC FAILURE, UNSPECIFIED WITHOUT COMA SNOMED Code(s): 00387206 (4) Duodenal ulcer Current Visit: Yes Status: Acute Code(s): K26.9 - DUODENAL ULCER, UNSP ACUTE OR CHRONIC, W/O HEMOR OR PERF SNOMED Code(s): 78823681 Plan: Supportive care Continue Aldactone and Lasix per nephrology service, with Lasix increased to twice daily today Appreciate nephrology recommendations Fluid restriction per nephrology service Continue lactulose 3 times a day and rifaximin twice a day Alcohol abstinence Repeat paracentesis ordered for tomorrow, with plan to give albumin Thank you for allowing us to participate in the care of the patient
[2019-11-23] MEDS: AMPICILLIN-SULBACTAM 3 GM in SODIUM CHLORIDE 0.9% 100 ML IVPB SCH ×4 (00:21→17:05)
--- NOTE | 2019-11-23 06:09 | PN ---
PROGRESS NOTE DATE OF SERVICE: 11/22/2019 REASON FOR FOLLOWUP: Scrotal abscess. INTERVAL HISTORY: The patient is currently afebrile. He seems to be breathing comfortably. Denies having any chest pain or cough. Still has abdominal distention. No diarrhea. PHYSICAL EXAMINATION: Blood pressure 124/71 with a pulse of 102, temperature 98.4. He is 100% on room air. General description is a middle-aged male lying in bed in no distress. RESPIRATORY SYSTEM: Unlabored breathing, clear to auscultation anteriorly. HEART: S1, S2. Regular rate and rhythm. ABDOMEN: Soft, slightly distended. Scrotal area is currently dressed, no drainage on the dressing. LABS: Hemoglobin 8.1, white count 16.5, BUN of 39, creatinine 1.40. DIAGNOSTIC IMPRESSION AND PLAN: Patient with scrotal abscess and spontaneous drainage, cultured multiple pathogens. Patient is currently on Unasyn and Diflucan. White count mildly elevated. Continue to monitor his clinical course closely. Finish therapy with oral antibiotics. Continue supportive care. MMODL / IJN: [id number] /
[2019-11-23 07:47] LABS: Albumin 2.3 g/dL (3.5-5.0); Calcium 7.7 mg/dL (8.4-10.2); Potassium 3.9 mmol/L (3.5-5.1); Total Bilirubin 7.1 mg/dL (0.2-1.3); Total Protein 6.7 g/dL (6.3-8.2)
[2019-11-23 07:48] LABS: Anisocytosis Slight; Basophils % (A) 0 %; Eosinophils # (A) 0.6 k/uL (0-0.7); Eosinophils % (A) 4 %; HCT 25.8 % (39.0-53.0); Hypochromasia Slight; Lymphocytes # (A) 1.3 k/uL (1.0-4.8); Lymphocytes % (A) 8 %; MCH 33.9 pg (25.0-35.0); MCHC 31.1 g/dL (31.0-37.0); MCV 108.8 fL (80.0-100.0); Macrocytosis Marked; Mean Platelet Volume 8.7; Monocytes # (A) 0.7 k/uL (0-1.0); Monocytes % (A) 5 %; Neutrophils # (A) 12.9 k/uL (1.3-7.7); Neutrophils % (A) 81 %; Platelet Count 290 k/uL (150-450); RBC 2.37 m/uL (4.30-5.90); RDW 18.5 % (11.5-15.5); WBC 15.9 k/uL (3.8-10.6)
[2019-11-23] MEDS: LACTULOSE 20 GM/30 ML CUP PO SCH ×3 (08:36→22:09)
[2019-11-23] MEDS: PANTOPRAZOLE 40 MG TABLET PO SCH ×2 (08:36→22:09)
[2019-11-23] MEDS: SODIUM BICARBONATE TAB 650 MG TAB PO SCH ×2 (08:36→22:08)
[2019-11-23] MEDS: FLUCONAZOLE 100 MG TAB PO SCH (08:36)
[2019-11-23] MEDS: SPIRONOLACTONE 25 MG TAB PO SCH ×2 (08:37→22:09)
[2019-11-23] MEDS: FUROSEMIDE 40 MG TAB PO SCH (08:37)
[2019-11-23] MEDS: RIFAXIMIN 550 MG TABLET PO SCH ×2 (08:44→22:45)
--- NOTE | 2019-11-23 09:09 | US ---
EXAMINATION TYPE: US abdomen limited DATE OF EXAM: 11/23/2019 COMPARISON: November 17, 2019 CLINICAL HISTORY: assess for fluid pocket please. All four quadrants scanned. Fluid visualized, right >left. IMPRESSION: Ascites
[2019-11-23 10:59] LABS: Poikilocytosis (M) Present; Polychromasia Present
[2019-11-23] MEDS: ALBUMIN HUMAN 25% 50 ML in EMPTY BAG 1 BAG IVPB SCH ×2 (11:38→11:53)
--- NOTE | 2019-11-23 12:49 | US ---
Ultrasound-guided paracentesis. DATE OF EXAM: 11/23/2019 CLINICAL HISTORY: Ascites The procedure was discussed with the patient. The risks, complications, benefits, and alternatives we re discussed and any questions were answered. Informed consent was obtained. The patient was placed s upine on the ultrasound table and prepped and draped in the usual sterile fashion. All elements of maximal barrier technique were utilized. Under ultrasound guidance, access into the right lower quadrant was obtained, via the paracentesis catheter system and direct ultrasound guidanc e. Approximately 6.2 liters of straw-colored fluid was removed. The patient was stable throughout the pr ocedure and remained stable upon discharge from Department of Radiology. IMPRESSION: Successful paracentesis under ultrasound guidance.
--- NOTE | 2019-11-23 15:10 | P.PN ---
Subjective Progress Note Date: 11/23/19 Principal diagnosis: Acute GI bleed Alcoholic liver cirrhosis/alcoholic hepatitis/encephalopathy Scrotal abscess 59-year-old male patient with history of alcoholic liver cirrhosis admitted to the hospital with acute GI bleed and decompensated alcoholic hepatitis along with scrotal abscess; GI is following and patient is status post EGD; patient remains on broad-spectrum antibiotics versus scrotal abscess and urology is consulted 11/19/2019 Patient is seen and evaluated in room at bedside; remains somewhat lethargic; denies any specific complaints Vital signs are stable with a blood pressure 132/89; patient remains afebrile Patient is status post EGD for acute upper GI bleed which showed duodenal ulcer; GI is following and recommending to continue with Protonix 40 mg twice a day. Patient remains on lactulose 30 g by mouth 3 times a day along with Xifaxan for hepatic encephalopathy; continue with low-dose Lasix and Aldactone for ascites Urology is following and patient remains on broad-spectrum antibiotics; no marlon inable abscess anymore; patient will have outpatient follow-up 11/20/2019 Patient is seen and evaluated in room at bedside; remains sleepy and lethargic but arousable Patient is being followed by urology for chronic scrotal abscess which drained spontaneously; patient does not have any evidence of any fistula formation; urology suspecting nidus of infection deep in scrotum and recommending excision and drainage as an outpatient once patient is stable; patient remains on IV Unasyn Nephrology is following for acute renal injury which has resolved; patient remains nonoliguric; underwent paracentesis on 11/16 with removal of 4 L of fluid; remains on Aldactone 25 mg twice a day along with Lasix 40 mg daily; nephrology recommending an extra dose of IV Lasix at 40 mg 1; patient will continue with low-salt and fluid restricted diet Patient remains on lactulose and Xifaxan for hepatic encephalopathy Continues to have poor prognosis 11/21/2019 Patient is seen and evaluated in follow-up today more alert. Patient continues to be lethargic but easily arousable. Multiple medical consultations following. Remains on IV antibiotics in the form of Unasyn and also remains on Diflucan as wound cultures are finalized showing group B strep agalactiae, ecoli, ryan albicans, and alphahemolytic Streptococcus. Ammonia level slightly improved today and is 25. Bilirubin slowly trending down and is 8.9. SOdium remains slightly low at 133. Will continue with fluid restrictions. Creatinine today is 1.17. Case management and social work following for possible ECF placement once stabilized and discharged. No reports of chest pain, shortness of breath, or palpitations. Patient is afebrile. No reports of nausea or vomiting and patient is tolerating diet. 11/22/2019 Patient is seen in follow-up today and is alert and oriented 3. Patient continues to be quite lethargic at times and weak requiring 2 person assist with position changes. Multiple medical consultations following. Patient remains on IV antibiotics in the form of Unasyn along with Diflucan and will continue. Patient is to continue with fluids restrictions although continues to ask for fluid restrictions to be discontinued as he is always thirsty. Discussed with the patient at length about maintaining fluid restrictions at this time. Creatinine slightly worsened and is 1.40. Nephrology following. She continues on Lasix and Aldactone and will continue at this time. Patient scheduled to undergo paracentesis with interventional radiology tomorrow. Currently no reports of chest pain, worsening shortness of breath, or palpitations. Patient is afebrile. No reports of nausea or vomiting and patient is tolerating diet. Case management and social work following and working on placement at a rehab facility once stabilized and discharged. 11/23/2019 Patient seen and evaluated in follow-up today and continues to be extremely weak. Patient underwent ultrasound-guided paracentesis today with removal of 6.2 L. Multiple medical consultations following. He should continue with IV antibiotics. Patient remains on fluid restrictions. Nephrology following and remains on Lasix and Aldactone. Patient to receive albumin prior to and post paracentesis today. Patient remains on sodium bicarb tabs and dose has been decreased. Creatinine slightly improved at 1.37 with BUN of 41. Sodium is low at 130 today. Will repeat labs tomorrow. Patient will be going to [facility] for continued PT/OT therapy once patient is stabilized and discharged. Objective - Vital Signs Vital signs: Vital Signs Temp 97.5 F L 11/23/19 12:40 Pulse 103 H 11/23/19 13:39 Resp 19 11/23/19 12:40 BP 131/61 11/23/19 13:39 Pulse Ox 100 11/23/19 13:39 Intake & Output 11/22/19 11/23/19 11/23/19 18:59 06:59 18:59 Intake Total 1050 590 Output Total 400 1000 325 Balance 650 -1000 265 Intake: Oral 1050 590 Output: Urine 400 1000 325 Uretheral (Rosa) 500 Other: Voiding Method Indwelling Catheter Indwelling Catheter Indwelling Catheter # Bowel Movements 2 - Exam GENERAL: Lethargic, but arousable alert and oriented X3 HEENT: Pupils are round and equally reacting to light. EOMI. does have scleral icterus and conjunctival pallor. Normocephalic, atraumatic. No pharyngeal erythema. No thyromegaly. CARDIOVASCULAR: S1 and S2 present. No murmurs, rubs, or gallops. PULMONARY: Chest is clear to auscultation, no wheezing or crackles. ABDOMEN: Mildly distended, normoactive bowel sounds. No palpable organomegaly. patient has a scrotal swelling urethral fistula, indwelling Rosa catheter noted. MUSCULOSKELETAL: No joint swelling or deformity. EXTREMITIES: No cyanosis, clubbing, bilateral lower extremity edema 1+ noted NEUROLOGICAL: No focal deficits were appreciated; diffusely weak. SKIN: No rashes. - Labs CBC & Chem 7: 11/23/19 06:26 11/23/19 06:26 Labs: Abnormal Lab Results - Last 24 Hours (Table) 11/23/19 11/23/19 Range/Units 06:26 06:26 WBC 15.9 H (3.8-10.6) k/uL RBC 2.37 L (4.30-5.90) m/uL Hgb 8.0 L (13.0-17.5) gm/dL Hct 25.8 L (39.0-53.0) % MCV 108.8 H (80.0-100.0) fL RDW 18.5 H (11.5-15.5) % Neutrophils # 12.9 H (1.3-7.7) k/uL Macrocytosis Marked A Sodium 130 L (137-145) mmol/L Chloride 96 L (98-107) mmol/L BUN 41 H (9-20) mg/dL Creatinine 1.37 H (0.66-1.25) mg/dL Glucose 172 H (74-99) mg/dL Calcium 7.7 L (8.4-10.2) mg/dL Total Bilirubin 7.1 H (0.2-1.3) mg/dL AST 88 H (17-59) U/L Alkaline Phosphatase 305 H (38-126) U/L Albumin 2.3 L (3.5-5.0) g/dL Assessment and Plan Assessment: -Acute upper GI bleed most likely due to peptic ulcer disease and low possibil ity of variceal bleed from portal hypertension. -Status post ultrasound-guided paracentesis with removal of 6.2 L today. Patient receiving albumin prior to and post paracentesis. -patient has scrotal cellulitis and periurethral fistula. Patient remains on Unasyn and Diflucan. Urology is following -Acute renal failure prerenal azotemia from cirrhosis, nephrology following -Non-anion gap metabolic acidosis secondary to hyperchloremia, nephrology is following -Coagulopathy with elevated INR secondary to hepatic dysfunction, improved -Hepatic encephalopathy: Continue with rifaximin and lactulose, improving -Cirrhosis alcoholic along with acute alcoholic hepatitis -Hyponatremia probably hypovolemic hyponatremia from excessive diuretics -Hyperkalemia, improved. Current potassium is 3.9 -Lactic acidosis and anion gap metabolic acidosis is secondary to hepatic dysfunction -Chronic anemia from cirrhosis which is macrocytic anemia Plan: Continue with IV antibiotics and diuretics at this time. Sodium bicarb tablets dose has been decreased. Patient received paracentesis of approximately 6.2 L of removal today and received albumin. Multiple medical consultations following. Social work following and working on placement at ECF once stabilized and discharged. Further recommendations to follow. Possible discharge in 24-48 hours.
--- NOTE | 2019-11-23 16:18 | PN ---
PROGRESS NOTE Patient is seen for followup for acute kidney injury and hyponatremia. The patient is currently maintained on low-dose loop diuretics. He has underlying liver cirrhosis. He is scheduled for paracentesis today. he remains significantly edematous. Serum creatinine is slightly improved with creatinine down to 1.37 from 1.4 yesterday. Blood pressure remains good, with systolic in the 140s. This morning, blood pressure was 118/70, heart rate of 101 per minute. The patient is afebrile. EXAMINATION OF THE HEART: S1 and S2. EXAMINATION OF THE LUNGS: Decreased breath sounds at the bases. ABDOMEN: Soft, nontender. EXAMINATION OF LOWER EXTREMITIES: Shows edema, 3+ bilaterally. The patient is significant jaundiced, as well. LABS: Show hemoglobin 8.0, sodium of 130, potassium 3.9, chloride 96, BUN 41, creatinine 1.37. ASSESSMENT: 1. Lower extremity edema associated with liver cirrhosis and portal hypertension, along with ascites. 2. Acute kidney injury associated with ongoing chronic liver disease and fluid shift associated with paracentesis, currently stable. 3. Metabolic acidosis, maintained on oral sodium bicarbonate. The dose was decreased secondary to volume overload. 4. Anemia; initial stool for occult blood was positive. Currently no active bleeding noted. PLAN: Increase Lasix to b.i.d. if renal function remains stable tomorrow. Overall prognosis is guarded. MMODL / IJN: [id number] /
--- NOTE | 2019-11-23 18:04 | P.PN ---
Subjective Progress Note Date: 11/23/19 Principal diagnosis: Acute GI bleed, duodenal ulcer, anemia acute blood loss, alcoholic hepatitis, alcoholic cirrhosis Patient seen lying in bed with no acute complaints reported. Still reporting abdominal distention. Tolerating diet. Objective - Vital Signs Vital signs: Vital Signs Temp 97.5 F L 11/23/19 12:40 Pulse 103 H 11/23/19 13:39 Resp 19 11/23/19 12:40 BP 131/61 11/23/19 13:39 Pulse Ox 100 11/23/19 13:39 Intake & Output 11/22/19 11/23/19 11/23/19 18:59 06:59 18:59 Intake Total 1050 590 Output Total 400 1000 325 Balance 650 -1000 265 Intake: Oral 1050 590 Output: Urine 400 1000 325 Uretheral (Rosa) 500 Other: Voiding Method Indwelling Catheter Indwelling Catheter Indwelling Catheter # Bowel Movements 3 - Exam On physical examination, patient appears comfortable in no apparent distress. HEAD: Normocephalic, atraumatic. EYES: No scleral icterus. No conjunctival injection. MOUTH: No lesions, tongue midline. NECK: Trachea midline, no gross abnormalities. ABDOMEN: Soft, obese and moderately distended. Bowel sounds are positive. No organomegaly. No guarding or rigidity. EXTREMITIES: No pedal edema. SKIN: No rashes, no jaundice. NEUROLOGIC: Alert and oriented x3. No focal deficits. - Labs CBC & Chem 7: 11/23/19 06:26 11/23/19 06:26 Labs: Abnormal Lab Results - Last 24 Hours (Table) 11/23/19 11/23/19 Range/Units 06:26 06:26 WBC 15.9 H (3.8-10.6) k/uL RBC 2.37 L (4.30-5.90) m/uL Hgb 8.0 L (13.0-17.5) gm/dL Hct 25.8 L (39.0-53.0) % MCV 108.8 H (80.0-100.0) fL RDW 18.5 H (11.5-15.5) % Neutrophils # 12.9 H (1.3-7.7) k/uL Macrocytosis Marked A Sodium 130 L (137-145) mmol/L Chloride 96 L (98-107) mmol/L BUN 41 H (9-20) mg/dL Creatinine 1.37 H (0.66-1.25) mg/dL Glucose 172 H (74-99) mg/dL Calcium 7.7 L (8.4-10.2) mg/dL Total Bilirubin 7.1 H (0.2-1.3) mg/dL AST 88 H (17-59) U/L Alkaline Phosphatase 305 H (38-126) U/L Albumin 2.3 L (3.5-5.0) g/dL Assessment and Plan (1) Alcoholic hepatitis Current Visit: Yes Status: Acute Code(s): K70.10 - ALCOHOLIC HEPATITIS WITH OUT ASCITES SNOMED Code(s): 077868812 (2) Ascites Current Visit: Yes Status: Acute Code(s): R18.8 - OTHER ASCITES SNOMED Code(s): 858139224 (3) Hepatic encephalopathy Current Visit: Yes Status: Acute Code(s): K72.90 - HEPATIC FAILURE, UNSPECIFIED WITHOUT COMA SNOMED Code(s): 16353725 (4) Duodenal ulcer Current Visit: Yes Status: Acute Code(s): K26.9 - DUODENAL ULCER, UNSP ACUTE OR CHRONIC, W/O HEMOR OR PERF SNOMED Code(s): 16267288 Plan: Supportive care Continue Aldactone and Lasix per nephrology service, with Lasix increased to twice daily today Appreciate nephrology recommendations Fluid restriction per nephrology service Continue lactulose 3 times a day and rifaximin twice a day Alcohol abstinence Repeat paracentesis today with 6.5 L of ascitic fluid removed, albumin given Continue Protonix twice a day Thank you for allowing us to participate in the care of the patient
--- NOTE | 2019-11-24 00:15 | PN ---
PROGRESS NOTE DATE OF SERVICE: 11/23/2019 REASON FOR FOLLOWUP: Scrotal abscess and cellulitis. INTERVAL HISTORY: The patient is currently afebrile. He is more awake and alert. The patient is status post paracentesis yesterday. Abdominal distention has improved. No chest pain, shortness of breath or cough. PHYSICAL EXAMINATION: Blood pressure 114/56 with a pulse of 100, temperature 98.3. He is 99% on room air. General description is a middle-aged male lying in bed in no distress. RESPIRATORY SYSTEM: Unlabored breathing. Clear to auscultation anteriorly. HEART: S1, S2. Regular rate and rhythm. ABDOMEN: Soft. Overall swelling and redness have improved. No drainage was noticed today. LABS: Hemoglobin is 8, white count of 13.9, BUN of 41, creatinine 1.37. DIAGNOSTIC IMPRESSION AND PLAN: Patient with a scrotal abscess with spontaneous drainage. Culture with multiple pathogens. Patient is covered with Unasyn and Diflucan; to continue and monitor clinical course closely. MMODL / IJN: [id number] /
[2019-11-24] MEDS: AMPICILLIN-SULBACTAM 3 GM in SODIUM CHLORIDE 0.9% 100 ML IVPB SCH ×5 (00:37→23:50)
[2019-11-24 06:01] LABS: Albumin 2.2 g/dL (3.5-5.0); Calcium 7.6 mg/dL (8.4-10.2); Potassium 4.1 mmol/L (3.5-5.1); Total Bilirubin 5.9 mg/dL (0.2-1.3); Total Protein 6.3 g/dL (6.3-8.2)
[2019-11-24 06:10] LABS: Anisocytosis Slight; HCT 24.1 % (39.0-53.0); HGB 7.7 gm/dL (13.0-17.5); MCH 34.4 pg (25.0-35.0); MCV 107.3 fL (80.0-100.0); Macrocytosis Marked; Mean Platelet Volume 8.9; Platelet Count 208 k/uL (150-450); RBC 2.25 m/uL (4.30-5.90); RDW 18.5 % (11.5-15.5); WBC 15.1 k/uL (3.8-10.6)
[2019-11-24 06:31] LABS: Band Neutrophils % 2 %; Eosinophils # (M) 1.06 k/uL (0-0.7); Lymphocytes # (M) 1.81 k/uL (1.0-4.8); Monocytes # (M) 0.76 k/uL (0-1.0); Neutrophils % (M) 74 %; Nucleated Red Blood Cells 0 /100 WBC (0-0); Total Cells Counted 100
[2019-11-24 06:32] LABS: Target Cells Present
[2019-11-24] MEDS: SODIUM BICARBONATE TAB 650 MG TAB PO SCH ×2 (08:23→20:18)
[2019-11-24] MEDS: SPIRONOLACTONE 25 MG TAB PO SCH ×2 (08:23→20:18)
[2019-11-24] MEDS: PANTOPRAZOLE 40 MG TABLET PO SCH ×2 (08:24→20:19)
[2019-11-24] MEDS: FUROSEMIDE 40 MG TAB PO SCH ×2 (08:24→15:24)
[2019-11-24] MEDS: FLUCONAZOLE 100 MG TAB PO SCH (08:24)
[2019-11-24] MEDS: LACTULOSE 20 GM/30 ML CUP PO SCH ×3 (08:24→21:59)
[2019-11-24] MEDS: RIFAXIMIN 550 MG TABLET PO SCH ×2 (08:24→22:12)
[2019-11-24] MEDS ORDERED: KETOROLAC 30 MG/ML 1 ML VIAL IVP PRN (13:48)
--- NOTE | 2019-11-24 13:57 | P.PN ---
Subjective Progress Note Date: 11/24/19 Principal diagnosis: Acute GI bleed Alcoholic liver cirrhosis/alcoholic hepatitis/encephalopathy Scrotal abscess 59-year-old male patient with history of alcoholic liver cirrhosis admitted to the hospital with acute GI bleed and decompensated alcoholic hepatitis along with scrotal abscess; GI is following and patient is status post EGD; patient remains on broad-spectrum antibiotics versus scrotal abscess and urology is consulted 11/19/2019 Patient is seen and evaluated in room at bedside; remains somewhat lethargic; denies any specific complaints Vital signs are stable with a blood pressure 132/89; patient remains afebrile Patient is status post EGD for acute upper GI bleed which showed duodenal ulcer; GI is following and recommending to continue with Protonix 40 mg twice a day. Patient remains on lactulose 30 g by mouth 3 times a day along with Xifaxan for hepatic encephalopathy; continue with low-dose Lasix and Aldactone for ascites Urology is following and patient remains on broad-spectrum antibiotics; no marlon inable abscess anymore; patient will have outpatient follow-up 11/20/2019 Patient is seen and evaluated in room at bedside; remains sleepy and lethargic but arousable Patient is being followed by urology for chronic scrotal abscess which drained spontaneously; patient does not have any evidence of any fistula formation; urology suspecting nidus of infection deep in scrotum and recommending excision and drainage as an outpatient once patient is stable; patient remains on IV Unasyn Nephrology is following for acute renal injury which has resolved; patient remains nonoliguric; underwent paracentesis on 11/16 with removal of 4 L of fluid; remains on Aldactone 25 mg twice a day along with Lasix 40 mg daily; nephrology recommending an extra dose of IV Lasix at 40 mg 1; patient will continue with low-salt and fluid restricted diet Patient remains on lactulose and Xifaxan for hepatic encephalopathy Continues to have poor prognosis 11/21/2019 Patient is seen and evaluated in follow-up today more alert. Patient continues to be lethargic but easily arousable. Multiple medical consultations following. Remains on IV antibiotics in the form of Unasyn and also remains on Diflucan as wound cultures are finalized showing group B strep agalactiae, ecoli, ryan albicans, and alphahemolytic Streptococcus. Ammonia level slightly improved today and is 25. Bilirubin slowly trending down and is 8.9. SOdium remains slightly low at 133. Will continue with fluid restrictions. Creatinine today is 1.17. Case management and social work following for possible ECF placement once stabilized and discharged. No reports of chest pain, shortness of breath, or palpitations. Patient is afebrile. No reports of nausea or vomiting and patient is tolerating diet. 11/22/2019 Patient is seen in follow-up today and is alert and oriented 3. Patient continues to be quite lethargic at times and weak requiring 2 person assist with position changes. Multiple medical consultations following. Patient remains on IV antibiotics in the form of Unasyn along with Diflucan and will continue. Patient is to continue with fluids restrictions although continues to ask for fluid restrictions to be discontinued as he is always thirsty. Discussed with the patient at length about maintaining fluid restrictions at this time. Creatinine slightly worsened and is 1.40. Nephrology following. She continues on Lasix and Aldactone and will continue at this time. Patient scheduled to undergo paracentesis with interventional radiology tomorrow. Currently no reports of chest pain, worsening shortness of breath, or palpitations. Patient is afebrile. No reports of nausea or vomiting and patient is tolerating diet. Case management and social work following and working on placement at a rehab facility once stabilized and discharged. 11/23/2019 Patient seen and evaluated in follow-up today and continues to be extremely weak. Patient underwent ultrasound-guided paracentesis today with removal of 6.2 L. Multiple medical consultations following. He should continue with IV antibiotics. Patient remains on fluid restrictions. Nephrology following and remains on Lasix and Aldactone. Patient to receive albumin prior to and post paracentesis today. Patient remains on sodium bicarb tabs and dose has been decreased. Creatinine slightly improved at 1.37 with BUN of 41. Sodium is low at 130 today. Will repeat labs tomorrow. Patient will be going to [facility] for continued PT/OT therapy once patient is stabilized and discharged. 11/24/2019 Patient is seen in follow-up today and appears to be a little more alert and awake but fatigues easily. Patient is extremely weak requiring 1-2 person assist for position changes and getting up out of the bed. Encourage patient to continue increasing activity as tolerated and sitting out of the bed more. Is having some discomfort of his buttocks and appears to be macerated from continuous incontinence with stool. Tylenol and Toradol ordered. No reports of chest pain or palpitations. Patient states that his shortness of breath has slightly improved status post paracentesis yesterday. No reports of nausea or vomiting and patient is tolerating diet. Patient to continue with fluid restrictions. Creatinine improved today and is currently 1.15. Sodium is 131. Nephrology is following. Objective - Vital Signs Vital signs: Vital Signs Temp 98.7 F 11/24/19 05:26 Pulse 101 H 11/24/19 05:26 Resp 16 11/24/19 05:26 BP 114/56 11/24/19 05:26 Pulse Ox 100 11/24/19 05:26 Intake & Output 11/23/19 11/24/19 11/24/19 18:59 06:59 18:59 Intake Total 590 444 Output Total 325 925 Balance 265 -481 Intake: Oral 590 444 Output: Urine 325 925 Other: Voiding Method Indwelling Catheter Indwelling Catheter Indwelling Catheter # Bowel Movements 3 - Exam GENERAL: Awake, alert and oriented X3. Sitting up in the chair. HEENT: Pupils are round and equally reacting to light. EOMI. does have scleral icterus and conjunctival pallor. Normocephalic, atraumatic. No pharyngeal erythema. No thyromegaly. CARDIOVASCULAR: S1 and S2 present. No murmurs, rubs, or gallops. PULMONARY: Chest is clear to auscultation, no wheezing or crackles. ABDOMEN: Mildly distended, normoactive bowel sounds. No palpable organomegaly. patient has a scrotal swelling urethral fistula, indwelling Rosa catheter noted. MUSCULOSKELETAL: No joint swelling or deformity. EXTREMITIES: No cyanosis, clubbing, bilateral lower extremity edema 1+ noted NEUROLOGICAL: No focal deficits were appreciated; diffusely weak. SKIN: No rashes. - Labs CBC & Chem 7: 11/24/19 05:30 11/24/19 05:30 Labs: Abnormal Lab Results - Last 24 Hours (Table) 11/24/19 11/24/19 Range/Units 05:30 05:30 WBC 15.1 H (3.8-10.6) k/uL RBC 2.25 L (4.30-5.90) m/uL Hgb 7.7 L (13.0-17.5) gm/dL Hct 24.1 L (39.0-53.0) % MCV 107.3 H (80.0-100.0) fL RDW 18.5 H (11.5-15.5) % Neutrophils # (Manual) 11.40 H (1.3-7.7) k/uL Eosinophils # (Manual) 1.06 H (0-0.7) k/uL Macrocytosis Marked A Sodium 131 L (137-145) mmol/L Chloride 97 L (98-107) mmol/L BUN 36 H (9-20) mg/dL Glucose 137 H (74-99) mg/dL Calcium 7.6 L (8.4-10.2) mg/dL Total Bilirubin 5.9 H (0.2-1.3) mg/dL AST 83 H (17-59) U/L Alkaline Phosphatase 330 H (38-126) U/L Albumin 2.2 L (3.5-5.0) g/dL Assessment and Plan Assessment: -Acute upper GI bleed most likely due to peptic ulcer disease and low possibility of variceal bleed from portal hypertension. -Status post ultrasound-guided paracentesis with removal of 6.2 L yesterday. -patient has scrotal cellulitis and periurethral fistula. Patient remains on Un asyn and Diflucan. Urology is following -Acute renal failure prerenal azotemia from cirrhosis, nephrology following -Non-anion gap metabolic acidosis secondary to hyperchloremia, nephrology is following -Coagulopathy with elevated INR secondary to hepatic dysfunction, improved -Hepatic encephalopathy: Continue with rifaximin and lactulose, improving -Cirrhosis alcoholic along with acute alcoholic hepatitis -Hyponatremia probably hypovolemic hyponatremia from excessive diuretics -Hyperkalemia, improved. Current potassium is 4.1 -Lactic acidosis and anion gap metabolic acidosis is secondary to hepatic dysfunction -Chronic anemia from cirrhosis which is macrocytic anemia Plan: Continue with IV antibiotics and diuretics at this time. Multiple medical consultations following. Social work following and working on placement at ECF once stabilized and discharged. Further recommendations to follow. Possible discharge in 24 hours.
--- NOTE | 2019-11-24 16:43 | PN ---
PROGRESS NOTE Patient is seen for followup for acute kidney injury, hyponatremia and volume overload. He has underlying liver cirrhosis with significant lower extremity edema. The patient had paracentesis yesterday. His renal function continues to improve. Lasix was maintained at once a day and it has been increased to b.i.d., which is appropriate. PHYSICAL EXAMINATION: On examination today, blood pressure 112/72 this afternoon, earlier in the morning 114/56, heart rate of 106 per minute. Patient is afebrile. EXAMINATION OF THE HEART: S1 and S2. EXAMINATION OF LUNGS: Decreased breath sounds at bases. ABDOMEN: Soft, distended, non-tender. Examination of lower extremities shows edema 3+ bilaterally. Patient is icteric. LABS: Sodium of 131, potassium 4.1, chloride 97, BUN 36, creatinine 1.15, hemoglobin 7.7 g/dL. ASSESSMENT: 1. Acute kidney injury; seems to have improved. However, patient has been started on Toradol and, given his recent acute kidney injury I would avoid the use of NSAIDs, particularly given the fact that we have to diurese him as well. 2. Chronic liver disease with liver cirrhosis, recurrent ascites, status post paracentesis yesterday. 3. Metabolic acidosis, now improved. 4. Hypervolemic hyponatremia. 5. Scrotal cellulitis with periurethral fistula, maintained on antibiotics and Diflucan, being followed by Urology. PLAN: Continue with b.i.d. dosing of Lasix. I would be very cautious with Toradol. Repeat labs in a.m. and discontinue Toradol if creatinine is higher. MMODL / IJN: [id number] /
--- NOTE | 2019-11-24 20:16 | P.PN ---
Subjective Progress Note Date: 11/24/19 Principal diagnosis: Acute GI bleed, duodenal ulcer, anemia acute blood loss, alcoholic hepatitis, alcoholic cirrhosis Patient seen lying in bed less distended after paracentesis. Tolerating diet. No nausea or vomiting. Objective - Vital Signs Vital signs: Vital Signs Temp 98.1 F 11/24/19 20:01 Pulse 90 11/24/19 20:01 Resp 16 11/24/19 20:01 BP 111/63 11/24/19 20:01 Pulse Ox 100 11/24/19 20:01 Intake & Output 11/24/19 11/24/19 11/25/19 06:59 18:59 06:59 Intake Total 444 1200 Output Total 925 450 Balance -481 750 Weight 93 kg Intake: Oral 444 1200 Output: Urine 925 450 Other: Voiding Method Indwelling Catheter Indwelling Catheter - Exam On physical examination, patient appears comfortable in no apparent distress. HEAD: Normocephalic, atraumatic. EYES: No scleral icterus. No conjunctival injection. MOUTH: No lesions, tongue midline. NECK: Trachea midline, no gross abnormalities. ABDOMEN: Soft, obese and moderately distended. Bowel sounds are positive. No organomegaly. No guarding or rigidity. EXTREMITIES: No pedal edema. SKIN: No rashes, no jaundice. NEUROLOGIC: Alert and oriented x3. No focal deficits. - Labs CBC & Chem 7: 11/24/19 05:30 11/24/19 05:30 Labs: Abnormal Lab Results - Last 24 Hours (Table) 11/24/19 11/24/19 Range/Units 05:30 05:30 WBC 15.1 H (3.8-10.6) k/uL RBC 2.25 L (4.30-5.90) m/uL Hgb 7.7 L (13.0-17.5) gm/dL Hct 24.1 L (39.0-53.0) % MCV 107.3 H (80.0-100.0) fL RDW 18.5 H (11.5-15.5) % Neutrophils # (Manual) 11.40 H (1.3-7.7) k/uL Eosinophils # (Manual) 1.06 H (0-0.7) k/uL Macrocytosis Marked A Sodium 131 L (137-145) mmol/L Chloride 97 L (98-107) mmol/L BUN 36 H (9-20) mg/dL Glucose 137 H (74-99) mg/dL Calcium 7.6 L (8.4-10.2) mg/dL Total Bilirubin 5.9 H (0.2-1.3) mg/dL AST 83 H (17-59) U/L Alkaline Phosphatase 330 H (38-126) U/L Albumin 2.2 L (3.5-5.0) g/dL Assessment and Plan (1) Alcoholic hepatitis Current Visit: Yes Status: Acute Code(s): K70.10 - ALCOHOLIC HEPATITIS WITHOUT ASCITES SNOMED Code(s): 909738620 (2) Ascites Current Visit: Yes Status: Acute Code(s): R18.8 - OTHER ASCITES SNOMED Code(s): 623172333 (3) Hepatic encephalopathy Current Visit: Yes Status: Acute Code(s): K72.90 - HEPATIC FAILURE, UNSPECIFIED WITHOUT COMA SNOMED Code(s): 69000992 (4) Duodenal ulcer Current Visit: Yes Status: Acute Code(s): K26.9 - DUODENAL ULCER, UNSP ACUTE OR CHRONIC, W/O HEMOR OR PERF SNOMED Code(s): 50296850 Plan: Supportive care Continue Aldactone and Lasix per nephrology service, with Lasix increased to twi ce daily today Appreciate nephrology recommendations Fluid restriction per nephrology service Continue lactulose 3 times a day and rifaximin twice a day Alcohol abstinence Continue Protonix twice a day Thank you for allowing us to participate in the care of the patient
--- NOTE | 2019-11-25 00:01 | PN ---
PROGRESS NOTE DATE OF SERVICE: 11/24/2019 REASON FOR FOLLOWUP: Scrotal abscess. INTERVAL HISTORY: The patient is currently afebrile, has been breathing comfortably. Denies having any chest pain or shortness of breath or cough. No abdominal pain or diarrhea. PHYSICAL EXAMINATION: Blood pressure 111/63 with a pulse of 90, temperature 98.1. He is 100% on room air. General description is a middle-aged male lying in bed in no distress. RESPIRATORY SYSTEM: Unlabored breathing. Clear to auscultation anteriorly. HEART: S1, S2. Regular rate and rhythm. ABDOMEN: Soft. Slightly distended. LABS: Hemoglobin 7.7, white count 15.1, BUN of 36, creatinine 1.15. DIAGNOSTIC IMPRESSION AND PLAN: Patient with scrotal abscess with spontaneous rupture with multiple pathogens, covered with Unasyn and Diflucan. Finish therapy with oral Augmentin and Diflucan. Continue with supportive care. MMODL / IJN: [id number] /
[2019-11-25] MEDS: AMPICILLIN-SULBACTAM 3 GM in SODIUM CHLORIDE 0.9% 100 ML IVPB SCH ×4 (05:34→23:27)
[2019-11-25 07:39] LABS: Albumin 2.3 g/dL (3.5-5.0); Calcium 7.9 mg/dL (8.4-10.2); Potassium 4.4 mmol/L (3.5-5.1); Total Bilirubin 5.7 mg/dL (0.2-1.3); Total Protein 6.5 g/dL (6.3-8.2)
[2019-11-25 07:52] LABS: Anisocytosis Slight; HCT 25.3 % (39.0-53.0); MCH 34.1 pg (25.0-35.0); MCHC 31.7 g/dL (31.0-37.0); MCV 107.4 fL (80.0-100.0); Macrocytosis Marked; Mean Platelet Volume 8.9; Platelet Count 217 k/uL (150-450); RBC 2.35 m/uL (4.30-5.90); RDW 18.1 % (11.5-15.5); WBC 15.4 k/uL (3.8-10.6)
[2019-11-25] MEDS: SPIRONOLACTONE 25 MG TAB PO SCH ×2 (08:27→21:22)
[2019-11-25] MEDS: SODIUM BICARBONATE TAB 650 MG TAB PO SCH ×2 (08:27→21:22)
[2019-11-25] MEDS: FLUCONAZOLE 100 MG TAB PO SCH (08:27)
[2019-11-25] MEDS: PANTOPRAZOLE 40 MG TABLET PO SCH ×2 (08:27→21:22)
[2019-11-25] MEDS: FUROSEMIDE 40 MG TAB PO SCH (08:34)
[2019-11-25] MEDS: LACTULOSE 20 GM/30 ML CUP PO SCH ×3 (08:39→21:22)
[2019-11-25] MEDS: RIFAXIMIN 550 MG TABLET PO SCH ×2 (08:47→21:22)
[2019-11-25 10:29] LABS: Band Neutrophils % 1 %; Eosinophils # (M) 0.92 k/uL (0-0.7); Lymphocytes # (M) 1.08 k/uL (1.0-4.8); Monocytes # (M) 0.77 k/uL (0-1.0); Myelocytes # (M) 0.15 k/uL (0); Myelocytes % 1 %; Neutrophils % (M) 82 %; Nucleated Red Blood Cells 0 /100 WBC (0-0); Total Cells Counted 200
[2019-11-25 10:33] LABS: Poikilocytosis (M) Present; Polychromasia Present; Target Cells Present
--- NOTE | 2019-11-25 12:29 | P.PN ---
Subjective 59-year-old male patient with history of alcoholic liver cirrhosis admitted to the hospital with acute GI bleed and decompensated alcoholic hepatitis along with scrotal abscess; GI is following and patient is status post EGD; patient remains on broad-spectrum antibiotics versus scrotal abscess and urology is consulted 11/19/2019 Patient is seen and evaluated in room at bedside; remains somewhat lethargic; denies any specific complaints Vital signs are stable with a blood pressure 132/89; patient remains afebrile Patient is status post EGD for acute upper GI bleed which showed duodenal ulcer; GI is following and recommending to continue with Protonix 40 mg twice a day. Patient remains on lactulose 30 g by mouth 3 times a day along with Xifaxan for hepatic encephalopathy; continue with low-dose Lasix and Aldactone for ascites Urology is following and patient remains on broad-spectrum antibiotics; no drainable abscess anymore; patient will have outpatient follow-up 11/20/2019 Patient is seen and evaluated in room at bedside; remains sleepy and lethargic but arousable Patient is being followed by urology for chronic scrotal abscess which drained spontaneously; patient does not have any evidence of any fistula formation; urology suspecting nidus of infection deep in scrotum and recommending excision and drainage as an outpatient once patient is stable; patient remains on IV [place] syn Nephrology is following for acute renal injury which has resolved; patient remains nonoliguric; underwent paracentesis on 11/16 with removal of 4 L of fluid; remains on Aldactone 25 mg twice a day along with Lasix 40 mg daily; nephrology recommending an extra dose of IV Lasix at 40 mg 1; patient will continue with low-salt and fluid restricted diet Patient remains on lactulose and Xifaxan for hepatic encephalopathy Continues to have poor prognosis 11/21/2019 Patient is seen and evaluated in follow-up today more alert. Patient continues to be lethargic but easily arousable. Multiple medical consultations following. Remains on IV antibiotics in the form of Unasyn and also remains on Diflucan as wound cultures are finalized showing group B strep agalactiae, ecoli, ryan albicans, and alphahemolytic Streptococcus. Ammonia level slightly improved today and is 25. Bilirubin slowly trending down and is 8.9. SOdium remains slightly low at 133. Will continue with fluid restrictions. Creatinine today is 1.17. Case management and social work following for possible ECF placement once stabilized and discharged. No reports of chest pain, shortness of breath, or palpitations. Patient is afebrile. No reports of nausea or vomiting and patient is tolerating diet. 11/22/2019 Patient is seen in follow-up today and is alert and oriented 3. Patient continues to be quite lethargic at times and weak requiring 2 person assist with position changes. Multiple medical consultations following. Patient remains on IV antibiotics in the form of Unasyn along with Diflucan and will continue. Patient is to continue with fluids restrictions although continues to ask for fluid restrictions to be discontinued as he is always thirsty. Discussed with the patient at length about maintaining fluid restrictions at this time. Creatinine slightly worsened and is 1.40. Nephrology following. She continues on Lasix and Aldactone and will continue at this time. Patient scheduled to un dergo paracentesis with interventional radiology tomorrow. Currently no reports of chest pain, worsening shortness of breath, or palpitations. Patient is afebrile. No reports of nausea or vomiting and patient is tolerating diet. Case management and social work following and working on placement at a rehab facility once stabilized and discharged. 11/23/2019 Patient seen and evaluated in follow-up today and continues to be extremely weak. Patient underwent ultrasound-guided paracentesis today with removal of 6.2 L. Multiple medical consultations following. He should continue with IV antibiotics. Patient remains on fluid restrictions. Nephrology following and remains on Lasix and Aldactone. Patient to receive albumin prior to and post paracentesis today. Patient remains on sodium bicarb tabs and dose has been decreased. Creatinine slightly improved at 1.37 with BUN of 41. Sodium is low at 130 today. Will repeat labs tomorrow. Patient will be going to [facility] for continued PT/OT therapy once patient is stabilized and discharged. 11/24/2019 Patient is seen in follow-up today and appears to be a little more alert and awake but fatigues easily. Patient is extremely weak requiring 1-2 person assist for position changes and getting up out of the bed. Encourage patient to continue increasing activity as tolerated and sitting out of the bed more. Is having some discomfort of his buttocks and appears to be macerated from continuous incontinence with stool. Tylenol and Toradol ordered. No reports of chest pain or palpitations. Patient states that his shortness of breath has slightly improved status post paracentesis yesterday. No reports of nausea or vomiting and patient is tolerating diet. Patient to continue with fluid restrictions. Creatinine improved today and is currently 1.15. Sodium is 131. Nephrology is following. 11/25/2019 Patient's serum creatinine went up to 1.8 because of which I'm holding the discharge patient is intravascularly volume depleted but the distal third spacing because of cirrhosis, holding of diuretics in spite of peripheral edema as well as ascites. Patient is bit sleepy. Constitutional: He appears to be severely fatigued bit sleepy Cardio vascular: denied any chest pain, palpitations Gastrointestinal denied any nausea vomiting Pulmonary: Denied any shortness of breath cough Neurologic denied any new focal deficits All inpatient medications were reviewed and appropriate changes in these medications as dictated in the interval history and assessment and plan. Objective - Vital Signs Vital signs: Vital Signs Temp 97.5 F L 11/25/19 05:10 Pulse 84 11/25/19 05:10 Resp 20 11/25/19 05:10 BP 113/67 11/25/19 05:10 Pulse Ox 100 11/25/19 05:10 Intake & Output 11/24/19 11/25/19 11/25/19 18:59 06:59 18:59 Intake Total 1200 900 Output Total 450 150 Balance 750 750 Weight 93 kg Intake: Oral 1200 900 Output: Urine 450 150 Other: Voiding Method Indwelling Catheter Indwelling Catheter # Bowel Movements 2 - Exam GENERAL: Awake, but sleepy and oriented X3. Sitting up in the chair. HEENT: Pupils are round and equally reacting to light. EOMI. does have scleral icterus and conjunctival pallor. Normocephalic, atraumatic. No pharyngeal erythema. No thyromegaly. CARDIOVASCULAR: S1 and S2 present. No murmurs, rubs, or gallops. PULMONARY: Chest is clear to auscultation, no wheezing or crackles. ABDOMEN: Mildly distended, normoactive bowel sounds. No palpable organomegaly. patient has a scrotal swelling urethral fistula, indwelling Rosa catheter noted. MUSCULOSKELETAL: No joint swelling or deformity. EXTREMITIES: No cyanosis, clubbing, bilateral lower extremity edema 1+ noted NEUROLOGICAL: No focal deficits were appreciated; diffusely weak. SKIN: There are some a sacral decubitus ulcer please refer to nursing docum entation for staging - Labs CBC & Chem 7: 11/25/19 07:10 11/25/19 07:10 Labs: Abnormal Lab Results - Last 24 Hours (Table) 11/25/19 11/25/19 Range/Units 07:10 07:10 WBC 15.4 H (3.8-10.6) k/uL RBC 2.35 L (4.30-5.90) m/uL Hgb 8.0 L (13.0-17.5) gm/dL Hct 25.3 L (39.0-53.0) % MCV 107.4 H (80.0-100.0) fL RDW 18.1 H (11.5-15.5) % Neutrophils # (Manual) 12.70 H (1.3-7.7) k/uL Eosinophils # (Manual) 0.92 H (0-0.7) k/uL Myelocytes # (Manual) 0.15 H (0) k/uL Macrocytosis Marked A Sodium 132 L (137-145) mmol/L BUN 43 H (9-20) mg/dL Creatinine 1.86 H (0.66-1.25) mg/dL Calcium 7.9 L (8.4-10.2) mg/dL Total Bilirubin 5.7 H (0.2-1.3) mg/dL AST 88 H (17-59) U/L Alkaline Phosphatase 331 H (38-126) U/L Albumin 2.3 L (3.5-5.0) g/dL Assessment and Plan Plan: -Acute upper GI bleed peptic ulcer disease and low possibility possibility of variceal bleed from portal hypertension patient was on octreotide which was subsequently discontinued hemoglobin remained stable. No evidence of SBP, as we ruled out -patient has scrotal cellulitis, for which patient is on the Augmentin and fluconazole -Acute renal failure prerenal azotemia from cirrhosis patient's serum creatinine worsened because of which I'm unable to discharge the patient and Lasix is being held at this time. -Non-anion gap metabolic acidosis secondary to hyperchloremia, nephrology is following the patient and patient is on bicarbonate oral supplementation -Coagulopathy with elevated INR secondary to hepatic dysfunction -Hepatic encephalopathy: Continue with rifaximin and lactulose monitor -Cirrhosis alcoholic along with acute alcoholic hepatitis patient stop drinking alcohol -Hyponatremia probably hypovolemic hyponatremia from excessive diuretics these will be held -Hyperkalemia which resolved and patient was resumed on Aldactone or Bactrim is being continued -Lactic acidosis and anion gap metabolic acidosis is secondary to hepatic dysfunction resolved now Chronic anemia from cirrhosis which is macrocytic anemia
--- NOTE | 2019-11-25 17:05 | PN ---
PROGRESS NOTE Patient is seen for followup for acute kidney injury. He is currently being diuresed for significant lower extremity edema. Serum creatinine has jumped up significantly from 1.1-1.8 today. Patient continues to have good urine output. His Lasix was increased to twice a day. Blood pressure is not significantly low. No complaints of shortness of breath, nausea, vomiting. PHYSICAL EXAMINATION: This morning, blood pressure was 113/67, heart rate 84 per minute, he is afebrile. Examination of the heart S1, S2. Examination of the lungs, decreased breath sounds at bases. Abdomen is soft, nontender, distended with ascites. Examination of lower extremities shows edema 2+ bilaterally. [employer] exam grossly intact. LABS: Show sodium 132, potassium 4.4, chloride 98, BUN 43, serum creatinine 1.86. ASSESSMENT: 1. Acute kidney injury associated with use of NSAIDs. Patient was started on Toradol. His renal function had improved significantly yesterday with creatinine of 1.1. However, since he is up to 1.8, I will discontinue the Toradol and we will repeat labs in a.m. He has also had fluctuating hemodynamics associated with large volume paracentesis and ongoing diuresis with loop diuretics. 2. Chronic liver disease with liver cirrhosis, recurrent ascites and paracentesis. Continue with the Aldactone. Decrease Lasix to once a day for now. 3. Anemia. No active bleeding noted. Previous GI bleed history. PLAN: Discontinue Toradol. Decrease Lasix. Continue with Aldactone. Repeat labs in a.m.. MMODL / IJN: [id number] /
--- NOTE | 2019-11-25 17:38 | P.PN ---
Subjective Progress Note Date: 11/25/19 Principal diagnosis: Acute GI bleed, duodenal ulcer, anemia acute blood loss, alcoholic hepatitis, alcoholic cirrhosis Patient seen lying in bed less still reporting that he is tired. Tolerating diet. No nausea or vomiting. No abdominal pain. Objective - Vital Signs Vital signs: Vital Signs Temp 98.0 F 11/25/19 13:04 Pulse 95 11/25/19 13:04 Resp 18 11/25/19 13:04 BP 113/67 11/25/19 13:04 Pulse Ox 100 11/25/19 13:04 Intake & Output 11/24/19 11/25/19 11/25/19 18:59 06:59 18:59 Intake Total 1200 900 900 Output Total 450 150 Balance 750 750 900 Weight 93 kg Intake: IV 800 Sodium Chloride 0.9% 1, 800 000 ml @ 100 mls/hr IV . Q10H [place] Rx#:[id number] Intake, IV Titration 100 Amount Ampicillin-Sulbactam 3 gm 100 In Sodium Chloride 0.9% 100 ml @ 200 mls/hr IVPB Q6HR [place] Rx#:[id number] Oral 1200 900 Output: Urine 450 150 Other: Voiding Method Indwelling Catheter Indwelling Catheter Indwelling Catheter # Bowel Movements 2 2 - Exam On physical examination, patient appears comfortable in no apparent distress. HEAD: Normocephalic, atraumatic. EYES: No scleral icterus. No conjunctival injection. MOUTH: No lesions, tongue midline. NECK: Trachea midline, no gross abnormalities. ABDOMEN: Soft, obese and moderately distended. Bowel sounds are positive. No organomegaly. No guarding or rigidity. EXTREMITIES: No pedal edema. SKIN: No rashes, no jaundice. NEUROLOGIC: Alert and oriented x3. No focal deficits. - Labs CBC & Chem 7: 11/25/19 07:10 11/25/19 07:10 Labs: Abnormal Lab Results - Last 24 Hours (Table) 11/25/19 11/25/19 Range/Units 07:10 07:10 WBC 15.4 H (3.8-10.6) k/uL RBC 2.35 L (4.30-5.90) m/uL Hgb 8.0 L (13.0-17.5) gm/dL Hct 25.3 L (39.0-53.0) % MCV 107.4 H (80.0-100.0) fL RDW 18.1 H (11.5-15.5) % Neutrophils # (Manual) 12.70 H (1.3-7.7) k/uL Eosinophils # (Manual) 0.92 H (0-0.7) k/uL Myelocytes # (Manual) 0.15 H (0) k/uL Macrocytosis Marked A Sodium 132 L (137-145) mmol/L BUN 43 H (9-20) mg/dL Creatinine 1.86 H (0.66-1.25) mg/dL Calcium 7.9 L (8.4-10.2) mg/dL Total Bilirubin 5.7 H (0.2-1.3) mg/dL AST 88 H (17-59) U/L Alkaline Phosphatase 331 H (38-126) U/L Albumin 2.3 L (3.5-5.0) g/dL Assessment and Plan (1) Alcoholic hepatitis Current Visit: Yes Status: Acute Code(s): K70.10 - ALCOHOLIC HEPATITIS WITHOUT ASCITES SNOMED Code(s): 661614512 (2) Ascites Current Visit: Yes Status: Acute Code(s): R18.8 - OTHER ASCITES SNOMED Code(s): 979185141 (3) Hepatic encephalopathy Current Visit: Yes Status: Acute Code(s): K72.90 - HEPATIC FAILURE, UNSPEC IFIED WITHOUT COMA SNOMED Code(s): 75366416 (4) Duodenal ulcer Current Visit: Yes Status: Acute Code(s): K26.9 - DUODENAL ULCER, UNSP ACUTE OR CHRONIC, W/O HEMOR OR PERF SNOMED Code(s): 05755980 Plan: Supportive care Continue Aldactone and Lasix held today due to increasing creatinine Appreciate nephrology recommendations Fluid restriction per nephrology service Continue lactulose 3 times a day and rifaximin twice a day Alcohol abstinence Continue Protonix twice a day Thank you for allowing us to participate in the care of the patient
[2019-11-26] MEDS: AMPICILLIN-SULBACTAM 3 GM in SODIUM CHLORIDE 0.9% 100 ML IVPB SCH ×3 (05:43→17:39)
--- NOTE | 2019-11-26 05:49 | PN ---
PROGRESS NOTE DATE OF SERVICE: 11/25/2019 REASON FOR FOLLOWUP: Scrotal abscess. INTERVAL HISTORY: The patient is currently afebrile, has been breathing comfortably. Denies having any chest pain, shortness of breath or cough. No abdominal or pain to the scrotal area. PHYSICAL EXAMINATION: Blood pressure 120/72 with a pulse of 90, temperature 98.6. He is 100% on room air. General description is a middle-aged male lying in bed in no distress. Respiratory system: Unlabored breathing, clear to auscultation anteriorly. Heart S1, S2. Regular rate and rhythm. Abdomen soft. No guarding, no rigidity. LABS: Hemoglobin 8 with white count 15.4, BUN of 43, creatinine 1.8. DIAGNOSTIC IMPRESSION AND PLAN: Patient with a scrotal abscess with spontaneous drainage. Culture with multiple pathogens. Covered with Unasyn and Diflucan, to continue. Transition to oral on discharge. Continue supportive care. MMODL / IJN: [id number] /
[2019-11-26 07:47] LABS: Anisocytosis Slight; Basophils % (A) 0 %; Eosinophils # (A) 0.9 k/uL (0-0.7); Eosinophils % (A) 6 %; HCT 26.3 % (39.0-53.0); HGB 8.4 gm/dL (13.0-17.5); Lymphocytes # (A) 1.4 k/uL (1.0-4.8); Lymphocytes % (A) 10 %; MCH 34.6 pg (25.0-35.0); MCV 108.2 fL (80.0-100.0); Macrocytosis Marked; Mean Platelet Volume 9.6; Monocytes # (A) 0.7 k/uL (0-1.0); Monocytes % (A) 5 %; Neutrophils # (A) 11.1 k/uL (1.3-7.7); Neutrophils % (A) 77 %; Platelet Count 234 k/uL (150-450); RBC 2.43 m/uL (4.30-5.90); WBC 14.5 k/uL (3.8-10.6)
[2019-11-26 08:00] LABS: Albumin 2.3 g/dL (3.5-5.0); Calcium 7.8 mg/dL (8.4-10.2); Potassium 4.8 mmol/L (3.5-5.1); Total Bilirubin 5.4 mg/dL (0.2-1.3); Total Protein 6.9 g/dL (6.3-8.2)
[2019-11-26 08:22] LABS: Target Cells Present
[2019-11-26] MEDS: SODIUM BICARBONATE TAB 650 MG TAB PO SCH ×2 (08:45→20:49)
[2019-11-26] MEDS: RIFAXIMIN 550 MG TABLET PO SCH ×2 (08:45→20:49)
[2019-11-26] MEDS: PANTOPRAZOLE 40 MG TABLET PO SCH ×2 (08:45→20:48)
[2019-11-26] MEDS: FLUCONAZOLE 100 MG TAB PO SCH (08:45)
[2019-11-26] MEDS: SPIRONOLACTONE 25 MG TAB PO SCH ×2 (08:45→20:48)
[2019-11-26] MEDS: LACTULOSE 20 GM/30 ML CUP PO SCH ×3 (08:46→22:14)
--- NOTE | 2019-11-26 14:44 | PN ---
PROGRESS NOTE Patient is seen for followup for acute kidney injury. He currently states that he has not been sleeping and wants medications to help him sleep. Patient denies any other complaints. His creatinine has improved slightly. It was up to 1.8. Patient was maintained on Toradol. His Toradol was discontinued yesterday and creatinine is down to 1.7 today. He has had good urine output. PHYSICAL EXAMINATION: On examination today, blood pressure was 125/70, heart rate of 98 per minute. He is afebrile. EXAMINATION OF THE HEART: S1, S2. EXAMINATION OF THE LUNGS: Bilateral breath sounds are heard. ABDOMEN: Soft, nontender. Examination of lower extremities shows edema 2+ bilaterally. [employer] exam grossly intact. LAB: Labs show sodium 132, potassium 4.8, chloride 97, CO2 is 25, BUN 42, creatinine 1.75, hemoglobin 8.4 g/dL. ASSESSMENT: 1. Acute kidney injury secondary to NSAIDs currently improved. I will resume Lasix 40 mg p.o. daily. 2. Chronic liver disease with liver cirrhosis and portal hypertension, recurrent ascites and chronic lower extremity edema. 3. Anemia. No active bleeding noted currently. The patient has had acute gastrointestinal bleed and duodenal ulcer, maintained on Protonix. PLAN: Resume oral Lasix. Avoid nephrotoxic medications, particularly NSAIDs. MMODL / IJN: [id number] /
[2019-11-26] MEDS: FUROSEMIDE 40 MG TAB PO SCH (16:12)
[2019-11-26] MEDS: ACETAMINOPHEN TAB 325 MG TAB PO PRN (20:49)
--- NOTE | 2019-11-26 22:11 | P.PN ---
Subjective Progress Note Date: 11/26/19 Principal diagnosis: Acute GI bleed, duodenal ulcer, anemia acute blood loss, alcoholic hepatitis, alcoholic cirrhosis Patient seen lying in bed and today reporting that he needs help sleeping. Patient previously had been somnolent. Denies any abdominal pain. Objective - Vital Signs Vital signs: Vital Signs Temp 98.8 F 11/26/19 07:00 Pulse 98 11/26/19 07:00 Resp 16 11/26/19 07:00 BP 125/70 11/26/19 07:00 Pulse Ox 99 11/26/19 07:00 Intake & Output 11/25/19 11/26/19 11/26/19 18:59 06:59 18:59 Intake Total 1464 450 Output Total 400 300 Balance 1064 150 Intake: IV 800 450 Sodium Chloride 0.9% 1, 800 450 000 ml @ 100 mls/hr IV . Q10H [place] Rx#:[id number] Intake, IV Titration 100 Amount Ampicillin-Sulbactam 3 gm 100 In Sodium Chloride 0.9% 100 ml @ 200 mls/hr IVPB Q6HR [place] Rx#:[id number] Oral 564 Output: Urine 400 300 Stool 0 Other: Voiding Method Indwelling Catheter Indwelling Catheter # Bowel Movements 2 1 - Exam On physical examination, patient appears comfortable in no apparent distress. HEAD: Normocephalic, atraumatic. EYES: No scleral icterus. No conjunctival injection. MOUTH: No lesions, tongue midline. NECK: Trachea midline, no gross abnormalities. ABDOMEN: Soft, obese and moderately distended. Bowel sounds are positive. No organomegaly. No guarding or rigidity. EXTREMITIES: No pedal edema. SKIN: No rashes, no jaundice. NEUROLOGIC: Alert and oriented x3. No focal deficits. - Labs CBC & Chem 7: 11/26/19 06:29 11/26/19 06:29 Labs: Abnormal Lab Results - Last 24 Hours (Table) 11/26/19 11/26/19 Range/Units 06:29 06:29 WBC 14.5 H (3.8-10.6) k/uL RBC 2.43 L (4.30-5.90) m/uL Hgb 8.4 L (13.0-17.5) gm/dL Hct 26.3 L (39.0-53.0) % MCV 108.2 H (80.0-100.0) fL RDW 18.0 H (11.5-15.5) % Neutrophils # 11.1 H (1.3-7.7) k/uL Eosinophils # 0.9 H (0-0.7) k/uL Macrocytosis Marked A Sodium 132 L (137-145) mmol/L Chloride 97 L (98-107) mmol/L BUN 42 H (9-20) mg/dL Creatinine 1.75 H (0.66-1.25) mg/dL Glucose 106 H (74-99) mg/dL Calcium 7.8 L (8.4-10.2) mg/dL Total Bilirubin 5.4 H (0.2-1.3) mg/dL AST 88 H (17-59) U/L Alkaline Phosphatase 364 H (38-126) U/L Albumin 2.3 L (3.5-5.0) g/dL Assessment and Plan (1) Alcoholic hepatitis Current Visit: Yes Status: Acute Code(s): K70.10 - ALCOHOLIC HEPATITIS WITHOUT ASCITES SNOMED Code(s): 664103188 (2) Ascites Current Visit: Yes Status: Acute Code(s): R18.8 - OTHER ASCITES SNOMED Code(s): 624150310 (3) Hepatic encephalopathy Current Visit: Yes Status: Acute Code(s): K72.90 - HEPATIC FAILURE, UNSPECIFIED WITHOUT COMA SNOMED Code(s): 26619266 (4) Duodenal ulcer Current Visit: Yes Status: Acute Code(s): K26.9 - DUODENAL ULCER, UNSP ACUTE OR CHRONIC, W/O HEMOR OR PERF SNOMED Code(s): 51234117 Plan: Supportive care Continue Aldactone and Lasix Appreciate nephrology recommendations Fluid restriction per nephrology service Continue lactulose 3 times a day and rifaximin twice a day Alcohol abstinence Continue Protonix twice a day Thank you for allowing us to participate in the care of the patient
--- NOTE | 2019-11-27 00:08 | PN ---
PROGRESS NOTE DATE OF SERVICE: 11/26/2019 REASON FOR FOLLOWUP: Scrotal abscess. INTERVAL HISTORY: The patient is currently afebrile. He has been breathing comfortably. He denies having any chest pain or shortness of breath. Did have abdominal distention, but no worsening and the RN noted some sacral pressure ulcer. PHYSICAL EXAMINATION: Blood pressure 133/74 with a pulse of 96. He is 90% on room air. General description: The patient is a middle-aged male up in the bed in chair, in no distress. Respiratory system: Unlabored breathing, decreased intensity breath sounds in the base, with no wheeze. Heart S1, S2. Regular rate and rhythm. Abdomen soft, no tenderness. Examination of sacral area did have stage II sacral pressure ulcer. No cellulitis. LABS: Hemoglobin 8.4, white count of 14.5, BUN of 42, creatinine 1.75. DIAGNOSTIC IMPRESSION AND PLAN: 1. Patient with scrotal abscess with spontaneous drainage. Culture with multiple pathogens. Patient is covered with Unasyn and Diflucan to continue. 2. Sacral pressure ulcer. Local care with Calmoseptine lotion and keep the area dry. 3. Continue supportive care. MMODL / IJN: [id number] /
[2019-11-27] MEDS: AMPICILLIN-SULBACTAM 3 GM in SODIUM CHLORIDE 0.9% 100 ML IVPB SCH ×5 (00:20→23:48)
[2019-11-27 07:16] LABS: Albumin 2.2 g/dL (3.5-5.0); Calcium 7.8 mg/dL (8.4-10.2); Potassium 4.8 mmol/L (3.5-5.1); Total Bilirubin 4.5 mg/dL (0.2-1.3); Total Protein 6.7 g/dL (6.3-8.2)
[2019-11-27 07:25] LABS: Anisocytosis Slight; Basophils # (A) 0.1 k/uL (0-0.2); Basophils % (A) 1 %; Eosinophils # (A) 1.1 k/uL (0-0.7); Eosinophils % (A) 7 %; HCT 25.1 % (39.0-53.0); HGB 8.1 gm/dL (13.0-17.5); Lymphocytes # (A) 1.8 k/uL (1.0-4.8); Lymphocytes % (A) 12 %; MCH 34.5 pg (25.0-35.0); MCHC 32.2 g/dL (31.0-37.0); MCV 107.2 fL (80.0-100.0); Macrocytosis Marked; Mean Platelet Volume 9.1; Monocytes # (A) 0.9 k/uL (0-1.0); Monocytes % (A) 6 %; Neutrophils # (A) 10.6 k/uL (1.3-7.7); Neutrophils % (A) 72 %; Platelet Count 195 k/uL (150-450); RBC 2.35 m/uL (4.30-5.90); RDW 17.7 % (11.5-15.5); WBC 14.8 k/uL (3.8-10.6)
[2019-11-27 07:32] LABS: INR 1.4 (<1.2)
[2019-11-27 07:33] LABS: Prothrombin Time 14.3 sec (9.0-12.0)
[2019-11-27 08:15] LABS: Poikilocytosis (M) Present; Target Cells Present
[2019-11-27] MEDS: SODIUM BICARBONATE TAB 650 MG TAB PO SCH (08:55)
[2019-11-27] MEDS: FLUCONAZOLE 100 MG TAB PO SCH (08:56)
[2019-11-27] MEDS: SPIRONOLACTONE 25 MG TAB PO SCH ×2 (08:56→21:02)
[2019-11-27] MEDS: PANTOPRAZOLE 40 MG TABLET PO SCH ×2 (08:56→21:02)
[2019-11-27] MEDS: LACTULOSE 20 GM/30 ML CUP PO SCH ×3 (08:56→21:02)
[2019-11-27] MEDS: RIFAXIMIN 550 MG TABLET PO SCH ×2 (08:56→21:02)
[2019-11-27] MEDS: FUROSEMIDE 40 MG TAB PO SCH ×2 (08:56→15:59)
--- NOTE | 2019-11-27 14:56 | PN ---
PROGRESS NOTE Patient is seen for followup for acute kidney injury. He has underlying liver cirrhosis, portal hypertension and recurrent ascites. The patient is maintained on oral Lasix. He had developed acute kidney injury 2 days ago associated with NSAIDs. Creatinine has improved now and it is down to 1.4 from 1.86. The patient continues to have good urine output. He was restarted on his p.o. Lasix which we can increase to twice a day. EXAMINATION: Today patient is comfortable. Blood pressure is 119/58. He is resting comfortably, sleeping, but arousable. Examination of lower extremities shows edema 2+ bilaterally. ABDOMEN: Soft, obese, nontender. LUNGS: Clear. LAB: Show sodium 131, potassium 4.8, chloride 98, BUN 40, creatinine 1.46, hemoglobin 8.1 g/dL. ASSESSMENT: 1. Acute kidney injury secondary to NSAIDs, now improving. 2. Significant edema, lower extremities associated with liver cirrhosis. Lasix has been resumed. I will increase it to b.i.d. as renal function continues to improve now off NSAIDs. 3. Chronic liver disease secondary to ETOH abuse. 4. Status post gastrointestinal bleed. 5. Metabolic acidosis maintained on oral sodium bicarb. PLAN: Increase Lasix. Decrease sodium bicarb to once a day and repeat labs in a.m. MMODL / IJN: [id number] /
--- NOTE | 2019-11-27 19:03 | P.PN ---
Subjective Progress Note Date: 11/27/19 Principal diagnosis: Acute GI bleed, duodenal ulcer, anemia acute blood loss, alcoholic hepatitis, alcoholic cirrhosis Patient seen lying in bed and today reporting that he is feeling somewhat better. Tolerating diet. No signs or symptoms of GI bleeding. Objective - Vital Signs Vital signs: Vital Signs Temp 98.2 F 11/27/19 04:35 Pulse 91 11/27/19 04:35 Resp 20 11/27/19 04:35 BP 119/58 11/27/19 04:35 Pulse Ox 100 11/27/19 04:35 Intake & Output 11/26/19 11/27/19 11/27/19 18:59 06:59 18:59 Intake Total 1140 380 Output Total 600 1200 Balance 540 -820 Intake: Oral 1140 380 Output: Urine 600 1200 Uretheral (Rosa) 600 Other: Voiding Method Indwelling Catheter # Bowel Movements 1 - Exam On physical examination, patient appears comfortable in no apparent distress. HEAD: Normocephalic, atraumatic. EYES: No scleral icterus. No conjunctival injection. MOUTH: No lesions, tongue midline. NECK: Trachea midline, no gross abnormalities. ABDOMEN: Soft, obese and moderately distended. Bowel sounds are positive. No organomegaly. No guarding or rigidity. EXTREMITIES: No pedal edema. SKIN: No rashes, no jaundice. NEUROLOGIC: Alert and oriented x3. No focal deficits. - Labs CBC & Chem 7: 11/27/19 06:04 11/27/19 06:04 Labs: Abnormal Lab Results - Last 24 Hours (Table) 11/27/19 11/27/19 11/27/19 Range/Units 06:04 06:04 06:04 WBC 14.8 H (3.8-10.6) k/uL RBC 2.35 L (4.30-5.90) m/uL Hgb 8.1 L (13.0-17.5) gm/dL Hct 25.1 L (39.0-53.0) % MCV 107.2 H (80.0-100.0) fL RDW 17.7 H (11.5-15.5) % Neutrophils # 10.6 H (1.3-7.7) k/uL Eosinophils # 1.1 H (0-0.7) k/uL Macrocytosis Marked A PT 14.3 H (9.0-12.0) sec INR 1.4 H (<1.2) Sodium 131 L (137-145) mmol/L BUN 40 H (9-20) mg/dL Creatinine 1.46 H (0.66-1.25) mg/dL Glucose 101 H (74-99) mg/dL Calcium 7.8 L (8.4-10.2) mg/dL Total Bilirubin 4.5 H (0.2-1.3) mg/dL AST 78 H (17-59) U/L Alkaline Phosphatase 341 H (38-126) U/L Albumin 2.2 L (3.5-5.0) g/dL Assessment and Plan (1) Alcoholic hepatitis Current Visit: Yes Status: Acute Code(s): K70.10 - ALCOHOLIC HEPATITIS WITHOUT ASCITES SNOMED Code(s): 070943095 (2) Ascites Current Visit: Yes Status: Acute Code(s): R18.8 - OTHER ASCITES SNOMED Code(s): 673397935 (3) Hepatic encephalopathy Current Visit: Yes Status: Acute Code(s): K72.90 - HEPATIC FAILURE, UNSPECIFIED WITHOUT COMA SNOMED Code(s): 47656754 (4) Duodenal ulcer Current Visit: Yes Status: Acute Code(s): K26.9 - DUODENAL ULCER, UNSP ACUTE OR CHRONIC, W/O HEMOR OR PERF SNOMED Code(s): 11728849 Plan: Supportive care Continue Aldactone and Lasix Appreciate nephrology recommendations Continue lactulose 3 times a day and rifaximin twice a day Alcohol abstinence Continue Protonix twice a day Thank you for allowing us to participate in the care of the patient
[2019-11-27] MEDS ORDERED: MENTHOL-ZINC OXIDE OINT 113 GM TUBE TOPICAL PRN (22:39)
--- NOTE | 2019-11-27 22:46 | P.PN ---
Subjective Progress Note Date: 11/26/19 Principal diagnosis: GI bleed and Scrotal abscess Mr. Frank is a 59 y/o male with the past medical history of alcoholic cirrhosis admitted to the hospital with acute GI bleed and decompensated alcoholic hepatitis. Patient was also having scrotal abscess. Patient had EGD done for acute upper GI bleed which showed duodenal ulcer and so he is on Protonix. Patient also has scrotal abscess and urology has been following. As the patient developed acute kidney injury nephrology has also been on board. Multiple medical consultants have been following the patient. Patient had ultrasound-guided paracentesis done with removal of 6.2 L on 11/23/2019. As the patient's creatinine is still not back to his baseline and he still has abdominal distention he continues to be in the hospital. On 11/26/2019 -patient is sitting up in a chair by the bedside. Patient states that he has generalized weakness and feels fatigued. He denies having any chest pain or palpitations. He has mild difficulty in taking a deep breath because of his abdominal distention. He also has discomfort in his scrotal area where he had the abscess. He states that his lower extremities swelling has been the same. On reviewing the labs patient's white count is 14.5 hemoglobin of 8.4 so dium 132, creatinine 1.75, albumin 2.3, total bilirubin 5.4. Patient's medications have been reviewed. Objective - Vital Signs Vital signs: Vital Signs Temp 98.9 F 11/26/19 14:21 Pulse 104 H 11/26/19 14:21 Resp 14 11/26/19 14:21 BP 136/75 11/26/19 14:21 Pulse Ox 100 11/26/19 14:21 Intake & Output 11/25/19 11/26/19 11/26/19 18:59 06:59 18:59 Intake Total 0567 148 4037 Output Total 400 300 600 Balance 1064 150 540 Intake: IV 800 450 Sodium Chloride 0.9% 1, 800 450 000 ml @ 100 mls/hr IV . Q10H [facility] Rx#:[id number] Intake, IV Titration 100 Amount Ampicillin-Sulbactam 3 gm 100 In Sodium Chloride 0.9% 100 ml @ 200 mls/hr IVPB Q6HR [facility] Rx#:[id number] Oral 564 1140 Output: Urine 400 300 600 Stool 0 Other: Voiding Method Indwelling Catheter Indwelling Catheter # Bowel Movements 2 1 - Exam GENERAL: Awake, but sleepy and oriented X3. Sitting up in the chair. HEENT: Pupils are round and equally reacting to light. EOMI. Positive for scle ral icterus and conjunctival pallor. Normocephalic, atraumatic. CARDIOVASCULAR: S1 and S2 present. No murmurs, rubs, or gallops. PULMONARY: Chest is clear to auscultation, no wheezing or crackles. Diminished at the lung bases ABDOMEN: Soft, Distended, normoactive bowel sounds. patient has a scrotal swelling with indwelling Rosa catheter noted. Excoriation of mai surrounding skin with lot of moisture around. EXTREMITIES: No cyanosis, clubbing, bilateral lower extremity edema 2+ pitting NEUROLOGICAL: No focal deficits were appreciated; Generalized weakness SKIN: There are some multiple small sacral decubitus ulcer please refer to nursing documentation for staging - Labs CBC & Chem 7: 11/26/19 06:29 11/26/19 06:29 Labs: Abnormal Lab Results - Last 24 Hours (Table) 11/26/19 11/26/19 Range/Units 06:29 06:29 WBC 14.5 H (3.8-10.6) k/uL RBC 2.43 L (4.30-5.90) m/uL Hgb 8.4 L (13.0-17.5) gm/dL Hct 26.3 L (39.0-53.0) % MCV 108.2 H (80.0-100.0) fL RDW 18.0 H (11.5-15.5) % Neutrophils # 11.1 H (1.3-7.7) k/uL Eosinophils # 0.9 H (0-0.7) k/uL Macrocytosis Marked A Sodium 132 L (137-145) mmol/L Chloride 97 L (98-107) mmol/L BUN 42 H (9-20) mg/dL Creatinine 1.75 H (0.66-1.25) mg/dL Glucose 106 H (74-99) mg/dL Calcium 7.8 L (8.4-10.2) mg/dL Total Bilirubin 5.4 H (0.2-1.3) mg/dL AST 88 H (17-59) U/L Alkaline Phosphatase 364 H (38-126) U/L Albumin 2.3 L (3.5-5.0) g/dL Assessment and Plan Assessment: ASSESSMENT Acute upper GI bleed Duodenal ulcer on endoscopy Acute renal failure-prerenal azotemia Hepatorenal syndrome Coagulopathy Hepatic encephalopathy Alcoholic cirrhosis of the liver Hypovolemic hyponatremia Severe protein calorie malnutrition Stage II sacral decubitus ulcers Scrotal abscess/cellulitis PLAN: Spontaneous drainage of the scrotal abscess. Culture showing multiple organisms. ID Dr. Rod on board recommended antibiotics in the form of Augmentin, and also Diflucan which is been continued. Continue with lactulose and rifaximin and spironolactone. Overall prognosis is poor. Patient had 6.2 L of ascitic fluid drained on 11/23/2019. His abdomen looks distended today, will consider ultrasound guided paracentesis on Thursday . Multiple consultants on board and following the patient. Continue with the current medication regimen. Further recommendations to follow depending on the progress of the patient
--- NOTE | 2019-11-27 22:50 | PN ---
PROGRESS NOTE DATE OF SERVICE: 11/27/2019 REASON FOR FOLLOWUP: 1. Scrotal abscess. 2. Sacral pressure ulcer. INTERVAL HISTORY: The patient is currently afebrile. He has been breathing comfortably. Denies having any chest pain. No shortness of breath or cough. Still has significant abdominal distention. No pain to the scrotal area. PHYSICAL EXAMINATION: Blood pressure 154/72 with a pulse of 107. Temperature 99. He is 98% on room air. General description: The patient is a middle-aged male lying in bed in no distress. Respiratory system: Unlabored breathing. Clear to auscultation anteriorly. Heart S1, S2. Regular rate and rhythm. Abdomen soft, distended. No guarding. No rigidity. LABS: BUN of 40, creatinine 1.46, Hemoglobin 8.1, white count 14.81. DIAGNOSTIC IMPRESSION AND PLAN: 1. Patient with scrotal abscess status post spontaneous drainage. Culture multiple pathogen. Patient covered with Unasyn and Diflucan, transition to oral on discharge. 2. Patient sacral pressure ulcer. Local care with Calmoseptine lotion. Keep the area dry and off the pressure. MMODL / IJN: [id number] /
--- NOTE | 2019-11-27 22:50 | P.PN ---
Subjective Progress Note Date: 11/27/19 Principal diagnosis: GI bleed and Scrotal abscess Mr. Frank is a 59 y/o male with the past medical history of alcoholic cirrhosis admitted to the hospital with acute GI bleed and decompensated alcoholic hepatitis. Patient was also having scrotal abscess. Patient had EGD done for acute upper GI bleed which showed duodenal ulcer and so he is on Protonix. Patient also has scrotal abscess and urology has been following. As the patient developed acute kidney injury nephrology has also been on board. Multiple medical consultants have been following the patient. Patient had ultrasound-guided paracentesis done with removal of 6.2 L on 11/23/2019. As the patient's creatinine is still not back to his baseline and he still has abdominal distention he continues to be in the hospital. On 11/26/2019 -patient is sitting up in a chair by the bedside. Patient states that he has generalized weakness and feels fatigued. He denies having any chest pain or palpitations. He has mild difficulty in taking a deep breath because of his abdominal distention. He also has discomfort in his scrotal area where he had the abscess. He states that his lower extremities swelling has been the same. On reviewing the labs patient's white count is 14.5 hemoglobin of 8.4 so dium 132, creatinine 1.75, albumin 2.3, total bilirubin 5.4. On 11/27/2019 -patient is lying in his bed comfortably appears to be in no acute distress. He still complains of generalized fatigue and weakness. He states that his abdominal size is increasing but denies having any abdominal pain. Den ies having any bleeding from any site. On reviewing his vitals patient spiked a fever of 99.8 last night. On reviewing his labs white count has been stable. No other significant changes in his labs. Active Medications Acetaminophen (Tylenol Tab) 650 mg PO Q6HR PRN PRN Reason: Fever and/ or MILD Pain Last Admin: 11/26/19 20:49 Dose: 650 mg Documented by: Fluconazole (Diflucan) 100 mg PO DAILY [facility] Last Admin: 11/27/19 08:56 Dose: 100 mg Documented by: Furosemide (Lasix) 40 mg PO DAILY [facility] Last Admin: 11/27/19 08:56 Dose: 40 mg Documented by: Ampicillin Sodium/Sulbactam (Sodium 3 gm/ Sodium Chloride) 100 mls @ 200 mls/hr IVPB Q6HR [facility] Last Admin: 11/27/19 11:53 Dose: 200 mls/hr Documented by: Lactulose (Cephulac) 30 gm PO TID [facility] Last Admin: 11/27/19 08:56 Dose: Not Given Documented by: Naloxone HCl (Narcan) 0.2 mg IV Q2M PRN PRN Reason: Opioid Reversal Pantoprazole Sodium (Protonix) 40 mg PO BID [facility] Last Admin: 11/27/19 08:56 Dose: 40 mg Documented by: Rifaximin (Xifaxan) 550 mg PO BID [facility] Stop: 12/20/19 21:01 Last Admin: 11/27/19 08:56 Dose: 550 mg Documented by: Sodium Bicarbonate (Sodium Bicarbonate Tab) 650 mg PO BID [facility] Last Admin: 11/27/19 08:55 Dose: 650 mg Documented by: Spironolactone (Aldactone) 25 mg PO BID [facility] Last Admin: 11/27/19 08:56 Dose: 25 mg Documented by: Temazepam (Restoril) 15 mg PO HS PRN PRN Reason: Insomnia Objective - Vital Signs Vital signs: Vital Signs Temp 98.2 F 11/27/19 04:35 Pulse 91 11/27/19 04:35 Resp 20 11/27/19 04:35 BP 119/58 11/27/19 04:35 Pulse Ox 100 11/27/19 04:35 Intake & Output 11/26/19 11/27/19 11/27/19 18:59 06:59 18:59 Intake Total 1140 380 Output Total 600 1200 Balance 540 -820 Intake: Oral 1140 380 Output: Urine 600 1200 Uretheral (Rosa) 600 Other: Voiding Method Indwelling Catheter Indwelling Catheter # Bowel Movements 1 - Exam PHYSICAL EXAM : GENERAL: Awake, but sleepy and oriented X3. Sitting up in the chair. HEENT: Pupils are round and equally reacting to light. EOMI. Positive for scleral icterus and conjunctival pallor. Normocephalic, atraumatic. CARDIOVASCULAR: S1 and S2 present. No murmurs, rubs, or gallops. PULMONARY: Chest is clear to auscultation, no wheezing or crackles. Diminished at the lung bases ABDOMEN: Soft, Distended, normoactive bowel sounds. patient has a scrotal swelling with indwelling Rosa catheter noted. Excoriation of mai surrounding skin with lot of moisture around. EXTREMITIES: No cyanosis, clubbing, bilateral lower extremity edema 2+ pitting NEUROLOGICAL: No focal deficits were appreciated; Generalized weakness SKIN: There are some multiple small sacral decubitus ulcer please refer to [facility] documentation for staging - Labs CBC & Chem 7: 11/27/19 06:04 11/27/19 06:04 Labs: Abnormal Lab Results - Last 24 Hours (Table) 11/27/19 11/27/19 11/27/19 Range/Units 06:04 06:04 06:04 WBC 14.8 H (3.8-10.6) k/uL RBC 2.35 L (4.30-5.90) m/uL Hgb 8.1 L (13.0-17.5) gm/dL Hct 25.1 L (39.0-53.0) % MCV 107.2 H (80.0-100.0) fL RDW 17.7 H (11.5-15.5) % Neutrophils # 10.6 H (1.3-7.7) k/uL Eosinophils # 1.1 H (0-0.7) k/uL Macrocytosis Marked A PT 14.3 H (9.0-12.0) sec INR 1.4 H (<1.2) Sodium 131 L (137-145) mmol/L BUN 40 H (9-20) mg/dL Creatinine 1.46 H (0.66-1.25) mg/dL Glucose 101 H (74-99) mg/dL Calcium 7.8 L (8.4-10.2) mg/dL Total Bilirubin 4.5 H (0.2-1.3) mg/dL AST 78 H (17-59) U/L Alkaline Phosphatase 341 H (38-126) U/L Albumin 2.2 L (3.5-5.0) g/dL Assessment and Plan Assessment: ASSESSMENT Acute upper GI bleed Duodenal ulcer on endoscopy Acute renal failure-prerenal azotemia Hepatorenal syndrome Coagulopathy Hepatic encephalopathy Alcoholic cirrhosis of the liver Hypovolemic hyponatremia Severe protein calorie malnutrition Stage II sacral decubitus ulcers Scrotal abscess/cellulitis PLAN: Spontaneous drainage of the scrotal abscess. Culture showing multiple organisms. ID Dr. Rod on board recommended antibiotics in the form of Augmentin, and also Diflucan which is been continued. Continue with lactulose and rifaximin and spironolactone. Overall prognosis is poor. Patient had 6.2 L of ascitic fluid drained on 11/23/2019. His abdomen is distended today, will consider ultrasound guided paracentesis on Thursday, after discussing with GI . Multiple consultants on board and following the patient. Continue with the current medication regimen. Further recommendations to follow depending on the progress of the patient
[2019-11-27] MEDS: TEMAZEPAM 15 MG CAP PO PRN (23:55)
[2019-11-28] MEDS: AMPICILLIN-SULBACTAM 3 GM in SODIUM CHLORIDE 0.9% 100 ML IVPB SCH ×3 (05:05→17:46)
[2019-11-28] MEDS: FUROSEMIDE 40 MG TAB PO SCH ×2 (08:54→16:25)
[2019-11-28] MEDS: FLUCONAZOLE 100 MG TAB PO SCH (08:54)
[2019-11-28] MEDS: SPIRONOLACTONE 25 MG TAB PO SCH ×2 (08:54→22:02)
[2019-11-28] MEDS: RIFAXIMIN 550 MG TABLET PO SCH ×2 (08:54→22:01)
[2019-11-28] MEDS: SODIUM BICARBONATE TAB 650 MG TAB PO SCH (08:54)
[2019-11-28] MEDS: PANTOPRAZOLE 40 MG TABLET PO SCH ×2 (08:54→22:01)
[2019-11-28] MEDS: LACTULOSE 20 GM/30 ML CUP PO SCH ×3 (08:55→22:02)
--- NOTE | 2019-11-28 09:35 | P.PN ---
Subjective Patient is seen in follow-up for acute kidney injury. Renal function better. Creatinine 1.46 today. Remains edematous. Patient resting in bed. Nonoliguric. Underwent paracentesis on November 16 with 4 L removed and appropriate with 6.2 L removed. Oral intake fair. Vital signs are stable. General: The patient appeared well nourished and normally developed. HEENT: Head exam is unremarkable. Neck is without jugular venous distension. LUNGS: Lungs are clear to auscultation and percussion. Breath sounds decreased. HEART: Rate and Rhythm are regular. ABDOMEN: Soft. Nontender. EXTREMITITES: 1+ edema. Objective - Vital Signs Vital signs: Vital Signs Temp 98.7 F 11/28/19 04:45 Pulse 98 11/28/19 04:45 Resp 20 11/28/19 04:45 BP 126/58 11/28/19 04:45 Pulse Ox 97 11/28/19 04:45 Intake & Output 11/27/19 11/28/19 11/28/19 18:59 06:59 18:59 Intake Total 1320 600 Output Total 2303 2601 Balance - Intake: Oral 1320 600 Output: Urine 2300 2600 Uretheral (Rosa) 1300 Stool 3 1 Other: Voiding Method Indwelling Catheter Indwelling Catheter # Bowel Movements 1 - Labs CBC & Chem 7: 11/27/19 06:04 11/27/19 06:04 Labs: Abnormal Lab Results - Last 24 Hours (Table) 11/28/19 Range/Units 06:28 C-Reactive Protein 51.2 H (<10.0) mg/L Assessment and Plan Plan: Assessment: 1. Acute kidney injury secondary to ATN secondary to acute blood loss anemia an d hypotension. Baseline creatinine near 1. Renal function improving the last 2 days. Creatinine 1.46 today. 2. Metabolic acidosis secondary to acute kidney injury and lactic acidosis. Partially also compensatory for chronic respiratory alkalosis due to liver cirrhosis. Better. Maintained on oral sodium bicarbonate. 3. Alcohol-induced liver cirrhosis. GI following. 4. Acute GI bleed status post EGD on November 10 which revealed one at ulcer and esophageal varices. No active bleeding was noted. Status post blood transfusions. 5. Hypokalemia from poor oral intake. Better. 6. Ascites status post paracentesis on November 16 with 4 L drained and November 22 6.2 L drained. 7. Volume overload. Plan: Maintain Aldactone 25 mg twice daily. Maintain Lasix 40 mg orally twice daily. Low-salt diet and 1500 mL fluid resection. Repeat electrolytes in the morning.
[2019-11-28 10:13] LABS: Albumin 2.4 g/dL (3.5-5.0); Potassium 4.9 mmol/L (3.5-5.1); Total Bilirubin 4.3 mg/dL (0.2-1.3); Total Protein 7.1 g/dL (6.3-8.2)
[2019-11-28 10:18] LABS: Anisocytosis Slight; Basophils % (A) 0 %; Eosinophils % (A) 7 %; HCT 26.4 % (39.0-53.0); HGB 8.3 gm/dL (13.0-17.5); Hypochromasia Slight; Lymphocytes # (A) 1.5 k/uL (1.0-4.8); Lymphocytes % (A) 11 %; MCH 34.3 pg (25.0-35.0); MCHC 31.4 g/dL (31.0-37.0); Macrocytosis Marked; Mean Platelet Volume 9.4; Monocytes # (A) 0.9 k/uL (0-1.0); Monocytes % (A) 6 %; Neutrophils # (A) 9.7 k/uL (1.3-7.7); Neutrophils % (A) 72 %; Platelet Count 217 k/uL (150-450); RBC 2.42 m/uL (4.30-5.90); RDW 17.4 % (11.5-15.5); WBC 13.5 k/uL (3.8-10.6)
--- NOTE | 2019-11-28 14:24 | P.PN ---
Subjective Progress Note Date: 11/28/19 Principal diagnosis: Acute GI bleed Alcoholic liver cirrhosis/alcoholic hepatitis/encephalopathy Scrotal abscess 59-year-old male patient with history of alcoholic liver cirrhosis admitted to the hospital with acute GI bleed and decompensated alcoholic hepatitis along with scrotal abscess; GI is following and patient is status post EGD; patient remains on broad-spectrum antibiotics versus scrotal abscess and urology is consulted 11/19/2019 Patient is seen and evaluated in room at bedside; remains somewhat lethargic; denies any specific complaints Vital signs are stable with a blood pressure 132/89; patient remains afebrile Patient is status post EGD for acute upper GI bleed which showed duodenal ulcer; GI is following and recommending to continue with Protonix 40 mg twice a day. Patient remains on lactulose 30 g by mouth 3 times a day along with Xifaxan for hepatic encephalopathy; continue with low-dose Lasix and Aldactone for ascites Urology is following and patient remains on broad-spectrum antibiotics; no marlon inable abscess anymore; patient will have outpatient follow-up 11/20/2019 Patient is seen and evaluated in room at bedside; remains sleepy and lethargic but arousable Patient is being followed by urology for chronic scrotal abscess which drained spontaneously; patient does not have any evidence of any fistula formation; urology suspecting nidus of infection deep in scrotum and recommending excision and drainage as an outpatient once patient is stable; patient remains on IV Unasyn Nephrology is following for acute renal injury which has resolved; patient remains nonoliguric; underwent paracentesis on 11/16 with removal of 4 L of fluid; remains on Aldactone 25 mg twice a day along with Lasix 40 mg daily; nephrology recommending an extra dose of IV Lasix at 40 mg 1; patient will continue with low-salt and fluid restricted diet Patient remains on lactulose and Xifaxan for hepatic encephalopathy Continues to have poor prognosis 11/21/2019 Patient is seen and evaluated in follow-up today more alert. Patient continues to be lethargic but easily arousable. Multiple medical consultations following. Remains on IV antibiotics in the form of Unasyn and also remains on Diflucan as wound cultures are finalized showing group B strep agalactiae, ecoli, ryan albicans, and alphahemolytic Streptococcus. Ammonia level slightly improved today and is 25. Bilirubin slowly trending down and is 8.9. SOdium remains slightly low at 133. Will continue with fluid restrictions. Creatinine today is 1.17. Case management and social work following for possible ECF placement once stabilized and discharged. No reports of chest pain, shortness of breath, or palpitations. Patient is afebrile. No reports of nausea or vomiting and patient is tolerating diet. 11/22/2019 Patient is seen in follow-up today and is alert and oriented 3. Patient continues to be quite lethargic at times and weak requiring 2 person assist with position changes. Multiple medical consultations following. Patient remains on IV antibiotics in the form of Unasyn along with Diflucan and will continue. Patient is to continue with fluids restrictions although continues to ask for fluid restrictions to be discontinued as he is always thirsty. Discussed with the patient at length about maintaining fluid restrictions at this time. Creatinine slightly worsened and is 1.40. Nephrology following. She continues on Lasix and Aldactone and will continue at this time. Patient scheduled to undergo paracentesis with interventional radiology tomorrow. Currently no reports of chest pain, worsening shortness of breath, or palpitations. Patient is afebrile. No reports of nausea or vomiting and patient is tolerating diet. Case management and social work following and working on placement at a rehab facility once stabilized and discharged. 11/23/2019 Patient seen and evaluated in follow-up today and continues to be extremely weak. Patient underwent ultrasound-guided paracentesis today with removal of 6.2 L. Multiple medical consultations following. He should continue with IV antibiotics. Patient remains on fluid restrictions. Nephrology following and remains on Lasix and Aldactone. Patient to receive albumin prior to and post paracentesis today. Patient remains on sodium bicarb tabs and dose has been decreased. Creatinine slightly improved at 1.37 with BUN of 41. Sodium is low at 130 today. Will repeat labs tomorrow. Patient will be going to [facility] for continued PT/OT therapy once patient is stabilized and discharged. 11/24/2019 Patient is seen in follow-up today and appears to be a little more alert and awake but fatigues easily. Patient is extremely weak requiring 1-2 person assist for position changes and getting up out of the bed. Encourage patient to continue increasing activity as tolerated and sitting out of the bed more. Is having some discomfort of his buttocks and appears to be macerated from continuous incontinence with stool. Tylenol and Toradol ordered. No reports of chest pain or palpitations. Patient states that his shortness of breath has slightly improved status post paracentesis yesterday. No reports of nausea or vomiting and patient is tolerating diet. Patient to continue with fluid restrictions. Creatinine improved today and is currently 1.15. Sodium is 131. Nephrology is following. 11/25/2019 Patient's serum creatinine went up to 1.8 because of which I'm holding the discharge patient is intravascularly volume depleted but the distal third spacing because of cirrhosis, holding of diuretics in spite of peripheral edema as well as ascites. Patient is bit sleepy. Constitutional: He appears to be severely fatigued bit sleepy Cardio vascular: denied any chest pain, palpitations Gastrointestinal denied any nausea vomiting Pulmonary: Denied any shortness of breath cough Neurologic denied any new focal deficits On 11/26/2019 -patient is sitting up in a chair by the bedside. Patient states that he has generalized weakness and feels fatigued. He denies having any chest pain or palpitations. He has mild difficulty in taking a deep breath because of his abdominal distention. He also has discomfort in his scrotal area where he had the abscess. He states that his lower extremities swelling has been the same. On reviewing the labs patient's white count is 14.5 hemoglobin of 8.4 sodium 132, creatinine 1.75, albumin 2.3, total bilirubin 5.4. On 11/27/2019 -patient is lying in his bed comfortably appears to be in no acute distress. He still complains of generalized fatigue and weakness. He states that his abdominal size is increasing but denies having any abdominal pain. Denies having any bleeding from any site. On reviewing his vitals patient spiked a fever of 99.8 last night. On reviewing his labs white count has been stable. No other significant changes in his labs. 11/28/2019 Patient is seen in follow-up lying in bed sleeping but arousable. Patient continues to have extreme fatigue and weakness and has been refusing to get up and out of the bed per nursing staff. Patient continues to be incontinent of stool which is causing severe excoriation of his buttocks area. Patient continues to have intermittent low-grade temps at times and abdomen is severely distended. Awaiting and appreciate GI input for another possible paracentesis. White blood count slowly trending down and is 13.5. Odium continues to be 131 and creatinine is slowly improving as well at 120. will repeat a.m. labs. Patient remains on Lasix and Aldactone and IV antibiotics and will continue at this time. Objective - Vital Signs Vital signs: Vital Signs Temp 98.7 F 11/28/19 04:45 Pulse 98 11/28/19 04:45 Resp 20 11/28/19 04:45 BP 126/58 11/28/19 04:45 Pulse Ox 97 11/28/19 04:45 Intake & Output 11/27/19 11/28/19 11/28/19 18:59 06:59 18:59 Intake Total 1320 600 Output Total 2303 2601 Balance - Intake: Oral 1320 600 Output: Urine 2300 2600 Uretheral (Rosa) 1300 Stool 3 1 Other: Voiding Method Indwelling Catheter Indwelling Catheter Indwelling Catheter # Bowel Movements 1 - Exam GENERAL: Asleep but arousable and oriented X3. Lying in bed. HEENT: Pupils are round and equally reacting to light. EOMI. Positive for scleral icterus and conjunctival pallor. Normocephalic, atraumatic. CARDIOVASCULAR: S1 and S2 present. No murmurs, rubs, or gallops. PULMONARY: Chest is clear to auscultation, no wheezing or crackles. Diminished at the lung bases ABDOMEN: Soft, Distended, normoactive bowel sounds. patient has a scrotal swelling with indwelling Rosa catheter noted. Excoriation of the surrounding skin with lot of moisture around. EXTREMITIES: No cyanosis, clubbing, bilateral lower extremity edema 2+ pitting NEUROLOGICAL: No focal deficits were appreciated; Generalized weakness SKIN: There are some multiple small sacral decubitus ulcer and excoriation noted of the buttocks area. please refer to nursing documentation for staging - Labs CBC & Chem 7: 11/28/19 06:28 11/28/19 06:28 Labs: Abnormal Lab Results - Last 24 Hours (Table) 11/28/19 11/28/19 11/28/19 Range/Units 06:28 06:28 06:28 WBC 13.5 H (3.8-10.6) k/uL RBC 2.42 L (4.30-5.90) m/uL Hgb 8.3 L (13.0-17.5) gm/dL Hct 26.4 L (39.0-53.0) % MCV 109.0 H (80.0-100.0) fL RDW 17.4 H (11.5-15.5) % Neutrophils # 9.7 H (1.3-7.7) k/uL Eosinophils # 1.0 H (0-0.7) k/uL Macrocytosis Marked A Sodium 131 L (137-145) mmol/L Carbon Dioxide 21 L (22-30) mmol/L BUN 35 H (9-20) mg/dL Glucose 125 H (74-99) mg/dL Calcium 8.0 L (8.4-10.2) mg/dL Total Bilirubin 4.3 H (0.2-1.3) mg/dL AST 88 H (17-59) U/L Alkaline Phosphatase 330 H (38-126) U/L C-Reactive Protein 51.2 H (<10.0) mg/L Albumin 2.4 L (3.5-5.0) g/dL Assessment and Plan Assessment: Acute upper GI bleed Duodenal ulcer on endoscopy Acute renal failure-prerenal azotemia Hepatorenal syndrome Coagulopathy Hepatic encephalopathy Alcoholic cirrhosis of the liver Hypovolemic hyponatremia Severe protein calorie malnutrition Stage II sacral decubitus ulcers Scrotal abscess/cellulitis PLAN: Spontaneous drainage of the scrotal abscess. Culture showing multiple organisms. ID Dr. Rod on board recommended antibiotics in the form of Augmentin, and also Diflucan which is been continued. Patient is currently on Unasyn and will continue at this time. Continue with lactulose and rifaximin and spironolactone. Overall prognosis is poor. Patient recently had 6.2 L of ascitic fluid drained on 11/23/2019. Patient scheduled to undergo ultrasound- guided paracentesis in the morning. Will await report . Multiple consultants on board and following the patient. Continue with the current medication regimen. Further recommendations to follow depending on the progress of the patient
--- NOTE | 2019-11-28 14:58 | PN ---
PROGRESS NOTE DATE OF DICTATION: 11/28/2019 The patient is a 59-year-old, white male who has been in the hospital for the last 2- 1/2 weeks with acute alcoholic hepatitis, GI bleed, hepatic encephalopathy, and ascites, as well as acute renal failure. The patient, over the last few days, has been progressively improving. Today he complains of abdominal distention but no abdominal pain. No nausea or vomiting. He denies any specific symptoms. PHYSICAL EXAMINATION: Appears comfortable. No apparent distress. VITAL SIGNS: Stable. Blood pressure 126/56, pulse rate 98, temperature 98.7. HEENT: Unremarkable. Conjunctivae pink. Sclerae slightly icteric. Oral cavity, no lesions. NECK: No JVD or lymph node enlargement. CHEST: Clear to auscultation. ABDOMEN: Distended. There was free fluid noted in the abdomen. EXTREMITIES: 1+ pedal edema. SKIN: No rashes. NEUROLOGIC: Alert and oriented x3. No focal deficits. LABS: From today, WBC 13.5, hemoglobin 8.6, platelets 217. INR 1.4, bilirubin is 4.3, AST and ALT are 88 and 44 respectively, alkaline phosphatase 330. IMPRESSION: 1. Acute alcoholic hepatitis superimposed on acute alcoholic hepatitis ,which is gradually improving by clinical parameters. 2. Hepatic encephalopathy, improving, remains on Xifaxan and lactulose. 3. Leukocytosis/scrotal abscess, remains on broad-spectrum antibiotics and gradually improving. 4. Ascites, status post large-volume paracentesis on November 16. Since he has worsening ascites, we will schedule him for paracentesis tomorrow. In the meantime, continue with Lasix 40 mg twice daily and spironolactone 25 mg twice daily. 5. Coagulopathy secondary to underlying liver disease. RECOMMENDATIONS: 1. Continue current medications. 2. Schedule him for large-volume paracentesis tomorrow. 3. Continue broad-spectrum antibiotics. 4. Continue with lactulose and Xifaxan. 5. Repeat labs in the morning and we will follow with you closely. Thank you for this consultation. MMODL / IJN: [id number] /
[2019-11-28] MEDS: TEMAZEPAM 15 MG CAP PO PRN (22:09)
--- NOTE | 2019-11-28 22:42 | PN ---
PROGRESS NOTE DATE OF SERVICE: 11/28/2019. REASON FOR FOLLOW UP: 1. Scrotal abscess. 2. Stage II sacral pressure ulcer. INTERVAL HISTORY: The patient is currently afebrile, has been breathing comfortably denies any chest pain or cough. Still has significant abdominal distention and no worsening pain to the sacral wound area. PHYSICAL EXAMINATION: Blood pressure 120/69 with a pulse of 88. Temperature is 97.7. He is 99% on room air. General description: The patient is a middle-aged male lying in bed in no distress. Respiratory system: Unlabored breathing. Clear to auscultation anteriorly. Heart S1, S2. Regular rate and rhythm. Abdomen soft, no tenderness, still distended. LABS: Hemoglobin 8.8, white count 13.5, BUN of 35, creatinine 1.20. DIAGNOSTIC IMPRESSION AND PLAN: Patient with scrotal abscess status post spontaneous drainage. Culture with multiple pathogen in this patient who did have underlying liver cirrhosis and significant ascites. Patient is covered with Unasyn and Diflucan to continue and monitor his clinical course closely. MMODL / IJN: [id number] /
[2019-11-29] MEDS: AMPICILLIN-SULBACTAM 3 GM in SODIUM CHLORIDE 0.9% 100 ML IVPB SCH ×4 (00:59→18:10)
[2019-11-29 07:56] LABS: Albumin 2.3 g/dL (3.5-5.0); Calcium 7.8 mg/dL (8.4-10.2); Magnesium 2.1 mg/dL (1.6-2.3); Potassium 4.8 mmol/L (3.5-5.1); Total Bilirubin 4.2 mg/dL (0.2-1.3)
[2019-11-29 07:57] LABS: Anisocytosis Slight; Basophils # (A) 0.1 k/uL (0-0.2); Basophils % (A) 0 %; Eosinophils # (A) 1.3 k/uL (0-0.7); Eosinophils % (A) 9 %; HCT 23.8 % (39.0-53.0); HGB 7.7 gm/dL (13.0-17.5); Lymphocytes # (A) 1.4 k/uL (1.0-4.8); Lymphocytes % (A) 10 %; MCH 34.5 pg (25.0-35.0); MCHC 32.2 g/dL (31.0-37.0); MCV 107.1 fL (80.0-100.0); Macrocytosis Marked; Mean Platelet Volume 8.5; Monocytes # (A) 0.9 k/uL (0-1.0); Monocytes % (A) 6 %; Neutrophils % (A) 71 %; Platelet Count 228 k/uL (150-450); RBC 2.22 m/uL (4.30-5.90); RDW 17.1 % (11.5-15.5)
[2019-11-29] MEDS ORDERED: FUROSEMIDE 10 MG/ML 4 ML VIAL IV STA (07:58)
[2019-11-29 08:28] LABS: Hypochromasia (M) Present
[2019-11-29] MEDS: RIFAXIMIN 550 MG TABLET PO SCH ×2 (08:56→22:06)
[2019-11-29] MEDS: SODIUM BICARBONATE TAB 650 MG TAB PO SCH (08:57)
[2019-11-29] MEDS: SPIRONOLACTONE 25 MG TAB PO SCH ×2 (08:57→22:07)
[2019-11-29] MEDS: PANTOPRAZOLE 40 MG TABLET PO SCH ×2 (08:57→22:06)
[2019-11-29] MEDS: FLUCONAZOLE 100 MG TAB PO SCH (08:58)
[2019-11-29] MEDS: FUROSEMIDE 40 MG TAB PO SCH ×2 (08:58→18:10)
[2019-11-29] MEDS: LACTULOSE 20 GM/30 ML CUP PO SCH ×3 (08:58→22:07)
--- NOTE | 2019-11-29 09:12 | P.PN ---
Subjective Patient is seen in follow-up for acute kidney injury. Renal function better. Creatinine 1.16 today. Remains edematous. Patient resting in bed. Nonoliguric. Underwent paracentesis on November 16 with 4 L removed and appropriate with 6.2 L removed. Scheduled for another paracentesis today. Oral intake fair. Vital signs are stable. General: The patient appeared well nourished and normally developed. HEENT: Head exam is unremarkable. Neck is without jugular venous distension. LUNGS: Lungs are clear to auscultation and percussion. Breath sounds decreased. HEART: Rate and Rhythm are regular. ABDOMEN: Soft. Nontender. EXTREMITITES: 1+ edema. Objective - Vital Signs Vital signs: Vital Signs Temp 98.1 F 11/29/19 06:27 Pulse 95 11/29/19 06:27 Resp 20 11/29/19 06:27 BP 128/72 11/29/19 06:27 Pulse Ox 99 11/29/19 06:27 Intake & Output 11/28/19 11/29/19 11/29/19 18:59 06:59 18:59 Intake Total 1640 240 Output Total 650 1651 260 Balance 990 -1411 -260 Intake: Oral 1640 240 Output: Urine 650 1650 260 Stool 1 Other: Voiding Method Indwelling Catheter # Bowel Movements 1 1 - Labs CBC & Chem 7: 11/29/19 06:47 11/29/19 06:47 Labs: Abnormal Lab Results - Last 24 Hours (Table) 11/28/19 11/28/19 11/28/19 Range/Units 06:28 06:28 06:28 WBC (3.8-10.6) k/uL RBC (4.30-5.90) m/uL Hgb (13.0-17.5) gm/dL Hct (39.0-53.0) % MCV (80.0-100.0) fL RDW (11.5-15.5) % Neutrophils # (1.3-7.7) k/uL Eosinophils # (0-0.7) k/uL Macrocytosis Sodium 131 L (137-145) mmol/L Carbon Dioxide 21 L (22-30) mmol/L BUN 35 H (9-20) mg/dL Glucose 125 H (74-99) mg/dL Calcium 8.0 L (8.4-10.2) mg/dL Total Bilirubin 4.3 H (0.2-1.3) mg/dL AST 88 H (17-59) U/L Alkaline Phosphatase 330 H (38-126) U/L C-Reactive Protein 51.2 H (<10.0) mg/L Albumin 2.4 L (3.5-5.0) g/dL Procalcitonin 0.34 H (0.02-0.09) ng/mL 11/28/19 11/29/19 11/29/19 Range/Units 06:28 06:47 06:47 WBC 13.5 H 14.0 H (3.8-10.6) k/uL RBC 2.42 L 2.22 L (4.30-5.90) m/uL Hgb 8.3 L 7.7 L (13.0-17.5) gm/dL Hct 26.4 L 23.8 L (39.0-53.0) % MCV 109.0 H 107.1 H (80.0-100.0) fL RDW 17.4 H 17.1 H (11.5-15.5) % Neutrophils # 9.7 H 10.0 H (1.3-7.7) k/uL Eosinophils # 1.0 H 1.3 H (0-0.7) k/uL Macrocytosis Marked A Marked A Sodium 133 L (137-145) mmol/L Carbon Dioxide (22-30) mmol/L BUN 29 H (9-20) mg/dL Glucose 127 H (74-99) mg/dL Calcium 7.8 L (8.4-10.2) mg/dL Total Bilirubin 4.2 H (0.2-1.3) mg/dL AST 82 H (17-59) U/L Alkaline Phosphatase 310 H (38-126) U/L C-Reactive Protein (<10.0) mg/L Albumin 2.3 L (3.5-5.0) g/dL Procalcitonin (0.02-0.09) ng/mL Assessment and Plan Plan: Assessment: 1. Acute kidney injury secondary to ATN secondary to acute blood loss anemia and hypotension. Baseline creatinine near 1. Renal function improving the last 2 days. Creatinine 1.16 today. 2. Metabolic acidosis secondary to acute kidney injury and lactic acidosis. Partially also compensatory for chronic respiratory alkalosis due to liver cirrhosis. Better. Maintained on oral sodium bicarbonate. 3. Alcohol-induced liver cirrhosis. GI following. 4. Acute GI bleed status post EGD on November 10 which revealed one at ulcer and esophageal varices. No active bleeding was noted. Status post blood transfusions. 5. Hypokalemia from poor oral intake. Better. 6. Ascites status post paracentesis on November 16 with 4 L drained and November 22 6.2 L drained. 7. Volume overload. Plan: Increase Aldactone to 50 mg twice daily. Maintain Lasix 40 mg orally twice daily. Low-salt diet and 1500 mL fluid resection. Repeat electrolytes in the morning. 25 g of albumin before and after paracentesis. An additional 25 g of more than 8 L removed.
[2019-11-29] MEDS: ALBUMIN HUMAN 25% 50 ML in EMPTY BAG 1 BAG IVPB SCH ×2 (09:57→12:38)
--- NOTE | 2019-11-29 13:58 | P.PN ---
Subjective Progress Note Date: 11/29/19 Principal diagnosis: Acute GI bleed Alcoholic liver cirrhosis/alcoholic hepatitis/encephalopathy Scrotal abscess 59-year-old male patient with history of alcoholic liver cirrhosis admitted to the hospital with acute GI bleed and decompensated alcoholic hepatitis along with scrotal abscess; GI is following and patient is status post EGD; patient remains on broad-spectrum antibiotics versus scrotal abscess and urology is consulted 11/19/2019 Patient is seen and evaluated in room at bedside; remains somewhat lethargic; denies any specific complaints Vital signs are stable with a blood pressure 132/89; patient remains afebrile Patient is status post EGD for acute upper GI bleed which showed duodenal ulcer; GI is following and recommending to continue with Protonix 40 mg twice a day. Patient remains on lactulose 30 g by mouth 3 times a day along with Xifaxan for hepatic encephalopathy; continue with low-dose Lasix and Aldactone for ascites Urology is following and patient remains on broad-spectrum antibiotics; no marlon inable abscess anymore; patient will have outpatient follow-up 11/20/2019 Patient is seen and evaluated in room at bedside; remains sleepy and lethargic but arousable Patient is being followed by urology for chronic scrotal abscess which drained spontaneously; patient does not have any evidence of any fistula formation; urology suspecting nidus of infection deep in scrotum and recommending excision and drainage as an outpatient once patient is stable; patient remains on IV Unasyn Nephrology is following for acute renal injury which has resolved; patient remains nonoliguric; underwent paracentesis on 11/16 with removal of 4 L of fluid; remains on Aldactone 25 mg twice a day along with Lasix 40 mg daily; nephrology recommending an extra dose of IV Lasix at 40 mg 1; patient will continue with low-salt and fluid restricted diet Patient remains on lactulose and Xifaxan for hepatic encephalopathy Continues to have poor prognosis 11/21/2019 Patient is seen and evaluated in follow-up today more alert. Patient continues to be lethargic but easily arousable. Multiple medical consultations following. Remains on IV antibiotics in the form of Unasyn and also remains on Diflucan as wound cultures are finalized showing group B strep agalactiae, ecoli, ryan albicans, and alphahemolytic Streptococcus. Ammonia level slightly improved today and is 25. Bilirubin slowly trending down and is 8.9. SOdium remains slightly low at 133. Will continue with fluid restrictions. Creatinine today is 1.17. Case management and social work following for possible ECF placement once stabilized and discharged. No reports of chest pain, shortness of breath, or palpitations. Patient is afebrile. No reports of nausea or vomiting and patient is tolerating diet. 11/22/2019 Patient is seen in follow-up today and is alert and oriented 3. Patient continues to be quite lethargic at times and weak requiring 2 person assist with position changes. Multiple medical consultations following. Patient remains on IV antibiotics in the form of Unasyn along with Diflucan and will continue. Patient is to continue with fluids restrictions although continues to ask for fluid restrictions to be discontinued as he is always thirsty. Discussed with the patient at length about maintaining fluid restrictions at this time. Creatinine slightly worsened and is 1.40. Nephrology following. She continues on Lasix and Aldactone and will continue at this time. Patient scheduled to undergo paracentesis with interventional radiology tomorrow. Currently no reports of chest pain, worsening shortness of breath, or palpitations. Patient is afebrile. No reports of nausea or vomiting and patient is tolerating diet. Case management and social work following and working on placement at a rehab facility once stabilized and discharged. 11/23/2019 Patient seen and evaluated in follow-up today and continues to be extremely weak. Patient underwent ultrasound-guided paracentesis today with removal of 6.2 L. Multiple medical consultations following. He should continue with IV antibiotics. Patient remains on fluid restrictions. Nephrology following and remains on Lasix and Aldactone. Patient to receive albumin prior to and post paracentesis today. Patient remains on sodium bicarb tabs and dose has been decreased. Creatinine slightly improved at 1.37 with BUN of 41. Sodium is low at 130 today. Will repeat labs tomorrow. Patient will be going to [facility] for continued PT/OT therapy once patient is stabilized and discharged. 11/24/2019 Patient is seen in follow-up today and appears to be a little more alert and awake but fatigues easily. Patient is extremely weak requiring 1-2 person assist for position changes and getting up out of the bed. Encourage patient to continue increasing activity as tolerated and sitting out of the bed more. Is having some discomfort of his buttocks and appears to be macerated from continuous incontinence with stool. Tylenol and Toradol ordered. No reports of chest pain or palpitations. Patient states that his shortness of breath has slightly improved status post paracentesis yesterday. No reports of nausea or vomiting and patient is tolerating diet. Patient to continue with fluid restrictions. Creatinine improved today and is currently 1.15. Sodium is 131. Nephrology is following. 11/25/2019 Patient's serum creatinine went up to 1.8 because of which I'm holding the discharge patient is intravascularly volume depleted but the distal third spacing because of cirrhosis, holding of diuretics in spite of peripheral edema as well as ascites. Patient is bit sleepy. Constitutional: He appears to be severely fatigued bit sleepy Cardio vascular: denied any chest pain, palpitations Gastrointestinal denied any nausea vomiting Pulmonary: Denied any shortness of breath cough Neurologic denied any new focal deficits On 11/26/2019 -patient is sitting up in a chair by the bedside. Patient states that he has generalized weakness and feels fatigued. He denies having any chest pain or palpitations. He has mild difficulty in taking a deep breath because of his abdominal distention. He also has discomfort in his scrotal area where he had the abscess. He states that his lower extremities swelling has been the same. On reviewing the labs patient's white count is 14.5 hemoglobin of 8.4 sodium 132, creatinine 1.75, albumin 2.3, total bilirubin 5.4. On 11/27/2019 -patient is lying in his bed comfortably appears to be in no acute distress. He still complains of generalized fatigue and weakness. He states that his abdominal size is increasing but denies having any abdominal pain. Denies having any bleeding from any site. On reviewing his vitals patient spiked a fever of 99.8 last night. On reviewing his labs white count has been stable. No other significant changes in his labs. 11/28/2019 Patient is seen in follow-up lying in bed sleeping but arousable. Patient continues to have extreme fatigue and weakness and has been refusing to get up and out of the bed per nursing staff. Patient continues to be incontinent of stool which is causing severe excoriation of his buttocks area. Patient continues to have intermittent low-grade temps at times and abdomen is severely distended. Awaiting and appreciate GI input for another possible paracentesis. White blood count slowly trending down and is 13.5. Odium continues to be 131 and creatinine is slowly improving as well at 1.20. will repeat a.m. labs. Patient remains on Lasix and Aldactone and IV antibiotics and will continue at this time. 11/29/2019 Patient is seen and evaluated this morning and continues to be quite lethargic but is arousable. Patient is currently being transferred to the chair requiring 1-2 person assist. Patient is scheduled to undergo paracentesis for abdominal distention and ascites today with interventional radiology. Discussed with the patient at length about current CODE STATUS and his thoughts on his current treatment plan and patient continues to be very lethargic but responded with "my will be able to take care of me, she has her own health conditions with her heart". Discussed with the patient about possible palliative and/or hospice care and patient continued to fall asleep. Multiple medical consultations following. Sodium slightly improved today and is 133 the current creatinine of 1.16. Patient remains on Unasyn and Diflucan and will continue at this time. Patient remains on Lasix and Aldactone and Aldactone is currently being increased. Objective - Vital Signs Vital signs: Vital Signs Temp 98.1 F 11/29/19 06:27 Pulse 95 11/29/19 06:27 Resp 20 11/29/19 06:27 BP 128/72 11/29/19 06:27 Pulse Ox 99 11/29/19 06:27 Intake & Output 11/28/19 11/29/19 11/29/19 18:59 06:59 18:59 Intake Total 1640 240 Output Total 650 1651 260 Balance 990 -1411 -260 Weight 93 kg Intake: Oral 1640 240 Output: Urine 650 1650 260 Stool 1 Other: Voiding Method Indwelling Catheter # Bowel Movements 1 1 - Exam GENERAL: Asleep but arousable and oriented X3. Lying in bed. HEENT: Pupils are round and equally reacting to light. EOMI. Positive for scleral icterus and conjunctival pallor. Normocephalic, atraumatic. CARDIOVASCULAR: S1 and S2 present. No murmurs, rubs, or gallops. PULMONARY: Chest is clear to auscultation, no wheezing or crackles. Diminished at the lung bases ABDOMEN: Soft, largely Distended, taut, normoactive bowel sounds. patient has a scrotal swelling with indwelling Rosa catheter noted. Excoriation of the surrounding skin with lot of moisture around. EXTREMITIES: No cyanosis, clubbing, bilateral lower extremity edema 2+ pitting NEUROLOGICAL: No focal deficits were appreciated; Generalized weakness SKIN: There are some multiple small sacral decubitus ulcers and excoriation noted of the buttocks area. please refer to nursing documentation for staging - Labs CBC & Chem 7: 11/29/19 06:47 11/29/19 06:47 Labs: Abnormal Lab Results - Last 24 Hours (Table) 11/28/19 11/28/19 11/29/19 Range/Units 06:28 06:28 06:47 WBC 13.5 H (3.8-10.6) k/uL RBC 2.42 L (4.30-5.90) m/uL Hgb 8.3 L (13.0-17.5) gm/dL Hct 26.4 L (39.0-53.0) % MCV 109.0 H (80.0-100.0) fL RDW 17.4 H (11.5-15.5) % Neutrophils # 9.7 H (1.3-7.7) k/uL Eosinophils # 1.0 H (0-0.7) k/uL Macrocytosis Marked A Sodium 133 L (137-145) mmol/L BUN 29 H (9-20) mg/dL Glucose 127 H (74-99) mg/dL Calcium 7.8 L (8.4-10.2) mg/dL Total Bilirubin 4.2 H (0.2-1.3) mg/dL AST 82 H (17-59) U/L Alkaline Phosphatase 310 H (38-126) U/L Albumin 2.3 L (3.5-5.0) g/dL Procalcitonin 0.34 H (0.02-0.09) ng/mL 11/29/19 Range/Units 06:47 WBC 14.0 H (3.8-10.6) k/uL RBC 2.22 L (4.30-5.90) m/uL Hgb 7.7 L (13.0-17.5) gm/dL Hct 23.8 L (39.0-53.0) % MCV 107.1 H (80.0-100.0) fL RDW 17.1 H (11.5-15.5) % Neutrophils # 10.0 H (1.3-7.7) k/uL Eosinophils # 1.3 H (0-0.7) k/uL Macrocytosis Marked A Sodium (137-145) mmol/L BUN (9-20) mg/dL Glucose (74-99) mg/dL Calcium (8.4-10.2) mg/dL Total Bilirubin (0.2-1.3) mg/dL AST (17-59) U/L Alkaline Phosphatase (38-126) U/L Albumin (3.5-5.0) g/dL Procalcitonin (0.02-0.09) ng/mL Assessment and Plan Assessment: Acute upper GI bleed Duodenal ulcer on endoscopy Acute renal failure-prerenal azotemia Hepatorenal syndrome Coagulopathy Hepatic encephalopathy Alcoholic cirrhosis of the liver Hypovolemic hyponatremia Severe protein calorie malnutrition Stage II sacral decubitus ulcers Scrotal abscess/cellulitis PLAN: Spontaneous drainage of the scrotal abscess. Culture showing multiple organisms. ID Dr. Rod on board recommended antibiotics in the form of Augmentin, and also Diflucan which is been continued. Patient is currently on Unasyn and will continue at this time. Continue with lactulose and rifaximin and spironolactone. Aldactone being increased and patient also remains on Lasix. Overall prognosis is poor. Patient recently had 6.2 L of ascitic fluid drained on 11/23/2019. Patient underwent ultrasound-guided paracentesis with approximately 5.8 L removed today. Patient did receive albumin prior to and post procedure. Nephrology following. Multiple consultants on board and following the patient. Continue with the current medication regimen. Further recommendations to follow depending on the progress of the patient. Patient is scheduled to go to rehab once stabilized and discharge. Case management and social work following.
--- NOTE | 2019-11-29 20:32 | PN ---
PROGRESS NOTE DATE OF DICTATION: 11/29/2019 The patient is a 59-year-old, pleasant, white male admitted to the hospital with alcoholic cirrhosis and acute alcoholic hepatitis. While in the hospital, he developed ascites and underwent a large-volume paracentesis 10 days ago. Yesterday he was complaining of abdominal distention and he is scheduled for repeat large-volume paracentesis which is scheduled for this afternoon. In the meantime, the patient is doing well. He complains of abdominal distention. He reports no abdominal pain. No other new symptoms. Tolerating diet well. PHYSICAL EXAMINATION: On physical examination, appears comfortable. No apparent distress. VITAL SIGNS: Stable. Blood pressure 116/67, pulse rate 100, temperature 98.3. HEENT: Unremarkable. Conjunctivae pink. Sclerae icteric. Oral cavity, no lesions. NECK: No JVD or lymph node enlargement. CHEST: Clear to auscultation. HEART: Regular rate and rhythm. ABDOMEN: Distended. Free fluid noted in the abdomen. Mild tenderness in the right upper quadrant area. EXTREMITIES: No pedal edema. NEUROLOGIC: He is alert and oriented x3. No focal deficits. LABS: Labs from today: WBC 14, hemoglobin 7.7, platelets 228. T bili is down to 4.2. AST and ALT and 82 and 40, respectively. BUN and creatinine are 29 and 1.16. IMPRESSION: 1. Acute alcoholic hepatitis with alcoholic cirrhosis of the liver which is gradually improving. 2. Ascites. Patient scheduled for large-volume paracentesis today. 3. Hepatic encephalopathy, resolved. 4. Scrotal abscess, on antibiotics. 5. History of heavy alcohol abuse. RECOMMENDATIONS: 1. Continue his current diuretics. 2. Low-salt diet. 3. Awaiting large-volume paracentesis for today. 4. Continue with Xifaxan and lactulose. 5. Continue antibiotics. 6. Will follow with you closely. Thank you for this consultation MMODL / IJN: [id number] /
--- NOTE | 2019-11-29 21:54 | PN ---
PROGRESS NOTE DATE OF SERVICE: 11/29/2019 REASON FOR FOLLOWUP: 1. Scrotal abscess. 2. Sacral pressure ulcer. INTERVAL HISTORY: The patient is currently afebrile, has been breathing comfortably. The patient is status post paracentesis today. He tolerated the procedure. Abdominal distention is decreased. No chest pain or cough. Complains of some discomfort to the sacral wound. PHYSICAL EXAMINATION: Blood pressure 116/67 with a pulse of 100, temperature 98.3. He is 100% on room air. General description is a middle-aged male lying in bed in no distress. RESPIRATORY SYSTEM: Unlabored breathing. Clear to auscultation anteriorly. HEART: S1, S2. Regular rate and rhythm. ABDOMEN: Soft. No distention. LABS: Hemoglobin 7.7, white count 14, BUN of 29, creatinine 1.16. DIAGNOSTIC IMPRESSION AND PLAN: Patient with scrotal abscess, status post spontaneous drainage. Culture pathogen. Patient covered with Unasyn and Diflucan; to continue, transitioning to oral antibiotic on discharge. Continue with supportive care. MMODL / IJN: [id number] /
[2019-11-30] MEDS: AMPICILLIN-SULBACTAM 3 GM in SODIUM CHLORIDE 0.9% 100 ML IVPB SCH ×4 (01:15→17:05)
[2019-11-30] MEDS: RIFAXIMIN 550 MG TABLET PO SCH ×2 (08:06→22:08)
[2019-11-30] MEDS: PANTOPRAZOLE 40 MG TABLET PO SCH ×2 (08:06→22:08)
[2019-11-30] MEDS: FLUCONAZOLE 100 MG TAB PO SCH (08:07)
[2019-11-30] MEDS: FUROSEMIDE 40 MG TAB PO SCH ×2 (08:07→17:05)
[2019-11-30] MEDS: SODIUM BICARBONATE TAB 650 MG TAB PO SCH (08:07)
[2019-11-30] MEDS: SPIRONOLACTONE 25 MG TAB PO SCH ×2 (08:07→22:08)
[2019-11-30] MEDS: LACTULOSE 20 GM/30 ML CUP PO SCH ×3 (08:07→22:05)
[2019-11-30 08:14] LABS: Anisocytosis Slight; Basophils % (A) 0 %; Eosinophils % (A) 8 %; HCT 23.9 % (39.0-53.0); HGB 7.7 gm/dL (13.0-17.5); Lymphocytes # (A) 1.2 k/uL (1.0-4.8); Lymphocytes % (A) 9 %; MCH 34.7 pg (25.0-35.0); MCHC 32.3 g/dL (31.0-37.0); MCV 107.3 fL (80.0-100.0); Macrocytosis Marked; Mean Platelet Volume 8.4; Monocytes # (A) 0.8 k/uL (0-1.0); Monocytes % (A) 6 %; Neutrophils # (A) 9.6 k/uL (1.3-7.7); Neutrophils % (A) 74 %; Platelet Count 208 k/uL (150-450); RBC 2.23 m/uL (4.30-5.90); RDW 17.1 % (11.5-15.5)
[2019-11-30 08:24] LABS: ALT 36 U/L (4-49); AST 76 U/L (17-59); African American GFR (CKD) >90 (>60 ml/min/1.73 sqM); Albumin 2.3 g/dL (3.5-5.0); Alkaline Phosphatase 290 U/L (38-126); Anion Gap 8 mmol/L; Blood Urea Nitrogen 21 mg/dL (9-20); Calcium 7.8 mg/dL (8.4-10.2); Carbon Dioxide 23 mmol/L (22-30); Chloride 100 mmol/L (98-107); Glucose 109 mg/dL (74-99); Non-African American GFR(CKD) 80 (>60 ml/min/1.73 sqM); Potassium 4.4 mmol/L (3.5-5.1); Sodium 131 mmol/L (137-145); Total Bilirubin 3.5 mg/dL (0.2-1.3); Total Protein 6.8 g/dL (6.3-8.2)
--- NOTE | 2019-11-30 08:41 | US ---
EXAMINATION TYPE: US paracentesis abd w/image DATE OF EXAM: 11/29/2019 COMPARISON: NONE HISTORY: Ascites. PROCEDURE: Maximal barrier technique was utilized. The skin overlying a suitable pocket of fluid was localized with ultrasound and the overlying skin was prepped and draped. Ultrasound was utilized with sterile technique. Lidocaine was used for local anesthesia and a skin sheri made with a scalpel. Catheter was advanced under direct ultrasound guidance into a suitable pocket of fluid and approximately 5.8 liter s of serous fluid were removed. Catheter was withdrawn and hemostasis achieved. There is no immedia te complication; the patient is discharged in stable condition. IMPRESSION: STATUS POST ULTRASOUND GUIDED PARACENTESIS FOR PALLIATION OF ASCITES. THIS PROCEDURE WA S PERFORMED BY THE UNDERSIGNED.
[2019-11-30 10:28] LABS: Poikilocytosis (M) Present
--- NOTE | 2019-11-30 12:23 | P.PN ---
Subjective Patient is seen in follow-up for acute kidney injury. Renal function better. Creatinine 1.01 today. Edema improved. Patient resting in bed. Nonoliguric. Underwent paracentesis on November 28 with 5.8 L removed. He is maintained on oral Lasix and Aldactone. Vital signs are stable. General: The patient appeared well nourished and normally developed. HEENT: Head exam is unremarkable. Neck is without jugular venous distension. LUNGS: Lungs are clear to auscultation and percussion. Breath sounds decreased. HEART: Rate and Rhythm are regular. ABDOMEN: Soft. Nontender. EXTREMITITES: 1+ edema. Objective - Vital Signs Vital signs: Vital Signs Temp 99.0 F 11/30/19 07:00 Pulse 93 11/30/19 07:00 Resp 18 11/30/19 07:00 BP 118/65 11/30/19 07:00 Pulse Ox 98 11/30/19 07:00 Intake & Output 11/29/19 11/30/19 11/30/19 18:59 06:59 18:59 Output Total 261 903 Balance -261 -903 Weight 93 kg Output: Urine 260 900 Stool 1 3 Other: Voiding Method Indwelling Catheter Indwelling Catheter # Voids 2 # Bowel Movements 2 - Labs CBC & Chem 7: 11/30/19 07:00 11/30/19 07:00 Labs: Abnormal Lab Results - Last 24 Hours (Table) 11/30/19 11/30/19 Range/Units 07:00 07:00 WBC 13.0 H (3.8-10.6) k/uL RBC 2.23 L (4.30-5.90) m/uL Hgb 7.7 L (13.0-17.5) gm/dL Hct 23.9 L (39.0-53.0) % MCV 107.3 H (80.0-100.0) fL RDW 17.1 H (11.5-15.5) % Neutrophils # 9.6 H (1.3-7.7) k/uL Eosinophils # 1.0 H (0-0.7) k/uL Macrocytosis Marked A Sodium 131 L (137-145) mmol/L BUN 21 H (9-20) mg/dL Glucose 109 H (74-99) mg/dL Calcium 7.8 L (8.4-10.2) mg/dL Total Bilirubin 3.5 H (0.2-1.3) mg/dL AST 76 H (17-59) U/L Alkaline Phosphatase 290 H (38-126) U/L Albumin 2.3 L (3.5-5.0) g/dL Assessment and Plan Plan: Assessment: 1. Acute kidney injury secondary to ATN secondary to acute blood loss anemia and hypotension. Baseline creatinine near 1. Renal function improving the last 2 days. Creatinine 1.01 today. 2. Metabolic acidosis secondary to acute kidney injury and lactic acidosis. Partially also compensatory for chronic respiratory alkalosis due to liver cirrhosis. Better. Maintained on oral sodium bicarbonate. 3. Alcohol-induced liver cirrhosis. GI following. 4. Acute GI bleed status post EGD on November 10 which revealed one at ulcer and esophageal varices. No active bleeding was noted. Status post blood transfusions. 5. Hypokalemia from poor oral intake. Better. 6. Ascites status post paracentesis on November 16 with 4 L drained; November 22 6.2 L drained; November 28 at 5.8 L drained. 7. Volume overload. 8. Hypervolemic hyponatremia. Plan: Maintain Aldactone 50 mg twice daily. Maintain Lasix 40 mg orally twice daily. Low-salt diet and 1500 mL fluid resection. Repeat electrolytes in the morning.
--- NOTE | 2019-11-30 14:22 | P.PN ---
Subjective Progress Note Date: 11/30/19 Principal diagnosis: Acute GI bleed Alcoholic liver cirrhosis/alcoholic hepatitis/encephalopathy Scrotal abscess 59-year-old male patient with history of alcoholic liver cirrhosis admitted to the hospital with acute GI bleed and decompensated alcoholic hepatitis along with scrotal abscess; GI is following and patient is status post EGD; patient remains on broad-spectrum antibiotics versus scrotal abscess and urology is consulted 11/19/2019 Patient is seen and evaluated in room at bedside; remains somewhat lethargic; denies any specific complaints Vital signs are stable with a blood pressure 132/89; patient remains afebrile Patient is status post EGD for acute upper GI bleed which showed duodenal ulcer; GI is following and recommending to continue with Protonix 40 mg twice a day. Patient remains on lactulose 30 g by mouth 3 times a day along with Xifaxan for hepatic encephalopathy; continue with low-dose Lasix and Aldactone for ascites Urology is following and patient remains on broad-spectrum antibiotics; no marlon inable abscess anymore; patient will have outpatient follow-up 11/20/2019 Patient is seen and evaluated in room at bedside; remains sleepy and lethargic but arousable Patient is being followed by urology for chronic scrotal abscess which drained spontaneously; patient does not have any evidence of any fistula formation; urology suspecting nidus of infection deep in scrotum and recommending excision and drainage as an outpatient once patient is stable; patient remains on IV Unasyn Nephrology is following for acute renal injury which has resolved; patient remains nonoliguric; underwent paracentesis on 11/16 with removal of 4 L of fluid; remains on Aldactone 25 mg twice a day along with Lasix 40 mg daily; nephrology recommending an extra dose of IV Lasix at 40 mg 1; patient will continue with low-salt and fluid restricted diet Patient remains on lactulose and Xifaxan for hepatic encephalopathy Continues to have poor prognosis 11/21/2019 Patient is seen and evaluated in follow-up today more alert. Patient continues to be lethargic but easily arousable. Multiple medical consultations following. Remains on IV antibiotics in the form of Unasyn and also remains on Diflucan as wound cultures are finalized showing group B strep agalactiae, ecoli, ryan albicans, and alphahemolytic Streptococcus. Ammonia level slightly improved today and is 25. Bilirubin slowly trending down and is 8.9. SOdium remains slightly low at 133. Will continue with fluid restrictions. Creatinine today is 1.17. Case management and social work following for possible ECF placement once stabilized and discharged. No reports of chest pain, shortness of breath, or palpitations. Patient is afebrile. No reports of nausea or vomiting and patient is tolerating diet. 11/22/2019 Patient is seen in follow-up today and is alert and oriented 3. Patient continues to be quite lethargic at times and weak requiring 2 person assist with position changes. Multiple medical consultations following. Patient remains on IV antibiotics in the form of Unasyn along with Diflucan and will continue. Patient is to continue with fluids restrictions although continues to ask for fluid restrictions to be discontinued as he is always thirsty. Discussed with the patient at length about maintaining fluid restrictions at this time. Creatinine slightly worsened and is 1.40. Nephrology following. She continues on Lasix and Aldactone and will continue at this time. Patient scheduled to undergo paracentesis with interventional radiology tomorrow. Currently no reports of chest pain, worsening shortness of breath, or palpitations. Patient is afebrile. No reports of nausea or vomiting and patient is tolerating diet. Case management and social work following and working on placement at a rehab facility once stabilized and discharged. 11/23/2019 Patient seen and evaluated in follow-up today and continues to be extremely weak. Patient underwent ultrasound-guided paracentesis today with removal of 6.2 L. Multiple medical consultations following. He should continue with IV antibiotics. Patient remains on fluid restrictions. Nephrology following and remains on Lasix and Aldactone. Patient to receive albumin prior to and post paracentesis today. Patient remains on sodium bicarb tabs and dose has been decreased. Creatinine slightly improved at 1.37 with BUN of 41. Sodium is low at 130 today. Will repeat labs tomorrow. Patient will be going to [facility] for continued PT/OT therapy once patient is stabilized and discharged. 11/24/2019 Patient is seen in follow-up today and appears to be a little more alert and awake but fatigues easily. Patient is extremely weak requiring 1-2 person assist for position changes and getting up out of the bed. Encourage patient to continue increasing activity as tolerated and sitting out of the bed more. Is having some discomfort of his buttocks and appears to be macerated from continuous incontinence with stool. Tylenol and Toradol ordered. No reports of chest pain or palpitations. Patient states that his shortness of breath has slightly improved status post paracentesis yesterday. No reports of nausea or vomiting and patient is tolerating diet. Patient to continue with fluid restrictions. Creatinine improved today and is currently 1.15. Sodium is 131. Nephrology is following. 11/25/2019 Patient's serum creatinine went up to 1.8 because of which I'm holding the discharge patient is intravascularly volume depleted but the distal third spacing because of cirrhosis, holding of diuretics in spite of peripheral edema as well as ascites. Patient is bit sleepy. Constitutional: He appears to be severely fatigued bit sleepy Cardio vascular: denied any chest pain, palpitations Gastrointestinal denied any nausea vomiting Pulmonary: Denied any shortness of breath cough Neurologic denied any new focal deficits On 11/26/2019 -patient is sitting up in a chair by the bedside. Patient states that he has generalized weakness and feels fatigued. He denies having any chest pain or palpitations. He has mild difficulty in taking a deep breath because of his abdominal distention. He also has discomfort in his scrotal area where he had the abscess. He states that his lower extremities swelling has been the same. On reviewing the labs patient's white count is 14.5 hemoglobin of 8.4 sodium 132, creatinine 1.75, albumin 2.3, total bilirubin 5.4. On 11/27/2019 -patient is lying in his bed comfortably appears to be in no acute distress. He still complains of generalized fatigue and weakness. He states that his abdominal size is increasing but denies having any abdominal pain. Denies having any bleeding from any site. On reviewing his vitals patient spiked a fever of 99.8 last night. On reviewing his labs white count has been stable. No other significant changes in his labs. 11/28/2019 Patient is seen in follow-up lying in bed sleeping but arousable. Patient continues to have extreme fatigue and weakness and has been refusing to get up and out of the bed per nursing staff. Patient continues to be incontinent of stool which is causing severe excoriation of his buttocks area. Patient continues to have intermittent low-grade temps at times and abdomen is severely distended. Awaiting and appreciate GI input for another possible paracentesis. White blood count slowly trending down and is 13.5. Odium continues to be 131 and creatinine is slowly improving as well at 1.20. will repeat a.m. labs. Patient remains on Lasix and Aldactone and IV antibiotics and will continue at this time. 11/29/2019 Patient is seen and evaluated this morning and continues to be quite lethargic but is arousable. Patient is currently being transferred to the chair requiring 1-2 person assist. Patient is scheduled to undergo paracentesis for abdominal distention and ascites today with interventional radiology. Discussed with the patient at length about current CODE STATUS and his thoughts on his current treatment plan and patient continues to be very lethargic but responded with "my won't be able to take care of me, she has her own health conditions with her heart". Discussed with the patient about possible palliative and/or hospice care and patient continued to fall asleep. Multiple medical consultations following. Sodium slightly improved today and is 133 the current creatinine of 1.16. Patient remains on Unasyn and Diflucan and will continue at this time. Patient remains on Lasix and Aldactone and Aldactone is currently being increased. 11/30/2019 Patient is seen and evaluated in follow-up today with no acute overnight issues. Patient remains lethargic but is arousable. Patient continues to be quite weak requiring 1-2 person assist with position changes. Patient underwent paracentesis with removal of approximately 5.6 L yesterday. Creatinine has improved today and is currently 1.01 with a sodium of 131. Potassium is 4.4. White blood count slowly trending down and is 13.0. Current hemoglobin remains at 7.7. Patient continues to have intermittent low grade temps at 99F and other vital signs within normal limits. Patient remains on IV antibiotics in the form of Unasyn and will transition to oral antibiotics upon discharge. No reports of chest pain, shortness of breath, or palpitations. Patient is tolerating diet with no reports of nausea or vomiting. Objective - Vital Signs Vital signs: Vital Signs Temp 99.0 F 11/30/19 07:00 Pulse 93 11/30/19 07:00 Resp 18 11/30/19 07:00 BP 118/65 11/30/19 07:00 Pulse Ox 98 11/30/19 07:00 Intake & Output 11/29/19 11/30/19 11/30/19 18:59 06:59 18:59 Output Total 261 903 Balance -261 -903 Weight 93 kg Output: Urine 260 900 Stool 1 3 Other: Voiding Method Indwelling Catheter Indwelling Catheter # Voids 2 # Bowel Movements 2 - Exam GENERAL: Asleep but arousable and oriented X3. Lying in bed. HEENT: Pupils are round and equally reacting to light. EOMI. Positive for scleral icterus and conjunctival pallor. Normocephalic, atraumatic. CARDIOVASCULAR: S1 and S2 present. No murmurs, rubs, or gallops. PULMONARY: Chest is clear to auscultation, no wheezing or crackles. Diminished at the lung bases ABDOMEN: Soft, Distended, normoactive bowel sounds. patient has a scrotal swelling with indwelling Rosa catheter noted. Excoriation of the surrounding skin with lot of moisture around. EXTREMITIES: No cyanosis, clubbing, bilateral lower extremity edema 2+ pitting NEUROLOGICAL: No focal deficits were appreciated; Generalized weakness SKIN: There are some multiple small sacral decubitus ulcers and excoriation noted of the buttocks area. please refer to nursing documentation for staging - Labs CBC & Chem 7: 11/30/19 07:00 11/30/19 07:00 Labs: Abnormal Lab Results - Last 24 Hours (Table) 11/30/19 11/30/19 Range/Units 07:00 07:00 WBC 13.0 H (3.8-10.6) k/uL RBC 2.23 L (4.30-5.90) m/uL Hgb 7.7 L (13.0-17.5) gm/dL Hct 23.9 L (39.0-53.0) % MCV 107.3 H (80.0-100.0) fL RDW 17.1 H (11.5-15.5) % Neutrophils # 9.6 H (1.3-7.7) k/uL Eosinophils # 1.0 H (0-0.7) k/uL Macrocytosis Marked A Sodium 131 L (137-145) mmol/L BUN 21 H (9-20) mg/dL Glucose 109 H (74-99) mg/dL Calcium 7.8 L (8.4-10.2) mg/dL Total Bilirubin 3.5 H (0.2-1.3) mg/dL AST 76 H (17-59) U/L Alkaline Phosphatase 290 H (38-126) U/L Albumin 2.3 L (3.5-5.0) g/dL Assessment and Plan Assessment: Acute upper GI bleed Duodenal ulcer on endoscopy Acute renal failure-prerenal azotemia Hepatorenal syndrome Coagulopathy Hepatic encephalopathy Alcoholic cirrhosis of the liver Hypovolemic hyponatremia Severe protein calorie malnutrition Stage II sacral decubitus ulcers Scrotal abscess/cellulitis PLAN: Spontaneous drainage of the scrotal abscess. Culture showing multiple organisms. ID Dr. Rod on board recommended antibiotics in the form of Augmentin, and also Diflucan which is been continued. Patient is currently on Unasyn and will continue at this time. Continue with lactulose and rifaximin and spironolactone. Overall prognosis is poor. Patient recently had 6.2 L of ascitic fluid drained on 11/23/2019. Patient underwent ultrasound-guided paracentesis with approximately 5.8 L removed yesterday and states his abdominal distention has slightly improved. Nephrology following. Multiple consultants on board and following the patient. Continue with the current medication regimen. Further recommendations to follow depending on the progress of the patient. Patient is scheduled to go to rehab once stabilized and discharge. Case management and social work following. Possible discharge in 24 hours.
--- NOTE | 2019-11-30 17:47 | PN ---
PROGRESS NOTE DATE OF SERVICE: 11/30/2019 REASON FOR FOLLOWUP: 1. Scrotal abscess. 2. Sacral pressure ulcer. INTERVAL HISTORY: The patient is currently afebrile, has been breathing comfortably. The patient denies having any chest pain or cough. No significant abdominal pain or pain to the sacral wound area. PHYSICAL EXAMINATION: Blood pressure 118/65 with a pulse of 93, temperature 99. He is 98% on room air. General description is a middle-aged male lying in bed in no distress. RESPIRATORY SYSTEM: Unlabored breathing. Clear to auscultation anteriorly. HEART: S1, S2. Regular rate and rhythm. ABDOMEN: Soft. No distention. LABS: Hemoglobin 7.7, white count 13,000. BUN of 21, creatinine 1.01. DIAGNOSTIC IMPRESSION AND PLAN: Patient with a scrotal abscess, status post spontaneous drainage. Patient is currently covered with Unasyn and Diflucan; to continue and finish therapy with oral antibiotics. Continue with supportive care. MMODL / IJN: [id number] /
--- NOTE | 2019-11-30 19:59 | PN ---
PROGRESS NOTE DATE OF DICTATION: 11/30/2019 This patient is a 59-year-old pleasant white male with history of alcoholic hepatitis and alcoholic cirrhosis of the liver who underwent large-volume paracentesis yesterday, and 5 liters of fluid was removed. He is feeling better. He denies any new complaints. He appears to be more awake today. PHYSICAL EXAMINATION: He appears comfortable. VITAL SIGNS: Stable. Blood pressure 114/61, pulse rate 92, temperature 98.9. HEENT examination unremarkable. Conjunctivae pink. Sclerae icteric. Oral cavity no lesions. NECK: No JVD or lymph node enlargement. CHEST: Clear to auscultation. HEART: Regular rate and rhythm. ABDOMEN: Still slightly distended, but it was very soft. Bowel sounds are positive. No organomegaly. EXTREMITIES: No pedal edema. NEUROLOGIC: Alert and oriented x3. No focal deficits. LABS: WBC 13, hemoglobin 7.7, platelets normal. Basic metabolic panel is within normal limits. BUN is 21, creatinine 1. T-bilirubin is down to 3.5, AST 76, ALT 36. IMPRESSION: 1. Acute alcoholic hepatitis with alcoholic cirrhosis of the liver with improving biochemical parameters. 2. Ascites, status post large-volume paracentesis yesterday. Five liter of fluid removed. Presently on Lasix 40 b.i.d. and Aldactone 50 b.i.d. 3. Hepatic encephalopathy, improving on Xifaxan and lactulose. 4. Heavy alcohol abuse. He quit drinking 3 weeks ago. 5. Acute renal insufficiency, acute kidney injury, improving. RECOMMENDATIONS: 1. Continue with current medications. 2. Monitor LFTs and electrolytes tomorrow. 3. Continue broad-spectrum antibiotics for scrotal abscess. 4. Consider discharging the patient to rehab in the next 1 or 2 days with close outpatient followup in 2 weeks. Thank you for this consultation. MMODL / IJN: [id number] /
[2019-11-30] MEDS: TEMAZEPAM 15 MG CAP PO PRN (22:27)
[2019-12-01] MEDS: AMPICILLIN-SULBACTAM 3 GM in SODIUM CHLORIDE 0.9% 100 ML IVPB SCH ×5 (00:56→23:16)
[2019-12-01] MEDS: FLUCONAZOLE 100 MG TAB PO SCH (08:39)
[2019-12-01] MEDS: SODIUM BICARBONATE TAB 650 MG TAB PO SCH (08:39)
[2019-12-01] MEDS: SPIRONOLACTONE 25 MG TAB PO SCH ×2 (08:39→20:50)
[2019-12-01] MEDS: FUROSEMIDE 40 MG TAB PO SCH ×2 (08:39→13:02)
[2019-12-01] MEDS: PANTOPRAZOLE 40 MG TABLET PO SCH ×2 (08:39→20:50)
[2019-12-01] MEDS: RIFAXIMIN 550 MG TABLET PO SCH ×2 (08:40→20:50)
[2019-12-01] MEDS: LACTULOSE 20 GM/30 ML CUP PO SCH ×3 (08:40→20:51)
[2019-12-01 08:50] LABS: Albumin 2.3 g/dL (3.5-5.0); Calcium 7.9 mg/dL (8.4-10.2); Potassium 4.5 mmol/L (3.5-5.1); Total Bilirubin 3.8 mg/dL (0.2-1.3); Total Protein 6.8 g/dL (6.3-8.2)
--- NOTE | 2019-12-01 11:06 | P.PN ---
Subjective Progress Note Date: 12/01/19 Principal diagnosis: Acute GI bleed Alcoholic liver cirrhosis/alcoholic hepatitis/encephalopathy Scrotal abscess 59-year-old male patient with history of alcoholic liver cirrhosis admitted to the hospital with acute GI bleed and decompensated alcoholic hepatitis along with scrotal abscess; GI is following and patient is status post EGD; patient remains on broad-spectrum antibiotics versus scrotal abscess and urology is consulted 11/19/2019 Patient is seen and evaluated in room at bedside; remains somewhat lethargic; denies any specific complaints Vital signs are stable with a blood pressure 132/89; patient remains afebrile Patient is status post EGD for acute upper GI bleed which showed duodenal ulcer; GI is following and recommending to continue with Protonix 40 mg twice a day. Patient remains on lactulose 30 g by mouth 3 times a day along with Xifaxan for hepatic encephalopathy; continue with low-dose Lasix and Aldactone for ascites Urology is following and patient remains on broad-spectrum antibiotics; no marlon inable abscess anymore; patient will have outpatient follow-up 11/20/2019 Patient is seen and evaluated in room at bedside; remains sleepy and lethargic but arousable Patient is being followed by urology for chronic scrotal abscess which drained spontaneously; patient does not have any evidence of any fistula formation; urology suspecting nidus of infection deep in scrotum and recommending excision and drainage as an outpatient once patient is stable; patient remains on IV Unasyn Nephrology is following for acute renal injury which has resolved; patient remains nonoliguric; underwent paracentesis on 11/16 with removal of 4 L of fluid; remains on Aldactone 25 mg twice a day along with Lasix 40 mg daily; nephrology recommending an extra dose of IV Lasix at 40 mg 1; patient will continue with low-salt and fluid restricted diet Patient remains on lactulose and Xifaxan for hepatic encephalopathy Continues to have poor prognosis 11/21/2019 Patient is seen and evaluated in follow-up today more alert. Patient continues to be lethargic but easily arousable. Multiple medical consultations following. Remains on IV antibiotics in the form of Unasyn and also remains on Diflucan as wound cultures are finalized showing group B strep agalactiae, ecoli, ryan albicans, and alphahemolytic Streptococcus. Ammonia level slightly improved today and is 25. Bilirubin slowly trending down and is 8.9. SOdium remains slightly low at 133. Will continue with fluid restrictions. Creatinine today is 1.17. Case management and social work following for possible ECF placement once stabilized and discharged. No reports of chest pain, shortness of breath, or palpitations. Patient is afebrile. No reports of nausea or vomiting and patient is tolerating diet. 11/22/2019 Patient is seen in follow-up today and is alert and oriented 3. Patient continues to be quite lethargic at times and weak requiring 2 person assist with position changes. Multiple medical consultations following. Patient remains on IV antibiotics in the form of Unasyn along with Diflucan and will continue. Patient is to continue with fluids restrictions although continues to ask for fluid restrictions to be discontinued as he is always thirsty. Discussed with the patient at length about maintaining fluid restrictions at this time. Creatinine slightly worsened and is 1.40. Nephrology following. She continues on Lasix and Aldactone and will continue at this time. Patient scheduled to undergo paracentesis with interventional radiology tomorrow. Currently no reports of chest pain, worsening shortness of breath, or palpitations. Patient is afebrile. No reports of nausea or vomiting and patient is tolerating diet. Case management and social work following and working on placement at a rehab facility once stabilized and discharged. 11/23/2019 Patient seen and evaluated in follow-up today and continues to be extremely weak. Patient underwent ultrasound-guided paracentesis today with removal of 6.2 L. Multiple medical consultations following. He should continue with IV antibiotics. Patient remains on fluid restrictions. Nephrology following and remains on Lasix and Aldactone. Patient to receive albumin prior to and post paracentesis today. Patient remains on sodium bicarb tabs and dose has been decreased. Creatinine slightly improved at 1.37 with BUN of 41. Sodium is low at 130 today. Will repeat labs tomorrow. Patient will be going to [facility] for continued PT/OT therapy once patient is stabilized and discharged. 11/24/2019 Patient is seen in follow-up today and appears to be a little more alert and awake but fatigues easily. Patient is extremely weak requiring 1-2 person assist for position changes and getting up out of the bed. Encourage patient to continue increasing activity as tolerated and sitting out of the bed more. Is having some discomfort of his buttocks and appears to be macerated from continuous incontinence with stool. Tylenol and Toradol ordered. No reports of chest pain or palpitations. Patient states that his shortness of breath has slightly improved status post paracentesis yesterday. No reports of nausea or vomiting and patient is tolerating diet. Patient to continue with fluid restrictions. Creatinine improved today and is currently 1.15. Sodium is 131. Nephrology is following. 11/25/2019 Patient's serum creatinine went up to 1.8 because of which I'm holding the discharge patient is intravascularly volume depleted but the distal third spacing because of cirrhosis, holding of diuretics in spite of peripheral edema as well as ascites. Patient is bit sleepy. Constitutional: He appears to be severely fatigued bit sleepy Cardio vascular: denied any chest pain, palpitations Gastrointestinal denied any nausea vomiting Pulmonary: Denied any shortness of breath cough Neurologic denied any new focal deficits On 11/26/2019 -patient is sitting up in a chair by the bedside. Patient states that he has generalized weakness and feels fatigued. He denies having any chest pain or palpitations. He has mild difficulty in taking a deep breath because of his abdominal distention. He also has discomfort in his scrotal area where he had the abscess. He states that his lower extremities swelling has been the same. On reviewing the labs patient's white count is 14.5 hemoglobin of 8.4 sodium 132, creatinine 1.75, albumin 2.3, total bilirubin 5.4. On 11/27/2019 -patient is lying in his bed comfortably appears to be in no acute distress. He still complains of generalized fatigue and weakness. He states that his abdominal size is increasing but denies having any abdominal pain. Denies having any bleeding from any site. On reviewing his vitals patient spiked a fever of 99.8 last night. On reviewing his labs white count has been stable. No other significant changes in his labs. 11/28/2019 Patient is seen in follow-up lying in bed sleeping but arousable. Patient continues to have extreme fatigue and weakness and has been refusing to get up and out of the bed per nursing staff. Patient continues to be incontinent of stool which is causing severe excoriation of his buttocks area. Patient continues to have intermittent low-grade temps at times and abdomen is severely distended. Awaiting and appreciate GI input for another possible paracentesis. White blood count slowly trending down and is 13.5. Odium continues to be 131 and creatinine is slowly improving as well at 1.20. will repeat a.m. labs. Patient remains on Lasix and Aldactone and IV antibiotics and will continue at this time. 11/29/2019 Patient is seen and evaluated this morning and continues to be quite lethargic but is arousable. Patient is currently being transferred to the chair requiring 1-2 person assist. Patient is scheduled to undergo paracentesis for abdominal distention and ascites today with interventional radiology. Discussed with the patient at length about current CODE STATUS and his thoughts on his current treatment plan and patient continues to be very lethargic but responded with "my won't be able to take care of me, she has her own health conditions with her heart". Discussed with the patient about possible palliative and/or hospice care and patient continued to fall asleep. Multiple medical consultations following. Sodium slightly improved today and is 133 the current creatinine of 1.16. Patient remains on Unasyn and Diflucan and will continue at this time. Patient remains on Lasix and Aldactone and Aldactone is currently being increased. 11/30/2019 Patient is seen and evaluated in follow-up today with no acute overnight issues. Patient remains lethargic but is arousable. Patient continues to be quite weak requiring 1-2 person assist with position changes. Patient underwent paracentesis with removal of approximately 5.6 L yesterday. Creatinine has improved today and is currently 1.01 with a sodium of 131. Potassium is 4.4. White blood count slowly trending down and is 13.0. Current hemoglobin remains at 7.7. Patient continues to have intermittent low grade temps at 99F and other vital signs within normal limits. Patient remains on IV antibiotics in the form of Unasyn and will transition to oral antibiotics upon discharge. No reports of chest pain, shortness of breath, or palpitations. Patient is tolerating diet with no reports of nausea or vomiting. 12/01/2019 Patient is seen in follow-up today sitting in the chair and asking to be put back in the bed. Buttock area was examined in the excoriation has improved with 2 small little ulcers noted on bilateral buttock with noted blood on the brief during change. Patient still requiring 2 person assist to get up from the chair to the bed. Patient has been refusing lactulose as he continues to have loose stools and ammonia level has slightly elevated today and is at 36. Discussed with the patient at length about needing to take lactulose as this is important in his treatment plan. Patient appears slightly confused at times. Sodium today slightly improved at 132. Multiple medical consultations still following. No reports of chest pain or palpitations. Patient reports intermittent periods of shortness of breath with exertion. Chest x-ray is ordered and pending at this time. Patient is tolerating diet with no reports of nausea or vomiting. Patient is afebrile this morning. Objective - Vital Signs Vital signs: Vital Signs Temp 98.9 F 12/01/19 07:00 Pulse 93 12/01/19 08:00 Resp 18 12/01/19 08:00 BP 111/58 12/01/19 07:00 Pulse Ox 97 12/01/19 07:00 Intake & Output 11/30/19 12/01/19 12/01/19 18:59 06:59 18:59 Output Total 2601 1 1701 Balance -2601 -1 -1701 Output: Urine 2600 1700 Uretheral (Rosa) 2600 Stool 1 1 1 Other: Voiding Method Indwelling Catheter Indwelling Catheter Indwelling Catheter - Exam GENERAL: Awake and oriented X 2 . Sitting in the chair and being transitioned back to the bed HEENT: Pupils are round and equally reacting to light. EOMI. Positive for scleral icterus and conjunctival pallor. Normocephalic, atraumatic. CARDIOVASCULAR: S1 and S2 present. No murmurs, rubs, or gallops. PULMONARY: Chest is clear to auscultation, no wheezing or crackles. Diminished at the lung bases ABDOMEN: Soft, Distended, normoactive bowel sounds. patient has a scrotal swelling with indwelling Rosa catheter noted. Excoriation of the surrounding skin with lot of moisture around. EXTREMITIES: No cyanosis, clubbing, bilateral lower extremity edema 2+ pitting NEUROLOGICAL: No focal deficits were appreciated; Generalized weakness SKIN: There are 2 small sacral decubitus ulcers and excoriation noted of the buttocks area that is slightly improved. Some bleeding noted on the brief. please refer to nursing documentation for staging - Labs CBC & Chem 7: 11/30/19 07:00 12/01/19 07:50 Labs: Abnormal Lab Results - Last 24 Hours (Table) 12/01/19 12/01/19 Range/Units 07:50 08:49 Sodium 132 L (137-145) mmol/L Calcium 7.9 L (8.4-10.2) mg/dL Total Bilirubin 3.8 H (0.2-1.3) mg/dL AST 74 H (17-59) U/L Alkaline Phosphatase 256 H (38-126) U/L Ammonia 36 H (<30) umol/L Albumin 2.3 L (3.5-5.0) g/dL Assessment and Plan Assessment: Acute upper GI bleed Duodenal ulcer on endoscopy Acute renal failure-prerenal azotemia Hepatorenal syndrome Coagulopathy Hepatic encephalopathy Alcoholic cirrhosis of the liver Hypovolemic hyponatremia Severe protein calorie malnutrition Stage II sacral decubitus ulcers Scrotal abscess/cellulitis PLAN: Discussed with the patient and nursing staff about continue with lactulose as the patient has been refusing. Ammonia level slightly elevated today. Overall prognosis is poor. Nephrology and GI following. Multiple consultants on board and following the patient. Continue with the current medication regimen. Further recommendations to follow depending on the progress of the patient. Patient is scheduled to go to [facility] for continued rehab once stabilized and discharge. Case management and social work following. Possible discharge in 24-48 hours.
--- NOTE | 2019-12-01 11:22 | XR ---
EXAMINATION TYPE: XR chest 1V DATE OF EXAM: 12/01/2019 HISTORY: Shortness of breath. COMPARISON: 11/22/2019 TECHNIQUE: Single view of the chest is submitted. FINDINGS: Demonstrated are scattered senescent parenchymal change. There is no evidence for focal infiltrate. The heart is stable. Hilar and mediastinal structures are within normal limits. Degenerative changes are seen of the dorsal spine. IMPRESSION: 1. Chronic changes without evidence for acute pulmonary disease.
--- NOTE | 2019-12-01 12:18 | P.PN ---
Subjective Patient is seen in follow-up for acute kidney injury. Renal function stable. Edema improved. Patient resting in bed. Nonoliguric. Underwent paracentesis on November 28 with 5.8 L removed. He is maintained on oral Lasix and Aldactone. Vital signs are stable. General: The patient appeared well nourished and normally developed. HEENT: Head exam is unremarkable. Neck is without jugular venous distension. LUNGS: Lungs are clear to auscultation and percussion. Breath sounds decreased. HEART: Rate and Rhythm are regular. ABDOMEN: Soft. Nontender. EXTREMITITES: 1+ edema. Objective - Vital Signs Vital signs: Vital Signs Temp 98.9 F 12/01/19 07:00 Pulse 93 12/01/19 08:00 Resp 18 12/01/19 08:00 BP 111/58 12/01/19 07:00 Pulse Ox 97 12/01/19 07:00 Intake & Output 11/30/19 12/01/19 12/01/19 18:59 06:59 18:59 Output Total 2601 1 1701 Balance -2601 -1 -1701 Output: Urine 2600 1700 Uretheral (Rosa) 2600 Stool 1 1 1 Other: Voiding Method Indwelling Catheter Indwelling Catheter Indwelling Catheter - Labs CBC & Chem 7: 11/30/19 07:00 12/01/19 07:50 Labs: Abnormal Lab Results - Last 24 Hours (Table) 12/01/19 12/01/19 Range/Units 07:50 08:49 Sodium 132 L (137-145) mmol/L Calcium 7.9 L (8.4-10.2) mg/dL Total Bilirubin 3.8 H (0.2-1.3) mg/dL AST 74 H (17-59) U/L Alkaline Phosphatase 256 H (38-126) U/L Ammonia 36 H (<30) umol/L Albumin 2.3 L (3.5-5.0) g/dL Assessment and Plan Plan: Assessment: 1. Acute kidney injury secondary to ATN secondary to acute blood loss anemia and hypotension. Baseline creatinine near 1 - currently at baseline. 2. Metabolic acidosis secondary to acute kidney injury and lactic acidosis. Partially also compensatory for chronic respiratory alkalosis due to liver cirrhosis. Better. Maintained on oral sodium bicarbonate. 3. Alcohol-induced liver cirrhosis. GI following. 4. Acute GI bleed status post EGD on November 10 which revealed one at ulcer and esophageal varices. No active bleeding was noted. Status post blood transfusions. 5. Hypokalemia from poor oral intake. Better. 6. Ascites status post paracentesis on November 16 with 4 L drained; November 22 6.2 L drained; November 28 at 5.8 L drained. 7. Volume overload. 8. Hypervolemic hyponatremia. Stable. Plan: Maintain Aldactone 50 mg twice daily. Maintain Lasix 40 mg orally twice daily. I will give him an additional one dose of Lasix 40 mg IV today. Low-salt diet and 1500 mL fluid resection. Repeat electrolytes in the morning.
[2019-12-01] MEDS ORDERED: FUROSEMIDE 10 MG/ML 4 ML VIAL IV ONE (15:00)
--- NOTE | 2019-12-01 17:08 | PN ---
PROGRESS NOTE DATE OF SERVICE: 12/01/2019 Patient is a 59-year-old pleasant white male admitted to the hospital 2 weeks ago with acute alcoholic hepatitis, alcoholic cirrhosis of the liver and hepatic encephalopathy. He denies any new complaints today. He denies any abdominal pain. No nausea, vomiting. Has about 2 bowel movements daily. PHYSICAL EXAMINATION: He appears comfortable, sitting up in the chair. VITAL SIGNS: Stable. Blood pressure is 134/69, pulse 99, temperature 98.6. HEENT: Examination unremarkable. Conjunctivae are pink, sclerae nonicteric, oral cavity no lesions. NECK: No JVD or lymph node enlargement. CHEST: Clear to auscultation. HEART: Regular rate and rhythm. ABDOMEN: Soft, slightly distended. Bowel sounds are positive. Small amount of free fluid noted. EXTREMITIES: No pedal edema. SKIN: No rashes. NEUROLOGIC: Alert and oriented x3, no focal deficits. EXTREMITIES: No pedal edema. LABS: From today, basic metabolic panel is within normal limits. T bilirubin down to 3.8. AST and ALT are 74 and 78 respectively. Ammonia is 36. ASSESSMENT: 1. Acute alcoholic hepatitis, the current possibility alcoholic liver cirrhosis of the liver, which is gradually improving, LFT's are improving, bilirubin is down ot3.8. 2. Hepatic encephalopathy. Remains on lactulose and Xifaxan and the increase the lactulose. The bowel movements daily. 3. Recurrent ascites, status post a 2 days ago. The Lasix 40 mg daily and Aldactone 50 mg twice daily. 4. Scrotal abscess improving, remains on antibiotics. RECOMMENDATIONS: 1. Increase ambulation. 2. Continue with current dose of diuretics. 3. Increase the lactulose so that he has 3 bowel movements daily. 4. Continue Xifaxan. 5. Possible discharge home in the next 24-48 hours. Thank you for this consultation. MMODL / IJN: [id number] /
[2019-12-01] MEDS: ACETAMINOPHEN TAB 325 MG TAB PO PRN (20:50)
[2019-12-01] MEDS ORDERED: FUROSEMIDE 40 MG TAB PO ONE (21:00)
--- NOTE | 2019-12-01 21:45 | PN ---
PROGRESS NOTE DATE OF SERVICE: 12/01/2019 REASON FOR FOLLOWUP: Scrotal abscess. INTERVAL HISTORY: The patient is currently afebrile, has been breathing comfortably. Denies having any chest pain; however, he has been complaining of cough, especially at night, sleep from it. No nausea or vomiting. Still has some abdominal distention. Sacral wound is currently not painful. PHYSICAL EXAMINATION: Blood pressure is 134/67 with a pulse of 99, temperature 98.6. He is 100% on room air. General description is a middle-aged male lying in bed in no distress. RESPIRATORY SYSTEM: Unlabored breathing. Clear to auscultation anteriorly. HEART: S1, S2. Regular rate and rhythm. ABDOMEN: Soft. Slightly distended. LABS: Creatinine 1.05. Ammonia was 36. DIAGNOSTIC IMPRESSION AND PLAN: 1. Patient with a scrotal abscess, status post spontaneous drainage. Currently covered with Unasyn and Diflucan; to finish therapy with a short course of oral Augmentin. 2. Sacral pressure ulcer. Local care to continue with Calmoseptine lotion. Keep the area dry and off the pressure. MMODL / IJN: [id number] /
[2019-12-01] MEDS: TEMAZEPAM 15 MG CAP PO PRN (22:02)
[2019-12-01] MEDS: BENZONATATE 100 MG CAP PO SCH (23:17)
[2019-12-02] MEDS: AMPICILLIN-SULBACTAM 3 GM in SODIUM CHLORIDE 0.9% 100 ML IVPB SCH ×3 (05:38→16:53)
[2019-12-02] MEDS: BENZONATATE 100 MG CAP PO SCH ×3 (07:53→21:41)
[2019-12-02] MEDS: FUROSEMIDE 40 MG TAB PO SCH ×2 (07:53→16:53)
[2019-12-02] MEDS: SODIUM BICARBONATE TAB 650 MG TAB PO SCH (07:53)
[2019-12-02] MEDS: FLUCONAZOLE 100 MG TAB PO SCH (07:53)
[2019-12-02] MEDS: LACTULOSE 20 GM/30 ML CUP PO SCH ×3 (07:54→21:46)
[2019-12-02] MEDS: PANTOPRAZOLE 40 MG TABLET PO SCH ×2 (07:54→21:41)
[2019-12-02] MEDS: RIFAXIMIN 550 MG TABLET PO SCH ×2 (07:54→21:42)
[2019-12-02] MEDS: SPIRONOLACTONE 25 MG TAB PO SCH ×2 (07:54→21:41)
[2019-12-02 08:38] LABS: Anisocytosis Slight; Basophils # (A) 0.1 k/uL (0-0.2); Basophils % (A) 0 %; Eosinophils # (A) 1.3 k/uL (0-0.7); Eosinophils % (A) 10 %; HCT 25.8 % (39.0-53.0); HGB 8.3 gm/dL (13.0-17.5); Lymphocytes # (A) 1.6 k/uL (1.0-4.8); Lymphocytes % (A) 13 %; MCH 34.3 pg (25.0-35.0); MCHC 32.1 g/dL (31.0-37.0); MCV 106.8 fL (80.0-100.0); Macrocytosis Marked; Mean Platelet Volume 8.4; Monocytes # (A) 0.7 k/uL (0-1.0); Monocytes % (A) 6 %; Neutrophils # (A) 8.5 k/uL (1.3-7.7); Neutrophils % (A) 68 %; Platelet Count 228 k/uL (150-450); RBC 2.42 m/uL (4.30-5.90); RDW 16.5 % (11.5-15.5); WBC 12.4 k/uL (3.8-10.6)
[2019-12-02 08:54] LABS: ALT 36 U/L (4-49); AST 72 U/L (17-59); African American GFR (CKD) >90 (>60 ml/min/1.73 sqM); Albumin 2.4 g/dL (3.5-5.0); Alkaline Phosphatase 263 U/L (38-126); Anion Gap 10 mmol/L; Blood Urea Nitrogen 16 mg/dL (9-20); Calcium 7.9 mg/dL (8.4-10.2); Carbon Dioxide 23 mmol/L (22-30); Chloride 101 mmol/L (98-107); Glucose 117 mg/dL (74-99); Non-African American GFR(CKD) 79 (>60 ml/min/1.73 sqM); Potassium 4.3 mmol/L (3.5-5.1); Sodium 134 mmol/L (137-145); Total Bilirubin 3.4 mg/dL (0.2-1.3); Total Protein 7.3 g/dL (6.3-8.2)
--- NOTE | 2019-12-02 11:34 | P.PN ---
Subjective Patient is seen in follow-up for acute kidney injury. Renal function stable. Edema improved. Patient resting in bed. Nonoliguric. Underwent paracentesis on November 28 with 5.8 L removed. He is maintained on oral Lasix and Aldactone. No changes overnight. Vital signs are stable. General: The patient appeared well nourished and normally developed. HEENT: Head exam is unremarkable. Neck is without jugular venous distension. LUNGS: Lungs are clear to auscultation and percussion. Breath sounds decreased. HEART: Rate and Rhythm are regular. ABDOMEN: Soft. Nontender. EXTREMITITES: 1+ edema. Objective - Vital Signs Vital signs: Vital Signs Temp 98.8 F 12/02/19 07:00 Pulse 89 12/02/19 07:00 Resp 15 12/02/19 07:00 BP 128/73 12/02/19 07:00 Pulse Ox 100 12/02/19 07:00 Intake & Output 12/01/19 12/02/19 12/02/19 18:59 06:59 18:59 Intake Total 250 100 Output Total 2402 2601 Balance -2402 -2351 100 Intake: Oral 250 100 Output: Urine 2400 2600 Uretheral (Rosa) 700 1300 Stool 2 1 Other: Voiding Method Indwelling Catheter Indwelling Catheter Indwelling Catheter # Bowel Movements 1 1 - Labs CBC & Chem 7: 12/02/19 08:19 12/02/19 08:19 Labs: Abnormal Lab Results - Last 24 Hours (Table) 12/02/19 12/02/19 Range/Units 08:19 08:19 WBC 12.4 H (3.8-10.6) k/uL RBC 2.42 L (4.30-5.90) m/uL Hgb 8.3 L (13.0-17.5) gm/dL Hct 25.8 L (39.0-53.0) % MCV 106.8 H (80.0-100.0) fL RDW 16.5 H (11.5-15.5) % Neutrophils # 8.5 H (1.3-7.7) k/uL Eosinophils # 1.3 H (0-0.7) k/uL Macrocytosis Marked A Sodium 134 L (137-145) mmol/L Glucose 117 H (74-99) mg/dL Calcium 7.9 L (8.4-10.2) mg/dL Total Bilirubin 3.4 H (0.2-1.3) mg/dL AST 72 H (17-59) U/L Alkaline Phosphatase 263 H (38-126) U/L Albumin 2.4 L (3.5-5.0) g/dL Assessment and Plan Plan: Assessment: 1. Acute kidney injury secondary to ATN secondary to acute blood loss anemia and hypotension. Baseline creatinine near 1 - currently at baseline. 2. Metabolic acidosis secondary to acute kidney injury and lactic acidosis. P artially also compensatory for chronic respiratory alkalosis due to liver cirrhosis. Better. Maintained on oral sodium bicarbonate. 3. Alcohol-induced liver cirrhosis. GI following. 4. Acute GI bleed status post EGD on November 10 which revealed one at ulcer and esophageal varices. No active bleeding was noted. Status post blood transfusions. 5. Hypokalemia from poor oral intake. Better. 6. Ascites status post paracentesis on November 16 with 4 L drained; November 22 6.2 L drained; November 28 at 5.8 L drained. 7. Volume overload. 8. Hypervolemic hyponatremia. Stable. Plan: Maintain Aldactone 50 mg twice daily. Maintain Lasix 40 mg orally twice daily. Low-salt diet and 1500 mL fluid resection. Awaiting discharge to rehab. Repeat BMP and magnesium level 3-4 days postdischarge. Follow up outpatient in 1-2 weeks.
--- NOTE | 2019-12-02 14:35 | P.PN ---
Subjective Progress Note Date: 12/02/19 Principal diagnosis: Acute GI bleed Alcoholic liver cirrhosis/alcoholic hepatitis/encephalopathy Scrotal abscess 59-year-old male patient with history of alcoholic liver cirrhosis admitted to the hospital with acute GI bleed and decompensated alcoholic hepatitis along with scrotal abscess; GI is following and patient is status post EGD; patient remains on broad-spectrum antibiotics versus scrotal abscess and urology is consulted 11/19/2019 Patient is seen and evaluated in room at bedside; remains somewhat lethargic; denies any specific complaints Vital signs are stable with a blood pressure 132/89; patient remains afebrile Patient is status post EGD for acute upper GI bleed which showed duodenal ulcer; GI is following and recommending to continue with Protonix 40 mg twice a day. Patient remains on lactulose 30 g by mouth 3 times a day along with Xifaxan for hepatic encephalopathy; continue with low-dose Lasix and Aldactone for ascites Urology is following and patient remains on broad-spectrum antibiotics; no marlon inable abscess anymore; patient will have outpatient follow-up 11/20/2019 Patient is seen and evaluated in room at bedside; remains sleepy and lethargic but arousable Patient is being followed by urology for chronic scrotal abscess which drained spontaneously; patient does not have any evidence of any fistula formation; urology suspecting nidus of infection deep in scrotum and recommending excision and drainage as an outpatient once patient is stable; patient remains on IV Unasyn Nephrology is following for acute renal injury which has resolved; patient remains nonoliguric; underwent paracentesis on 11/16 with removal of 4 L of fluid; remains on Aldactone 25 mg twice a day along with Lasix 40 mg daily; nephrology recommending an extra dose of IV Lasix at 40 mg 1; patient will continue with low-salt and fluid restricted diet Patient remains on lactulose and Xifaxan for hepatic encephalopathy Continues to have poor prognosis 11/21/2019 Patient is seen and evaluated in follow-up today more alert. Patient continues to be lethargic but easily arousable. Multiple medical consultations following. Remains on IV antibiotics in the form of Unasyn and also remains on Diflucan as wound cultures are finalized showing group B strep agalactiae, ecoli, ryan albicans, and alphahemolytic Streptococcus. Ammonia level slightly improved today and is 25. Bilirubin slowly trending down and is 8.9. SOdium remains slightly low at 133. Will continue with fluid restrictions. Creatinine today is 1.17. Case management and social work following for possible ECF placement once stabilized and discharged. No reports of chest pain, shortness of breath, or palpitations. Patient is afebrile. No reports of nausea or vomiting and patient is tolerating diet. 11/22/2019 Patient is seen in follow-up today and is alert and oriented 3. Patient continues to be quite lethargic at times and weak requiring 2 person assist with position changes. Multiple medical consultations following. Patient remains on IV antibiotics in the form of Unasyn along with Diflucan and will continue. Patient is to continue with fluids restrictions although continues to ask for fluid restrictions to be discontinued as he is always thirsty. Discussed with the patient at length about maintaining fluid restrictions at this time. Creatinine slightly worsened and is 1.40. Nephrology following. She continues on Lasix and Aldactone and will continue at this time. Patient scheduled to undergo paracentesis with interventional radiology tomorrow. Currently no reports of chest pain, worsening shortness of breath, or palpitations. Patient is afebrile. No reports of nausea or vomiting and patient is tolerating diet. Case management and social work following and working on placement at a rehab facility once stabilized and discharged. 11/23/2019 Patient seen and evaluated in follow-up today and continues to be extremely weak. Patient underwent ultrasound-guided paracentesis today with removal of 6.2 L. Multiple medical consultations following. He should continue with IV antibiotics. Patient remains on fluid restrictions. Nephrology following and remains on Lasix and Aldactone. Patient to receive albumin prior to and post paracentesis today. Patient remains on sodium bicarb tabs and dose has been decreased. Creatinine slightly improved at 1.37 with BUN of 41. Sodium is low at 130 today. Will repeat labs tomorrow. Patient will be going to [facility] for continued PT/OT therapy once patient is stabilized and discharged. 11/24/2019 Patient is seen in follow-up today and appears to be a little more alert and awake but fatigues easily. Patient is extremely weak requiring 1-2 person assist for position changes and getting up out of the bed. Encourage patient to continue increasing activity as tolerated and sitting out of the bed more. Is having some discomfort of his buttocks and appears to be macerated from continuous incontinence with stool. Tylenol and Toradol ordered. No reports of chest pain or palpitations. Patient states that his shortness of breath has slightly improved status post paracentesis yesterday. No reports of nausea or vomiting and patient is tolerating diet. Patient to continue with fluid restrictions. Creatinine improved today and is currently 1.15. Sodium is 131. Nephrology is following. 11/25/2019 Patient's serum creatinine went up to 1.8 because of which I'm holding the discharge patient is intravascularly volume depleted but the distal third spacing because of cirrhosis, holding of diuretics in spite of peripheral edema as well as ascites. Patient is bit sleepy. Constitutional: He appears to be severely fatigued bit sleepy Cardio vascular: denied any chest pain, palpitations Gastrointestinal denied any nausea vomiting Pulmonary: Denied any shortness of breath cough Neurologic denied any new focal deficits On 11/26/2019 -patient is sitting up in a chair by the bedside. Patient states that he has generalized weakness and feels fatigued. He denies having any chest pain or palpitations. He has mild difficulty in taking a deep breath because of his abdominal distention. He also has discomfort in his scrotal area where he had the abscess. He states that his lower extremities swelling has been the same. On reviewing the labs patient's white count is 14.5 hemoglobin of 8.4 sodium 132, creatinine 1.75, albumin 2.3, total bilirubin 5.4. On 11/27/2019 -patient is lying in his bed comfortably appears to be in no acute distress. He still complains of generalized fatigue and weakness. He states that his abdominal size is increasing but denies having any abdominal pain. Denies having any bleeding from any site. On reviewing his vitals patient spiked a fever of 99.8 last night. On reviewing his labs white count has been stable. No other significant changes in his labs. 11/28/2019 Patient is seen in follow-up lying in bed sleeping but arousable. Patient continues to have extreme fatigue and weakness and has been refusing to get up and out of the bed per nursing staff. Patient continues to be incontinent of stool which is causing severe excoriation of his buttocks area. Patient continues to have intermittent low-grade temps at times and abdomen is severely distended. Awaiting and appreciate GI input for another possible paracentesis. White blood count slowly trending down and is 13.5. Odium continues to be 131 and creatinine is slowly improving as well at 1.20. will repeat a.m. labs. Patient remains on Lasix and Aldactone and IV antibiotics and will continue at this time. 11/29/2019 Patient is seen and evaluated this morning and continues to be quite lethargic but is arousable. Patient is currently being transferred to the chair requiring 1-2 person assist. Patient is scheduled to undergo paracentesis for abdominal distention and ascites today with interventional radiology. Discussed with the patient at length about current CODE STATUS and his thoughts on his current treatment plan and patient continues to be very lethargic but responded with "my won't be able to take care of me, she has her own health conditions with her heart". Discussed with the patient about possible palliative and/or hospice care and patient continued to fall asleep. Multiple medical consultations following. Sodium slightly improved today and is 133 the current creatinine of 1.16. Patient remains on Unasyn and Diflucan and will continue at this time. Patient remains on Lasix and Aldactone and Aldactone is currently being increased. 11/30/2019 Patient is seen and evaluated in follow-up today with no acute overnight issues. Patient remains lethargic but is arousable. Patient continues to be quite weak requiring 1-2 person assist with position changes. Patient underwent paracentesis with removal of approximately 5.6 L yesterday. Creatinine has improved today and is currently 1.01 with a sodium of 131. Potassium is 4.4. White blood count slowly trending down and is 13.0. Current hemoglobin remains at 7.7. Patient continues to have intermittent low grade temps at 99F and other vital signs within normal limits. Patient remains on IV antibiotics in the form of Unasyn and will transition to oral antibiotics upon discharge. No reports of chest pain, shortness of breath, or palpitations. Patient is tolerating diet with no reports of nausea or vomiting. 12/01/2019 Patient is seen in follow-up today sitting in the chair and asking to be put back in the bed. Buttock area was examined in the excoriation has improved with 2 small little ulcers noted on bilateral buttock with noted blood on the brief during change. Patient still requiring 2 person assist to get up from the chair to the bed. Patient has been refusing lactulose as he continues to have loose stools and ammonia level has slightly elevated today and is at 36. Discussed with the patient at length about needing to take lactulose as this is important in his treatment plan. Patient appears slightly confused at times. Sodium today slightly improved at 132. Multiple medical consultations still following. No reports of chest pain or palpitations. Patient reports intermittent periods of shortness of breath with exertion. Chest x-ray is ordered and pending at this time. Patient is tolerating diet with no reports of nausea or vomiting. Patient is afebrile this morning. 12/02/2019 Patient is awake, alert and oriented 3 lying in bed and has been up in the chair one-time today. Patient continues to refuse lactulose although was agreeable to taking one dose yesterday. Repeat ammonia improved today and is 18. Patient stating he is not well enough to go home and continues to be extremely weak requiring 1-2 person assist to get out of bed. Discussed with the at length about possible hospice and other options as we are limited in patient continues to have a poor prognosis. Per she has been unsure of sending him to a rehab facility given the current coronavirus but is also stating that he is very noncompliant at home with medications and extremely hard to take care of. Case management and social work are following as there are now no current places that are willing to accept the patient at this time. During this hospitalization patient has been undergoing multiple ultrasound-guided paracentesis and will likely need these continued as his ascites continues to accumulate. May need standing order for ultrasound guided paracentesis in the outpatient setting. Patient to continue working with PT/OT for strength and mobility. Currently no reports of chest pain, shortness of breath, or palpitations. Patient has intermittent low-grade fevers with the highest being 99.9F. No reports of nausea or vomiting and patient is tolerating diet. Repeat chest x-ray yesterday showed chronic parenchymal changes without any ev idence of acute pulmonary disease as he continues to have a cough with no phlegm production. Objective - Vital Signs Vital signs: Vital Signs Temp 98.3 F 12/02/19 14:05 Pulse 93 12/02/19 14:05 Resp 16 12/02/19 14:05 BP 139/80 12/02/19 14:05 Pulse Ox 99 12/02/19 14:05 Intake & Output 12/01/19 12/02/19 12/02/19 18:59 06:59 18:59 Intake Total 250 450 Output Total 2402 2601 Balance -2402 -2351 450 Intake: Oral 250 450 Output: Urine 2400 2600 Uretheral (Rosa) 700 1300 Stool 2 1 Other: Voiding Method Indwelling Catheter Indwelling Catheter Indwelling Catheter # Bowel Movements 1 1 - Exam GENERAL: Awake and oriented X 2 . Lying in bed HEENT: Pupils are round and equally reacting to light. EOMI. Positive for scleral icterus and conjunctival pallor. Normocephalic, atraumatic. CARDIOVASCULAR: S1 and S2 present. No murmurs, rubs, or gallops. PULMONARY: Chest is clear to auscultation, no wheezing or crackles. Diminished at the lung bases ABDOMEN: Soft, Distended, normoactive bowel sounds. patient has a scrotal swelling with indwelling Rosa catheter noted. Excoriation of the surrounding skin with lot of moisture around. EXTREMITIES: No cyanosis, clubbing, bilateral lower extremity edema 1+ pitting NEUROLOGICAL: No focal deficits were appreciated; Generalized weakness SKIN: There are 2 small sacral decubitus ulcers and mild excoriation noted of the buttocks area that is slightly improved. Some bleeding noted on the brief. please refer to nursing documentation for staging - Labs CBC & Chem 7: 12/02/19 08:19 12/02/19 08:19 Labs: Abnormal Lab Results - Last 24 Hours (Table) 12/02/19 12/02/19 Range/Units 08:19 08:19 WBC 12.4 H (3.8-10.6) k/uL RBC 2.42 L (4.30-5.90) m/uL Hgb 8.3 L (13.0-17.5) gm/dL Hct 25.8 L (39.0-53.0) % MCV 106.8 H (80.0-100.0) fL RDW 16.5 H (11.5-15.5) % Neutrophils # 8.5 H (1.3-7.7) k/uL Eosinophils # 1.3 H (0-0.7) k/uL Macrocytosis Marked A Sodium 134 L (137-145) mmol/L Glucose 117 H (74-99) mg/dL Calcium 7.9 L (8.4-10.2) mg/dL Total Bilirubin 3.4 H (0.2-1.3) mg/dL AST 72 H (17-59) U/L Alkaline Phosphatase 263 H (38-126) U/L Albumin 2.4 L (3.5-5.0) g/dL Assessment and Plan Assessment: Acute upper GI bleed Duodenal ulcer on endoscopy Acute renal failure-prerenal azotemia Hepatorenal syndrome Coagulopathy Hepatic encephalopathy Alcoholic cirrhosis of the liver Hypovolemic hyponatremia Severe protein calorie malnutrition Stage II sacral decubitus ulcers Scrotal abscess/cellulitis PLAN: Ammonia level improved today and is 18. Overall prognosis is poor. Nephrology and GI following. Multiple consultants on board and following the patient. Continue with the current medication regimen. Further recommendations to follow depending on the progress of the patient. Case management and social work following for possible placement but there are currently no beds available that are willing to accept the patient. Discussed with the at length about possible hospice and she stated she will talk to her today. Will at tempt to call the [facility] again tomorrow to discuss the outcome. Possible discharge in 24-48 hours. Time with Patient: Greater than 30
--- NOTE | 2019-12-02 15:36 | PN ---
PROGRESS NOTE DATE OF SERVICE: 12/02/2019 Patient is a 59-year-old white male with acute alcoholic hepatitis, alcoholic cirrhosis of the liver, scrotal abscess, hepatic encephalopathy has been in the hospital for 2 weeks. He is gradually improving. He still remains weak, tired, mostly lying in bed, not much physical activity. He denies any complaints. PHYSICAL EXAMINATION: Blood pressure 128/73, pulse 89, temperature 99. HEENT: Examination unremarkable. Conjunctive are pink, sclerae nonicteric, oral cavity no lesions. NECK: No JVD or lymph node enlargement. CHEST: Clear to auscultation. HEART: Regular rate and rhythm. ABDOMEN: Distended, small amount of free fluid noted. EXTREMITIES: No pedal edema. NEURO: He is alert and oriented x3. No focal deficits. LABS: WBC 12.1, hemoglobin 8.3, platelets 228. CPD is down to 3.4, AST and ALT are 72 and 36 respectively. IMPRESSION: 1. Acute alcoholic hepatitis with alcoholic cirrhosis of the liver, gradually improving. 2. Ascites, improving on Lasix 40 mg twice daily and Aldactone 50 mg twice daily. 3. Scrotal abscess, improving on broad-spectrum antibiotics. 4. Hepatic encephalopathy. Remains on lactulose and Xifaxan. Last ammonia level was 18. 5. Acute kidney injury, resolved. RECOMMENDATIONS: 1. Continue physical therapy. 2. Patient encouraged to increase ambulation. 3. Continue with a balanced diet. 4. Continue with all current medications. 5. Repeat labs in the morning. 6. Transfer to rehab facility and will follow with you closely. Thank you for this consultation. MMODL / IJN: [id number] /
--- NOTE | 2019-12-03 00:38 | PN ---
PROGRESS NOTE DATE OF SERVICE: 12/02/2019 REASON FOR FOLLOWUP: 1. Scrotal abscess. 2. Sacral pressure ulcer. INTERVAL HISTORY: The patient is currently afebrile, has been breathing comfortably. Still complaining of some cough. No nausea, no vomiting. No abdominal pain. No diarrhea. PHYSICAL EXAMINATION: Blood pressure 136/80 with a pulse of 103. Temperature 98.2. He is 100% on room air. General description: The patient is a middle-aged male lying in bed in no distress. Respiratory system: Unlabored breathing. Clear to auscultation anteriorly. Heart S1, S2. Regular rate and rhythm. Abdomen soft, no tenderness. LABS: Hemoglobin 8.8, white count 12.4, BUN of 16, creatinine 1.02. DIAGNOSTIC IMPRESSION AND PLAN: 1. Patient with scrotal abscess status post spontaneous drainage, culture with multiple pathogens. The patient is currently on Diflucan. The patient to finish a short course of oral Augmentin and Diflucan. 2. The patient with sacral pressure ulcer. Local care to continue. Calmoseptine lotion. Keep the area dry. MMODL / IJN: [id number] /
[2019-12-03] MEDS: AMPICILLIN-SULBACTAM 3 GM in SODIUM CHLORIDE 0.9% 100 ML IVPB SCH ×4 (00:54→18:20)
[2019-12-03] MEDS: FUROSEMIDE 40 MG TAB PO SCH ×2 (09:38→15:01)
[2019-12-03] MEDS: BENZONATATE 100 MG CAP PO SCH ×3 (09:38→21:08)
[2019-12-03] MEDS: PANTOPRAZOLE 40 MG TABLET PO SCH ×2 (09:38→21:02)
[2019-12-03] MEDS: FLUCONAZOLE 100 MG TAB PO SCH (09:39)
[2019-12-03] MEDS: SPIRONOLACTONE 25 MG TAB PO SCH ×2 (09:43→21:01)
[2019-12-03] MEDS: SODIUM BICARBONATE TAB 650 MG TAB PO SCH (09:43)
[2019-12-03] MEDS: RIFAXIMIN 550 MG TABLET PO SCH ×2 (09:43→21:02)
[2019-12-03] MEDS: LACTULOSE 20 GM/30 ML CUP PO SCH ×3 (09:43→21:02)
--- NOTE | 2019-12-03 10:26 | PN ---
PROGRESS NOTE DATE OF SERVICE: 12/03/2019 Patient is a 59-year-old male with history of alcoholic hepatitis, alcoholic cirrhosis of the liver, admitted to the hospital 2 weeks ago with acute GI bleed, hepatic encephalopathy and scrotal abscess. Patient overall is gradually improving. He still continues to be weak and tired. He denies any abdominal pain. No nausea, vomiting, had 3 loose watery bowel movements yesterday. On physical examination, he appears comfortable, in no apparent distress. Vital signs are stable. Blood pressure 132/65 pulse rate 89, temperature 98.7. HEENT: Examination unremarkable, conjunctivae are pink, sclerae icteric. Oral cavity no lesions. NECK: No JVD or lymph node enlargement. CHEST: Clear to auscultation. HEART: Regular rate and rhythm. ABDOMEN: Slightly distended. Some free fluid noted. EXTREMITIES: No pedal edema. NEURO: Alert and oriented x3. No focal deficits. LABS: From yesterday, WBC 12.4, hemoglobin 8.3, platelets normal. T-bilirubin 3.4, AST 72, ALT 36. IMPRESSION: 1. Acute alcoholic hepatitis/alcoholic cirrhosis of the liver which is gradually improving. 2. Hepatic encephalopathy, resolved, remains on Xifaxan and lactulose. 3. Scrotal abscess, improving. 4. Ascites on Lasix 40 mg twice daily as well as Aldactone 50 mg twice daily, status post paracentesis 3 days ago. 5. Acute kidney injury, resolved. RECOMMENDATIONS: 1. Continue with Xifaxan and lactulose. 2. Continue with Lasix 40 mg twice daily and Aldactone 50 mg twice daily. 3. Increase ambulation. 4. Continue physical therapy. 5. Plan on discharging him home in 1 to 2 days, possibly to a rehab facility with followup in office in 2 weeks. Thank you for this consultation. MMODL / IJN: [id number] /
--- NOTE | 2019-12-03 11:44 | P.PN ---
Subjective 59-year-old male patient with history of alcoholic liver cirrhosis admitted to the hospital with acute GI bleed and decompensated alcoholic hepatitis along with scrotal abscess; GI is following and patient is status post EGD; patient remains on broad-spectrum antibiotics versus scrotal abscess and urology is consulted 11/19/2019 Patient is seen and evaluated in room at bedside; remains somewhat lethargic; denies any specific complaints Vital signs are stable with a blood pressure 132/89; patient remains afebrile Patient is status post EGD for acute upper GI bleed which showed duodenal ulcer; GI is following and recommending to continue with Protonix 40 mg twice a day. Patient remains on lactulose 30 g by mouth 3 times a day along with Xifaxan for hepatic encephalopathy; continue with low-dose Lasix and Aldactone for ascites Urology is following and patient remains on broad-spectrum antibiotics; no drainable abscess anymore; patient will have outpatient follow-up 11/20/2019 Patient is seen and evaluated in room at bedside; remains sleepy and lethargic but arousable Patient is being followed by urology for chronic scrotal abscess which drained spontaneously; patient does not have any evidence of any fistula formation; urology suspecting nidus of infection deep in scrotum and recommending excision and drainage as an outpatient once patient is stable; patient remains on IV [place] syn Nephrology is following for acute renal injury which has resolved; patient remains nonoliguric; underwent paracentesis on 11/16 with removal of 4 L of fluid; remains on Aldactone 25 mg twice a day along with Lasix 40 mg daily; nephrology recommending an extra dose of IV Lasix at 40 mg 1; patient will continue with low-salt and fluid restricted diet Patient remains on lactulose and Xifaxan for hepatic encephalopathy Continues to have poor prognosis 11/21/2019 Patient is seen and evaluated in follow-up today more alert. Patient continues to be lethargic but easily arousable. Multiple medical consultations following. Remains on IV antibiotics in the form of Unasyn and also remains on Diflucan as wound cultures are finalized showing group B strep agalactiae, ecoli, ryan albicans, and alphahemolytic Streptococcus. Ammonia level slightly improved today and is 25. Bilirubin slowly trending down and is 8.9. SOdium remains slightly low at 133. Will continue with fluid restrictions. Creatinine today is 1.17. Case management and social work following for possible ECF placement once stabilized and discharged. No reports of chest pain, shortness of breath, or palpitations. Patient is afebrile. No reports of nausea or vomiting and patient is tolerating diet. 11/22/2019 Patient is seen in follow-up today and is alert and oriented 3. Patient continues to be quite lethargic at times and weak requiring 2 person assist with position changes. Multiple medical consultations following. Patient remains on IV antibiotics in the form of Unasyn along with Diflucan and will continue. Patient is to continue with fluids restrictions although continues to ask for fluid restrictions to be discontinued as he is always thirsty. Discussed with the patient at length about maintaining fluid restrictions at this time. Creatinine slightly worsened and is 1.40. Nephrology following. She continues on Lasix and Aldactone and will continue at this time. Patient scheduled to un dergo paracentesis with interventional radiology tomorrow. Currently no reports of chest pain, worsening shortness of breath, or palpitations. Patient is afebrile. No reports of nausea or vomiting and patient is tolerating diet. Case management and social work following and working on placement at a rehab facility once stabilized and discharged. 11/23/2019 Patient seen and evaluated in follow-up today and continues to be extremely weak. Patient underwent ultrasound-guided paracentesis today with removal of 6.2 L. Multiple medical consultations following. He should continue with IV antibiotics. Patient remains on fluid restrictions. Nephrology following and remains on Lasix and Aldactone. Patient to receive albumin prior to and post paracentesis today. Patient remains on sodium bicarb tabs and dose has been decreased. Creatinine slightly improved at 1.37 with BUN of 41. Sodium is low at 130 today. Will repeat labs tomorrow. Patient will be going to [facility] for continued PT/OT therapy once patient is stabilized and discharged. 11/24/2019 Patient is seen in follow-up today and appears to be a little more alert and awake but fatigues easily. Patient is extremely weak requiring 1-2 person assist for position changes and getting up out of the bed. Encourage patient to continue increasing activity as tolerated and sitting out of the bed more. Is having some discomfort of his buttocks and appears to be macerated from continuous incontinence with stool. Tylenol and Toradol ordered. No reports of chest pain or palpitations. Patient states that his shortness of breath has slightly improved status post paracentesis yesterday. No reports of nausea or vomiting and patient is tolerating diet. Patient to continue with fluid restrictions. Creatinine improved today and is currently 1.15. Sodium is 131. Nephrology is following. 11/25/2019 Patient's serum creatinine went up to 1.8 because of which I'm holding the discharge patient is intravascularly volume depleted but the distal third spacing because of cirrhosis, holding of diuretics in spite of peripheral edema as well as ascites. Patient is bit sleepy. Constitutional: He appears to be severely fatigued bit sleepy Cardio vascular: denied any chest pain, palpitations Gastrointestinal denied any nausea vomiting Pulmonary: Denied any shortness of breath cough Neurologic denied any new focal deficits On 11/26/2019 -patient is sitting up in a chair by the bedside. Patient states that he has generalized weakness and feels fatigued. He denies having any chest pain or palpitations. He has mild difficulty in taking a deep breath because of his abdominal distention. He also has discomfort in his scrotal area where he had the abscess. He states that his lower extremities swelling has been the same. On reviewing the labs patient's white count is 14.5 hemoglobin of 8.4 sodium 132, creatinine 1.75, albumin 2.3, total bilirubin 5.4. On 11/27/2019 -patient is lying in his bed comfortably appears to be in no acute distress. He still complains of generalized fatigue and weakness. He states that his abdominal size is increasing but denies having any abdominal pain. Denies having any bleeding from any site. On reviewing his vitals patient spiked a fever of 99.8 last night. On reviewing his labs white count has been stable. No other significant changes in his labs. 11/28/2019 Patient is seen in follow-up lying in bed sleeping but arousable. Patient continues to have extreme fatigue and weakness and has been refusing to get up and out of the bed per nursing staff. Patient continues to be incontinent of stool which is causing severe excoriation of his buttocks area. Patient continues to have intermittent low-grade temps at times and abdomen is severely distended. Awaiting and appreciate GI input for another possible paracentesis. White blood count slowly trending down and is 13.5. Odium continues to be 131 and creatinine is slowly improving as well at 1.20. will repeat a.m. labs. Patient remains on Lasix and Aldactone and IV antibiotics and will continue at this time. 11/29/2019 Patient is seen and evaluated this morning and continues to be quite lethargic but is arousable. Patient is currently being transferred to the chair requiring 1-2 person assist. Patient is scheduled to undergo paracentesis for abdominal distention and ascites today with interventional radiology. Discussed with the patient at length about current CODE STATUS and his thoughts on his current treatment plan and patient continues to be very lethargic but responded with "my won't be able to take care of me, she has her own health conditions with her heart". Discussed with the patient about possible palliative and/or hospice care and patient continued to fall asleep. Multiple medical consultations following. Sodium slightly improved today and is 133 the current creatinine of 1.16. Patient remains on Unasyn and Diflucan and will continue at this time. Patient remains on Lasix and Aldactone and Aldactone is currently being increased. 11/30/2019 Patient is seen and evaluated in follow-up today with no acute overnight issues. Patient remains lethargic but is arousable. Patient continues to be quite weak requiring 1-2 person assist with position changes. Patient underwent paracentesis with removal of approximately 5.6 L yesterday. Creatinine has i mproved today and is currently 1.01 with a sodium of 131. Potassium is 4.4. White blood count slowly trending down and is 13.0. Current hemoglobin remains at 7.7. Patient continues to have intermittent low grade temps at 99F and other vital signs within normal limits. Patient remains on IV antibiotics in the form of Unasyn and will transition to oral antibiotics upon discharge. No reports of chest pain, shortness of breath, or palpitations. Patient is tolerating diet with no reports of nausea or vomiting. 12/01/2019 Patient is seen in follow-up today sitting in the chair and asking to be put back in the bed. Buttock area was examined in the excoriation has improved with 2 small little ulcers noted on bilateral buttock with noted blood on the brief during change. Patient still requiring 2 person assist to get up from the chair to the bed. Patient has been refusing lactulose as he continues to have loose stools and ammonia level has slightly elevated today and is at 36. Discussed with the patient at length about needing to take lactulose as this is important in his treatment plan. Patient appears slightly confused at times. Sodium today slightly improved at 132. Multiple medical consultations still following. No reports of chest pain or palpitations. Patient reports intermittent periods of shortness of breath with exertion. Chest x-ray is ordered and pending at this time. Patient is tolerating diet with no reports of nausea or vomiting. Patient is afebrile this morning. 12/02/2019 Patient is awake, alert and oriented 3 lying in bed and has been up in the chair one-time today. Patient continues to refuse lactulose although was agreeable to taking one dose yesterday. Repeat ammonia improved today and is 18. Patient stating he is not well enough to go home and continues to be extremely weak requiring 1-2 person assist to get out of bed. Discussed with the at length about possible hospice and other options as we are limited in patient continues to have a poor prognosis. Per she has been unsure of sending him to a rehab facility given the current coronavirus but is also stating that he is very noncompliant at home with medications and extremely hard to take care of. Case management and social work are following as there are now no current places that are willing to accept the patient at this time. During this hospitalization patient has been undergoing multiple ultrasound-guided paracentesis and will likely need these continued as his ascites continues to accumulate. May need standing order for ultrasound guided paracentesis in the outpatient setting. Patient to continue working with PT/OT for strength and mobility. Currently no reports of chest pain, shortness of breath, or palpitations. Patient has intermittent low-grade fevers with the highest being 99.9F. No reports of nausea or vomiting and patient is tolerating diet. Repeat chest x-ray yesterday showed chronic parenchymal changes without any evidence of acute pulmonary disease as he continues to have a cough with no phlegm production. 12/03/2019 no overnight events patient clinical condition remains the same, this is as good as he can get. his prognosis is extremely poor Constitutional: Denied any fatigue denied any fever. Cardio vascular: denied any chest pain, palpitations Gastrointestinal denied any nausea vomiting Pulmonary: Denied any shortness of breath cough Neurologic denied any new focal deficits All inpatient medications were reviewed and appropriate changes in these medications as dictated in the interval history and assessment and plan. Objective - Vital Signs Vital signs: Vital Signs Temp 98.7 F 12/03/19 07:40 Pulse 89 12/03/19 08:00 Resp 16 12/03/19 08:00 BP 126/65 12/03/19 07:40 Pulse Ox 97 12/03/19 07:40 Intake & Output 12/02/19 12/03/19 12/03/19 18:59 06:59 18:59 Intake Total 450 320 Output Total 1800 2200 1101 Balance -1350 -1880 -1101 Intake: IV 120 Sodium Chloride 0.9% 1, 120 000 ml @ 100 mls/hr IV . Q10H [facility] Rx#:[id number] Intake, IV Titration 200 Amount Ampicillin-Sulbactam 3 gm 200 In Sodium Chloride 0.9% 100 ml @ 200 mls/hr IVPB Q6HR [facility] Rx#:[id number] Oral 450 Output: Urine 1800 2200 1100 Uretheral (Rosa) 1100 1100 Stool 1 Other: Voiding Method Indwelling Catheter Indwelling Catheter Indwelling Catheter # Bowel Movements 1 1 1 - Exam GENERAL: Awake and oriented X 2 . Lying in bed HEENT: Pupils are round and equally reacting to light. EOMI. Positive for scleral icterus and conjunctival pallor. Normocephalic, atraumatic. CARDIOVASCULAR: S1 and S2 present. No murmurs, rubs, or gallops. PULMONARY: Chest is clear to auscultation, no wheezing or crackles. Diminished at the lung bases ABDOMEN: Soft, Distended, normoactive bowel sounds. patient has a scrotal swelling with indwelling Rosa catheter noted. Excoriation of the surrounding skin with lot of moisture around. EXTREMITIES: No cyanosis, clubbing, bilateral lower extremity edema 1+ pitting NEUROLOGICAL: No focal deficits were appreciated; Generalized weakness SKIN: There are 2 small sacral decubitus ulcers and mild excoriation noted of the buttocks area that is slightly improved. Some bleeding noted on the brief. please refer to nursing documentation for staging - Labs CBC & Chem 7: 12/02/19 08:19 12/02/19 08:19 Assessment and Plan Plan: Acute upper GI bleed: Resolved Duodenal ulcer on endoscopy Acute renal failure-prerenal azotemia Hepatorenal syndrome Coagulopathy Hepatic encephalopathy Alcoholic cirrhosis of the liver Hypovolemic hyponatremia Severe protein calorie malnutrition Stage II sacral decubitus ulcers Scrotal abscess/cellulitis PLAN: Overall prognosis is poor. Nephrology and GI following. Multiple consultants on board and following the patient. Continue with the current medication regimen. Further recommendations to follow depending on the progress of the patient. unable to discharge him to subacute rehabilitation as he is requiring frequent paracentesis almost twice a week. On Thursday will discuss with case management regarding options. Patient prognosis is extremely poor patient is more appropriate for hospice.
--- NOTE | 2019-12-03 23:47 | PN ---
PROGRESS NOTE DATE OF SERVICE: 12/03/2019 REASON FOR FOLLOWUP: 1. Scrotal abscess. 2. Sacral pressure ulcer. INTERVAL HISTORY: The patient is currently afebrile. He has been breathing comfortably. No chest pain or cough. No nausea, vomiting, abdominal pain or pain to the sacral wound area. PHYSICAL EXAMINATION: Blood pressure is 152/72 with a pulse of 97, temperature of 99. He is 99% on room air. General description is a middle-aged male lying in bed in no distress. Respiratory system: Unlabored breathing, clear to auscultation anteriorly. Heart S1, S2. Regular rate and rhythm. ABDOMEN: Soft, mildly distended. LABS: Hemoglobin is 8.8, white count 10.4 as of yesterday. Creatinine 1.02. DIAGNOSTIC IMPRESSION AND PLAN: 1. Patient with scrotal abscess status post spontaneous drainage. Culture with multiple pathogen. Patient covered on Unasyn, Diflucan to finish a short course of oral Augmentin and on discharge. 2. Patient with sacral pressure ulcer. Local care with Calmoseptine lotion. Keep the area dry and off the pressure. MMODL / IJN: [id number] /
[2019-12-04] MEDS: AMPICILLIN-SULBACTAM 3 GM in SODIUM CHLORIDE 0.9% 100 ML IVPB SCH ×5 (00:18→23:26)
[2019-12-04] MEDS: BENZONATATE 100 MG CAP PO SCH ×3 (09:44→20:27)
[2019-12-04] MEDS: PANTOPRAZOLE 40 MG TABLET PO SCH ×2 (09:44→20:27)
[2019-12-04] MEDS: SPIRONOLACTONE 25 MG TAB PO SCH ×2 (09:44→20:27)
[2019-12-04] MEDS: LACTULOSE 20 GM/30 ML CUP PO SCH ×3 (09:44→20:28)
[2019-12-04] MEDS: FLUCONAZOLE 100 MG TAB PO SCH (09:44)
[2019-12-04] MEDS: FUROSEMIDE 40 MG TAB PO SCH ×2 (09:44→17:26)
[2019-12-04] MEDS: SODIUM BICARBONATE TAB 650 MG TAB PO SCH (09:44)
[2019-12-04] MEDS: RIFAXIMIN 550 MG TABLET PO SCH ×2 (09:45→20:27)
--- NOTE | 2019-12-04 11:24 | PN ---
PROGRESS NOTE DATE OF DICTATION: 12/04/2019 The patient is a 59-year-old, pleasant, white male admitted to the hospital with acute alcoholic hepatitis, alcoholic cirrhosis of the liver. He is doing better. He is up in the chair today eating his breakfast, tolerating well. Denies any complaints. He still is weak and tired. No abdominal pain. No nausea or vomiting. PHYSICAL EXAMINATION: VITAL SIGNS: Blood pressure is 134/67, pulse rate 93, temperature 98.6. HEENT: Unremarkable. Conjunctivae pink. Sclerae, slightly icteric. Oral cavity, no lesions. NECK: No JVD or lymph node enlargement. CHEST: Clear to auscultation. HEART: Regular rate and rhythm. ABDOMEN: Soft. There was mild distention noted. EXTREMITIES: No pedal edema. SKIN: No rashes. NEUROLOGIC: He is alert, awake, oriented to name, place, and time. LABS: From today, not available. IMPRESSION: 1. Acute alcoholic hepatitis/alcoholic cirrhosis of the liver, gradually improving. Bilirubins have improved. 2. Ascites, on Lasix and Aldactone, status post large-volume paracentesis five days ago. 3. Scrotal abscess, on antibiotics, improving. 4. Hepatic encephalopathy, resolved. 5. History of alcohol use. RECOMMENDATIONS: 1. Continue with lactulose as well as Xifaxan. 2. Continue Lasix 40 mg twice daily and Aldactone 50 mg twice daily. 3. Low salt diet. 4. Increase ambulation and physical activity. 5. Abstinence from alcohol. 6. Can be discharged to a rehab facility soon. Thank you for this consultation. MMODL / IJN: [id number] /
--- NOTE | 2019-12-04 13:06 | P.PN ---
Subjective 59-year-old male patient with history of alcoholic liver cirrhosis admitted to the hospital with acute GI bleed and decompensated alcoholic hepatitis along with scrotal abscess; GI is following and patient is status post EGD; patient remains on broad-spectrum antibiotics versus scrotal abscess and urology is consulted 11/19/2019 Patient is seen and evaluated in room at bedside; remains somewhat lethargic; denies any specific complaints Vital signs are stable with a blood pressure 132/89; patient remains afebrile Patient is status post EGD for acute upper GI bleed which showed duodenal ulcer; GI is following and recommending to continue with Protonix 40 mg twice a day. Patient remains on lactulose 30 g by mouth 3 times a day along with Xifaxan for hepatic encephalopathy; continue with low-dose Lasix and Aldactone for ascites Urology is following and patient remains on broad-spectrum antibiotics; no drainable abscess anymore; patient will have outpatient follow-up 11/20/2019 Patient is seen and evaluated in room at bedside; remains sleepy and lethargic but arousable Patient is being followed by urology for chronic scrotal abscess which drained spontaneously; patient does not have any evidence of any fistula formation; urology suspecting nidus of infection deep in scrotum and recommending excision and drainage as an outpatient once patient is stable; patient remains on IV [place] syn Nephrology is following for acute renal injury which has resolved; patient remains nonoliguric; underwent paracentesis on 11/16 with removal of 4 L of fluid; remains on Aldactone 25 mg twice a day along with Lasix 40 mg daily; nephrology recommending an extra dose of IV Lasix at 40 mg 1; patient will continue with low-salt and fluid restricted diet Patient remains on lactulose and Xifaxan for hepatic encephalopathy Continues to have poor prognosis 11/21/2019 Patient is seen and evaluated in follow-up today more alert. Patient continues to be lethargic but easily arousable. Multiple medical consultations following. Remains on IV antibiotics in the form of Unasyn and also remains on Diflucan as wound cultures are finalized showing group B strep agalactiae, ecoli, ryan albicans, and alphahemolytic Streptococcus. Ammonia level slightly improved today and is 25. Bilirubin slowly trending down and is 8.9. SOdium remains slightly low at 133. Will continue with fluid restrictions. Creatinine today is 1.17. Case management and social work following for possible ECF placement once stabilized and discharged. No reports of chest pain, shortness of breath, or palpitations. Patient is afebrile. No reports of nausea or vomiting and patient is tolerating diet. 11/22/2019 Patient is seen in follow-up today and is alert and oriented 3. Patient continues to be quite lethargic at times and weak requiring 2 person assist with position changes. Multiple medical consultations following. Patient remains on IV antibiotics in the form of Unasyn along with Diflucan and will continue. Patient is to continue with fluids restrictions although continues to ask for fluid restrictions to be discontinued as he is always thirsty. Discussed with the patient at length about maintaining fluid restrictions at this time. Creatinine slightly worsened and is 1.40. Nephrology following. She continues on Lasix and Aldactone and will continue at this time. Patient scheduled to un dergo paracentesis with interventional radiology tomorrow. Currently no reports of chest pain, worsening shortness of breath, or palpitations. Patient is afebrile. No reports of nausea or vomiting and patient is tolerating diet. Case management and social work following and working on placement at a rehab facility once stabilized and discharged. 11/23/2019 Patient seen and evaluated in follow-up today and continues to be extremely weak. Patient underwent ultrasound-guided paracentesis today with removal of 6.2 L. Multiple medical consultations following. He should continue with IV antibiotics. Patient remains on fluid restrictions. Nephrology following and remains on Lasix and Aldactone. Patient to receive albumin prior to and post paracentesis today. Patient remains on sodium bicarb tabs and dose has been decreased. Creatinine slightly improved at 1.37 with BUN of 41. Sodium is low at 130 today. Will repeat labs tomorrow. Patient will be going to [facility] for continued PT/OT therapy once patient is stabilized and discharged. 11/24/2019 Patient is seen in follow-up today and appears to be a little more alert and awake but fatigues easily. Patient is extremely weak requiring 1-2 person assist for position changes and getting up out of the bed. Encourage patient to continue increasing activity as tolerated and sitting out of the bed more. Is having some discomfort of his buttocks and appears to be macerated from continuous incontinence with stool. Tylenol and Toradol ordered. No reports of chest pain or palpitations. Patient states that his shortness of breath has slightly improved status post paracentesis yesterday. No reports of nausea or vomiting and patient is tolerating diet. Patient to continue with fluid restrictions. Creatinine improved today and is currently 1.15. Sodium is 131. Nephrology is following. 11/25/2019 Patient's serum creatinine went up to 1.8 because of which I'm holding the discharge patient is intravascularly volume depleted but the distal third spacing because of cirrhosis, holding of diuretics in spite of peripheral edema as well as ascites. Patient is bit sleepy. Constitutional: He appears to be severely fatigued bit sleepy Cardio vascular: denied any chest pain, palpitations Gastrointestinal denied any nausea vomiting Pulmonary: Denied any shortness of breath cough Neurologic denied any new focal deficits On 11/26/2019 -patient is sitting up in a chair by the bedside. Patient states that he has generalized weakness and feels fatigued. He denies having any chest pain or palpitations. He has mild difficulty in taking a deep breath because of his abdominal distention. He also has discomfort in his scrotal area where he had the abscess. He states that his lower extremities swelling has been the same. On reviewing the labs patient's white count is 14.5 hemoglobin of 8.4 sodium 132, creatinine 1.75, albumin 2.3, total bilirubin 5.4. On 11/27/2019 -patient is lying in his bed comfortably appears to be in no acute distress. He still complains of generalized fatigue and weakness. He states that his abdominal size is increasing but denies having any abdominal pain. Denies having any bleeding from any site. On reviewing his vitals patient spiked a fever of 99.8 last night. On reviewing his labs white count has been stable. No other significant changes in his labs. 11/28/2019 Patient is seen in follow-up lying in bed sleeping but arousable. Patient continues to have extreme fatigue and weakness and has been refusing to get up and out of the bed per nursing staff. Patient continues to be incontinent of stool which is causing severe excoriation of his buttocks area. Patient continues to have intermittent low-grade temps at times and abdomen is severely distended. Awaiting and appreciate GI input for another possible paracentesis. White blood count slowly trending down and is 13.5. Odium continues to be 131 and creatinine is slowly improving as well at 1.20. will repeat a.m. labs. Patient remains on Lasix and Aldactone and IV antibiotics and will continue at this time. 11/29/2019 Patient is seen and evaluated this morning and continues to be quite lethargic but is arousable. Patient is currently being transferred to the chair requiring 1-2 person assist. Patient is scheduled to undergo paracentesis for abdominal distention and ascites today with interventional radiology. Discussed with the patient at length about current CODE STATUS and his thoughts on his current treatment plan and patient continues to be very lethargic but responded with "my won't be able to take care of me, she has her own health conditions with her heart". Discussed with the patient about possible palliative and/or hospice care and patient continued to fall asleep. Multiple medical consultations following. Sodium slightly improved today and is 133 the current creatinine of 1.16. Patient remains on Unasyn and Diflucan and will continue at this time. Patient remains on Lasix and Aldactone and Aldactone is currently being increased. 11/30/2019 Patient is seen and evaluated in follow-up today with no acute overnight issues. Patient remains lethargic but is arousable. Patient continues to be quite weak requiring 1-2 person assist with position changes. Patient underwent paracentesis with removal of approximately 5.6 L yesterday. Creatinine has i mproved today and is currently 1.01 with a sodium of 131. Potassium is 4.4. White blood count slowly trending down and is 13.0. Current hemoglobin remains at 7.7. Patient continues to have intermittent low grade temps at 99F and other vital signs within normal limits. Patient remains on IV antibiotics in the form of Unasyn and will transition to oral antibiotics upon discharge. No reports of chest pain, shortness of breath, or palpitations. Patient is tolerating diet with no reports of nausea or vomiting. 12/01/2019 Patient is seen in follow-up today sitting in the chair and asking to be put back in the bed. Buttock area was examined in the excoriation has improved with 2 small little ulcers noted on bilateral buttock with noted blood on the brief during change. Patient still requiring 2 person assist to get up from the chair to the bed. Patient has been refusing lactulose as he continues to have loose stools and ammonia level has slightly elevated today and is at 36. Discussed with the patient at length about needing to take lactulose as this is important in his treatment plan. Patient appears slightly confused at times. Sodium today slightly improved at 132. Multiple medical consultations still following. No reports of chest pain or palpitations. Patient reports intermittent periods of shortness of breath with exertion. Chest x-ray is ordered and pending at this time. Patient is tolerating diet with no reports of nausea or vomiting. Patient is afebrile this morning. 12/02/2019 Patient is awake, alert and oriented 3 lying in bed and has been up in the chair one-time today. Patient continues to refuse lactulose although was agreeable to taking one dose yesterday. Repeat ammonia improved today and is 18. Patient stating he is not well enough to go home and continues to be extremely weak requiring 1-2 person assist to get out of bed. Discussed with the at length about possible hospice and other options as we are limited in patient continues to have a poor prognosis. Per she has been unsure of sending him to a rehab facility given the current coronavirus but is also stating that he is very noncompliant at home with medications and extremely hard to take care of. Case management and social work are following as there are now no current places that are willing to accept the patient at this time. During this hospitalization patient has been undergoing multiple ultrasound-guided paracentesis and will likely need these continued as his ascites continues to accumulate. May need standing order for ultrasound guided paracentesis in the outpatient setting. Patient to continue working with PT/OT for strength and mobility. Currently no reports of chest pain, shortness of breath, or palpitations. Patient has intermittent low-grade fevers with the highest being 99.9F. No reports of nausea or vomiting and patient is tolerating diet. Repeat chest x-ray yesterday showed chronic parenchymal changes without any evidence of acute pulmonary disease as he continues to have a cough with no phlegm production. 12/03/2019 no overnight events patient clinical condition remains the same, this is as good as he can get. his prognosis is extremely poor 12/04/2019 Discussed at length today regarding his overall goals of care. Patient will benefit from spiritual counseling. Patient's ascites started worsening. Patient although overall feeling much better Constitutional: Denied any fatigue denied any fever. Cardio vascular: denied any chest pain, palpitations Gastrointestinal denied any nausea vomiting Pulmonary: Denied any shortness of breath cough Neurologic denied any new focal deficits All inpatient medications were reviewed and appropriate changes in these medications as dictated in the interval history and assessment and plan. Objective - Vital Signs Vital signs: Vital Signs Temp 98.6 F 12/04/19 07:45 Pulse 93 12/04/19 07:45 Resp 14 12/04/19 08:00 BP 134/67 12/04/19 07:45 Pulse Ox 98 12/04/19 07:45 Intake & Output 12/03/19 12/04/19 12/04/19 18:59 06:59 18:59 Output Total 2301 700 Balance -2301 -700 Output: Urine 2300 700 Uretheral (Rosa) 1100 Stool 1 Other: Voiding Method Indwelling Catheter Indwelling Catheter # Bowel Movements 1 - Exam GENERAL: Awake and oriented X 2 . Lying in bed HEENT: Pupils are round and equally reacting to light. EOMI. Positive for scleral icterus and conjunctival pallor. Normocephalic, atraumatic. CARDIOVASCULAR: S1 and S2 present. No murmurs, rubs, or gallops. PULMONARY: Chest is clear to auscultation, no wheezing or crackles. Diminished at the lung bases ABDOMEN: Soft, Distended, normoactive bowel sounds. patient has a scrotal swelling with indwelling Rosa catheter noted. Excoriation of the surrounding skin with lot of moisture around. EXTREMITIES: No cyanosis, clubbing, bilateral lower extremity edema 1+ pitting NEUROLOGICAL: No focal deficits were appreciated; Generalized weakness SKIN: There are 2 small sacral decubitus ulcers and mild excoriation noted of the buttocks area that is slightly improved. Some bleeding noted on the brief. please refer to nursing documentation for staging - Labs CBC & Chem 7: 12/02/19 08:19 12/02/19 08:19 Assessment and Plan Plan: Acute upper GI bleed: Resolved Duodenal ulcer on endoscopy Acute renal failure-prerenal azotemia Hepatorenal syndrome Coagulopathy Hepatic encephalopathy Alcoholic cirrhosis of the liver Hypovolemic hyponatremia Severe protein calorie malnutrition Stage II sacral decubitus ulcers Scrotal abscess/cellulitis PLAN: Overall prognosis is poor. Nephrology and GI following. Multiple consultants on board and following the patient. Continue with the current medication regimen. Further recommendations to follow depending on the progress of the patient. unable to discharge him to subacute rehabilitation as he is requiring frequent paracentesis almost twice a week. On Thursday will discuss with case management regarding options. Patient prognosis is extremely poor patient is more appropriate for hospice.
--- NOTE | 2019-12-05 02:49 | PN ---
PROGRESS NOTE DATE OF SERVICE: 12/04/2019 REASON FOR FOLLOWUP: 1. Scrotal abscess. 2. Sacral pressure ulcer. INTERVAL HISTORY: The patient is currently afebrile. He has been breathing comfortably. Denies having any chest pain or any cough. No abdominal pain. No diarrhea. PHYSICAL EXAMINATION: Blood pressure 149/75 with a pulse of 98, temperature 98.6. He is 97% on room air. General description is a middle-aged male lying in bed in no distress. RESPIRATORY SYSTEM: Unlabored breathing, clear to auscultation anteriorly. HEART: S1, S2. Regular rate and rhythm. ABDOMEN: Soft, distended. LABS: No new labs have been obtained today. DIAGNOSTIC IMPRESSION AND PLAN: 1. Patient with scrotal abscess status post spontaneous drainage culture with multiple pathogen. Patient covered with Unasyn and Diflucan. Finish therapy short course of oral Augmentin and Diflucan for about a week. 2. Sacral pressure ulcer. Local care to continue with the Calmoseptine lotion. Keep the area dry and off the pressure. Continue with supportive care. MMODL / IJN: [id number] /
[2019-12-05] MEDS: AMPICILLIN-SULBACTAM 3 GM in SODIUM CHLORIDE 0.9% 100 ML IVPB SCH ×2 (06:11→12:28)
[2019-12-05 06:58] LABS: ALT 35 U/L (4-49); AST 66 U/L (17-59); African American GFR (CKD) >90 (>60 ml/min/1.73 sqM); Albumin 2.4 g/dL (3.5-5.0); Alkaline Phosphatase 258 U/L (38-126); Anion Gap 10 mmol/L; Blood Urea Nitrogen 13 mg/dL (9-20); Carbon Dioxide 20 mmol/L (22-30); Chloride 103 mmol/L (98-107); Glucose 93 mg/dL (74-99); Non-African American GFR(CKD) >90 (>60 ml/min/1.73 sqM); Potassium 4.3 mmol/L (3.5-5.1); Sodium 133 mmol/L (137-145); Total Bilirubin 3.2 mg/dL (0.2-1.3); Total Protein 7.4 g/dL (6.3-8.2)
[2019-12-05] MEDS: LACTULOSE 20 GM/30 ML CUP PO SCH ×3 (10:01→21:53)
[2019-12-05] MEDS: FUROSEMIDE 40 MG TAB PO SCH ×2 (10:01→18:23)
[2019-12-05] MEDS: FLUCONAZOLE 100 MG TAB PO SCH (10:01)
[2019-12-05] MEDS: SPIRONOLACTONE 25 MG TAB PO SCH ×2 (10:01→21:53)
[2019-12-05] MEDS: BENZONATATE 100 MG CAP PO SCH ×3 (10:01→21:52)
[2019-12-05] MEDS: PANTOPRAZOLE 40 MG TABLET PO SCH ×2 (10:01→21:53)
[2019-12-05] MEDS: SODIUM BICARBONATE TAB 650 MG TAB PO SCH (10:01)
[2019-12-05] MEDS: RIFAXIMIN 550 MG TABLET PO SCH ×2 (10:02→21:52)
[2019-12-05 10:26] LABS: INR 1.4 (<1.2); Prothrombin Time 13.9 sec (9.0-12.0)
--- NOTE | 2019-12-05 13:44 | US ---
EXAMINATION TYPE: US paracentesis abd w/image DATE OF EXAM: 12/05/2019 COMPARISON: NONE HISTORY: Ascites. PROCEDURE: Maximal barrier technique was utilized. The skin overlying a suitable pocket of fluid was localized with ultrasound and the overlying skin was prepped and draped. Ultrasound was utilized with sterile technique. Lidocaine was used for local anesthesia and a skin sheri made with a scalpel. Catheter was advanced under direct ultrasound guidance into a suitable pocket of fluid and approximately 2.8 liter s of serous fluid were removed. Catheter was withdrawn and hemostasis achieved. There is no immedia te complication; the patient is discharged in stable condition. IMPRESSION: STATUS POST ULTRASOUND GUIDED PARACENTESIS FOR PALLIATION OF ASCITES. THIS PROCEDURE WA S PERFORMED BY THE UNDERSIGNED.
--- NOTE | 2019-12-05 14:53 | P.PN ---
Subjective Progress Note Date: 12/05/19 Principal diagnosis: Acute GI bleed Alcoholic liver cirrhosis/alcoholic hepatitis/encephalopathy Scrotal abscess 59-year-old male patient with history of alcoholic liver cirrhosis admitted to the hospital with acute GI bleed and decompensated alcoholic hepatitis along with scrotal abscess; GI is following and patient is status post EGD; patient remains on broad-spectrum antibiotics versus scrotal abscess and urology is consulted 11/19/2019 Patient is seen and evaluated in room at bedside; remains somewhat lethargic; denies any specific complaints Vital signs are stable with a blood pressure 132/89; patient remains afebrile Patient is status post EGD for acute upper GI bleed which showed duodenal ulcer; GI is following and recommending to continue with Protonix 40 mg twice a day. Patient remains on lactulose 30 g by mouth 3 times a day along with Xifaxan for hepatic encephalopathy; continue with low-dose Lasix and Aldactone for ascites Urology is following and patient remains on broad-spectrum antibiotics; no marlon inable abscess anymore; patient will have outpatient follow-up 11/20/2019 Patient is seen and evaluated in room at bedside; remains sleepy and lethargic but arousable Patient is being followed by urology for chronic scrotal abscess which drained spontaneously; patient does not have any evidence of any fistula formation; urology suspecting nidus of infection deep in scrotum and recommending excision and drainage as an outpatient once patient is stable; patient remains on IV Unasyn Nephrology is following for acute renal injury which has resolved; patient remains nonoliguric; underwent paracentesis on 11/16 with removal of 4 L of fluid; remains on Aldactone 25 mg twice a day along with Lasix 40 mg daily; nephrology recommending an extra dose of IV Lasix at 40 mg 1; patient will continue with low-salt and fluid restricted diet Patient remains on lactulose and Xifaxan for hepatic encephalopathy Continues to have poor prognosis 11/21/2019 Patient is seen and evaluated in follow-up today more alert. Patient continues to be lethargic but easily arousable. Multiple medical consultations following. Remains on IV antibiotics in the form of Unasyn and also remains on Diflucan as wound cultures are finalized showing group B strep agalactiae, ecoli, ryan albicans, and alphahemolytic Streptococcus. Ammonia level slightly improved today and is 25. Bilirubin slowly trending down and is 8.9. SOdium remains slightly low at 133. Will continue with fluid restrictions. Creatinine today is 1.17. Case management and social work following for possible ECF placement once stabilized and discharged. No reports of chest pain, shortness of breath, or palpitations. Patient is afebrile. No reports of nausea or vomiting and patient is tolerating diet. 11/22/2019 Patient is seen in follow-up today and is alert and oriented 3. Patient continues to be quite lethargic at times and weak requiring 2 person assist with position changes. Multiple medical consultations following. Patient remains on IV antibiotics in the form of Unasyn along with Diflucan and will continue. Patient is to continue with fluids restrictions although continues to ask for fluid restrictions to be discontinued as he is always thirsty. Discussed with the patient at length about maintaining fluid restrictions at this time. Creatinine slightly worsened and is 1.40. Nephrology following. She continues on Lasix and Aldactone and will continue at this time. Patient scheduled to undergo paracentesis with interventional radiology tomorrow. Currently no reports of chest pain, worsening shortness of breath, or palpitations. Patient is afebrile. No reports of nausea or vomiting and patient is tolerating diet. Case management and social work following and working on placement at a rehab facility once stabilized and discharged. 11/23/2019 Patient seen and evaluated in follow-up today and continues to be extremely weak. Patient underwent ultrasound-guided paracentesis today with removal of 6.2 L. Multiple medical consultations following. He should continue with IV antibiotics. Patient remains on fluid restrictions. Nephrology following and remains on Lasix and Aldactone. Patient to receive albumin prior to and post paracentesis today. Patient remains on sodium bicarb tabs and dose has been decreased. Creatinine slightly improved at 1.37 with BUN of 41. Sodium is low at 130 today. Will repeat labs tomorrow. Patient will be going to [facility] for continued PT/OT therapy once patient is stabilized and discharged. 11/24/2019 Patient is seen in follow-up today and appears to be a little more alert and awake but fatigues easily. Patient is extremely weak requiring 1-2 person assist for position changes and getting up out of the bed. Encourage patient to continue increasing activity as tolerated and sitting out of the bed more. Is having some discomfort of his buttocks and appears to be macerated from continuous incontinence with stool. Tylenol and Toradol ordered. No reports of chest pain or palpitations. Patient states that his shortness of breath has slightly improved status post paracentesis yesterday. No reports of nausea or vomiting and patient is tolerating diet. Patient to continue with fluid restrictions. Creatinine improved today and is currently 1.15. Sodium is 131. Nephrology is following. 11/25/2019 Patient's serum creatinine went up to 1.8 because of which I'm holding the discharge patient is intravascularly volume depleted but the distal third spacing because of cirrhosis, holding of diuretics in spite of peripheral edema as well as ascites. Patient is bit sleepy. Constitutional: He appears to be severely fatigued bit sleepy Cardio vascular: denied any chest pain, palpitations Gastrointestinal denied any nausea vomiting Pulmonary: Denied any shortness of breath cough Neurologic denied any new focal deficits On 11/26/2019 -patient is sitting up in a chair by the bedside. Patient states that he has generalized weakness and feels fatigued. He denies having any chest pain or palpitations. He has mild difficulty in taking a deep breath because of his abdominal distention. He also has discomfort in his scrotal area where he had the abscess. He states that his lower extremities swelling has been the same. On reviewing the labs patient's white count is 14.5 hemoglobin of 8.4 sodium 132, creatinine 1.75, albumin 2.3, total bilirubin 5.4. On 11/27/2019 -patient is lying in his bed comfortably appears to be in no acute distress. He still complains of generalized fatigue and weakness. He states that his abdominal size is increasing but denies having any abdominal pain. Denies having any bleeding from any site. On reviewing his vitals patient spiked a fever of 99.8 last night. On reviewing his labs white count has been stable. No other significant changes in his labs. 11/28/2019 Patient is seen in follow-up lying in bed sleeping but arousable. Patient continues to have extreme fatigue and weakness and has been refusing to get up and out of the bed per nursing staff. Patient continues to be incontinent of stool which is causing severe excoriation of his buttocks area. Patient continues to have intermittent low-grade temps at times and abdomen is severely distended. Awaiting and appreciate GI input for another possible paracentesis. White blood count slowly trending down and is 13.5. Odium continues to be 131 and creatinine is slowly improving as well at 1.20. will repeat a.m. labs. Patient remains on Lasix and Aldactone and IV antibiotics and will continue at this time. 11/29/2019 Patient is seen and evaluated this morning and continues to be quite lethargic but is arousable. Patient is currently being transferred to the chair requiring 1-2 person assist. Patient is scheduled to undergo paracentesis for abdominal distention and ascites today with interventional radiology. Discussed with the patient at length about current CODE STATUS and his thoughts on his current treatment plan and patient continues to be very lethargic but responded with "my won't be able to take care of me, she has her own health conditions with her heart". Discussed with the patient about possible palliative and/or hospice care and patient continued to fall asleep. Multiple medical consultations following. Sodium slightly improved today and is 133 the current creatinine of 1.16. Patient remains on Unasyn and Diflucan and will continue at this time. Patient remains on Lasix and Aldactone and Aldactone is currently being increased. 11/30/2019 Patient is seen and evaluated in follow-up today with no acute overnight issues. Patient remains lethargic but is arousable. Patient continues to be quite weak requiring 1-2 person assist with position changes. Patient underwent paracentesis with removal of approximately 5.6 L yesterday. Creatinine has improved today and is currently 1.01 with a sodium of 131. Potassium is 4.4. White blood count slowly trending down and is 13.0. Current hemoglobin remains at 7.7. Patient continues to have intermittent low grade temps at 99F and other vital signs within normal limits. Patient remains on IV antibiotics in the form of Unasyn and will transition to oral antibiotics upon discharge. No reports of chest pain, shortness of breath, or palpitations. Patient is tolerating diet with no reports of nausea or vomiting. 12/01/2019 Patient is seen in follow-up today sitting in the chair and asking to be put back in the bed. Buttock area was examined in the excoriation has improved with 2 small little ulcers noted on bilateral buttock with noted blood on the brief during change. Patient still requiring 2 person assist to get up from the chair to the bed. Patient has been refusing lactulose as he continues to have loose stools and ammonia level has slightly elevated today and is at 36. Discussed with the patient at length about needing to take lactulose as this is important in his treatment plan. Patient appears slightly confused at times. Sodium today slightly improved at 132. Multiple medical consultations still following. No reports of chest pain or palpitations. Patient reports intermittent periods of shortness of breath with exertion. Chest x-ray is ordered and pending at this time. Patient is tolerating diet with no reports of nausea or vomiting. Patient is afebrile this morning. 12/02/2019 Patient is awake, alert and oriented 3 lying in bed and has been up in the chair one-time today. Patient continues to refuse lactulose although was agreeable to taking one dose yesterday. Repeat ammonia improved today and is 18. Patient stating he is not well enough to go home and continues to be extremely weak requiring 1-2 person assist to get out of bed. Discussed with the at length about possible hospice and other options as we are limited in patient continues to have a poor prognosis. Per she has been unsure of sending him to a rehab facility given the current coronavirus but is also stating that he is very noncompliant at home with medications and extremely hard to take care of. Case management and social work are following as there are now no current places that are willing to accept the patient at this time. During this hospitalization patient has been undergoing multiple ultrasound-guided paracentesis and will likely need these continued as his ascites continues to accumulate. May need standing order for ultrasound guided paracentesis in the outpatient setting. Patient to continue working with PT/OT for strength and mobility. Currently no reports of chest pain, shortness of breath, or palpitations. Patient has intermittent low-grade fevers with the highest being 99.9F. No reports of nausea or vomiting and patient is tolerating diet. Repeat chest x-ray yesterday showed chronic parenchymal changes without any ev idence of acute pulmonary disease as he continues to have a cough with no phlegm production. 12/03/2019 no overnight events patient clinical condition remains the same, this is as good as he can get. his prognosis is extremely poor 12/04/2019 Discussed at length today regarding his overall goals of care. Patient will benefit from spiritual counseling. Patient's ascites started worsening. Anselmo guerrero although overall feeling much better Constitutional: Denied any fatigue denied any fever. Cardio vascular: denied any chest pain, palpitations Gastrointestinal denied any nausea vomiting Pulmonary: Denied any shortness of breath cough Neurologic denied any new focal deficits All inpatient medications were reviewed and appropriate changes in these medications as dictated in the interval history and assessment and plan. 12/05/2019 Patient is seen and evaluated in follow-up today and continues to have some abdominal distention and will be scheduled for an ultrasound-guided paracentesis. Discussed with the patient's Julianna at length and given her current situation of no beds available at rehab facilities that are willing to accommodate possible transportation for palliative paracentesis and also her deep concern for further exposure to Covid 19, the has decided to have the patient home and will continue with home care. states she has a daughter and several friends that are willing to help assist with patient's care. Patient will require a hospital bed as he needs to have the head of the bed elevated 30-45 at all times to assist with shortness of breath due to abdominal ascites along with a walker for mobility and the bedside commode for access as he continues to be quite weak requiring assistance with ADLs. Currently no reports of chest pain, worsening shortness of breath, or palpitations. Patient is afebrile. No reports of nausea or vomiting and patient is tolerating diet. Objective - Vital Signs Vital signs: Vital Signs Temp 98.9 F 12/05/19 03:24 Pulse 95 12/05/19 11:45 Resp 18 12/05/19 11:45 BP 131/58 12/05/19 11:45 Pulse Ox 100 12/05/19 11:45 Intake & Output 12/04/19 12/05/19 12/05/19 18:59 06:59 18:59 Intake Total 50 Output Total 1600 Balance -1550 Weight 93 kg Intake: Oral 50 Output: Urine 1600 Other: Voiding Method Indwelling Catheter Indwelling Catheter - Exam GENERAL: Awake and oriented X 2 . Lying in bed HEENT: Pupils are round and equally reacting to light. EOMI. Positive for scleral icterus and conjunctival pallor. Normocephalic, atraumatic. CARDIOVASCULAR: S1 and S2 present. No murmurs, rubs, or gallops. PULMONARY: Chest is clear to auscultation, no wheezing or crackles. Diminished at the lung bases ABDOMEN: Soft, mildly Distended, normoactive bowel sounds. patient has a scrotal swelling with indwelling Rosa catheter noted. Excoriation of the surrounding skin with lot of moisture around. EXTREMITIES: No cyanosis, clubbing, bilateral lower extremity edema 1+ pitting NEUROLOGICAL: No focal deficits were appreciated; Generalized weakness SKIN: There are 2 small sacral decubitus ulcers and mild excoriation noted of the buttocks area that is slightly improved. Some bleeding noted on the brief. please refer to nursing documentation for staging - Labs CBC & Chem 7: 12/02/19 08:19 12/05/19 05:45 Labs: Abnormal Lab Results - Last 24 Hours (Table) 12/05/19 12/05/19 Range/Units 05:45 09:45 PT 13.9 H (9.0-12.0) sec INR 1.4 H (<1.2) Sodium 133 L (137-145) mmol/L Carbon Dioxide 20 L (22-30) mmol/L Calcium 8.0 L (8.4-10.2) mg/dL Total Bilirubin 3.2 H (0.2-1.3) mg/dL AST 66 H (17-59) U/L Alkaline Phosphatase 258 H (38-126) U/L Albumin 2.4 L (3.5-5.0) g/dL Assessment and Plan Assessment: Acute upper GI bleed: Resolved Duodenal ulcer on endoscopy Acute renal failure-prerenal azotemia Hepatorenal syndrome Coagulopathy Hepatic encephalopathy Alcoholic cirrhosis of the liver Hypovolemic hyponatremia Severe protein calorie malnutrition Stage II sacral decubitus ulcers Scrotal abscess/cellulitis PLAN: Overall prognosis is poor. Nephrology and GI following. Multiple consultants on board and following the patient. Continue with the current medication regimen. Further recommendations to follow depending on the progress of the patient. Case management is following and assisting with discharge planning needs as patient will now be going home with home care. Discussed at length patient's plan of care and treatment plan with the patient as well as the Julianna on the phone. Patient prognosis is extremely poor patient is mo re appropriate for hospice. Possible discharge in 24 hours.
--- NOTE | 2019-12-05 15:34 | PN ---
PROGRESS NOTE Patient is seen for followup for acute kidney injury, chronic bilateral lower extremity edema. His renal function has stabilized. Patient remains edematous; however, it is quite stable. He is maintained on oral Lasix 40 mg b.i.d. No significant complaints today. PHYSICAL EXAMINATION: On examination, blood pressure was 118/62, heart rate 97 per minute. Patient is afebrile. EXAMINATION OF THE HEART: S1 and S2. EXAMINATION OF LUNGS: Decreased breath sounds at bases. ABDOMEN: Soft, non-tender. Examination of lower extremities shows edema 2+ bilaterally. [employer] exam is grossly intact. LABS: Sodium 133, potassium 4.3, BUN 13, creatinine 0.91. ASSESSMENT: 1. Acute kidney injury, currently resolved. It was mainly associated with NSAIDs on his last episode of acute kidney injury. 2. Lower extremity edema associated with underlying liver cirrhosis, maintained on oral Lasix, which I will continue. 3. Chronic liver disease with recurrent ascites and status post paracentesis frequently. 4. Acute gastrointestinal bleed, status post esophagogastroduodenoscopy on 11/11/2019. PLAN: Continue with current dose of oral Lasix. Maintain salt restriction. MMODL / IJN: [id number] /
--- NOTE | 2019-12-05 22:21 | PN ---
PROGRESS NOTE DATE OF SERVICE: 12/05/2019 REASON FOR FOLLOWUP: 1. Scrotal abscess. 2. Sacral pressure ulcer. INTERVAL HISTORY: The patient is currently afebrile, has been breathing comfortably on room air. Denies any chest pain or cough. No abdominal pain. Did have paracentesis done today. PHYSICAL EXAMINATION: Blood pressure 126/75 with a pulse of 100, temperature 99.1. He is 100% on room air. General description is a middle-aged male lying in bed in no distress. RESPIRATORY SYSTEM: Unlabored breathing. Clear to auscultation anteriorly. HEART: S1, S2. Regular rate and rhythm. ABDOMEN: Soft. No distention. LABS: Hemoglobin 8.3, white count 12.4, creatinine 0.91. DIAGNOSTIC IMPRESSION AND PLAN: 1. Patient with scrotal abscess and spontaneous drainage. Culture with multiple pathogens. Antibiotic adjusted to Augmentin and Diflucan; to continue for another 5 to 7 days. 2. Sacral pressure ulcer. Local care with Calmoseptine lotion. Keep the area dry and off pressure. MMODL / IJN: [id number] /
[2019-12-05] MEDS: AMOXIC-POT CLAV 875-125MG 1 EACH TAB PO SCH (22:22)
[2019-12-06] MEDS: RIFAXIMIN 550 MG TABLET PO SCH ×2 (08:22→21:07)
[2019-12-06] MEDS: SPIRONOLACTONE 25 MG TAB PO SCH ×2 (08:22→21:07)
[2019-12-06] MEDS: FLUCONAZOLE 100 MG TAB PO SCH (08:22)
[2019-12-06] MEDS: PANTOPRAZOLE 40 MG TABLET PO SCH ×2 (08:22→21:07)
[2019-12-06] MEDS: FUROSEMIDE 40 MG TAB PO SCH ×2 (08:22→17:01)
[2019-12-06] MEDS: SODIUM BICARBONATE TAB 650 MG TAB PO SCH (08:22)
[2019-12-06] MEDS: BENZONATATE 100 MG CAP PO SCH ×3 (08:22→21:07)
[2019-12-06] MEDS: LACTULOSE 20 GM/30 ML CUP PO SCH ×3 (08:23→21:07)
[2019-12-06] MEDS: AMOXIC-POT CLAV 875-125MG 1 EACH TAB PO SCH ×2 (08:23→21:07)
--- NOTE | 2019-12-06 14:40 | P.DS ---
Providers Date of admission: 11/11/19 06:31 Expected date of discharge: 12/06/19 Attending physician: Kanika Razo Consults: 11/11/19 06:31 Consult Physician Stat Consulting Provider: Spenser Cardoza Consult Reason/Comments: GI bleeding. Anemia. Lactic acidosis. Do you want consulting provider notified?: Already Contacted Consult Physician Stat Consulting Provider: Tammi Dasilva Consult Reason/Comments: GI bleeding. Anemia. Lactic acidosis. 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 Do you want consulting provider notified?: Yes 11/16/19 10:15 Consult Physician Routine Consulting Provider: Julito Lewis Consult Reason/Comments: scrotal edema Do you want consulting provider notified?: Yes Primary care physician: Stated None Hospital Course: Final diagnosis Acute upper GI bleed: Resolved Duodenal ulcer on endoscopy Acute renal failure-prerenal azotemia Hepatorenal syndrome Coagulopathy Hepatic encephalopathy Alcoholic cirrhosis of the liver Hypovolemic hyponatremia Severe protein calorie malnutrition Stage II sacral decubitus ulcers Scrotal abscess/cellulitis Discharge disposition Patient is being discharged in a stable condition with guarded prognosis to home and will continue with visiting home nurses for home care. Patient will follow- up with Dr. Telles this as scheduled. Patient will also need to follow- up with nephrology, urology, and GI in the outpatient setting. Will continue her short course of oral antibiotics in the form of Augmentin twice daily for the next 7 days along with oral Diflucan for the next 7 days as well. Total time taken is greater than 35 minutes. History of present illness This is a 59-year-old male who was recently admitted with acute GI bleed and decompensated alcoholic hepatitis along with a scrotal abscess and was being closely monitored. Multiple medical consults following. Patient was seen and evaluated by urology Dr. Macias for scrotal abscess and will be following up with him in the outpatient setting. Patient continues with an indwelling Rosa cath eter and will continue until urology follow-up. Discussed with the patient and family members at length about continuing with current medication regimen as he has been known to be noncompliant with taking lactulose. Patient needs to take lactulose at least once daily. Patient is also to continue with Aldactone and Lasix as directed by GI and nephrology. During hospitalization patient has underwent 3 ultrasound-guided paracentesis as he continues to have abdominal distention and ascites and will likely need repeated paracentesis in the outpatient setting. Prescription was provided. Patient will also need repeat labs to monitor kidney functions along with electrolytes in the outpatient setting. Patient continues to be quite weak and was seen and evaluated multiple times by physical therapy and we were recommending an ECF for continued rehab although there are no beds available that are willing to accommodate travel as needed for palliative paracentesis. was concerned due to current Covid situation and would like to bring him home and is agreeable to home care. Julianna states that she has a daughter at home along with other friends that are willing to help with patient's care. Discussed with the patient along with the at length about being hospice appropriate and she will discuss with visiting nurses about these options in the outpatient setting. Discussed with the patient along with at length about overall prognosis being poor and they verbalized understanding. Currently no reports of chest pain, shortness of breath, or palpitations. Patient is afebrile. No reports of nausea or vomiting and patient is tolerating diet. Patient is to remain on a sodium restricted diet along with fluid restrictions at 1500 mL per day and this was discussed at length with Julianna who will be providing care. Extremely guarded prognosis. On exam vital signs are stable. Temp is 99.3F, pulse is 90, respirations are 18, blood pressure is 134/67, oxygen saturation is 99% on room air. Cardio S1, S2 are present. Respiratory system shows diminished breath sounds otherwise clear to auscultation. Abdomen is soft, distended, nontender. Nervous system shows diffusely weak. Please refer to medication reconciliation sheet for a list of medications. Patient Condition at Discharge: Stable Plan - Discharge Summary Discharge Rx Participant: No New Discharge Prescriptions: New Spironolactone [Aldactone] 50 mg PO BID 30 Days #60 tab Amoxic-Pot Clav 875-125Mg [Augmentin 875-125] 1 each PO Q12HR 7 Days #14 tab Menthol-Zinc Oxide Oint [Calmoseptine Oint] 1 applic TOPICAL BID PRN 30 Days #2 applic PRN Reason: Skin Irritation Lactulose [Cephulac] 30 gm PO DAILY 30 Days ml Fluconazole [Diflucan] 100 mg PO DAILY 7 Days #7 tab Furosemide [Lasix] 40 mg PO BID@0900,1600 30 Days #60 tab Pantoprazole [Protonix] 40 mg PO DAILY 30 Days #30 tablet.dr Sodium Bicarbonate Tab 650 mg PO DAILY 30 Days #30 tab Acetaminophen Tab [Tylenol] 650 mg PO Q6HR PRN #30 tab PRN Reason: Fever and/ or MILD Pain Rifaximin [Xifaxan] 550 mg PO BID #30 tablet Discontinued Spironolactone [Aldactone] 50 mg PO DAILY 30 Days #30 tab Potassium Chloride ER [K-Dur 20] 20 meq PO BID 30 Days #60 tab.er.prt Furosemide [Lasix] 40 mg PO BID 30 Days #60 tablet Discharge Medication List Acetaminophen Tab [Tylenol] 650 mg PO Q6HR PRN #30 tab 12/06/19 [Rx] Amoxic-Pot Clav 875-125Mg [Augmentin 875-125] 1 each PO Q12HR 7 Days #14 tab 12/06/19 [Rx] Fluconazole [Diflucan] 100 mg PO DAILY 7 Days #7 tab 12/06/19 [Rx] Furosemide [Lasix] 40 mg PO BID@0900,1600 30 Days #60 tab 12/06/19 [Rx] Lactulose [Cephulac] 30 gm PO DAILY 30 Days ml 12/06/19 [Rx] Menthol-Zinc Oxide Oint [Calmoseptine Oint] 1 applic TOPICAL BID PRN 30 Days #2 applic 12/06/19 [Rx] Pantoprazole [Protonix] 40 mg PO DAILY 30 Days #30 tablet. 12/06/19 [Rx] Rifaximin [Xifaxan] 550 mg PO BID #30 tablet 12/06/19 [Rx] Sodium Bicarbonate Tab 650 mg PO DAILY 30 Days #30 tab 12/06/19 [Rx] Spironolactone [Aldactone] 50 mg PO BID 30 Days #60 tab 12/06/19 [Rx] Follow up Appointment(s)/Referral(s): Ela Blakely MD [STAFF PHYSICIAN] - 12/13/19 11:20 am ([facility] will call on this date to do a telephone visit) Russell Tomas Jr, DO [Doctor of Osteopathic Medicine] - 12/08/19 11:15 am Tammi Dasilva MD [STAFF PHYSICIAN] - 12/22/19 2:45 pm (GI) Koffi Macias MD [STAFF PHYSICIAN] - 1 Week (office will call with appointment time) [facility] Visiting Nurse, [NON-STAFF] - 1 Week Ambulatory/Diagnostic Orders: Complete Blood Count w/diff [LAB.AMB] Time Frame: 3 Days, Location: None Select ed Comprehensive Metabolic Panel [LAB.AMB] Time Frame: 3 Days, Location: None Selected Activity/Diet/Wound Care/Special Instructions: Activity Limited until follow-up Continue current low sodium diet and fluid restrictions to 1500 mL per 24 hours Continue taking antibiotics for 7 days until finished Continue taking lactulose at least once daily Continue using ointment to buttocks area twice daily Continue with indwelling Rosa catheter until follow-up with Dr. Macias Continue with home care Keep all scheduled follow-up appointments Continue to avoid any alcohol intake Discharge Disposition: HOME WITH HOME HEALTH SERVICES
--- NOTE | 2019-12-06 17:02 | PN ---
PROGRESS NOTE DATE OF SERVICE: 12/06/2019 REASON FOR FOLLOWUP: 1. Scrotal abscess. 2. Sacral pressure ulcer. INTERVAL HISTORY: The patient is currently afebrile. Patient has been breathing comfortably. He denies having any chest pain or cough. No abdominal pain or diarrhea. PHYSICAL EXAMINATION: Blood pressure 130/67 with pulse of 85, temperature 98.3, he is 100% on room air. General description is a middle-aged male, lying in bed in no distress. RESPIRATORY SYSTEM: Unlabored breathing, clear to auscultation anteriorly. HEART: S1, S2. Regular rate and rhythm. ABDOMEN: Soft, no distention. LABS: No new labs have been obtained today. DIAGNOSTIC IMPRESSION AND PLAN: 1. Patient with scrotal abscess, status post spontaneous drainage. Cultures show multiple pathogen. Currently on Augmentin and Diflucan for about a week. 2. Sacral pressure ulcer. Local care to continue with Aquacel AG lotion. Keep the area dry and off the pressure. MMODL / IJN: [id number] /
--- NOTE | 2019-12-06 21:06 | P.PN ---
Subjective Progress Note Date: 12/06/19 Principal diagnosis: Acute GI bleed, duodenal ulcer, anemia acute blood loss, alcoholic hepatitis, alcoholic cirrhosis Patient seen lying in bed and today reporting that he is feeling somewhat better. Tolerating diet. No signs or symptoms of GI bleeding. Objective - Vital Signs Vital signs: Vital Signs Temp 99.3 F 12/06/19 07:00 Pulse 90 12/06/19 07:27 Resp 18 12/06/19 07:27 BP 134/67 12/06/19 07:00 Pulse Ox 99 12/06/19 07:00 Intake & Output 12/05/19 12/06/19 12/06/19 18:59 06:59 18:59 Output Total 301 1102 1 Balance -301 -1102 -1 Weight 93 kg Output: Urine 300 1100 Stool 1 2 1 Other: Voiding Method Indwelling Catheter Indwelling Catheter Indwelling Catheter # Bowel Movements 2 - Exam On physical examination, patient appears comfortable in no apparent distress. HEAD: Normocephalic, atraumatic. EYES: No scleral icterus. No conjunctival injection. MOUTH: No lesions, tongue midline. NECK: Trachea midline, no gross abnormalities. ABDOMEN: Soft, obese and moderately distended. Bowel sounds are positive. No organomegaly. No guarding or rigidity. EXTREMITIES: No pedal edema. SKIN: No rashes, no jaundice. NEUROLOGIC: Alert and oriented x3. No focal deficits. - Labs CBC & Chem 7: 12/02/19 08:19 12/05/19 05:45 Assessment and Plan (1) Alcoholic hepatitis Current Visit: Yes Status: Acute Code(s): K70.10 - ALCOHOLIC HEPATITIS WITHOUT ASCITES SNOMED Code(s): 434418498 (2) Ascites Current Visit: Yes Status: Acute Code(s): R18.8 - OTHER ASCITES SNOMED Code(s): 281094337 (3) Hepatic encephalopathy Current Visit: Yes Status: Acute Code(s): K72.90 - HEPATIC FAILURE, UNSPECIFIED WITHOUT COMA SNOMED Code(s): 50393551 (4) Duodenal ulcer Current Visit: Yes Status: Acute Code(s): K26.9 - DUODENAL ULCER, UNSP ACUTE OR CHRONIC, W/O HEMOR OR PERF SNOMED Code(s): 65543363 Plan: Supportive care Continue Aldactone and Lasix Appreciate nephrology recommendations Continue lactulose 3 times a day and rifaximin twice a day Alcohol abstinence Continue Protonix twice a day Thank you for allowing us to participate in the care of the patient
[2019-12-06] MEDS: TEMAZEPAM 15 MG CAP PO PRN (23:08)
[2019-12-07 07:42] VITALS: BP 138/73; PULSE 89; RESP 16; TEMP 98.4
--- NOTE | 2019-12-07 10:12 | P.PN ---
Subjective Progress Note Date: 12/07/19 Principal diagnosis: Acute GI bleed Alcoholic liver cirrhosis/alcoholic hepatitis/encephalopathy Scrotal abscess 59-year-old male patient with history of alcoholic liver cirrhosis admitted to the hospital with acute GI bleed and decompensated alcoholic hepatitis along with scrotal abscess; GI is following and patient is status post EGD; patient remains on broad-spectrum antibiotics versus scrotal abscess and urology is consulted 11/19/2019 Patient is seen and evaluated in room at bedside; remains somewhat lethargic; denies any specific complaints Vital signs are stable with a blood pressure 132/89; patient remains afebrile Patient is status post EGD for acute upper GI bleed which showed duodenal ulcer; GI is following and recommending to continue with Protonix 40 mg twice a day. Patient remains on lactulose 30 g by mouth 3 times a day along with Xifaxan for hepatic encephalopathy; continue with low-dose Lasix and Aldactone for ascites Urology is following and patient remains on broad-spectrum antibiotics; no marlon inable abscess anymore; patient will have outpatient follow-up 11/20/2019 Patient is seen and evaluated in room at bedside; remains sleepy and lethargic but arousable Patient is being followed by urology for chronic scrotal abscess which drained spontaneously; patient does not have any evidence of any fistula formation; urology suspecting nidus of infection deep in scrotum and recommending excision and drainage as an outpatient once patient is stable; patient remains on IV Unasyn Nephrology is following for acute renal injury which has resolved; patient remains nonoliguric; underwent paracentesis on 11/16 with removal of 4 L of fluid; remains on Aldactone 25 mg twice a day along with Lasix 40 mg daily; nephrology recommending an extra dose of IV Lasix at 40 mg 1; patient will continue with low-salt and fluid restricted diet Patient remains on lactulose and Xifaxan for hepatic encephalopathy Continues to have poor prognosis 11/21/2019 Patient is seen and evaluated in follow-up today more alert. Patient continues to be lethargic but easily arousable. Multiple medical consultations following. Remains on IV antibiotics in the form of Unasyn and also remains on Diflucan as wound cultures are finalized showing group B strep agalactiae, ecoli, ryan albicans, and alphahemolytic Streptococcus. Ammonia level slightly improved today and is 25. Bilirubin slowly trending down and is 8.9. SOdium remains slightly low at 133. Will continue with fluid restrictions. Creatinine today is 1.17. Case management and social work following for possible ECF placement once stabilized and discharged. No reports of chest pain, shortness of breath, or palpitations. Patient is afebrile. No reports of nausea or vomiting and patient is tolerating diet. 11/22/2019 Patient is seen in follow-up today and is alert and oriented 3. Patient continues to be quite lethargic at times and weak requiring 2 person assist with position changes. Multiple medical consultations following. Patient remains on IV antibiotics in the form of Unasyn along with Diflucan and will continue. Patient is to continue with fluids restrictions although continues to ask for fluid restrictions to be discontinued as he is always thirsty. Discussed with the patient at length about maintaining fluid restrictions at this time. Creatinine slightly worsened and is 1.40. Nephrology following. She continues on Lasix and Aldactone and will continue at this time. Patient scheduled to undergo paracentesis with interventional radiology tomorrow. Currently no reports of chest pain, worsening shortness of breath, or palpitations. Patient is afebrile. No reports of nausea or vomiting and patient is tolerating diet. Case management and social work following and working on placement at a rehab facility once stabilized and discharged. 11/23/2019 Patient seen and evaluated in follow-up today and continues to be extremely weak. Patient underwent ultrasound-guided paracentesis today with removal of 6.2 L. Multiple medical consultations following. He should continue with IV antibiotics. Patient remains on fluid restrictions. Nephrology following and remains on Lasix and Aldactone. Patient to receive albumin prior to and post paracentesis today. Patient remains on sodium bicarb tabs and dose has been decreased. Creatinine slightly improved at 1.37 with BUN of 41. Sodium is low at 130 today. Will repeat labs tomorrow. Patient will be going to [facility] for continued PT/OT therapy once patient is stabilized and discharged. 11/24/2019 Patient is seen in follow-up today and appears to be a little more alert and awake but fatigues easily. Patient is extremely weak requiring 1-2 person assist for position changes and getting up out of the bed. Encourage patient to continue increasing activity as tolerated and sitting out of the bed more. Is having some discomfort of his buttocks and appears to be macerated from continuous incontinence with stool. Tylenol and Toradol ordered. No reports of chest pain or palpitations. Patient states that his shortness of breath has slightly improved status post paracentesis yesterday. No reports of nausea or vomiting and patient is tolerating diet. Patient to continue with fluid restrictions. Creatinine improved today and is currently 1.15. Sodium is 131. Nephrology is following. 11/25/2019 Patient's serum creatinine went up to 1.8 because of which I'm holding the discharge patient is intravascularly volume depleted but the distal third spacing because of cirrhosis, holding of diuretics in spite of peripheral edema as well as ascites. Patient is bit sleepy. Constitutional: He appears to be severely fatigued bit sleepy Cardio vascular: denied any chest pain, palpitations Gastrointestinal denied any nausea vomiting Pulmonary: Denied any shortness of breath cough Neurologic denied any new focal deficits On 11/26/2019 -patient is sitting up in a chair by the bedside. Patient states that he has generalized weakness and feels fatigued. He denies having any chest pain or palpitations. He has mild difficulty in taking a deep breath because of his abdominal distention. He also has discomfort in his scrotal area where he had the abscess. He states that his lower extremities swelling has been the same. On reviewing the labs patient's white count is 14.5 hemoglobin of 8.4 sodium 132, creatinine 1.75, albumin 2.3, total bilirubin 5.4. On 11/27/2019 -patient is lying in his bed comfortably appears to be in no acute distress. He still complains of generalized fatigue and weakness. He states that his abdominal size is increasing but denies having any abdominal pain. Denies having any bleeding from any site. On reviewing his vitals patient spiked a fever of 99.8 last night. On reviewing his labs white count has been stable. No other significant changes in his labs. 11/28/2019 Patient is seen in follow-up lying in bed sleeping but arousable. Patient continues to have extreme fatigue and weakness and has been refusing to get up and out of the bed per nursing staff. Patient continues to be incontinent of stool which is causing severe excoriation of his buttocks area. Patient continues to have intermittent low-grade temps at times and abdomen is severely distended. Awaiting and appreciate GI input for another possible paracentesis. White blood count slowly trending down and is 13.5. Odium continues to be 131 and creatinine is slowly improving as well at 1.20. will repeat a.m. labs. Patient remains on Lasix and Aldactone and IV antibiotics and will continue at this time. 11/29/2019 Patient is seen and evaluated this morning and continues to be quite lethargic but is arousable. Patient is currently being transferred to the chair requiring 1-2 person assist. Patient is scheduled to undergo paracentesis for abdominal distention and ascites today with interventional radiology. Discussed with the patient at length about current CODE STATUS and his thoughts on his current treatment plan and patient continues to be very lethargic but responded with "my won't be able to take care of me, she has her own health conditions with her heart". Discussed with the patient about possible palliative and/or hospice care and patient continued to fall asleep. Multiple medical consultations following. Sodium slightly improved today and is 133 the current creatinine of 1.16. Patient remains on Unasyn and Diflucan and will continue at this time. Patient remains on Lasix and Aldactone and Aldactone is currently being increased. 11/30/2019 Patient is seen and evaluated in follow-up today with no acute overnight issues. Patient remains lethargic but is arousable. Patient continues to be quite weak requiring 1-2 person assist with position changes. Patient underwent paracentesis with removal of approximately 5.6 L yesterday. Creatinine has improved today and is currently 1.01 with a sodium of 131. Potassium is 4.4. White blood count slowly trending down and is 13.0. Current hemoglobin remains at 7.7. Patient continues to have intermittent low grade temps at 99F and other vital signs within normal limits. Patient remains on IV antibiotics in the form of Unasyn and will transition to oral antibiotics upon discharge. No reports of chest pain, shortness of breath, or palpitations. Patient is tolerating diet with no reports of nausea or vomiting. 12/01/2019 Patient is seen in follow-up today sitting in the chair and asking to be put back in the bed. Buttock area was examined in the excoriation has improved with 2 small little ulcers noted on bilateral buttock with noted blood on the brief during change. Patient still requiring 2 person assist to get up from the chair to the bed. Patient has been refusing lactulose as he continues to have loose stools and ammonia level has slightly elevated today and is at 36. Discussed with the patient at length about needing to take lactulose as this is important in his treatment plan. Patient appears slightly confused at times. Sodium today slightly improved at 132. Multiple medical consultations still following. No reports of chest pain or palpitations. Patient reports intermittent periods of shortness of breath with exertion. Chest x-ray is ordered and pending at this time. Patient is tolerating diet with no reports of nausea or vomiting. Patient is afebrile this morning. 12/02/2019 Patient is awake, alert and oriented 3 lying in bed and has been up in the chair one-time today. Patient continues to refuse lactulose although was agreeable to taking one dose yesterday. Repeat ammonia improved today and is 18. Patient stating he is not well enough to go home and continues to be extremely weak requiring 1-2 person assist to get out of bed. Discussed with the at length about possible hospice and other options as we are limited in patient continues to have a poor prognosis. Per she has been unsure of sending him to a rehab facility given the current coronavirus but is also stating that he is very noncompliant at home with medications and extremely hard to take care of. Case management and social work are following as there are now no current places that are willing to accept the patient at this time. During this hospitalization patient has been undergoing multiple ultrasound-guided paracentesis and will likely need these continued as his ascites continues to accumulate. May need standing order for ultrasound guided paracentesis in the outpatient setting. Patient to continue working with PT/OT for strength and mobility. Currently no reports of chest pain, shortness of breath, or palpitations. Patient has intermittent low-grade fevers with the highest being 99.9F. No reports of nausea or vomiting and patient is tolerating diet. Repeat chest x-ray yesterday showed chronic parenchymal changes without any ev idence of acute pulmonary disease as he continues to have a cough with no phlegm production. 12/03/2019 no overnight events patient clinical condition remains the same, this is as good as he can get. his prognosis is extremely poor 12/04/2019 Discussed at length today regarding his overall goals of care. Patient will benefit from spiritual counseling. Patient's ascites started worsening. Anselmo guerrero although overall feeling much better Constitutional: Denied any fatigue denied any fever. Cardio vascular: denied any chest pain, palpitations Gastrointestinal denied any nausea vomiting Pulmonary: Denied any shortness of breath cough Neurologic denied any new focal deficits All inpatient medications were reviewed and appropriate changes in these medications as dictated in the interval history and assessment and plan. 12/05/2019 Patient is seen and evaluated in follow-up today and continues to have some abdominal distention and will be scheduled for an ultrasound-guided paracentesis. Discussed with the patient's Julianna at length and given her current situation of no beds available at rehab facilities that are willing to accommodate possible transportation for palliative paracentesis and also her deep concern for further exposure to Covid 19, the has decided to have the patient home and will continue with home care. states she has a daughter and several friends that are willing to help assist with patient's care. Patient will require a hospital bed as he needs to have the head of the bed elevated 30-45 at all times to assist with shortness of breath due to abdominal ascites along with a walker for mobility and the bedside commode for access as he continues to be quite weak requiring assistance with ADLs. Currently no reports of chest pain, worsening shortness of breath, or palpitations. Patient is afebrile. No reports of nausea or vomiting and patient is tolerating diet. 12/06/2019 Patient is seen and evaluated in follow-up today stating he is doing better although continues to be weak requiring 1 person assistance and has been using a walker. Has been working with physical therapy more often. Patient has been also agreeable to taking lactulose once daily. Discussed with the patient at length about continuing this as it is important in his treatment plan. Discussed with the Julianna at length about moving forward and discharging with home care. Had some difficulties attempting to make a follow-up appointment with a primary care provider although case management was able to have an appointment made with Dr. Cavanaugh this for follow-up and also to initiate Homecare services. Also discussed with the and patient about discussing hospice options as he is appropriate for this in the outpatient setting. is agreeable. They will be having visiting home nurses come to the home. Currently no reports of chest pain, shortness of breath, or palpitations. Patient is afebrile. No reports of nausea or vomiting and patient is tolerating diet. Discussed with the patient and to maintain a renal diet with sodium restrictions and also to continue with the 1500 mL fluid restrictions at home. states that she will reinforce this. Patient's prognosis continues to be poor and extremely guarded. Objective - Vital Signs Vital signs: Vital Signs Temp 98.4 F 12/07/19 07:00 Pulse 89 12/07/19 07:00 Resp 16 12/07/19 07:00 BP 138/73 12/07/19 07:00 Pulse Ox 100 12/07/19 07:00 Intake & Output 12/06/19 12/07/19 12/07/19 18:59 06:59 18:59 Output Total 852 802 Balance -852 -802 Weight 84.5 kg Output: Urine 850 800 Stool 2 2 Other: Voiding Method Indwelling Catheter Indwelling Catheter # Bowel Movements 1 - Exam GENERAL: Awake and oriented X 2 . Sitting up in the chair, well-developed, well-nourished HEENT: Pupils are round and equally reacting to light. EOMI. Positive for scleral icterus and conjunctival pallor. Normocephalic, atraumatic. CARDIOVASCULAR: S1 and S2 present. No murmurs, rubs, or gallops. PULMONARY: Chest is clear to auscultation, no wheezing or crackles. Diminished at the lung bases ABDOMEN: Soft, mildly Distended, normoactive bowel sounds. patient has a scrotal swelling with indwelling Rosa catheter noted. Scrotal swelling has improved Excoriation of the surrounding skin with lot of moisture around. EXTREMITIES: No cyanosis, clubbing, bilateral lower extremity edema 1+ pitting NEUROLOGICAL: No focal deficits were appreciated; Generalized weakness SKIN: There are 2 small sacral decubitus ulcers and mild excoriation noted of the buttocks area that is slightly improved. please refer to nursing documentation for staging - Labs CBC & Chem 7: 12/02/19 08:19 12/05/19 05:45 Assessment and Plan Assessment: Acute upper GI bleed: Resolved Duodenal ulcer on endoscopy Acute renal failure-prerenal azotemia Hepatorenal syndrome Coagulopathy Hepatic encephalopathy Alcoholic cirrhosis of the liver Hypovolemic hyponatremia Severe protein calorie malnutrition Stage II sacral decubitus ulcers Scrotal abscess/cellulitis PLAN: Overall prognosis is poor. Nephrology and GI following. Multiple consultants on board and following the patient. Continue with the current medication regimen. Further recommendations to follow depending on the progress of the patient. Case management is following and assisting with discharge planning needs as patient will now be going home with home care. Discussed at length patient's plan of care and treatment plan with the patient as well as the Julianna on the phone. Patient prognosis is extremely poor patient is more appropriate for hospice. Possible discharge in 24 hours.
[2019-12-07] MEDS: PANTOPRAZOLE 40 MG TABLET PO SCH (10:48)
[2019-12-07] MEDS: LACTULOSE 20 GM/30 ML CUP PO SCH (10:49)
[2019-12-07] MEDS: FUROSEMIDE 40 MG TAB PO SCH (10:49)
[2019-12-07] MEDS: SPIRONOLACTONE 25 MG TAB PO SCH (10:49)
[2019-12-07] MEDS: BENZONATATE 100 MG CAP PO SCH (10:49)
[2019-12-07] MEDS: RIFAXIMIN 550 MG TABLET PO SCH (10:49)
[2019-12-07] MEDS: FLUCONAZOLE 100 MG TAB PO SCH (10:49)
[2019-12-07] MEDS: AMOXIC-POT CLAV 875-125MG 1 EACH TAB PO SCH (10:49)
[2019-12-07] MEDS: SODIUM BICARBONATE TAB 650 MG TAB PO SCH (10:49)
== END 2019-12-07 15:06 | disposition home health service (06) | DRG 432 ==
LOC: EC 02:44 → 2SICU 06:31 → 6NMEDSUR 11-14 12:37 → 4SSUR 11-29 17:04
PROVIDERS: ADMIT Hospitalist; ATTEND Hospitalist
PROC: 30233K1 Transfusion of Nonautologous Frozen Plasma into Peripheral Vein, Percutaneous Approach (ICD-10-PCS; 2019-11-11)
PROC: 30233N1 Transfusion of Nonautologous Red Blood Cells into Peripheral Vein, Percutaneous Approach (ICD-10-PCS; 2019-11-11)
PROC: 0DB78ZX Excision of Stomach, Pylorus, Via Natural or Artificial Opening Endoscopic, Diagnostic (ICD-10-PCS; principal; 2019-11-11 07:45)
PROC: 0W9G3ZZ Drainage of Peritoneal Cavity, Percutaneous Approach (ICD-10-PCS; 2019-11-18)
PROC: 0W9G3ZZ Drainage of Peritoneal Cavity, Percutaneous Approach (ICD-10-PCS; 2019-11-23)
PROC: 0W9G3ZZ Drainage of Peritoneal Cavity, Percutaneous Approach (ICD-10-PCS; 2019-11-30)
DX: K70.40 Alcoholic hepatic failure without coma (principal); K26.4 Chronic or unspecified duodenal ulcer with hemorrhage; E43 Unspecified severe protein-calorie malnutrition; K76.7 Hepatorenal syndrome; N17.0 Acute kidney failure with tubular necrosis; D68.9 Coagulation defect, unspecified; E87.1 Hypo-osmolality and hyponatremia; E87.4 Mixed disorder of acid-base balance; D62 Acute posthemorrhagic anemia; K61.1 Rectal abscess; K76.6 Portal hypertension; I85.10 Secondary esophageal varices without bleeding; L89.152 Pressure ulcer of sacral region, stage 2; K70.31 Alcoholic cirrhosis of liver with ascites; D63.8 Anemia in other chronic diseases classified elsewhere; E87.8 Other disorders of electrolyte and fluid balance, not elsewhere classified; K70.11 Alcoholic hepatitis with ascites; E66.9 Obesity, unspecified; D53.9 Nutritional anemia, unspecified; E86.1 Hypovolemia; E87.5 Hyperkalemia; E87.6 Hypokalemia; E87.70 Fluid overload, unspecified; F10.10 Alcohol abuse, uncomplicated; I10 Essential (primary) hypertension; K29.70 Gastritis, unspecified, without bleeding; N49.2 Inflammatory disorders of scrotum; T39.395A Adverse effect of other nonsteroidal anti-inflammatory drugs [NSAID], initial encounter; T50.0X5A Adverse effect of mineralocorticoids and their antagonists, initial encounter; Z79.899 Other long term (current) drug therapy; Z68.27 Body mass index [BMI] 27.0-27.9, adult
CPT/HCPCS: 36415; 43239; 49083; 71045; 72192; 72194; 74420; 76705; 80048; 80053; 80076; 80320; 82042; 82140; 82272; 82570; 82945; 83605; 83615; 83735; 83935; 84145; 84157; 84300; 84484; 85025; 85027; 85610; 85730; 86140; 86850; 86870; 86880; 86900; 86901; 86920; 87070; 87075; 87077; 87186; 87205; 87324; 88108; 88305; 88342; 89050; 93005; 96374; 96375; 99291

== ENCOUNTER 2020-09-15 23:02 | Inpatient (IN) | payer OTHER ==
[2020-09-15] MEDS ORDERED: SODIUM CHLORIDE 0.9% 1,000 ML IV STA (23:11)
--- NOTE | 2020-09-15 23:16 | ED ---
Dizziness HPI - General Chief Complaint: Dizziness Stated Complaint: Fall Time Seen by Provider: 09/15/20 23:11 Source: EMS, RN notes reviewed, old records reviewed Mode of arrival: EMS Limitations: no limitations - History of Present Illness Initial Comments: This is a 60-year-old male presents DF for evaluation today. Patient initially presented for feeling of weakness dizziness with sitting down dentist for strength tonight. Patient does admit to being a chronic drinker chronic alcoholic and feeling lightheaded and dizzy. Patient is dizziness has persisted is brought in by EMS for dizziness. Patient denying any headache chest pain shortness with abdominal pain. Medical history is complex. Patient is intoxicated and is relatively poor story EMS helped to provide By history MD Complaint: dizziness, lightheadedness - Related Data Previous Rx's Medication Instructions Recorded Acetaminophen Tab [Tylenol] 650 mg PO Q6HR PRN #30 tab 12/06/19 Amoxic-Pot Clav 875-125Mg 1 each PO Q12HR 7 Days #14 tab 12/06/19 [Augmentin 875-125] Fluconazole [Diflucan] 100 mg PO DAILY 7 Days #7 tab 12/06/19 Furosemide [Lasix] 40 mg PO BID@0900,1600 30 Days #60 12/06/19 tab Lactulose [Cephulac] 30 gm PO DAILY 30 Days ml 12/06/19 Menthol-Zinc Oxide Oint 1 applic TOPICAL BID PRN 30 Days 12/06/19 [Calmoseptine Oint] #2 applic Pantoprazole [Protonix] 40 mg PO DAILY 30 Days #30 12/06/19 tablet. Rifaximin [Xifaxan] 550 mg PO BID #30 tablet 12/06/19 Sodium Bicarbonate Tab 650 mg PO DAILY 30 Days #30 tab 12/06/19 Spironolactone [Aldactone] 50 mg PO BID 30 Days #60 tab 12/06/19 Allergies Allergy/AdvReac Type Severity Reaction Status Date / Time No Known Allergies Allergy Verified 09/15/20 23:25 Review of Systems ROS Statement: Those systems with pertinent positive or pertinent negative responses have been documented in the HPI. ROS Other: All systems not noted in ROS Statement are negative. Past Medical History Past Medical History: No Reported History, Liver Disease Additional Past Medical History / Comment(s): Cirrhosis History of Any Multi-Drug Resistant Organisms: None Reported Past Surgical History: No Surgical Hx Reported Additional Past Anesthesia/Blood Transfusion Reaction / Comment(s): no previous Past Psychological History: No Psychological Hx Reported Smoking Status: Former smoker Past Alcohol Use History: Abuse, Daily Past Drug Use History: None Reported - Past Family History Mother Family Medical History: No Reported History Father Family Medical History: No Reported History General Exam Limitations: no limitations General appearance: alert, appears intoxicated, anxious Head exam: Present: atraumatic, normocephalic, normal inspection Eye exam: Present: normal appearance, PERRL, EOMI. Absent: scleral icterus, conjunctival injection, periorbital swelling ENT exam: Present: normal exam, mucous membranes moist Neck exam: Present: normal inspection. Absent: tenderness, meningismus, lymphadenopathy Respiratory exam: Present: normal lung sounds bilaterally. Absent: respiratory distress, wheezes, rales, rhonchi, stridor Cardiovascular Exam: Present: regular rate, normal rhythm, normal heart sounds. Absent: systolic murmur, diastolic murmur, rubs, gallop, clicks GI/Abdominal exam: Present: soft, normal bowel sounds. Absent: distended, tenderness, guarding, rebound, rigid Extremities exam: Present: normal inspection, full ROM, normal capillary refill. Absent: tenderness, pedal edema, joint swelling, calf tenderness Back exam: Present: normal inspection Neurological exam: Present: alert, oriented X3, CN II-XII intact Psychiatric exam: Present: normal affect, normal mood Skin exam: Present: warm, dry, intact, normal color. Absent: rash Course Vital Signs 09/15/20 09/16/20 09/16/20 23:03 00:02 02:00 Temperature 98.4 F Pulse Rate 100 91 98 Pulse Rate [ Pulse Oximetery ] Respiratory 18 18 18 Rate Blood Pressure 152/69 149/64 137/64 Blood Pressure [Left Arm] O2 Sat by Pulse 100 99 Oximetry 09/16/20 09/16/20 09/16/20 02:15 02:58 04:22 Temperature 98.9 F Pulse Rate 98 Pulse Rate [ 106 H Pulse Oximetery ] Respiratory 18 18 16 Rate Blood Pressure 156/84 130/61 Blood Pressure 156/72 [Left Arm] O2 Sat by Pulse 95 99 Oximetry - Reevaluation(s) Reevaluation #1: 01/31/21 02:28 Medical record is reviewed Patient does have significant alcohol intoxication medical history history of GI bleed, cirrhosis, encephalopathy Reevaluation #2: 09/16/20 02:28 Patient feeling better here in the ER, feels stable for discharge home Reevaluation #3: 09/16/20 03:29 Patient was being sent for discharge home As patient was gotten up for discharge he sat up and had a significant episode of emesis, patient did have blood blood with clots in a significant amount of vomit. After bleeding ceased patient was alert able answer questions NG tube was placed with no current and continued bleeding Patient does have history of 21 ulcer, Patient's blood pressure remains stable vital signs stable here in the ER hemoglobin did drop her mom 10-9 but that was also with 3 L of fluid - Consultations Consultation #1: spoke w DR Bossman stahl patient agrees to admit EKG Findings - EKG Comments: EKG Findings:: KG shows sinus rhythm 98, CT 184 QRS 80 QTC 480 Medical Decision Making - Medical Decision Making 60 male DF for evaluation of dizziness. Patient is brought in under alcohol intoxication dehydration and dizziness and had active GI bleed episode here in the ER patient has no history of a duodenal ulcer ulcer disease. Patient vomited significant amount of blood here in the ER but NG tube was clean so likely lower GI bleed GI bleed, brisk. Patient vital signs remained stable and will admit for continued monitoring, GI evaluation - Lab Data Result diagrams: 09/16/20 02:30 09/16/20 02:30 Lab Results 09/15/20 09/15/20 09/15/20 Range/Units 23:19 23:19 23:19 WBC 7.3 (3.8-10.6) k/uL RBC 2.96 L (4.30-5.90) m/uL Hgb 10.3 L (13.0-17.5) gm/dL Hct 30.0 L (39.0-53.0) % MCV 101.4 H (80.0-100.0) fL MCH 34.7 (25.0-35.0) pg MCHC 34.2 (31.0-37.0) g/dL RDW 13.5 (11.5-15.5) % Plt Count 120 L (150-450) k/uL MPV 8.2 Neutrophils % 64 % Lymphocytes % 24 % Monocytes % 6 % Eosinophils % 2 % Basophils % 1 % Neutrophils # 4.7 (1.3-7.7) k/uL Lymphocytes # 1.8 (1.0-4.8) k/uL Monocytes # 0.4 (0-1.0) k/uL Eosinophils # 0.2 (0-0.7) k/uL Basophils # 0.1 (0-0.2) k/uL Macrocytosis Slight PT 13.6 H (9.0-12.0) sec INR 1.3 H (<1.2) APTT 24.2 (22.0-30.0) sec Sodium 135 L (137-145) mmol/L Potassium 5.7 H (3.5-5.1) mmol/L Chloride 103 (98-107) mmol/L Carbon Dioxide 20 L (22-30) mmol/L Anion Gap 12 mmol/L BUN 35 H (9-20) mg/dL Creatinine 0.84 (0.66-1.25) mg/dL Est GFR (CKD-EPI)AfAm >90 (>60 ml/min/1.73 sqM) Est GFR (CKD-EPI)NonAf >90 (>60 ml/min/1.73 sqM) Glucose 171 H (74-99) mg/dL Lactic Ac Sepsis Rflx Plasma Lactic Acid Cristian (0.7-2.0) mmol/L Calcium 7.8 L (8.4-10.2) mg/dL Phosphorus 4.0 (2.5-4.5) mg/dL Magnesium 1.8 (1.6-2.3) mg/dL Total Bilirubin 2.0 H (0.2-1.3) mg/dL AST 134 H (17-59) U/L ALT 42 (4-49) U/L Alkaline Phosphatase 203 H (38-126) U/L Ammonia (<30) umol/L Creatine Kinase 178 H (55-170) U/L Troponin I (0.000-0.034) ng/mL NT-Pro-B Natriuret Pep pg/mL Total Protein 7.1 (6.3-8.2) g/dL Albumin 3.2 L (3.5-5.0) g/dL Lipase 387 H (23-300) U/L Serum Alcohol 140 mg/dL Blood Type Blood Type Recheck Bld Type Recheck Status Antibody Screen Spec Expiration Date 09/15/20 09/15/20 09/15/20 Range/Units 23:19 23:19 23:19 WBC (3.8-10.6) k/uL RBC (4.30-5.90) m/uL Hgb (13.0-17.5) gm/dL Hct (39.0-53.0) % MCV (80.0-100.0) fL MCH (25.0-35.0) pg MCHC (31.0-37.0) g/dL RDW (11.5-15.5) % Plt Count (150-450) k/uL MPV Neutrophils % % Lymphocytes % % Monocytes % % Eosinophils % % Basophils % % Neutrophils # (1.3-7.7) k/uL Lymphocytes # (1.0-4.8) k/uL Monocytes # (0-1.0) k/uL Eosinophils # (0-0.7) k/uL Basophils # (0-0.2) k/uL Macrocytosis PT (9.0-12.0) sec INR (<1.2) APTT (22.0-30.0) sec Sodium (137-145) mmol/L Potassium (3.5-5.1) mmol/L Chloride (98-107) mmol/L Carbon Dioxide (22-30) mmol/L Anion Gap mmol/L BUN (9-20) mg/dL Creatinine (0.66-1.25) mg/dL Est GFR (CKD-EPI)AfAm (>60 ml/min/1.73 sqM) Est GFR (CKD-EPI)NonAf (>60 ml/min/1.73 sqM) Glucose (74-99) mg/dL Lactic Ac Sepsis Rflx Plasma Lactic Acid Cristian 3.6 H* (0.7-2.0) mmol/L Calcium (8.4-10.2) mg/dL Phosphorus (2.5-4.5) mg/dL Magnesium (1.6-2.3) mg/dL Total Bilirubin (0.2-1.3) mg/dL AST (17-59) U/L ALT (4-49) U/L Alkaline Phosphatase (38-126) U/L Ammonia 158 H (<30) umol/L Creatine Kinase (55-170) U/L Troponin I <0.012 (0.000-0.034) ng/mL NT-Pro-B Natriuret Pep 62 pg/mL Total Protein (6.3-8.2) g/dL Albumin (3.5-5.0) g/dL Lipase (23-300) U/L Serum Alcohol mg/dL Blood Type Blood Type Recheck Bld Type Recheck Status Antibody Screen Spec Expiration Date 09/15/20 09/16/20 09/16/20 Range/Units 23:47 02:30 02:30 WBC 9.2 (3.8-10.6) k/uL RBC 2.58 L (4.30-5.90) m/uL Hgb 8.9 L (13.0-17.5) gm/dL Hct 26.2 L (39.0-53.0) % MCV 101.3 H (80.0-100.0) fL MCH 34.6 (25.0-35.0) pg MCHC 34.1 (31.0-37.0) g/dL RDW 13.4 (11.5-15.5) % Plt Count 121 L (150-450) k/uL MPV 8.3 Neutrophils % 79 % Lymphocytes % 11 % Monocytes % 6 % Eosinophils % 1 % Basophils % 1 % Neutrophils # 7.3 (1.3-7.7) k/uL Lymphocytes # 1.0 (1.0-4.8) k/uL Monocytes # 0.6 (0-1.0) k/uL Eosinophils # 0.1 (0-0.7) k/uL Basophils # 0.1 (0-0.2) k/uL Macrocytosis Slight PT (9.0-12.0) sec INR (<1.2) APTT (22.0-30.0) sec Sodium (137-145) mmol/L Potassium (3.5-5.1) mmol/L Chloride (98-107) mmol/L Carbon Dioxide (22-30) mmol/L Anion Gap mmol/L BUN (9-20) mg/dL Creatinine (0.66-1.25) mg/dL Est GFR (CKD-EPI)AfAm (>60 ml/min/1.73 sqM) Est GFR (CKD-EPI)NonAf (>60 ml/min/1.73 sqM) Glucose (74-99) mg/dL Lactic Ac Sepsis Rflx Y Plasma Lactic Acid Cristian (0.7-2.0) mmol/L Calcium (8.4-10.2) mg/dL Phosphorus (2.5-4.5) mg/dL Magnesium (1.6-2.3) mg/dL Total Bilirubin (0.2-1.3) mg/dL AST (17-59) U/L ALT (4-49) U/L Alkaline Phosphatase (38-126) U/L Ammonia (<30) umol/L Creatine Kinase (55-170) U/L Troponin I (0.000-0.034) ng/mL NT-Pro-B Natriuret Pep pg/mL Total Protein (6.3-8.2) g/dL Albumin (3.5-5.0) g/dL Lipase (23-300) U/L Serum Alcohol mg/dL Blood Type B Positive Blood Type Recheck B Pos Bld Type Recheck Status No Antibody Screen NEGATIVE Spec Expiration Date 09/19/2020 - 232909/16/20 Range/Units 02:30 WBC (3.8-10.6) k/uL RBC (4.30-5.90) m/uL Hgb (13.0-17.5) gm/dL Hct (39.0-53.0) % MCV (80.0-100.0) fL MCH (25.0-35.0) pg MCHC (31.0-37.0) g/dL RDW (11.5-15.5) % Plt Count (150-450) k/uL MPV Neutrophils % % Lymphocytes % % Monocytes % % Eosinophils % % Basophils % % Neutrophils # (1.3-7.7) k/uL Lymphocytes # (1.0-4.8) k/uL Monocytes # (0-1.0) k/uL Eosinophils # (0-0.7) k/uL Basophils # (0-0.2) k/uL Macrocytosis PT (9.0-12.0) sec INR (<1.2) APTT (22.0-30.0) sec Sodium 136 L (137-145) mmol/L Potassium 5.6 H (3.5-5.1) mmol/L Chloride 109 H (98-107) mmol/L Carbon Dioxide 17 L (22-30) mmol/L Anion Gap 10 mmol/L BUN 38 H (9-20) mg/dL Creatinine 0.74 (0.66-1.25) mg/dL Est GFR (CKD-EPI)AfAm >90 (>60 ml/min/1.73 sqM) Est GFR (CKD-EPI)NonAf >90 (>60 ml/min/1.73 sqM) Glucose 164 H (74-99) mg/dL Lactic Ac Sepsis Rflx Plasma Lactic Acid Cristian (0.7-2.0) mmol/L Calcium 7.6 L (8.4-10.2) mg/dL Phosphorus 3.0 (2.5-4.5) mg/dL Magnesium 1.8 (1.6-2.3) mg/dL Total Bilirubin 2.0 H (0.2-1.3) mg/dL AST 140 H (17-59) U/L ALT 42 (4-49) U/L Alkaline Phosphatase 207 H (38-126) U/L Ammonia (<30) umol/L Creatine Kinase (55-170) U/L Troponin I (0.000-0.034) ng/mL NT-Pro-B Natriuret Pep pg/mL Total Protein 6.6 (6.3-8.2) g/dL Albumin 2.9 L (3.5-5.0) g/dL Lipase 337 H (23-300) U/L Serum Alcohol mg/dL Blood Type Blood Type Recheck Bld Type Recheck Status Antibody Screen Spec Expiration Date - Radiology Data Radiology results: report reviewed (Chest x-ray is negative for acute disease), image reviewed Critical Care Time Critical Care Time: Yes Total Critical Care Time: 31 Disposition Clinical Impression: Jaundice, ETOH abuse, Dehydration, Dizziness, Alcoholic hepatitis, Lactic acidosis, Alcohol intoxication, Duodenal ulcer, Ascites, Gastrointestinal hemorrhage Disposition: ADMITTED IP TO THIS [facility] Condition: Serious Is patient prescribed a controlled substance at d/c from ED?: No
[2020-09-15 23:37] LABS: African American GFR (CKD) >90 (>60 ml/min/1.73 sqM); Albumin 3.2 g/dL (3.5-5.0); Anion Gap 12 mmol/L; Calcium 7.8 mg/dL (8.4-10.2); Carbon Dioxide 20 mmol/L (22-30); Chloride 103 mmol/L (98-107); Creatine Kinase 178 U/L (55-170); Glucose 171 mg/dL (74-99); Lipase 387 U/L (23-300); Non-African American GFR(CKD) >90 (>60 ml/min/1.73 sqM); Sodium 135 mmol/L (137-145); Total Protein 7.1 g/dL (6.3-8.2)
[2020-09-15 23:41] LABS: Basophils # (A) 0.1 k/uL (0-0.2); Basophils % (A) 1 %; Eosinophils # (A) 0.2 k/uL (0-0.7); Eosinophils % (A) 2 %; HGB 10.3 gm/dL (13.0-17.5); Lymphocytes # (A) 1.8 k/uL (1.0-4.8); Lymphocytes % (A) 24 %; MCH 34.7 pg (25.0-35.0); MCHC 34.2 g/dL (31.0-37.0); MCV 101.4 fL (80.0-100.0); Macrocytosis Slight; Mean Platelet Volume 8.2; Monocytes # (A) 0.4 k/uL (0-1.0); Monocytes % (A) 6 %; Neutrophils # (A) 4.7 k/uL (1.3-7.7); Neutrophils % (A) 64 %; Platelet Count 120 k/uL (150-450); RBC 2.96 m/uL (4.30-5.90); RDW 13.5 % (11.5-15.5); WBC 7.3 k/uL (3.8-10.6)
[2020-09-15 23:47] LABS: AST 134 U/L (17-59); Alcohol 140 mg/dL; Blood Urea Nitrogen 35 mg/dL (9-20); Lactic Acid, Venous 3.6 mmol/L (0.7-2.0); Magnesium 1.8 mg/dL (1.6-2.3); Potassium 5.7 mmol/L (3.5-5.1)
[2020-09-15 23:48] LABS: ALT 42 U/L (4-49); Alkaline Phosphatase 203 U/L (38-126)
[2020-09-16 00:06] LABS: INR 1.3 (<1.2); Partial Thromboplastin Time 24.2 sec (22.0-30.0); Prothrombin Time 13.6 sec (9.0-12.0)
[2020-09-16] MEDS ORDERED: THIAMINE 100 MG/ML 2 ML VIAL IM STA (02:13)
[2020-09-16] MEDS ORDERED: LORazepam 2 MG/ML INJ IV STA (02:13)
[2020-09-16] MEDS ORDERED: LORazepam 2 MG/ML INJ IV PRN ×2 (02:13)
[2020-09-16] MEDS ORDERED: OCTREOTIDE 100 MCG/ML INJ IVP STA (02:13)
[2020-09-16] MEDS ORDERED: ONDANSETRON 4 MG/2 ML VIAL IVP STA (02:13)
[2020-09-16] MEDS ORDERED: PANTOPRAZOLE 40 MG/10 ML VIAL IVP STA (02:13)
[2020-09-16] MEDS ORDERED: MORPHINE SULFATE 4 MG/ML SYRINGE IV PRN (02:32)
[2020-09-16] MEDS ORDERED: NALOXONE 0.4 MG/ML 1 ML VIAL IV PRN (02:32)
--- NOTE | 2020-09-16 02:44 | XR ---
EXAM: XR Chest, 1 View CLINICAL HISTORY: ITS.REASON XR Reason: NG tube placement TECHNIQUE: Frontal view of the chest. COMPARISON: No previous study. FINDINGS: Lungs: Unremarkable. No consolidation. Pleural space: Unremarkable. No pneumothorax. Heart: Cardiomegaly. Mediastinum: Unremarkable. Bones/joints: Osteopenia. Tubes, lines and devices: NG tube is noted in place with its tip well below the diaphragm. Other findings: Mild hypoaeration. IMPRESSION: 1. NG tube is noted in place with its tip well below the diaphragm. 2. Hypoaeration. 3. Cardiomegaly.
[2020-09-16 02:46] LABS: Basophils # (A) 0.1 k/uL (0-0.2); Basophils % (A) 1 %; Eosinophils # (A) 0.1 k/uL (0-0.7); Eosinophils % (A) 1 %; HCT 26.2 % (39.0-53.0); HGB 8.9 gm/dL (13.0-17.5); Lymphocytes % (A) 11 %; MCH 34.6 pg (25.0-35.0); MCHC 34.1 g/dL (31.0-37.0); MCV 101.3 fL (80.0-100.0); Macrocytosis Slight; Mean Platelet Volume 8.3; Monocytes # (A) 0.6 k/uL (0-1.0); Monocytes % (A) 6 %; Neutrophils # (A) 7.3 k/uL (1.3-7.7); Neutrophils % (A) 79 %; Platelet Count 121 k/uL (150-450); RBC 2.58 m/uL (4.30-5.90); RDW 13.4 % (11.5-15.5); WBC 9.2 k/uL (3.8-10.6)
[2020-09-16 02:55] LABS: African American GFR (CKD) >90 (>60 ml/min/1.73 sqM); Albumin 2.9 g/dL (3.5-5.0); Anion Gap 10 mmol/L; Calcium 7.6 mg/dL (8.4-10.2); Carbon Dioxide 17 mmol/L (22-30); Chloride 109 mmol/L (98-107); Glucose 164 mg/dL (74-99); Lipase 337 U/L (23-300); Non-African American GFR(CKD) >90 (>60 ml/min/1.73 sqM); Sodium 136 mmol/L (137-145); Total Protein 6.6 g/dL (6.3-8.2)
[2020-09-16 02:56] LABS: ALT 42 U/L (4-49); AST 140 U/L (17-59); Blood Urea Nitrogen 38 mg/dL (9-20); Magnesium 1.8 mg/dL (1.6-2.3); Potassium 5.6 mmol/L (3.5-5.1)
[2020-09-16 02:57] LABS: Alkaline Phosphatase 207 U/L (38-126)
[2020-09-16] MEDS: SODIUM CHLORIDE 0.9% 1,000 ML IV SCH ×3 (03:09→19:17)
[2020-09-16] MEDS: LORazepam 2 MG/ML INJ IV PRN ×4 (04:37→23:29)
[2020-09-16 05:57] LABS: HCT 24.8 % (39.0-53.0); HGB 8.4 gm/dL (13.0-17.5); MCH 34.4 pg (25.0-35.0); MCV 101.1 fL (80.0-100.0); Macrocytosis Slight; Mean Platelet Volume 8.9; RBC 2.45 m/uL (4.30-5.90); RDW 13.6 % (11.5-15.5)
[2020-09-16 06:00] LABS: Platelet Count 93 k/uL (150-450)
[2020-09-16 06:19] LABS: ALT 44 U/L (4-49); AST 129 U/L (17-59); African American GFR (CKD) >90 (>60 ml/min/1.73 sqM); Albumin 2.8 g/dL (3.5-5.0); Alkaline Phosphatase 224 U/L (38-126); Anion Gap 9 mmol/L; Blood Urea Nitrogen 37 mg/dL (9-20); Calcium 7.6 mg/dL (8.4-10.2); Carbon Dioxide 20 mmol/L (22-30); Chloride 108 mmol/L (98-107); Glucose 171 mg/dL (74-99); Non-African American GFR(CKD) >90 (>60 ml/min/1.73 sqM); Potassium 4.7 mmol/L (3.5-5.1); Sodium 137 mmol/L (137-145); Total Bilirubin 1.7 mg/dL (0.2-1.3); Total Protein 6.2 g/dL (6.3-8.2)
[2020-09-16] MEDS: PANTOPRAZOLE 40 MG/10 ML VIAL IVP SCH ×2 (09:49→21:02)
[2020-09-16 09:55] LABS: Appearance,Urine Clear (Clear); Bilirubin,Urine Negative (Negative); Blood,Urine Negative (Negative); Color,Urine Yellow; Glucose,Urine (UA) Negative (Negative); Ketones,Urine Trace (Negative); Leukocyte Esterase,Urine Negative (Negative); Nitrite,Urine Negative (Negative); Protein,Urine Negative (Negative); Specific Gravity,Urine 1.018 (1.001-1.035); Urobilinogen,Urine <2.0 mg/dL (<2.0)
[2020-09-16] MEDS: OCTREOTIDE 100 MCG/ML INJ IVP SCH ×2 (10:05→17:38)
[2020-09-16 10:24] LABS: HCT 26.2 % (39.0-53.0); HGB 8.9 gm/dL (13.0-17.5); MCH 34.2 pg (25.0-35.0); MCHC 33.9 g/dL (31.0-37.0); MCV 100.8 fL (80.0-100.0); Macrocytosis Slight; Platelet Count 134 k/uL (150-450); RBC 2.59 m/uL (4.30-5.90); RDW 14.3 % (11.5-15.5); WBC 9.7 k/uL (3.8-10.6)
--- NOTE | 2020-09-16 13:40 | P.HPIM ---
History of Present Illness H&P Date: 09/16/20 This 60-year-old gentleman with known history of alcoholic liver disease with liver cirrhosis and ascites, also known history of GI bleed, hepatic encephalopathy, hyper, anemia [facility]. She currently drinks 1/2 pint of vodka daily, Last intake of alcohol was the day of admission 5 hours prior to admission.. He was initially seen in the emergency room, Past Medical History Past Medical History: No Reported History, Liver Disease Additional Past Medical History / Comment(s): Cirrhosis History of Any Multi-Drug Resistant Organisms: None Reported Past Surgical History: No Surgical Hx Reported Additional Past Anesthesia/Blood Transfusion Reaction / Comment(s): no previous Past Psychological History: No Psychological Hx Reported Smoking Status: Never smoker Past Alcohol Use History: Abuse, Daily Additional Past Alcohol Use History / Comment(s): patients last drink was a week ago. vodka 10 drinks a day Past Drug Use History: None Reported - Past Family History Mother Family Medical History: No Reported History Father Family Medical History: No Reported History Medications and Allergies Home Medications Medication Instructions Recorded Confirmed Type Furosemide [Lasix] 40 mg PO DAILY 09/16/20 09/16/20 History Lactulose [Cephulac] 10 gm PO DAILY 09/16/20 09/16/20 History Multivitamins, Thera [Multivitamin 1 tab PO DAILY 09/16/20 09/16/20 History (formulary)] Spironolactone 50 mg PO DAILY 09/16/20 09/16/20 History Allergies Allergy/AdvReac Type Severity Reaction Status Date / Time No Known Allergies Allergy Verified 09/15/20 23:25 Physical Exam Vitals: Vital Signs Temp Pulse Pulse Resp BP BP Pulse Ox 09/16/20 08:00 97 F L 95 18 124/60 98 09/16/20 04:56 106 H 16 09/16/20 04:42 98.9 F 106 H 16 156/72 99 09/16/20 04:22 98.9 F 106 H 16 156/72 99 09/16/20 02:58 98 18 130/61 95 09/16/20 02:15 18 156/84 09/16/20 02:00 98 18 137/64 09/16/20 00:02 91 18 149/64 99 09/15/20 23:03 98.4 F 100 18 152/69 100 Intake and Output 09/15/20 09/16/20 09/16/20 22:59 06:59 14:59 Intake Total 600 Balance 600 Intake: Intake, IV Titration 600 Amount Sodium Chloride 0.9% 1, 600 000 ml @ 150 mls/hr IV . Q6H40M [facility] Rx#:[id number] Other: Voiding Method Urinal Urinal # Voids 1 Weight 95.254 kg Results CBC & Chem 7: 09/16/20 10:05 09/16/20 05:47 Labs: Abnormal Lab Results - Last 24 Hours (Table) 09/15/20 09/15/20 09/15/20 Range/Units 23:19 23:19 23:19 RBC 2.96 L (4.30-5.90) m/uL Hgb 10.3 L (13.0-17.5) gm/dL Hct 30.0 L (39.0-53.0) % MCV 101.4 H (80.0-100.0) fL Plt Count 120 L (150-450) k/uL PT 13.6 H (9.0-12.0) sec INR 1.3 H (<1.2) Sodium 135 L (137-145) mmol/L Potassium 5.7 H (3.5-5.1) mmol/L Chloride (98-107) mmol/L Carbon Dioxide 20 L (22-30) mmol/L BUN 35 H (9-20) mg/dL Glucose 171 H (74-99) mg/dL Plasma Lactic Acid Cristian (0.7-2.0) mmol/L Calcium 7.8 L (8.4-10.2) mg/dL Total Bilirubin 2.0 H (0.2-1.3) mg/dL AST 134 H (17-59) U/L Alkaline Phosphatase 203 H (38-126) U/L Ammonia (<30) umol/L Creatine Kinase 178 H (55-170) U/L Total Protein (6.3-8.2) g/dL Albumin 3.2 L (3.5-5.0) g/dL Lipase 387 H (23-300) U/L Urine Ketones (Negative) 09/15/20 09/16/20 09/16/20 Range/Units 23:19 02:30 02:30 RBC 2.58 L (4.30-5.90) m/uL Hgb 8.9 L (13.0-17.5) gm/dL Hct 26.2 L (39.0-53.0) % MCV 101.3 H (80.0-100.0) fL Plt Count 121 L (150-450) k/uL PT (9.0-12.0) sec INR (<1.2) Sodium 136 L (137-145) mmol/L Potassium 5.6 H (3.5-5.1) mmol/L Chloride 109 H (98-107) mmol/L Carbon Dioxide 17 L (22-30) mmol/L BUN 38 H (9-20) mg/dL Glucose 164 H (74-99) mg/dL Plasma Lactic Acid Cristian 3.6 H* (0.7-2.0) mmol/L Calcium 7.6 L (8.4-10.2) mg/dL Total Bilirubin 2.0 H (0.2-1.3) mg/dL AST 140 H (17-59) U/L Alkaline Phosphatase 207 H (38-126) U/L Ammonia 158 H (<30) umol/L Creatine Kinase (55-170) U/L Total Protein (6.3-8.2) g/dL Albumin 2.9 L (3.5-5.0) g/dL Lipase 337 H (23-300) U/L Urine Ketones (Negative) 09/16/20 09/16/20 09/16/20 Range/Units 05:47 05:47 09:45 RBC 2.45 L (4.30-5.90) m/uL Hgb 8.4 L (13.0-17.5) gm/dL Hct 24.8 L (39.0-53.0) % MCV 101.1 H (80.0-100.0) fL Plt Count 93 L (150-450) k/uL PT (9.0-12.0) sec INR (<1.2) Sodium (137-145) mmol/L Potassium (3.5-5.1) mmol/L Chloride 108 H (98-107) mmol/L Carbon Dioxide 20 L (22-30) mmol/L BUN 37 H (9-20) mg/dL Glucose 171 H (74-99) mg/dL Plasma Lactic Acid Cristian (0.7-2.0) mmol/L Calcium 7.6 L (8.4-10.2) mg/dL Total Bilirubin 1.7 H (0.2-1.3) mg/dL AST 129 H (17-59) U/L Alkaline Phosphatase 224 H (38-126) U/L Ammonia (<30) umol/L Creatine Kinase (55-170) U/L Total Protein 6.2 L (6.3-8.2) g/dL Albumin 2.8 L (3.5-5.0) g/dL Lipase (23-300) U/L Urine Ketones Trace H (Negative) 09/16/20 Range/Units 10:05 RBC 2.59 L (4.30-5.90) m/uL Hgb 8.9 L (13.0-17.5) gm/dL Hct 26.2 L (39.0-53.0) % MCV 100.8 H (80.0-100.0) fL Plt Count 134 L (150-450) k/uL PT (9.0-12.0) sec INR (<1.2) Sodium (137-145) mmol/L Potassium (3.5-5.1) mmol/L Chloride (98-107) mmol/L Carbon Dioxide (22-30) mmol/L BUN (9-20) mg/dL Glucose (74-99) mg/dL Plasma Lactic Acid Cristian (0.7-2.0) mmol/L Calcium (8.4-10.2) mg/dL Total Bilirubin (0.2-1.3) mg/dL AST (17-59) U/L Alkaline Phosphatase (38-126) U/L Ammonia (<30) umol/L Creatine Kinase (55-170) U/L Total Protein (6.3-8.2) g/dL Albumin (3.5-5.0) g/dL Lipase (23-300) U/L Urine Ketones (Negative) Thrombosis Risk Factor Assmnt - Choose All That Apply Any of the Below Risk Factors Present?: Yes Each Factor Represents 1 point: Obesity (BMI >25) Other Risk Factors: Yes Each Risk Factor Represents 2 Points: Age 61-74 years Thrombosis Risk Factor Assessment Total Risk Factor Score: 3 Thrombosis Risk Factor Assessment Level: Moderate Risk Assessment and Plan Plan: 1. Acute GI bleed, most likely secondary to alcohol gastriticulcer portal hype rtension and esophageal varices, NG tube is in place, coffee-ground emesis, blood loss anemia, will transfuse for hemoglobin under 7, iron studies to be done, will need IV infusion, consult GI, Sandostatin 100 g IV push every 8 hours scheduled was started. On Protonix 40 mg twice a day IV. 2. Alcoholic liver disease with history of metabolic encephalopathy, on maintenance lactulose, spironolactone. Start Inderal LA, 80 mg daily, his tachycardia 3, sinus tachycardia, monitor for DTs, see Web protocol, start Inderal LA 80 mg daily 4. Alcohol dependency severe, monitor for DTs, last intake was September 15, one half pint vodka Daily currently with alcohol intoxication, as noted in the [facility] r[facility] room eval, no alcohol level noted, 5. 6. History of ascites, requiring abdominal paracenteses last October 2019 6. Hyperglycemia, patient denies any diabetes mellitus, currently on IV fluids running at 75 mL an hour of 0.9, doubt IV solution related hyperglycemia, check for A1c, Accu-Cheks before meals and at bedtime. 7. Enlarged red cell volume, start on thiamine, most likely secondary to impaired bone marrow production secondary to chronic alcohol 8. Hypocalcemia severe, secondary to nutritional deficiencies, supplementation provided 8. Elevated transaminase, with mild hyperbilirubinemia, continue to monitor. GI is following with GI
[2020-09-16] MEDS ORDERED: THIAMINE 100 MG TAB PO SCH (17:30)
--- NOTE | 2020-09-16 19:25 | P.CONS ---
History of Present Illness - Reason for Consult Consult date: 09/16/20 GI bleed Requesting physician: Nicki Keita - Chief Complaint dizziness - History of Present Illness 60-year-old male with a known medical history for decompensated alcoholic cirrhosis who presented to the hospital for complaints of dizziness. The patient had been doing well and sober from alcohol use however he states that over the past 2-3 months he relapsed and is currently drinking a half pint of vodka daily. He presented the EMS due to complaints of lightheadedness and dizziness. The patient was noted to have some GI bleeding with blood in his vomitus. He denies any bleeding prior to presentation. The patient's had been taking lactulose, spironolactone and Lasix for treatment of decompensated cirrhosis at home. Previously had underwent EGD in 10/2019 with findings of small varices in the duodenal ulcer. Currently he is denying any abdominal pain. The patient had a nasogastric tube placed with a small amount of dark colored output. Current labs significant for hemoglobin stable at 8.9 from 8.9 previously 2.3 on admission with total bilirubin 1.7, alkaline phosphatase 224, AST 129 and ALT 44. Alcohol level CXL on presentation. Review of Systems REVIEW OF SYSTEMS: CONSTITUTIONAL: Denies any fevers, chills, weight change or fatigue. CARDIOVASCULAR: Denies any chest pain, palpitations high or low blood pressures RESPIRATORY: Denies any shortness of breath, hemoptysis or cough. GENITOURINARY: No dysuria or hematuria. MUSCULOSKELETAL: No weakness reported. SKIN: Denies any new rashes or lesions, jaundice or pallor. PSYCHIATRIC: Denies any depression or anxiety. NEUROLOGY: Denies headache, denies any new focal deficits, he did report dizziness and lightheadedness prior to presentation. EARS/NOSE/THROAT: No recent hearing change, congestion, nasal discharge or sore throat. EYES: No pain in eyes, discharge or change in vision. GASTROINTESTINAL: As per HPI. Past Medical History Past Medical History: No Reported History, Liver Disease Additional Past Medical History / Comment(s): Cirrhosis History of Any Multi-Drug Resistant Organisms: None Reported Past Surgical History: No Surgical Hx Reported Additional Past Anesthesia/Blood Transfusion Reaction / Comm: no previous Past Psychological History: No Psychological Hx Reported Smoking Status: Never smoker Past Alcohol Use History: Abuse, Daily Additional Past Alcohol Use History / Comment(s): patients last drink was a week ago. vodka 10 drinks a day Past Drug Use History: None Reported - Past Family History Mother Family Medical History: No Reported History Father Family Medical History: No Reported History Medications and Allergies Home Medications Medication Instructions Recorded Confirmed Type Furosemide [Lasix] 40 mg PO DAILY 09/16/20 09/16/20 History Lactulose [Cephulac] 10 gm PO DAILY 09/16/20 09/16/20 History Multivitamins, Thera [Multivitamin 1 tab PO DAILY 09/16/20 09/16/20 History (formulary)] Spironolactone 50 mg PO DAILY 09/16/20 09/16/20 History Allergies Allergy/AdvReac Type Severity Reaction Status Date / Time No Known Allergies Allergy Verified 09/15/20 23:25 Physical Exam Vitals: Vital Signs Temp Pulse Pulse Resp BP BP Pulse Ox 09/16/20 04:56 106 H 16 09/16/20 04:42 98.9 F 106 H 16 156/72 99 09/16/20 04:22 98.9 F 106 H 16 156/72 99 09/16/20 02:58 98 18 130/61 95 09/16/20 02:15 18 156/84 09/16/20 02:00 98 18 137/64 09/16/20 00:02 91 18 149/64 99 09/15/20 23:03 98.4 F 100 18 152/69 100 Intake and Output 09/15/20 09/16/20 09/16/20 22:59 06:59 14:59 Intake Total 600 Balance 600 Intake: Intake, IV Titration 600 Amount Sodium Chloride 0.9% 1, 600 000 ml @ 150 mls/hr IV . Q6H40M [facility] Rx#:[id number] Other: Voiding Method Urinal # Voids 1 Weight 95.254 kg On physical examination, patient appears comfortable in no apparent distress. HEAD: Normocephalic, atraumatic. EYES: No scleral icterus. No conjunctival injection. MOUTH: No lesions, tongue midline. NECK: Trachea midline, no gross abnormalities. CHEST: Clear to auscultation with no wheezing or rhonchi appreciated. HEART: Regular rate and rhythm. ABDOMEN: Soft, obese, nontender to palpation. Bowel sounds are positive. No organomegaly. No guarding or rigidity. EXTREMITIES: No pedal edema. SKIN: No rashes, no jaundice. NEUROLOGIC: Alert and oriented x3, tremulousness noted but no asterixis. No focal deficits. Results CBC & Chem 7: 09/16/20 10:05 09/16/20 05:47 Labs: Abnormal Lab Results - Last 24 Hours (Table) 09/15/20 09/15/20 09/15/20 Range/Units 23:19 23:19 23:19 RBC 2.96 L (4.30-5.90) m/uL Hgb 10.3 L (13.0-17.5) gm/dL Hct 30.0 L (39.0-53.0) % MCV 101.4 H (80.0-100.0) fL Plt Count 120 L (150-450) k/uL PT 13.6 H (9.0-12.0) sec INR 1.3 H (<1.2) Sodium 135 L (137-145) mmol/L Potassium 5.7 H (3.5-5.1) mmol/L Chloride (98-107) mmol/L Carbon Dioxide 20 L (22-30) mmol/L BUN 35 H (9-20) mg/dL Glucose 171 H (74-99) mg/dL Plasma Lactic Acid Cristian (0.7-2.0) mmol/L Calcium 7.8 L (8.4-10.2) mg/dL Total Bilirubin 2.0 H (0.2-1.3) mg/dL AST 134 H (17-59) U/L Alkaline Phosphatase 203 H (38-126) U/L Ammonia (<30) umol/L Creatine Kinase 178 H (55-170) U/L Total Protein (6.3-8.2) g/dL Albumin 3.2 L (3.5-5.0) g/dL Lipase 387 H (23-300) U/L Urine Ketones (Negative) 09/15/20 09/16/20 09/16/20 Range/Units 23:19 02:30 02:30 RBC 2.58 L (4.30-5.90) m/uL Hgb 8.9 L (13.0-17.5) gm/dL Hct 26.2 L (39.0-53.0) % MCV 101.3 H (80.0-100.0) fL Plt Count 121 L (150-450) k/uL PT (9.0-12.0) sec INR (<1.2) Sodium 136 L (137-145) mmol/L Potassium 5.6 H (3.5-5.1) mmol/L Chloride 109 H (98-107) mmol/L Carbon Dioxide 17 L (22-30) mmol/L BUN 38 H (9-20) mg/dL Glucose 164 H (74-99) mg/dL Plasma Lactic Acid Cristian 3.6 H* (0.7-2.0) mmol/L Calcium 7.6 L (8.4-10.2) mg/dL Total Bilirubin 2.0 H (0.2-1.3) mg/dL AST 140 H (17-59) U/L Alkaline Phosphatase 207 H (38-126) U/L Ammonia 158 H (<30) umol/L Creatine Kinase (55-170) U/L Total Protein (6.3-8.2) g/dL Albumin 2.9 L (3.5-5.0) g/dL Lipase 337 H (23-300) U/L Urine Ketones (Negative) 09/16/20 09/16/20 09/16/20 Range/Units 05:47 05:47 09:45 RBC 2.45 L (4.30-5.90) m/uL Hgb 8.4 L (13.0-17.5) gm/dL Hct 24.8 L (39.0-53.0) % MCV 101.1 H (80.0-100.0) fL Plt Count 93 L (150-450) k/uL PT (9.0-12.0) sec INR (<1.2) Sodium (137-145) mmol/L Potassium (3.5-5.1) mmol/L Chloride 108 H (98-107) mmol/L Carbon Dioxide 20 L (22-30) mmol/L BUN 37 H (9-20) mg/dL Glucose 171 H (74-99) mg/dL Plasma Lactic Acid Cristian (0.7-2.0) mmol/L Calcium 7.6 L (8.4-10.2) mg/dL Total Bilirubin 1.7 H (0.2-1.3) mg/dL AST 129 H (17-59) U/L Alkaline Phosphatase 224 H (38-126) U/L Ammonia (<30) umol/L Creatine Kinase (55-170) U/L Total Protein 6.2 L (6.3-8.2) g/dL Albumin 2.8 L (3.5-5.0) g/dL Lipase (23-300) U/L Urine Ketones Trace H (Negative) 09/16/20 Range/Units 10:05 RBC 2.59 L (4.30-5.90) m/uL Hgb 8.9 L (13.0-17.5) gm/dL Hct 26.2 L (39.0-53.0) % MCV 100.8 H (80.0-100.0) fL Plt Count 134 L (150-450) k/uL PT (9.0-12.0) sec INR (<1.2) Sodium (137-145) mmol/L Potassium (3.5-5.1) mmol/L Chloride (98-107) mmol/L Carbon Dioxide (22-30) mmol/L BUN (9-20) mg/dL Glucose (74-99) mg/dL Plasma Lactic Acid Cristian (0.7-2.0) mmol/L Calcium (8.4-10.2) mg/dL Total Bilirubin (0.2-1.3) mg/dL AST (17-59) U/L Alkaline Phosphatase (38-126) U/L Ammonia (<30) umol/L Creatine Kinase (55-170) U/L Total Protein (6.3-8.2) g/dL Albumin (3.5-5.0) g/dL Lipase (23-300) U/L Urine Ketones (Negative) Chest x-ray: report reviewed Assessment and Plan (1) Gastrointestinal hemorrhage Narrative/Plan: 60-year-old male with a known history of decompensated alcoholic cirrhosis food previously been sober from alcohol but restarted drinking over the past 2-3 months and presented to the hospital with complaints of dizziness and lightheadedness. Patient had some episodes of GI bleeding with dark colored blood with nasogastric tube placement. Hemoglobin has been stable at 8.9 on repeat blood draw. At home patient is on maintenance therapy with lactulose, Aldactone and Lasix. the patient's alcohol level was found to be 140 on presentation. Previously he underwent an EGD for evaluation in 10/2019 with findings of small varices and a duodenal ulcer.unclear etiology, may be related to peptic ulcer disease, portal hypertensive gastropathy, varices, or other etiology. Current Visit: Yes Status: Acute Code(s): K92.2 - GASTROINTESTINAL HEMORRHAGE, UNSPECIFIED SNOMED Code(s): 96373840 (2) Alcoholic cirrhosis of liver with ascites Current Visit: Yes Status: Acute Code(s): K70.31 - ALCOHOLIC CIRRHOSIS OF LIVER WITH ASCITES SNOMED Code(s): 942707458 (3) Alcohol intoxication Current Visit: Yes Status: Acute Code(s): F10.929 - ALCOHOL USE, UNSPECIFIED WITH INTOXICATION, UNSPECIFIED SNOMED Code(s): 62159856 (4) Ascites Current Visit: Yes Status: Acute Code(s): R18.8 - OTHER ASCITES SNOMED Code(s): 331546034 (5) ETOH abuse Current Visit: Yes Status: Acute Code(s): F10.10 - ALCOHOL ABUSE, UNCOMPLICATED SNOMED Code(s): 42576622 Plan: supportive care Nothing by mouth Continue to monitor hemoglobin and hematocrit and transfuse as needed Continue ID IV Protonix and octreotide Plan for EGD tomorrow for further evaluation Alcohol abstinence Continue to monitor for signs or symptoms of alcohol withdrawal and treat Thank you for allowing us to participate in the care of the patient
[2020-09-17] MEDS: SODIUM CHLORIDE 0.9% 1,000 ML IV SCH ×3 (02:31→20:10)
[2020-09-17] MEDS: OCTREOTIDE 100 MCG/ML INJ IVP SCH ×3 (03:20→18:22)
[2020-09-17 08:19] LABS: ALT 41 U/L (4-49); AST 115 U/L (17-59); African American GFR (CKD) >90 (>60 ml/min/1.73 sqM); Albumin 2.7 g/dL (3.5-5.0); Alkaline Phosphatase 161 U/L (38-126); Anion Gap 6 mmol/L; Blood Urea Nitrogen 26 mg/dL (9-20); Calcium 7.8 mg/dL (8.4-10.2); Carbon Dioxide 20 mmol/L (22-30); Chloride 110 mmol/L (98-107); Glucose 134 mg/dL (74-99); Lipase 202 U/L (23-300); Non-African American GFR(CKD) >90 (>60 ml/min/1.73 sqM); Potassium 3.9 mmol/L (3.5-5.1); Sodium 136 mmol/L (137-145); Total Bilirubin 2.3 mg/dL (0.2-1.3); Total Protein 6.1 g/dL (6.3-8.2)
[2020-09-17] MEDS: PANTOPRAZOLE 40 MG/10 ML VIAL IVP SCH ×2 (08:39→20:14)
[2020-09-17 08:41] LABS: Basophils % (A) 0 %; Eosinophils # (A) 0.2 k/uL (0-0.7); Eosinophils % (A) 3 %; HCT 22.1 % (39.0-53.0); Lymphocytes # (A) 0.9 k/uL (1.0-4.8); Lymphocytes % (A) 14 %; MCHC 32.4 g/dL (31.0-37.0); MCV 101.8 fL (80.0-100.0); Macrocytosis Slight; Mean Platelet Volume 8.3; Monocytes # (A) 0.4 k/uL (0-1.0); Monocytes % (A) 6 %; Neutrophils # (A) 4.8 k/uL (1.3-7.7); Neutrophils % (A) 75 %; Platelet Count 98 k/uL (150-450); RBC 2.17 m/uL (4.30-5.90); WBC 6.4 k/uL (3.8-10.6)
[2020-09-17] MEDS: THIAMINE 200 MG in SODIUM CHLORIDE 0.9% 100 ML IVPB SCH (08:45)
[2020-09-17 08:52] LABS: HGB 7.2 gm/dL (13.0-17.5)
[2020-09-17 10:11] LABS: Poikilocytosis (M) Present
--- NOTE | 2020-09-17 10:55 | P.PN ---
Subjective Progress Note Date: 09/17/20 HISTORY OF PRESENT ILLNESS This 60-year-old gentleman with known history of alcoholic liver disease with l iver cirrhosis and ascites, also known history of GI bleed, hepatic encephalopathy, hyper, anemia [facility]. She currently drinks 1/2 pint of vodka daily, Last intake of alcohol was the day of admission 5 hours prior to admission.. He was initially seen in the emergency room via EMS due to complaints of lightheadedness and dizziness. The patient was noted to have some GI bleeding with blood in his vomitus. He denies any bleeding prior to presentation. The patient's had been taking lactulose, spironolactone and Lasix for treatment of decompensated cirrhosis at home. Previously had underwent EGD in 10/2019 with findings of small varices in the duodenal ulcer. Currently he is denying any abdominal pain. The patient had a nasogastric tube placed with a small amount of dark colored output. Current labs significant for hemoglobin stable at 8.9 from 8.9 previously 2.3 on admission with total bilirubin 1.7, alkaline phosphatase 224, AST 129 and ALT 44. Alcohol level CXL on presentation. 09/17: Patient is seen today in follow-up. He denies having any nausea or vom iting. He denies any shortness of breath, chest pain or cough. He has been afebrile, heart rate 83, blood pressure 157/73, pulse ox 100% on room air. WBC 6.4, hemoglobin 7.2, platelet count 98. Sodium 136, potassium 3.9, chloride 110, CO2 20, BUN 26 and creatinine 0.78. Blood sugar 134. Total bilirubin 2.3, AST 115, ALT 41, alkaline phosphatase 161. Urinalysis from yesterday was negative for infection. Patient has been seen by GI and is scheduled for EGD today. REVIEW OF SYSTEMS Constitutional: No fever, no chills, no night sweats. No weight change. Reports weakness, fatigue or lethargy. No daytime sleepiness. EENT: No headache. No blurred vision or double vision, no loss of vision. No loss of Hearing, no ringing in the ears, no dizziness. No nasal drainage or congestion. No epistaxis. No sore throat. Lungs: No shortness of breath, cough, no sputum production. No wheezing. Cardiovascular: No chest pain, no lower extremity edema. No palpitations. No paroxysmal nocturnal dyspnea. No orthopnea. No lightheadedness or dizziness. No syncopal episodes. Abdominal: No abdominal pain. No nausea, vomiting. No diarrhea. No constipation. No bloody or tarry stools. No loss of appetite. Genitourinary: No dysuria, increased frequency, urgency. No urinary retention. Musculoskeletal: No myalgias. No muscle weakness, no gait dysfunction, no frequent falls. No back pain. No neck pain. Integumentary: No wounds, no lesions. No rash or pruritus. No unusual bruising . No change in hair or nails. Neurologic: No aphasia. No facial droop. No change in mentation. No head injury. No headache. No paralysis. No paresthesia. Psychiatric: No depression. No anxiety. No mood swings. Endocrine: No abnormal blood sugars. No weight change. No excessive sweating or thirst. No cold intolerance. PHYSICAL EXAMINATION Gen: This is a 60-year-old male resting in bed. He appears to be comfortable. HEENT: Head is atraumatic, normocephalic. Pupils equal, round. Sclerae is anicteric. NECK: Supple. No JVD. No lymphadenopathy. No thyromegaly. LUNGS: Clear to auscultation. No wheezes or rhonchi. No intercostal retractions. HEART: Regular rate and rhythm. No murmur. ABDOMEN: Soft. Bowel sounds are present. No masses. No tenderness. EXTREMITIES: No pedal edema. No calf tenderness. NEUROLOGICAL: Patient is awake, alert and oriented x3. Cranial nerves 2 through 12 are grossly intact. ASSESSMENT AND PLAN 1. Acute GI bleed, most likely secondary to alcohol gastritic ulcer portal hypertension and esophageal varices. Consult with GI appreciated. Patient scheduled for EGD today. Continue Sandostatin 100 g IV push every 8 hours and Protonix 40 mg twice a day IV. 2. Alcoholic liver disease with history of metabolic encephalopathy, on maintenance lactulose, spironolactone. Start Inderal LA 80 mg daily, for tachycardia 3, sinus tachycardia, monitor for DTs, see [place] protocol, start Inderal LA 80 mg daily 4. Alcohol dependency severe, monitor for DTs, last intake was September 15, one half pint vodka Daily currently with alcohol intoxication, as noted in the emergency room eval, no alcohol level noted, 5. History of ascites, requiring abdominal paracenteses last October 2019 6. Hyperglycemia, patient denies any diabetes mellitus, currently on IV fluids running at 75 mL an hour of 0.9, doubt IV solution related hyperglycemia, check for A1c, Accu-Cheks before meals and at bedtime. 7. Enlarged red cell volume, start on thiamine, most likely secondary to impaired bone marrow production secondary to chronic alcohol 8. Hypocalcemia severe, secondary to nutritional deficiencies, supplementation provided 8. Elevated transaminase, with mild hyperbilirubinemia, continue to monitor. GI is following. DISCHARGE PLAN Home Impression and plan of care have been directed as dictated by the signing physician. Falguni Ha nurse practitioner acting as scribe for signing physician. Objective - Vital Signs Vital signs: Vital Signs Temp 100 F H 09/17/20 08:35 Pulse 83 09/17/20 08:35 Resp 18 09/17/20 08:35 BP 157/73 09/17/20 08:35 Pulse Ox 100 09/17/20 08:35 Intake & Output 09/16/20 09/17/20 09/17/20 18:59 06:59 18:59 Intake Total 1200 Output Total 700 Balance 1200 -700 Weight 97 kg Intake: Intake, IV Titration 1200 Amount Sodium Chloride 0.9% 1, 1200 000 ml @ 150 mls/hr IV . Q6H40M [facility] Rx#:[id number] Output: Urine 700 Other: Voiding Method Urinal Urinal # Voids 1 # Bowel Movements 2 - Labs CBC & Chem 7: 09/17/20 07:06 09/17/20 07:06 Labs: Abnormal Lab Results - Last 24 Hours (Table) 09/16/20 09/16/20 09/17/20 Range/Units 09:45 10:05 07:06 RBC 2.59 L 2.17 L (4.30-5.90) m/uL Hgb 8.9 L 7.2 L D (13.0-17.5) gm/dL Hct 26.2 L 22.1 L (39.0-53.0) % MCV 100.8 H 101.8 H (80.0-100.0) fL Plt Count 134 L (150-450) k/uL Sodium (137-145) mmol/L Chloride (98-107) mmol/L Carbon Dioxide (22-30) mmol/L BUN (9-20) mg/dL Glucose (74-99) mg/dL Calcium (8.4-10.2) mg/dL Total Bilirubin (0.2-1.3) mg/dL AST (17-59) U/L Alkaline Phosphatase (38-126) U/L Total Protein (6.3-8.2) g/dL Albumin (3.5-5.0) g/dL Urine Ketones Trace H (Negative) 09/17/20 Range/Units 07:06 RBC (4.30-5.90) m/uL Hgb (13.0-17.5) gm/dL Hct (39.0-53.0) % MCV (80.0-100.0) fL Plt Count (150-450) k/uL Sodium 136 L (137-145) mmol/L Chloride 110 H (98-107) mmol/L Carbon Dioxide 20 L (22-30) mmol/L BUN 26 H (9-20) mg/dL Glucose 134 H (74-99) mg/dL Calcium 7.8 L (8.4-10.2) mg/dL Total Bilirubin 2.3 H (0.2-1.3) mg/dL AST 115 H (17-59) U/L Alkaline Phosphatase 161 H (38-126) U/L Total Protein 6.1 L (6.3-8.2) g/dL Albumin 2.7 L (3.5-5.0) g/dL Urine Ketones (Negative)
[2020-09-17] MEDS ORDERED: IV FLUID CONTINUATION 1,000 ML IV ONE (12:26)
[2020-09-17] MEDS ORDERED: PROPOFOL 10 MG/ML 20 ML VIAL IV ONE (12:28)
--- NOTE | 2020-09-17 12:41 | P.PCN ---
Date of Procedure: 09/17/20 Procedure(s) Performed: BRIEF HISTORY: Patient is a 60-year-old, pleasant, White male scheduled for an upper endoscopy as part of evaluation of anemia and black tarry stools. He has history of liver cirrhosis with acute alcohol hepatitis. PROCED pyloricURE PERFORMED: Esophagogastroduodenoscopy. PREOPERATIVE DIAGNOSIS: upper GI bleed. IV sedation per anesthesia. PROCEDURE: After informed consent was obtained, the patient was brought into the endoscopy unit. IV sedation was administered by Anesthesia under continuous monitoring. Initially the Olympus GIF-140 video endoscope was inserted into the mouth. Esophagus intubated without any difficulty. It was gradually advanced into the stomach and duodenum and carefully examined. The bulb and the second part of the duodenum appeared normal. The scope at this time was withdrawn to the stomach, adequately insufflated with air, and upon careful examination, mucosa of the antrum, appeared normal. However there was mucosal congestion involving the body, cardia and the fundu consistent with portal hypertensive gastropathy. No active bleeding noted. e scope was then withdrawn into the esophagus. . Small distal esophageal varices with no red trisha signs. The GE junction was located at 39 cm from the incisors. The rest of the esophagus appeared normal. There were no erosions or ulcerations seen and the patient tolerated the procedure well. IMPRESSION: 1. Small esophageal varices with no stigmata of recent bleeding. 2. Moderate to severe portal hypertensive gastropathy. RECOMMENDATIONS: The findings of this examination were discussed with the patient . Diet will be advanced as tolerated. Monitor CBC daily. Continue Protonix 40 mg daily..
[2020-09-17] MEDS: PROPRANOLOL LA 80 MG CAP.SA.24H PO SCH (13:08)
[2020-09-17 16:10] LABS: % Iron Saturation 58.33 (15.00-50.00); Iron 168 ug/dL (65-175); Total Iron Binding Capacity 288 ug/dL (228-460)
[2020-09-17 16:16] LABS: Hemoglobin A1C 5.2 % (4.0-6.0)
[2020-09-17 16:19] LABS: Ferritin 113.8 ng/mL (22.0-322.0)
[2020-09-17 22:30] VITALS: RESP 18
[2020-09-18] MEDS: OCTREOTIDE 100 MCG/ML INJ IVP SCH ×2 (02:59→10:43)
[2020-09-18 08:15] VITALS: BP 109/53; PULSE 69; TEMP 98.6
[2020-09-18 08:52] LABS: HCT 22.7 % (39.0-53.0); HGB 7.5 gm/dL (13.0-17.5); MCH 33.9 pg (25.0-35.0); MCHC 32.9 g/dL (31.0-37.0); MCV 102.9 fL (80.0-100.0); Macrocytosis Slight; Mean Platelet Volume 8.5; RBC 2.21 m/uL (4.30-5.90); RDW 13.9 % (11.5-15.5); WBC 6.3 k/uL (3.8-10.6)
[2020-09-18] MEDS: THIAMINE 200 MG in SODIUM CHLORIDE 0.9% 100 ML IVPB SCH (08:54)
[2020-09-18] MEDS: PANTOPRAZOLE 40 MG/10 ML VIAL IVP SCH (08:55)
[2020-09-18] MEDS: PROPRANOLOL LA 80 MG CAP.SA.24H PO SCH (08:57)
[2020-09-18 09:00] LABS: ALT 51 U/L (4-49); AST 140 U/L (17-59); African American GFR (CKD) >90 (>60 ml/min/1.73 sqM); Albumin 2.9 g/dL (3.5-5.0); Alkaline Phosphatase 137 U/L (38-126); Anion Gap 7 mmol/L; Blood Urea Nitrogen 18 mg/dL (9-20); Calcium 8.4 mg/dL (8.4-10.2); Carbon Dioxide 19 mmol/L (22-30); Chloride 108 mmol/L (98-107); Glucose 114 mg/dL (74-99); Non-African American GFR(CKD) 83 (>60 ml/min/1.73 sqM); Potassium 4.1 mmol/L (3.5-5.1); Sodium 134 mmol/L (137-145); Total Bilirubin 2.5 mg/dL (0.2-1.3); Total Protein 6.4 g/dL (6.3-8.2)
[2020-09-18 09:02] LABS: Platelet Count 98 k/uL (150-450)
--- NOTE | 2020-09-18 09:47 | P.DS ---
Providers Date of admission: 09/16/20 02:32 Expected date of discharge: 09/18/20 Attending physician: Nicki Keita Consults: 09/16/20 02:32 Consult Physician Routine Consulting Provider: Murali Fine Consult Reason/Comments: gi bleed Do you want consulting provider notified?: Yes Primary care physician: [facility] Course: HISTORY OF PRESENT ILLNESS This 60-year-old gentleman with known history of alcoholic liver disease with liver cirrhosis and ascites, also known history of GI bleed, hepatic encephalopathy, hyper, anemia follows with [facility]. She currently drinks 1/2 pint of vodka daily, Last intake of alcohol was the day of admission 5 hours prior to admission.. He was initially seen in the emergency room via EMS due to complaints of lightheadedness and dizziness. The patient was noted to have some GI bleeding with blood in his vomitus. He denies any bleeding prior to presentation. The patient's had been taking lactulose, spironolactone and Lasix for treatment of decompensated cirrhosis at home. Previously had underwent EGD in 10/2019 with findings of small varices in the duodenal ulcer. Currently he is denying any abdominal pain. The patient had a nasogastric tube placed with a small amount of dark colored output. Current labs significant for hemoglobin stable at 8.9 from 8.9 previously 2.3 on admission with total bilirubin 1.7, alkaline phosphatase 224, AST 129 and ALT 44. Alcohol level CXL on presentation. 09/17: Patient is seen today in follow-up. He denies having any nausea or vomiting. He denies any shortness of breath, chest pain or cough. He has been afebrile, heart rate 83, blood pressure 157/73, pulse ox 100% on room air. WBC 6.4, hemoglobin 7.2, platelet count 98. Sodium 136, potassium 3.9, chloride 110, CO2 20, BUN 26 and creatinine 0.78. Blood sugar 134. Total bilirubin 2.3, AST 115, ALT 41, alkaline phosphatase 161. Urinalysis from yesterday was negative for infection. Patient has been seen by GI and is scheduled for EGD today. 09/18: Patient underwent EGD yesterday with Dr. Dasilva found small esophageal varices with no stigmata of recent bleeding. Moderate to severe portal hypertensive gastropathy. Recommendations were for Protonix 40 mg daily. Diet to be advanced as tolerated. Patient was going to sign himself out AMA yesterday afternoon but his told him he did not have a ride home so patient stayed overnight. He has had no vomiting today. No black stools. Repeat blood work reveals hemoglobin of 7.5, platelet count 98, sodium 134, potassium 4.1, ch loride 108, CO2 19. Blood sugar 114. Patient will be discharged home today in stable condition. ASSESSMENT AND PLAN 1. Acute GI bleed, most likely secondary to small esophageal varices 2. Alcoholic liver disease with history of metabolic encephalopathy 3. Sinus tachycardia 4. Alcohol dependency severe 5. History of ascites, requiring abdominal paracenteses last October 2019 6. Hyperglycemia, without diabetes mellitus. Hemoglobin A1c 5.2 7. Acute blood loss anemia with chronic anemia of alcoholism 8. Hypocalcemia severe 9. Transaminitis. 10. Thrombocytopenia secondary to alcohol abuse. DISCHARGE PLAN Home Impression and plan of care have been directed as dictated by the signing physician. Falguni Ha nurse practitioner acting as scribe for signing physician. Patient Condition at Discharge: Good Plan - Discharge Summary Discharge Rx Participant: No New Discharge Prescriptions: New Propranolol LA [Inderal LA] 80 mg PO DAILY #30 cap.sa.24h Pantoprazole Sodium [Protonix] 40 mg PO AC-BRKFST #30 tablet. Continue Furosemide [Lasix] 40 mg PO DAILY Lactulose [Cephulac] 10 gm PO DAILY Spironolactone 50 mg PO DAILY Multivitamins, Thera [Multivitamin (formulary)] 1 tab PO DAILY Discharge Medication List Furosemide [Lasix] 40 mg PO DAILY 09/16/20 [History] Lactulose [Cephulac] 10 gm PO DAILY 09/16/20 [History] Multivitamins, Thera [Multivitamin (formulary)] 1 tab PO DAILY 09/16/20 [History] Spironolactone 50 mg PO DAILY 09/16/20 [History] Pantoprazole Sodium [Protonix] 40 mg PO AC-BRKFST #30 tablet. 09/18/20 [Rx] Propranolol LA [Inderal LA] 80 mg PO DAILY #30 cap.sa.24h 09/18/20 [Rx] Follow up Appointment(s)/Referral(s): [facility] [Primary Care Provider] - 1 Week Tammi Dasilva MD [STAFF PHYSICIAN] - 2 Weeks Discharge Disposition: HOME SELF-CARE
--- NOTE | 2020-09-18 12:47 | P.PN ---
Subjective Progress Note Date: 09/18/20 Principal diagnosis: GI bleed This is a 60-year-old male patient who came in with complaints of GI bleed with reports of black tarry stools and anemia.. He has a history of alcohol abuse a history of liver cirrhosis with acute alcoholic hepatitis. He underwent an EGD yesterday which showed small esophageal varices with no stigmata of recent bleeding. Moderate to severe portal hypertensive gastropathy. He is seen and examined today. He denies any nausea, vomiting, or abdominal pain. He reports no further episodes of melena or GI bleed. Charge order is been placed patient is waiting on ride. Objective - Vital Signs Vital signs: Vital Signs Temp 98.6 F 09/18/20 08:00 Pulse 69 09/18/20 08:45 Resp 18 09/18/20 08:45 BP 109/53 09/18/20 08:00 Pulse Ox 100 09/18/20 08:00 Intake & Output 09/17/20 09/18/20 09/18/20 18:59 06:59 18:59 Intake Total 150 Output Total 500 Balance -350 Weight 96.9 kg Intake: IV 150 Output: Urine 500 Other: Voiding Method Urinal Toilet Toilet # Voids 1 2 - Exam General appearance: The patient is alert, oriented, appears in no acute distr ess. HET: Head is normocephalic and atraumatic. Conjunctiva pink. Sclera mildly icteric. Neck: Supple without lymphadenopathy. Abdomen: Soft, nontender, nondistended with bowel sounds. No guarding or rigidity. Extremities: Normal skin color and turgor. No pedal edema Skin: Mild Jaundice Neurological: No focal deficits. Alert and oriented 3. - Labs CBC & Chem 7: 09/18/20 08:19 09/18/20 08:19 Labs: Abnormal Lab Results - Last 24 Hours (Table) 09/17/20 09/18/20 09/18/20 Range/Units 07:06 08:19 08:19 RBC 2.21 L (4.30-5.90) m/uL Hgb 7.5 L (13.0-17.5) gm/dL Hct 22.7 L (39.0-53.0) % MCV 102.9 H (80.0-100.0) fL Plt Count 98 L (150-450) k/uL Sodium 134 L (137-145) mmol/L Chloride 108 H (98-107) mmol/L Carbon Dioxide 19 L (22-30) mmol/L Glucose 114 H (74-99) mg/dL % Saturation 58.33 H (15.00-50.00) Total Bilirubin 2.5 H (0.2-1.3) mg/dL AST 140 H (17-59) U/L ALT 51 H (4-49) U/L Alkaline Phosphatase 137 H (38-126) U/L Albumin 2.9 L (3.5-5.0) g/dL Assessment and Plan (1) Alcoholic cirrhosis of liver with ascites Narrative/Plan: 60-year-old male with a known history of decompensated alcoholic cirrhosis food previously been sober from alcohol but restarted drinking over the past 2-3 months and presented to the hospital with complaints of dizziness and lightheadedness. Patient had some episodes of GI bleeding with dark colored bl ood with nasogastric tube placement. Hemoglobin has been stable at 8.9 on repeat blood draw. At home patient is on maintenance therapy with lactulose, Aldactone and Lasix. the patient's alcohol level was found to be 140 on presentation. Previously he underwent an EGD for evaluation in 10/2019 with findings of small varices and a duodenal ulcer.unclear etiology, may be related to peptic ulcer disease, portal hypertensive gastropathy, varices, or other etiology. Status: Acute Code(s): K70.31 - ALCOHOLIC CIRRHOSIS OF LIVER WITH ASCITES SNOMED Code(s): 585304712 (2) Gastrointestinal hemorrhage Status: Acute Code(s): K92.2 - GASTROINTESTINAL HEMORRHAGE, UNSPECIFIED SNOMED Code(s): 89025402 (3) Anemia Status: Acute Code(s): D64.9 - ANEMIA, UNSPECIFIED SNOMED Code(s): 632663791 (4) Alcohol intoxication Status: Acute Code(s): F10.929 - ALCOHOL USE, UNSPECIFIED WITH INTOXICATION, UNSPECIFIED SNOMED Code(s): 83682402 (5) Ascites Status: Acute Code(s): R18.8 - OTHER ASCITES SNOMED Code(s): 209136201 (6) ETOH abuse Status: Acute Code(s): F10.10 - ALCOHOL ABUSE, UNCOMPLICATED SNOMED Code(s): 92164249 Plan: 1. Supportive care 2. Continue with Protonix 40 mg twice a day 3. Continue spironolactone 50 mg daily 4. Continue Lasix 40 mg daily 5. Patient is status post EGD 6. Alcohol abstinence 7. Patient will need close outpatient follow-up with gastroenterology Dr. Servando Dasilva I agree with the dictator's note, documented as a scribe by Sofia Duenas.
== END 2020-09-18 11:40 | disposition home or self-care (01) | DRG 432 ==
LOC: EC 23:02 → 3SCARD 09-16 02:32
PROVIDERS: ADMIT Family Medicine; ATTEND Family Medicine
PROC: 0DJ08ZZ Inspection of Upper Intestinal Tract, Via Natural or Artificial Opening Endoscopic (ICD-10-PCS; principal; 2020-09-17 07:45)
DX: K70.31 Alcoholic cirrhosis of liver with ascites (principal); I85.11 Secondary esophageal varices with bleeding; D62 Acute posthemorrhagic anemia; E87.2 Acidosis; K76.6 Portal hypertension; D69.59 Other secondary thrombocytopenia; E83.51 Hypocalcemia; E86.0 Dehydration; F10.229 Alcohol dependence with intoxication, unspecified; Z20.822 Contact with and (suspected) exposure to COVID-19; K31.89 Other diseases of stomach and duodenum; K70.11 Alcoholic hepatitis with ascites; Y90.6 Blood alcohol level of 120-199 mg/100 ml; R73.9 Hyperglycemia, unspecified; Z79.899 Other long term (current) drug therapy; Z87.11 Personal history of peptic ulcer disease; Z87.891 Personal history of nicotine dependence
CPT/HCPCS: 36415; 43235; 80053; 80320; 81003; 82140; 82550; 82728; 83036; 83540; 83550; 83605; 83690; 83735; 83880; 84100; 84484; 85025; 85027; 85610; 85730; 86850; 86900; 86901; 87635; 93005; 96361; 96372; 96374; 96375; 99291

== ENCOUNTER → 2023-08-25 | Outpatient (CLI) | payer OTHER ==
--- NOTE | 2023-08-25 15:56 | US ---
EXAMINATION TYPE: US liver DATE OF EXAM: 08/25/2023 COMPARISON: NONE CLINICAL INDICATION: Male, 63 years old with history of R74.01 ELEVATION OF LEVELS OF LIVER TRANSAMIN ASE L; Patient denies any signs or symptoms or relevant history at this time TECHNIQUE: Multiple sonographic images of the right upper quadrant are obtained. FINDINGS: EXAM MEASUREMENTS: Liver Length: 14.9 cm Gallbladder Wall: 0.2 cm CBD: 0.4 cm Right Kidney: 12.0 x 4.4 x 5.7 cm DRAPERY AND UPHOLSTERY ESTIMATOR NOTES: Pancreas: wnl Liver: wnl Gallbladder: Multiple small stones seen Evidence for sonographic Perea's sign: No CBD: wnl Right Kidney: wnl Cluster of vessels superior to right kidney, inferior to right liver lobe; unable to trace to origin. IMPRESSION: 1. Cholelithiasis. 2. 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 Consider CT with contrast for additional evalu ation.
== END | disposition home or self-care (01) ==
LOC: RADUSWWP 07:04
PROVIDERS: ATTEND Internal Medicine
DX: K80.20 Calculus of gallbladder without cholecystitis without obstruction (principal); N28.89 Other specified disorders of kidney and ureter; R74.01 Elevation of levels of liver transaminase levels
CPT/HCPCS: 76705

== ENCOUNTER → 2023-09-09 | Outpatient (CLI) | payer OTHER ==
--- NOTE | 2023-09-09 16:34 | XR ---
EXAMINATION TYPE: XR elbow complete LT DATE OF EXAM: 09/09/2023 3:36 PM CLINICAL INDICATION:Male, 63 years old with history of M25.522 L ELBOW XRAY; [facility] COMPARISON: None TECHNIQUE: XR elbow complete LT; elbow was examined in AP, lateral, and oblique projections. FINDINGS: No evidence of any acute osseous pathology, joint dislocation, or soft tissue swelling is n oted. No evidence of joint effusion is present. Olecranon process enthesophyte at the triceps insert ion. IMPRESSION: No evidence of acute fracture.
== END | disposition home or self-care (01) ==
LOC: RADXRMAIN 15:20
PROVIDERS: ATTEND Internal Medicine
DX: M25.522 Pain in left elbow (principal); W19.XXXA Unspecified fall, initial encounter

== ENCOUNTER → 2023-09-17 | Outpatient (CLI) | payer OTHER ==
[2023-09-17 13:36] VITALS: BP 148/73; PULSE 58; RESP 14
--- NOTE | 2023-09-17 14:23 | P.PAINPG ---
PQRS Measure Charge Sheet Comment: HISTORY OF PRESENT ILLNESS: A 63 yr old male as a referral from Dr Montoya presents today w severe and chronic LBP x 2 yrs secondary to DDD, spondylosis and facet arthropathy without myelopathy for evaluation. Pt states pain level is provoked at 10 /10 in intensity, constant, localized in the center lumbar spine, predominantly axial, achy in character w occasional shooting pain towards the upper spine. Pain is provoked by bending, lifting, twisting. Pain is alleviated by OTC medications, repositioning and rest. Oswestry axial pain score at 26. PMH: OA, Liver Cirrhosis PSH: EGD (2020) SH: Never smoker, Daily ETOH abuse, No illicit drug use FH: Mo- No Reported History. Fa- No Reported History. All: See list Meds: See list REVIEW OF ORGAN SYSTEMS: CONSTITUTIONAL: No fevers or chills. No recent weight loss. NEUROLOGICAL: + numbness and tingling along the distal extremities. No seizure disorders or headaches. MUSCULOSKELETAL: + pain PSYCHIATRIC: Denies current depression or suicidal thoughts. Physical Examinations : Constitutional : Cooperative , not in acute distress . Neurologic : Cranial nerve II to XII intact. No focal neurological deficits. Psychiatric : alert & oriented x 3. Matching mood & appropriate affect. Judgment & insight intact. Musculoskeletal : Cervical Spine Motor strength in the deltoid and biceps: Normal right side. Normal Left side Motor strength biceps and the wrist extensors: Normal right side . Normal left side Motor strength in the triceps muscle: Normal right side. Normal left side Deep tendon reflexes: Normal at the biceps. Normal at Brachioradialis. Normal at triceps Vertebral body tenderness to deep palpation over Cervical facet loading test: positive b ilaterally Spurling test: positive bilaterally Neck distraction test: positive bilaterally Sinai sign: positive bilaterally Lumbar spine Motor strength lower extremities ,thigh and legs 5/5 Right side , 5/5 Left side Deep tendon reflexes : Normal Knee Jerk. Normal Ankle Jerk Vertebral body tenderness over Marinelli Test positive Lumbar facet Loading Test: positive Right / positive Left Range of motion of the lumbar spine Flexion 30 degrees, extension 10 degrees Straight Leg Raise test: Left/ Right positive at degrees Eleni test: positive right / positive left. Severe tenderness over the Sacroiliac joint on the Right / Left sides Gaenslen test: positive bilaterally Seated flexion test: positive bilaterally. Sacral spine : Severe tenderness over the Sacroiliac joint: right side / left side Range of motion: Flexion of the lumbar spine <60 degrees Range of motion: Extension of the lumbar spine <20 degrees Gaenslen's Test positive Eleni test: positive right side / left side Thigh Thrust Test Sacral Thrust Test Imaging: None on file Assessment/ Plan : Lumbar stenosis Recommendation of PT x 6 wks , MRI non contrast of the lumbar spine M51.36. Celebrex 100mg #60 w 1 RF. Use, side effects, adverse reactions, safe storage d iscussed. Pt acknowledged understanding. All questions answered. I have spent greater than 30 minutes on patient care today. Dr Flor was available by phone for the evaluation of this patient. The time was used to review the medical records including relevant urine studies and Prescription history (MAPs), review of the available imaging, evaluation and examination of the patient, coordination of care with the medical staff and if applicable referring physicians, as well as creation of the medical record PQRS Narrative: Smoking Status Never smoker Home Medications: Ambulatory Orders Furosemide [Lasix] 40 mg PO DAILY 09/16/20 Lactulose [Cephulac] 10 gm PO DAILY 09/16/20 Multivitamins, Thera [Multivitamin (formulary)] 1 tab PO DAILY 09/16/20 Spironolactone 50 mg PO DAILY 09/16/20 Pantoprazole Sodium [Protonix] 40 mg PO MARCO ANTONIO-ZACKARYKFSRock #30 tablet. 09/18/20 Propranolol LA [Inderal LA] 80 mg PO DAILY #30 cap.sa.24h 09/18/20 Controlled Substance Measures - Controlled Substance Measures Is patient prescribed a controlled substance at discharge?: No
== END ==
LOC: PNWHC3 10:06
PROVIDERS: ATTEND Specialist
DX: M51.16 Intervertebral disc disorders with radiculopathy, lumbar region (principal); M48.061 Spinal stenosis, lumbar region without neurogenic claudication; M19.90 Unspecified osteoarthritis, unspecified site; M54.2 Cervicalgia
CPT/HCPCS: 99211

== ENCOUNTER 2023-12-23 05:44 | Day surgery (SDC) | payer OTHER ==
[2023-12-18 16:47] VITALS: BMI 36.8
[2023-12-23] MEDS ORDERED: ALPRAZolam 0.5 MG TAB PO PRN (05:59)
[2023-12-23] MEDS ORDERED: ALPRAZolam 0.25 MG TAB PO PRN (05:59)
[2023-12-23] MEDS ORDERED: HEPARIN SODIUM,PORCINE 10,000 UNIT in SODIUM CHLORIDE 0.9% 1,000 ML IRRIGATION PRN (05:59)
[2023-12-23] MEDS ORDERED: SODIUM CHLORIDE 0.9% 1,000 ML in EMPTY BAG 1 BAG IV SCH (05:59)
[2023-12-23] MEDS ORDERED: NITROGLYCERIN SL TABS 0.4 MG TAB SUBLINGUAL PRN (05:59)
[2023-12-23] MEDS ORDERED: HEPARIN SODIUM,PORCINE (1 ML) 2,500 UNIT in SODIUM CHLORIDE 0.9% 250 ML IRRIGATION PRN (05:59)
[2023-12-23] MEDS: ASPIRIN 325 MG TAB PO ONE (06:20)
[2023-12-23] MEDS: SODIUM CHLORIDE 0.9% 1,000 ML IV ONE (06:30)
[2023-12-23 07:03] LABS: Basophils % (A) 1 %; Eosinophils # (A) 0.3 k/uL (0-0.7); Eosinophils % (A) 8 %; HCT 43.5 % (39.0-53.0); HGB 14.2 gm/dL (13.0-17.5); Lymphocytes % (A) 28 %; MCH 31.6 pg (25.0-35.0); MCHC 32.7 g/dL (31.0-37.0); MCV 96.5 fL (80.0-100.0); Monocytes # (A) 0.4 k/uL (0-1.0); Monocytes % (A) 10 %; Neutrophils # (A) 1.9 k/uL (1.3-7.7); Neutrophils % (A) 50 %; Platelet Count 118 k/uL (150-450); RDW 14.3 % (11.5-15.5); WBC 3.7 k/uL (3.8-10.6)
[2023-12-23 07:23] LABS: African American GFR (CKD) >90 (>60 ml/min/1.73 sqM); Anion Gap 6 mmol/L; Blood Urea Nitrogen 22 mg/dL (9-20); Carbon Dioxide 20 mmol/L (22-30); Chloride 107 mmol/L (98-107); Glucose 99 mg/dL (74-99); Non-African American GFR(CKD) >90 (>60 ml/min/1.73 sqM); Sodium 133 mmol/L (137-145)
[2023-12-23 07:28] LABS: Potassium 4.9 mmol/L (3.5-5.1)
[2023-12-23] MEDS ORDERED: LIDOCAINE 1% INJ 10MG/ML (20 ML MDV) ONE (07:28)
[2023-12-23] MEDS ORDERED: VERAPAMIL 2.5 MG/ML 2 ML AMP ONE (07:28)
[2023-12-23 07:30] VITALS: RESP 16; TEMP 98.5
[2023-12-23] MEDS ORDERED: fentaNYL (PF) 50 MCG/ML 2 ML AMP ONE (07:37)
[2023-12-23] MEDS: LIDOCAINE 2% (PF) 20 MG/ML 5 ML VIAL SQ ONE (07:40)
[2023-12-23] MEDS: fentaNYL (PF) 50 MCG/1 ML VIAL IVP ONE (07:40)
[2023-12-23] MEDS ORDERED: HEPARIN SODIUM 1,000 UN/ML (10ML VL) ONE (07:40)
[2023-12-23] MEDS: VERAPAMIL 2.5 MG/ML 4 ML VIAL INTRAARTER ONE (07:42)
[2023-12-23] MEDS: HEPARIN SODIUM 1,000 UN/ML (10ML VL) IVP ONE (07:46)
[2023-12-23] MEDS: IOPAMIDOL-370 100ML BTL INTRATHECA ONE (07:59)
[2023-12-23] MEDS ORDERED: RX INFO: IV CONTRAST WAS GIVEN 1 EACH MISC MISCELLANE PRN (08:12)
[2023-12-23] MEDS ORDERED: RABEPRAZOLE SODIUM 20 MG PO PRN (08:13)
[2023-12-23] MEDS ORDERED: SODIUM CHLORIDE 0.9% 1,000 ML IV SCH (08:15)
--- NOTE | 2023-12-23 08:17 | P.CARDCATH ---
Date of Procedure: 12/23/23 Description of Procedure: Cardiac Catheterization: The patient is a 63-year-old male with a history of hypertension prior history of liver disease who has been complaining of dyspnea on exertion and had an abnormal MPI. Recommendations were made regarding cardiac catheterization, the risks and the complications were discussed with the patient who is in full understanding and agreement. Procedure Description: Patient was brought to calibration laboratory technician in fasting semi-sedated state after receiving Fentanyl and Benadryl achieiving moderate conscious sedated state. Using Xylocaine Anesthesia and modified Seldinger technique, a 6-[place]izen [place] sheath was introduced in the right radial artery . Subsequently, selective coronary angiography was performed using a 5-[place] 3.5 bend Lin catheter. Multiple views of the coronary artery including hemiaxial views were obtained. Following that, catheter and sheath were removed. Hemostasis was obtained with deployment of vascular band . There was no immediate complication. Patient was returned to room in stable condition. Of note, the patient received a total of 5000 units of intravenous heparin as well as intra-arterial verapamil. Findings: Left main: This is a large size vessel, bifurcating into LAD and left circumflex, left main has no obstructive disease LAD: This is a large size vessel, reaching to the apex, giving rise to a large diagonal branch proximally there is another smaller diagonal branch in the midsegment. The LAD and its branches have no obstructive disease. Left circumflex: This is a nondominant large size vessel giving rise to a large obtuse marginal branch in the distal segment. The left circumflex and its branches have no obstructive disease RCA: This is a large dominant vessel, bifurcating distally to PDA and PLV, the right coronary artery and its branches have no obstructive disease. Left Ventriculogram: Not performed Conclusion: 1. Normal coronary arteries 2. Right dominance Recommendations: I have recommended to continue medical therapy with the aggressive coronary risks modifications. The findings and the recommendations were discussed with the patient and the family and they were in full understanding and agreement. Duration of sedation is 20 minutes.
[2023-12-23] MEDS ORDERED: NON FORMULARY DRUG (Spironolactone [Spironolactone] 50 MG Tablet) PO SCH (09:00)
[2023-12-23] MEDS ORDERED: PROPRANOLOL LA 80 MG CAP.SA.24H PO SCH (09:00)
[2023-12-23 12:09] VITALS: BP 123/65; PULSE 52
== END 2023-12-23 12:10 | disposition home or self-care (01) ==
LOC: CATHCVL 05:44
PROVIDERS: ATTEND Internal Medicine Interventional Cardiology
DX: I34.0 Nonrheumatic mitral (valve) insufficiency (principal); I10 Essential (primary) hypertension; K70.30 Alcoholic cirrhosis of liver without ascites; Z87.891 Personal history of nicotine dependence; Z79.899 Other long term (current) drug therapy
CPT/HCPCS: 93454; 80048; 85025; C1769 ×2; C1894; J1644; Q9967; J2001; J3010

== ENCOUNTER → 2024-09-09 | Outpatient (CLI) | payer OTHER ==
[2024-09-09 15:41] LABS: Basophils # (A) 0.05 X 10*3/uL (0.00-0.10); Basophils % (A) 1.4 %; Eosinophils # (A) 0.01 X 10*3/uL (0.04-0.35); Eosinophils % (A) 0.3 %; HCT 42.7 % (39.6-50.0); HGB 14.4 g/dL (13.0-17.0); Lymphocytes # (A) 0.83 X 10*3/uL (0.90-5.00); MCH 31.5 pg (27.0-32.0); MCHC 33.7 g/dL (32.0-37.0); MCV 93.4 FL (80.0-97.0); Mean Platelet Volume 11.2 FL (9.5-12.2); Monocytes # (A) 0.38 X 10*3/uL (0.20-1.00); Monocytes % (A) 10.5 %; NRBC Per 100 WBC 0 X 10*3/uL (0.00-0.01); Neutrophils # (A) 2.33 X 10*3/uL (1.80-7.70); Neutrophils % (A) 64.5 %; Platelet Count 125 X 10*3/uL (140-440); RBC 4.57 X 10*6/uL (4.40-5.60); RDW 14.3 % (11.5-14.5); WBC 3.61 X 10*3/uL (4.50-10.00)
[2024-09-09 16:07] LABS: ALT 42 U/L (10-49); AST 64 U/L (14-35); Albumin 3.6 g/dL (3.8-4.9); Albumin/Globulin Ratio 1.06 Ratio (1.60-3.17); Alkaline Phosphatase 245 U/L (41-126); BUN/Creat Ratio 12.38 Ratio (12.00-20.00); Blood Urea Nitrogen 9.9 mg/dL (9.0-27.0); Calcium 8.8 mg/dL (8.7-10.3); Carbon Dioxide 25.2 mmol/L (21.6-31.8); Chloride 105 mmol/L (96-109); Globulin 3.4 g/dL (1.6-3.3); Glucose 105 mg/dL (70-110); Potassium 4.1 mmol/L (3.5-5.5); Sodium 140 mmol/L (135-145); Total Bilirubin 2.1 mg/dL (0.3-1.2)
== END | disposition home or self-care (01) ==
LOC: LABWHC1 11:33
PROVIDERS: ATTEND Nurse Practitioner Family
DX: K70.30 Alcoholic cirrhosis of liver without ascites (principal)
CPT/HCPCS: 36415; 80053; 82105; 85025

== ENCOUNTER → 2024-12-20 | Outpatient (CLI) | payer OTHER ==
[2024-12-20 20:56] LABS: Basophils # (A) 0.05 X 10*3/uL (0.00-0.10); Basophils % (A) 1.8 %; Eosinophils # (A) 0.09 X 10*3/uL (0.04-0.35); Eosinophils % (A) 3.2 %; HCT 43.7 % (39.6-50.0); HGB 14.7 g/dL (13.0-17.0); Immature Grans, Automated 0 %; Lymphocytes % (A) 28.8 %; MCH 32.2 pg (27.0-32.0); MCHC 33.6 g/dL (32.0-37.0); MCV 95.8 FL (80.0-97.0); Mean Platelet Volume 11.4 FL (9.5-12.2); Monocytes # (A) 0.31 X 10*3/uL (0.20-1.00); Monocytes % (A) 11.2 %; NRBC Per 100 WBC 0 X 10*3/uL (0.00-0.01); Neutrophils # (A) 1.53 X 10*3/uL (1.80-7.70); Platelet Count 124 X 10*3/uL (140-440); RBC 4.56 X 10*6/uL (4.40-5.60); RDW 14.1 % (11.5-14.5); WBC 2.78 X 10*3/uL (4.50-10.00)
[2024-12-20 21:50] LABS: ALT 42 U/L (10-49); AST 68 U/L (14-35); Albumin 3.4 g/dL (3.8-4.9); Albumin/Globulin Ratio 0.97 Ratio (1.60-3.17); Alkaline Phosphatase 195 U/L (41-126); Blood Urea Nitrogen 14.4 mg/dL (9.0-27.0); Carbon Dioxide 24.3 mmol/L (21.6-31.8); Chloride 104 mmol/L (96-109); Globulin 3.5 g/dL (1.6-3.3); Glucose 95 mg/dL (70-110); Potassium 4.7 mmol/L (3.5-5.5); Sodium 140 mmol/L (135-145); Total Bilirubin 1.6 mg/dL (0.3-1.2); Total Protein 6.9 g/dL (6.2-8.2)
== END | disposition home or self-care (01) ==
LOC: LABWHC1 13:11
PROVIDERS: ATTEND Nurse Practitioner Family
DX: K70.30 Alcoholic cirrhosis of liver without ascites (principal)
CPT/HCPCS: 36415; 80053; 82105; 85025